=== PATIENT | female | born 1935 | race Caucasian/White ===

== ENCOUNTER 2022-02-26 23:38 | Inpatient (IN) | payer MEDICARE, OTHER ==
--- NOTE | 2022-02-27 00:03 | ED ---
Recheck HPI - General Chief Complaint: Extremity Injury, Lower Stated Complaint: Right hip injury Time Seen by Provider: 02/26/22 23:55 Source: EMS, RN notes reviewed, old records reviewed Mode of arrival: EMS Limitations: no limitations - History of Present Illness Initial Comments: This is an 86-year-old female to the emergency department for evaluation patient presents today for evaluation in transfer patient accepted in transfer for fall fall with right hip fracture. -: hour(s) Returns Today for: persistent/worsening pain related to initial visit Symptoms Since Prior Visit: worsening pain Treatments Prior to Arrival: Given Pain Meds on - Related Data Home Medications Medication Instructions Recorded Confirmed Cholecalciferol [Vitamin D3 (25 50 mcg PO DAILY 01/22/14 02/27/22 Mcg = 1000 Iu)] Potassium Chloride [Klor-Con 20] 20 meq PO BID 01/22/14 02/27/22 Brimonidine Tartrate [Alphagan P 1 drop LEFT EYE BID 02/27/22 02/27/22 0.2% Ophth Soln] Diclofenac Sodium Gel [Voltaren 2 - 4 gm TOPICAL TID PRN 02/27/22 02/27/22 Gel] Ferrous Sulfate [Iron (65 MG 325 mg PO Q48H 02/27/22 02/27/22 Elemental)] Furosemide [Lasix] 20 mg PO DAILY PRN 02/27/22 02/27/22 Isosorbide Mononitrate ER [Imdur] 60 mg PO BID 02/27/22 02/27/22 Latanoprost [Latanoprost 0.005%] 1 drop BOTH EYES HS 02/27/22 02/27/22 Levothyroxine Sodium 100 mcg PO DAILY 02/27/22 02/27/22 Omeprazole 40 mg PO DAILY 02/27/22 02/27/22 Timolol 0.5% Ophth Soln [Timoptic 1 drop LEFT EYE BID 02/27/22 02/27/22 0.5% Ophth Soln] hydrALAZINE HCL [Apresoline] 100 mg PO TID 02/27/22 02/27/22 Previous Rx's Medication Instructions Recorded Acetaminophen Tab [Tylenol] 650 mg PO Q4HR PRN tab 03/01/22 Aspirin 81 mg PO BID tab 03/01/22 Docusate [Colace] 100 mg PO BID #60 capsule 03/01/22 Fluticasone Nasal [place] [Flonase 2 spray EA NOSTRIL DAILY PRN ml 03/01/22 Nasal [place]] Gabapentin [Neurontin] 300 mg PO BID #6 cap 03/01/22 Magnesium Hydroxide [Milk of 2,400 mg PO DAILY PRN ml 03/01/22 Magnesia Concentrate] Multivitamins, Thera [Multivitamin 1 each PO DAILY@1200 tab 03/01/22 (formulary)] Na Phos,M-B/Na Phos,Di-Ba [Fleet 133 ml RECTAL DAILY PRN each 03/01/22 Adult] Sennosides-Docusate Sodium 2 each PO HS tab 03/01/22 [Senokot-S] traMADol HCl [Ultram] 50 mg PO Q6HR PRN #4 tab 03/01/22 HYDROcodone/APAP 5-325MG [[place] 5] 1 each PO Q4HR PRN #30 tab 03/02/22 Allergies Allergy/AdvReac Type Severity Reaction Status Date / Time No Known Allergies Allergy Verified 02/27/22 07:27 Review of Systems ROS Statement: Those systems with pertinent positive or pertinent negative responses have been documented in the HPI. ROS Other: All systems not noted in ROS Statement are negative. 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 GI BLEED RELATED TO PLAVIX FROM STENT IN 2012, 2 UNITS PRBC RECEIVED Last Myocardial Infarction Date:: 01-22-2014 History of Any Multi-Drug Resistant Organisms: None Reported Past Surgical History: Heart Catheterization With Stent, Orthopedic Surgery Additional Past Surgical History / Comment(s): HEART CATH IN 2012 AND 2013 WITH STENT TO RCA Past Anesthesia/Blood Transfusion Reactions: No Reported Reaction Date of Last Stent Placement:: 01-22-2014 Past Psychological History: No Psychological Hx Reported Past Alcohol Use History: None Reported Past Drug Use History: None Reported - Past Family History Mother Family Medical History: No Reported History Father Family Medical History: Liver Disease, Renal Disease General Exam Limitations: no limitations General appearance: alert, in no apparent distress, anxious Head exam: Present: atraumatic, normocephalic, normal inspection Eye exam: Present: normal appearance, PERRL, EOMI. Absent: scleral icterus, conjunctival injection, periorbital swelling ENT exam: Present: normal exam, mucous membranes moist Neck exam: Present: normal inspection. Absent: tenderness, meningismus, lymphadenopathy Respiratory exam: Present: normal lung sounds bilaterally. Absent: respiratory distress, wheezes, rales, rhonchi, stridor Cardiovascular Exam: Present: regular rate, normal rhythm, normal heart sounds. Absent: systolic murmur, diastolic murmur, rubs, gallop, clicks GI/Abdominal exam: Present: soft, normal bowel sounds. Absent: distended, tenderness, guarding, rebound, rigid Extremities exam: Present: tenderness (Right hip pain), normal capillary refill. Absent: full ROM, pedal edema, joint swelling, calf tenderness Back exam: Present: normal inspection Neurological exam: Present: alert, oriented X3, CN II-XII intact Psychiatric exam: Present: normal affect, normal mood Skin exam: Present: warm, dry, intact, normal color. Absent: rash Course Vital Signs 02/26/22 02/27/22 02/27/22 23:44 01:46 03:21 Temperature 98.3 F Pulse Rate 100 94 92 Respiratory 18 18 18 Rate Blood Pressure 176/94 154/114 157/92 O2 Sat by Pulse 96 94 L 95 Oximetry 02/27/22 02/27/22 02/27/22 05:11 08:40 14:00 Temperature Pulse Rate 82 78 70 Respiratory 18 16 18 Rate Blood Pressure 163/77 174/78 148/80 O2 Sat by Pulse 99 99 98 Oximetry - Reevaluation(s) Reevaluation #1: 02/27/22 Medical record is reviewed Patient informed results and questions answered Patient symptoms are improved here in the ER - Consultations Consultation #1: Spoke with orthopedics will admit the patient for surgery Medical Decision Making - Medical Decision Making 86 male presents today for evaluation. She presents for evaluation of fall, fol low with right hip pain. Positive right hip fracture. We will admit for surgical treatment - Lab Data Result diagrams: 03/02/22 06:18 02/28/22 06:28 Disposition Clinical Impression: Fall, Closed right hip fracture Disposition: ADMITTED IP TO THIS HOSP Condition: Stable Is patient prescribed a controlled substance at d/c from ED?: No Time of Disposition: 00:10
[2022-02-27] MEDS ORDERED: ONDANSETRON 4 MG/2 ML VIAL IVP PRN (00:04)
[2022-02-27] MEDS ORDERED: NALOXONE 0.4 MG/ML 1 ML VIAL IV PRN (00:04)
[2022-02-27] MEDS: SODIUM CHLORIDE 0.9% 1,000 ML IV SCH ×2 (00:23→13:49)
[2022-02-27] MEDS: MORPHINE SULFATE 4 MG/ML SYRINGE IV PRN ×4 (01:40→14:54)
[2022-02-27] MEDS ORDERED: traMADol 50 MG TAB PO PRN ×2 (09:58→15:08)
[2022-02-27] MEDS ORDERED: ACETAMINOPHEN TAB 325 MG TAB PO PRN (09:58)
[2022-02-27] MEDS ORDERED: MAGNESIUM HYDROXIDE 2,400 MG/10 ML CUP PO PRN (09:58)
[2022-02-27] MEDS ORDERED: HYDROmorphone 0.5 MG/0.5 ML SYRINGE IVP PRN ×3 (09:58)
[2022-02-27] MEDS ORDERED: NA PHOS,M-B/NA PHOS,DI-BA 133 ML ENEMA RECTAL PRN (09:58)
[2022-02-27] MEDS ORDERED: bisacodyL 10 MG SUPP RECTAL PRN (09:58)
[2022-02-27] MEDS ORDERED: HYDROcodone/APAP 5-325MG 1 EACH TAB PO PRN ×2 (10:04)
--- NOTE | 2022-02-27 10:31 | XR ---
EXAMINATION TYPE: XR chest 1V DATE OF EXAM: 02/27/2022 10:25 AM COMPARISON: none TECHNIQUE: XR chest 1V Frontal view of the chest. CLINICAL INDICATION:Female, 86 years old with history of Trauma; FINDINGS: Lungs/Pleura: There is no evidence of pleural effusion, focal consolidation, or pneumothorax. Pulmonary vascularity: Unremarkable. Heart/mediastinum: Cardiomediastinal silhouette is unremarkable. Musculoskeletal: Degenerative changes of the shoulder joints. Scoliosis changes to the spine. IMPRESSION: No acute cardiopulmonary disease/process.
--- NOTE | 2022-02-27 10:33 | XR ---
EXAMINATION TYPE: XR Hip RT and AP Pelvis DATE OF EXAM: 02/27/2022 10:24 AM INDICATION: Patient age:Female; 86 years old; Reason for study: reported right hip fracture; COMPARISON: None. TECHNIQUE: The right hip was examined in the frontal and lateral projections and a AP pelvis. FINDINGS: There is a fracture through the right basicervical femoral neck/intertrochanteric region wi th lucency extending to the metaphysis region. No additional fractures. Multilevel degeneration vidales es of the spine. Calcification projecting over the pelvis could represent degenerating calcified fibr oid. IMPRESSION: Varus angulated right femoral neck/intertrochanteric fracture.
[2022-02-27 11:25] LABS: Basophils # (A) 0.02 X 10*3/uL (0.00-0.10); Basophils % (A) 0.3 %; Eosinophils # (A) 0.02 X 10*3/uL (0.04-0.35); Eosinophils % (A) 0.3 %; HCT 30.3 % (37.2-46.3); HGB 9.8 g/dL (12.0-15.0); Immature Grans, Automated 0.3 %; Lymphocytes # (A) 1.01 X 10*3/uL (0.90-5.00); Lymphocytes % (A) 15.6 %; MCH 29.1 pg (27.0-32.0); MCHC 32.3 g/dL (32.0-37.0); MCV 89.9 fL (80.0-97.0); Mean Platelet Volume 9.7 fL (9.5-12.2); Monocytes # (A) 0.58 X 10*3/uL (0.20-1.00); Monocytes % (A) 8.9 %; NRBC Per 100 WBC 0 /100 WBCS (0.0-0.0); Neutrophils # (A) 4.84 X 10*3/uL (1.80-7.70); Neutrophils % (A) 74.6 %; Platelet Count 204 X 10*3/uL (140-440); RBC 3.37 X 10*6/uL (4.10-5.20); RDW 13.9 % (11.5-14.5); WBC 6.49 X 10*3/uL (4.50-10.00)
[2022-02-27 11:40] LABS: African American GFR (CKD) 53.5 (60.0-200.0); Albumin 3.5 g/dL (3.8-4.9); Albumin/Globulin Ratio 0.72 (1.60-3.17); Anion Gap 8.7 mmol/L (10.00-18.00); BUN/Creat Ratio 10.65 Ratio (12.00-20.00); Blood Urea Nitrogen 11.5 mg/dL (9.0-27.0); Calcium 8.6 mg/dL (8.7-10.3); Carbon Dioxide 26.3 mmol/L (20.0-27.5); Globulin 4.8 g/dL (1.6-3.3); Non-African American GFR(CKD) 46.1 (60.0-200.0); Potassium 3.3 mmol/L (3.5-5.5); Total Bilirubin 0.5 mg/dL (0.30-1.20); Total Protein 8.3 g/dL (6.2-8.2)
[2022-02-27] MEDS ORDERED: POTASSIUM CHLORIDE ER 20 MEQ TAB.ER PO STA (15:08)
--- NOTE | 2022-02-27 15:14 | P.CONS ---
History of Present Illness - Reason for Consult Preoperative clearance - History of Present Illness Patient is a present at 86 yo female admitted to the hospital after mechanical fall and fracture of the right hip, intertrochanteric fracture. Wheezing was consulted for preoperative clearance patient does have history of coronary artery disease EKG is not available at this time will be ordered patient doesn't have any symptoms of chest pain patient had stents placed many years ago more than 10 years ago and patient is presently on aspirin after a few months of Plavix which led to GI bleed. After GI bleed Plavix was discontinued and patient continued to be only on aspirin. Patient denied any fever chills. Patient is bit dehydrated with the low sodium of 133 and patient is receiving IV fluids patient denied any diarrhea nausea vomiting. REVIEW OF SYSTEMS: CONSTITUTIONAL: No fever, no malaise, no fatigue. HEENT: No recent visual problems or hearing problems. Denied any sore throat. CARDIOVASCULAR: No chest pain, orthopnea, PND, no palpitations, no syncope. PULMONARY: No shortness of breath, no cough, no hemoptysis. GASTROINTESTINAL: No diarrhea, no nausea, no vomiting, no abdominal pain. NEUROLOGICAL: No headaches, no weakness, no numbness. HEMATOLOGICAL: Denies any bleeding or petechiae. GENITOURINARY: Denies any burning micturition, frequency, or urgency. MUSCULOSKELETAL/RHEUMATOLOGICAL: As mentioned in the interval history pain in the right hip ENDOCRINE: Denies any polyuria or polydipsia. The rest of the 14-point review of systems is negative. PHYSICAL EXAMINATION: GENERAL: The patient is alert and oriented x3, not in any acute distress. Well developed, well nourished. HEENT: Pupils are round and equally reacting to light. EOMI. No scleral icterus. No conjunctival pallor. Normocephalic, atraumatic. No pharyngeal erythema. No thyromegaly. CARDIOVASCULAR: S1 and S2 present. No murmurs, rubs, or gallops. PULMONARY: Chest is clear to auscultation, no wheezing or crackles. ABDOMEN: Soft, nontender, nondistended, normoactive bowel sounds. No palpable organomegaly. MUSCULOSKELETAL: Deferred to orthopedic surgery EXTREMITIES: No cyanosis, clubbing, or pedal edema. NEUROLOGICAL: Gross neurological examination did not reveal any focal deficits. SKIN: No rashes. Assessment and plan -Right hip intertrochanteric fracture, preoperative clearance patient is low operative risk for hip surgery. We will obtain an EKG to make sure there are no acute ST-T wave changes patient doesn't have any symptoms of chest pain at this time. Patient is fairly functional. Pain management: Avoid opiates, benzodiazepines barbiturates and anticholinergic medications patient will be started on tramadol and Tylenol for pain if that doesn't help may be a lower dose norco is okay, Dilaudid will be discontinued. Next line-coronary artery disease patient will be resumed on aspirin whenever it's appropriate continue with statin. -Type 2 diabetes mellitus patient was started on sliding scale insulin hold off oral medications -Hypertension -hyperlipidemia DVT prophylaxis: As per primary service Past Medical History Past Medical History: Coronary Artery Disease (CAD), Chest Pain / Angina, Heart Failure, CVA/TIA, Diabetes Mellitus, GI Bleed, Hyperlipidemia, Hypertension, Myocardial Infarction ([place]), Osteoarthritis (OA), Renal Disease Additional Past Medical History / Comment(s): 2012 CVA post stent placement/had L sided weakness but improved with therapy, 2012 upper GI bleed r/t plavix, iron anemia, NIDDM pt states no longer on any diabetic medications, neuropathy bilateral feet, chronic back pain, CKD, hypothyroid, L eye glaucoma/R eye macular degeneration/vision is very poor/unable to read and write. Last Myocardial Infarction Date:: 01-22-2014 History of Any Multi-Drug Resistant Organisms: None Reported Past Surgical History: Appendectomy, Heart Catheterization, Heart Catheterization With Stent, Orthopedic Surgery Additional Past Surgical History / Comment(s): EGD, colonoscopy, bilateral cataract removals. Past Anesthesia/Blood Transfusion Reactions: No Reported Reaction Date of Last Stent Placement:: 2016 Past Psychological History: No Psychological Hx Reported Additional Psychological History / Comment(s): Pt resides in her own home. There are 3 steps to get into the home and she stays on the first level of her home. She has very poor vision, she cannot see well enough to read or write. Her lisa-in-law manages her medications and will bring meals over. Pt also cooks some. Pt states she is independent with washing up and dressing. Family takes her to appts. Smoking Status: Never smoker Past Alcohol Use History: None Reported Past Drug Use History: None Reported - Past Family History Mother Family Medical History: No Reported History Additional Family Medical History / Comment(s): Mother was healthy and worked up until the age of 77yrs. Father Family Medical History: Liver Disease, Renal Disease Medications and Allergies Home Medications Medication Instructions Recorded Confirmed Type Aspirin 81 mg PO DAILY 01/22/14 02/27/22 History Cholecalciferol [Vitamin D3 (25 50 mcg PO DAILY 01/22/14 02/27/22 History Mcg = 1000 Iu)] Gabapentin [Neurontin] 300 mg PO BID 01/22/14 02/27/22 History Potassium Chloride [Klor-Con 20] 20 meq PO BID 01/22/14 02/27/22 History Brimonidine Tartrate [Alphagan P 1 drop LEFT EYE BID 02/27/22 02/27/22 History 0.2% Ophth Soln] Diclofenac Sodium Gel [Voltaren 2 - 4 gm TOPICAL TID PRN 02/27/22 02/27/22 History Gel] Ferrous Sulfate [Feosol] 325 mg PO Q48H 02/27/22 02/27/22 History Furosemide [Lasix] 20 mg PO DAILY PRN 02/27/22 02/27/22 History HYDROcodone/APAP 7.5-325MG [[place] 1 tab PO Q12H 02/27/22 02/27/22 History 7.5-325] Isosorbide Mononitrate ER [Imdur] 60 mg PO BID 02/27/22 02/27/22 History Latanoprost [Latanoprost 0.005%] 1 drop BOTH EYES HS 02/27/22 02/27/22 History Levothyroxine Sodium 100 mcg PO DAILY 02/27/22 02/27/22 History Losartan Potassium 100 mg PO DAILY 02/27/22 02/27/22 History Omeprazole 40 mg PO DAILY 02/27/22 02/27/22 History Timolol 0.5% Ophth Soln [Timoptic 1 drop LEFT EYE BID 02/27/22 02/27/22 History 0.5% Ophth Soln] hydrALAZINE HCL [Apresoline] 100 mg PO TID 02/27/22 02/27/22 History Allergies Allergy/AdvReac Type Severity Reaction Status Date / Time No Known Allergies Allergy Verified 02/27/22 07:27 Physical Exam Vitals: Vital Signs Temp Pulse Pulse Resp BP BP Pulse Ox 02/27/22 14:49 98.1 F 72 19 192/76 97 02/27/22 14:00 70 18 148/80 98 02/27/22 08:40 78 16 174/78 99 02/27/22 05:11 82 18 163/77 99 02/27/22 03:21 92 18 157/92 95 02/27/22 01:46 94 18 154/114 94 L 02/26/22 23:44 98.3 F 100 18 176/94 96 Intake and Output 02/27/22 02/27/22 02/27/22 06:59 14:59 22:59 Output Total 900 Balance -900 Output: Urine 900 Other: Weight 62.596 kg 62.596 kg Results CBC & Chem 7: 02/27/22 05:22 02/27/22 05:22 Labs: Abnormal Lab Results - Last 24 Hours (Table) 02/27/22 02/27/22 Range/Units 05:22 05:22 RBC 3.37 L (4.10-5.20) X 10*6/uL Hgb 9.8 L (12.0-15.0) g/dL Hct 30.3 L (37.2-46.3) % Eosinophils # 0.02 L (0.04-0.35) X 10*3/uL Sodium 133 L (135-145) mmol/L Potassium 3.3 L (3.5-5.5) mmol/L Anion Gap 8.70 L (10.00-18.00) mmol/L Est GFR (CKD-EPI)AfAm 53.5 L (60.0-200.0) Est GFR (CKD-EPI)NonAf 46.1 L (60.0-200.0) BUN/Creatinine Ratio 10.65 L (12.00-20.00) Ratio Calcium 8.6 L (8.7-10.3) mg/dL Total Protein 8.3 H (6.2-8.2) g/dL Albumin 3.5 L (3.8-4.9) g/dL Globulin 4.8 H (1.6-3.3) g/dL Albumin/Globulin Ratio 0.72 L (1.60-3.17) g/dL
--- NOTE | 2022-02-27 17:08 | P.HPOR ---
History of Present Illness H&P Date: 02/27/22 Chief Complaint: Right hip fracture Patient is a pleasant 86 yo female seen at bedside this am. She was admitted through the ED last evening after suffering from a fall at home in [place] resulting in a fracture of the right hip. She was transferred to [facility] for further intervention. She has hip pain as expected. She denies numbness, calf pain, fever, chills, chest pain or SOB. She has no other complaints currently. Review of Systems All systems: negative Constitutional: Denies chills, Denies fever Eyes: denies blurred vision, denies pain Ears, nose, mouth and throat: Denies headache, Denies sore throat Cardiovascular: Denies chest pain, Denies shortness of breath Respiratory: Denies cough Gastrointestinal: Denies abdominal pain, Denies diarrhea, Denies nausea, Denies vomiting Genitourinary: Denies dysuria, Denies hematuria Musculoskeletal: Denies myalgias Integumentary: Denies pruritus, Denies rash Neurological: Denies numbness, Denies weakness Psychiatric: Denies anxiety, Denies depression Endocrine: Denies fatigue, Denies weight change Past Medical History Past Medical History: Coronary Artery Disease (CAD), Chest Pain / Angina, Heart Failure, CVA/TIA, Diabetes Mellitus, GI Bleed, Hyperlipidemia, Hypertension, Myocardial Infarction ([place]), Osteoarthritis (OA), Renal Disease Additional Past Medical History / Comment(s): 2012 CVA post stent placement/had L sided weakness but improved with therapy, 2012 upper GI bleed r/t plavix, iron anemia, NIDDM pt states no longer on any diabetic medications, neuropathy bilateral feet, chronic back pain, CKD, hypothyroid, L eye glaucoma/R eye macular degeneration/vision is very poor/unable to read and write. Last Myocardial Infarction Date:: 01-22-2014 History of Any Multi-Drug Resistant Organisms: None Reported Past Surgical History: Appendectomy, Heart Catheterization, Heart Catheterization With Stent, Orthopedic Surgery Additional Past Surgical History / Comment(s): EGD, colonoscopy, bilateral cataract removals. Past Anesthesia/Blood Transfusion Reactions: No Reported Reaction Date of Last Stent Placement:: 2016 Past Psychological History: No Psychological Hx Reported Additional Psychological History / Comment(s): Pt resides in her own home. There are 3 steps to get into the home and she stays on the first level of her home. She has very poor vision, she cannot see well enough to read or write. Her lisa-in-law manages her medications and will bring meals over. Pt also cooks some. Pt states she is independent with washing up and dressing. Family takes her to appts. Smoking Status: Never smoker Past Alcohol Use History: None Reported Past Drug Use History: None Reported - Past Family History Mother Family Medical History: No Reported History Additional Family Medical History / Comment(s): Mother was healthy and worked up until the age of 77yrs. Father Family Medical History: Liver Disease, Renal Disease Medications and Allergies Home Medications Medication Instructions Recorded Confirmed Type Aspirin 81 mg PO DAILY 01/22/14 02/27/22 History Cholecalciferol [Vitamin D3 (25 50 mcg PO DAILY 01/22/14 02/27/22 History Mcg = 1000 Iu)] Gabapentin [Neurontin] 300 mg PO BID 01/22/14 02/27/22 History Potassium Chloride [Klor-Con 20] 20 meq PO BID 01/22/14 02/27/22 History Brimonidine Tartrate [Alphagan P 1 drop LEFT EYE BID 02/27/22 02/27/22 History 0.2% Ophth Soln] Diclofenac Sodium Gel [Voltaren 2 - 4 gm TOPICAL TID PRN 02/27/22 02/27/22 History Gel] Ferrous Sulfate [Feosol] 325 mg PO Q48H 02/27/22 02/27/22 History Furosemide [Lasix] 20 mg PO DAILY PRN 02/27/22 02/27/22 History HYDROcodone/APAP 7.5-325MG [[place] 1 tab PO Q12H 02/27/22 02/27/22 History 7.5-325] Isosorbide Mononitrate ER [Imdur] 60 mg PO BID 02/27/22 02/27/22 History Latanoprost [Latanoprost 0.005%] 1 drop BOTH EYES HS 02/27/22 02/27/22 History Levothyroxine Sodium 100 mcg PO DAILY 02/27/22 02/27/22 History Losartan Potassium 100 mg PO DAILY 02/27/22 02/27/22 History Omeprazole 40 mg PO DAILY 02/27/22 02/27/22 History Timolol 0.5% Ophth Soln [Timoptic 1 drop LEFT EYE BID 02/27/22 02/27/22 History 0.5% Ophth Soln] hydrALAZINE HCL [Apresoline] 100 mg PO TID 02/27/22 02/27/22 History Allergies Allergy/AdvReac Type Severity Reaction Status Date / Time No Known Allergies Allergy Verified 02/27/22 07:27 Physical Examination Inspection of the lower extremities shows a shortened externally rotated right lower extremity. There are no wounds, erythema or ecchymoses. The knee is nontender without effusion. She has painless range of motion of the knee, ankle foot and toes. Range of motion of the right hip is not tested due to fracture. Neurovascular status is intact throughout the lower extremity with motor and sensation fully intact. Calf is soft and nontender. 2+ dorsalis pedis pulse and less than 2 second cap refill is present. Results - Labs Labs: Abnormal Lab Results - Last 24 Hours (Table) 02/27/22 02/27/22 Range/Units 05:22 05:22 RBC 3.37 L (4.10-5.20) X 10*6/uL Hgb 9.8 L (12.0-15.0) g/dL Hct 30.3 L (37.2-46.3) % Eosinophils # 0.02 L (0.04-0.35) X 10*3/uL Sodium 133 L (135-145) mmol/L Potassium 3.3 L (3.5-5.5) mmol/L Anion Gap 8.70 L (10.00-18.00) mmol/L Est GFR (CKD-EPI)AfAm 53.5 L (60.0-200.0) Est GFR (CKD-EPI)NonAf 46.1 L (60.0-200.0) BUN/Creatinine Ratio 10.65 L (12.00-20.00) Ratio Calcium 8.6 L (8.7-10.3) mg/dL Total Protein 8.3 H (6.2-8.2) g/dL Albumin 3.5 L (3.8-4.9) g/dL Globulin 4.8 H (1.6-3.3) g/dL Albumin/Globulin Ratio 0.72 L (1.60-3.17) g/dL H & H 02/27/22 Range/Units 05:22 Hgb 9.8 L (12.0-15.0) g/dL Hct 30.3 L (37.2-46.3) % Result Diagrams: 02/27/22 05:22 02/27/22 05:22 - Diagnostic results Hip x-ray: report reviewed, image reviewed (displaced right IT fracture) Assessment and Plan (1) Closed right hip fracture Narrative/Plan: Patient has been reviewed with Dr. Hancock. Plan is to proceed with surgical intervention tomorrow, 02/28/22, including gamma nail insertion/fixation for her right IT hip fracture. The procedure, risks, benefits have been reviewed with the patient. She desires to proceed. She will be NPO after midnight. Medical clearance and management has been requested. Procedure and consent ordered. She will likely need assistance with placement post operatively. Current Visit: Yes Status: Acute Code(s): S72.001A - FRACTURE OF UNSP PART OF NECK OF RIGHT FEMUR, INIT SNOMED Code(s): 106179086 Time with Patient: Less than 30
[2022-02-27] MEDS ORDERED: HYDROcodone/APAP 7.5-325MG 1 EACH TAB PO PRN (17:59)
[2022-02-27] MEDS ORDERED: HYDROcodone/APAP 7.5-325MG 1 EACH TAB PO SCH (18:30)
[2022-02-27] MEDS: CHOLECALCIFEROL 25 MCG (1000 IU) TABLET PO SCH (18:52)
[2022-02-27] MEDS: FLUTICASONE 50MCG/SPRAY NASAL 16GM EA NOSTRIL PRN (20:44)
[2022-02-27] MEDS: BRIMONIDINE TARTRATE 0.2% DROPS 5 ML BTL LEFT EYE SCH (20:44)
[2022-02-27] MEDS: GABAPENTIN 300 MG CAP PO SCH (20:44)
[2022-02-27] MEDS: ISOSORBIDE MONONITRATE ER 60 MG TAB.ER.24H PO SCH (20:44)
[2022-02-27] MEDS: SENNOSIDES-DOCUSATE SODIUM 1 EACH TAB PO SCH (20:44)
[2022-02-27] MEDS ORDERED: LATANOPROST 0.005% OPHTH DROPS 2.5 ML BTL BOTH EYES SCH (21:00)
[2022-02-27] MEDS ORDERED: TIMOLOL 0.5% OPHTH DROPS 5 ML BTL LEFT EYE SCH (21:00)
[2022-02-27] MEDS: hydrALAZINE HCL 50 MG TAB PO SCH (21:02)
[2022-02-27 21:51] LABS: Glucose,Whole Blood 118 mg/dL (70-110)
[2022-02-28] MEDS: MORPHINE SULFATE 2 MG/ML SYRINGE IVP PRN ×3 (00:47→12:12)
[2022-02-28] MEDS: SODIUM CHLORIDE 0.9% 1,000 ML IV SCH ×2 (03:28→18:16)
[2022-02-28 06:00] LABS: Glucose,Whole Blood 101 mg/dL (70-110)
[2022-02-28] MEDS: LEVOTHYROXINE 100 MCG TAB PO SCH (06:35)
[2022-02-28 09:32] LABS: Basophils # (A) 0.02 X 10*3/uL (0.00-0.10); Basophils % (A) 0.3 %; Eosinophils # (A) 0.12 X 10*3/uL (0.04-0.35); Eosinophils % (A) 1.8 %; HCT 26.6 % (37.2-46.3); HGB 8.5 g/dL (12.0-15.0); Immature Grans, Automated 0.4 %; Lymphocytes # (A) 0.73 X 10*3/uL (0.90-5.00); Lymphocytes % (A) 10.9 %; MCH 28.7 pg (27.0-32.0); MCV 89.9 fL (80.0-97.0); Mean Platelet Volume 10.2 fL (9.5-12.2); Monocytes # (A) 0.71 X 10*3/uL (0.20-1.00); Monocytes % (A) 10.6 %; NRBC Per 100 WBC 0 /100 WBCS (0.0-0.0); Neutrophils # (A) 5.09 X 10*3/uL (1.80-7.70); Platelet Count 169 X 10*3/uL (140-440); RBC 2.96 X 10*6/uL (4.10-5.20); RDW 13.9 % (11.5-14.5)
[2022-02-28 09:47] LABS: African American GFR (CKD) 52.3 (60.0-200.0); Anion Gap 5.4 mmol/L (10.00-18.00); Blood Urea Nitrogen 12.1 mg/dL (9.0-27.0); Calcium 8.6 mg/dL (8.7-10.3); Carbon Dioxide 24.6 mmol/L (20.0-27.5); Non-African American GFR(CKD) 45.1 (60.0-200.0); Potassium 3.8 mmol/L (3.5-5.5)
[2022-02-28 10:23] LABS: Prothrombin Time 11.3 sec (9.9-11.9)
[2022-02-28] MEDS: hydrALAZINE HCL 50 MG TAB PO SCH ×3 (10:34→20:32)
[2022-02-28] MEDS: ISOSORBIDE MONONITRATE ER 60 MG TAB.ER.24H PO SCH ×2 (10:34→20:33)
[2022-02-28] MEDS: FERROUS SULFATE 325 MG TAB PO SCH ×2 (10:35→10:39)
[2022-02-28] MEDS: BRIMONIDINE TARTRATE 0.2% DROPS 5 ML BTL LEFT EYE SCH ×2 (10:35→20:33)
[2022-02-28] MEDS: TIMOLOL 0.5% OPHTH DROPS 5 ML BTL LEFT EYE SCH ×2 (10:38→13:32)
[2022-02-28] MEDS: GABAPENTIN 300 MG CAP PO SCH ×2 (10:38→20:33)
[2022-02-28] MEDS: CHOLECALCIFEROL 25 MCG (1000 IU) TABLET PO SCH (10:47)
[2022-02-28] MEDS: FLUTICASONE 50MCG/SPRAY NASAL 16GM EA NOSTRIL PRN (10:47)
[2022-02-28 11:35] LABS: Glucose,Whole Blood 104 mg/dL (70-110)
[2022-02-28] MEDS: MULTIVITAMINS, THERA 1 EACH TAB PO SCH (12:08)
[2022-02-28] MEDS ORDERED: LACTATED RINGERS 1,000 ML IV ONE ×2 (13:31)
[2022-02-28] MEDS: LATANOPROST 0.005% OPHTH DROPS 2.5 ML BTL BOTH EYES SCH (13:32)
[2022-02-28] MEDS ORDERED: ONDANSETRON 4 MG/2 ML VIAL IVP ONE (13:45)
[2022-02-28] MEDS ORDERED: NALOXONE 0.4 MG/ML 1 ML VIAL IV PRN (14:03)
[2022-02-28] MEDS ORDERED: HYDROmorphone 0.5 MG/0.5 ML SYRINGE IVP PRN ×2 (14:03)
[2022-02-28] MEDS ORDERED: MIDAZOLAM 2 MG/2 ML VIAL ONE (14:33)
[2022-02-28] MEDS ORDERED: PROPOFOL 10 MG/ML 20 ML VIAL IV ONE (14:33)
[2022-02-28] MEDS ORDERED: fentaNYL (PF) 50 MCG/ML 2 ML AMP ONE (14:33)
[2022-02-28] MEDS ORDERED: KETAMINE 10 MG/ML 20 ML VIAL ONE (14:33)
[2022-02-28] MEDS ORDERED: PHENYLEPHRINE-0.9% NACL SYG 1,000 MCG/10 ML SYRINGE ONE (14:33)
--- NOTE | 2022-02-28 15:29 | P.PN ---
Subjective Progress Note Date: 02/28/22 - Reason for Consult Preoperative clearance - History of Present Illness Patient is a present at 86 yo female admitted to the hospital after mechanical f all and fracture of the right hip, intertrochanteric fracture. Wheezing was consulted for preoperative clearance patient does have history of coronary artery disease EKG is not available at this time will be ordered patient doesn't have any symptoms of chest pain patient had stents placed many years ago more than 10 years ago and patient is presently on aspirin after a few months of Plavix which led to GI bleed. After GI bleed Plavix was discontinued and patient continued to be only on aspirin. Patient denied any fever chills. Patient is bit dehydrated with the low sodium of 133 and patient is receiving IV fluids patient denied any diarrhea nausea vomiting. 02/28/2022 Patient is seen in follow-up this morning currently sitting up in the bed reporting right hip pain and is scheduled to undergo surgical intervention with orthopedics today and currently nothing by mouth. Patient is slightly anxious due to her pain and waiting for surgery asking when it will be. Patient denies chest pain, shortness of breath, or palpitations. Patient is afebrile and again is currently nothing by mouth at this time. Home medications have been resumed and patient to continue with pain management per orthopedics. Patient is continued on gentle IV hydration and will continue for now with follow-up labs recommended. Sodium remains 133 and potassium is improved at 3.8 today. Patient does have a past medical history of diabetes and recommend Accu-Cheks before meals and at bedtime and will use sliding scale as needed. Patient reports she does not take any medications for the diabetes. Review of systems: Constitutional: No reports of fatigue, fever, or chills Cardiovascular: No reports of chest pain or palpitations Respiratory: No reports of shortness of breath or cough GI: No reports of nausea, vomiting, or diarrhea : No reports of dysuria or retention Neurovascular: reports of generalized weakness and right hip pain All medications have been reviewed PHYSICAL EXAMINATION: GENERAL: The patient is alert and oriented x3, not in any acute distress. Slightly anxious. Well developed, well nourished. HEENT: Pupils are round and equally reacting to light. EOMI. No scleral icterus. No conjunctival pallor. Normocephalic, atraumatic. No pharyngeal erythema. No thyromegaly. CARDIOVASCULAR: S1 and S2 present. No murmurs, rubs, or gallops. PULMONARY: Chest is clear to auscultation, no wheezing or crackles. ABDOMEN: Soft, nontender, nondistended, normoactive bowel sounds. No palpable organomegaly. MUSCULOSKELETAL: Right lower extremity is externally rotated and shortened on exam. EXTREMITIES: No cyanosis, clubbing, or pedal edema. NEUROLOGICAL: Gross neurological examination did not reveal any focal deficits. Diffusely weak SKIN: No rashes. Assessment: -Right hip intertrochanteric fracture, status post mechanical fall. preoperative clearance patient is low operative risk for hip surgery. -coronary artery disease -Type 2 diabetes mellitus patient was started on sliding scale insulin hold off oral medications -Hypertension -hyperlipidemia -GI prophylaxis -DVT prophylaxis: As per primary service -Full code Plan: Recommend continue with nothing by mouth status and monitoring Accu-Cheks before meals and at bedtime as patient does have history of diabetes. Patient scheduled tentatively to undergo right hip repair status post mechanical fall with orthopedics today Resume home medications post surgery Recommend continue gentle IV hydration and will follow-up with repeat labs in the a.m. Patient's risk versus benefits were discussed and patient although given her age is considered low risk and willing to proceed with the surgery. Patient currently has an indwelling Hernandez catheter and will continue until postoperatively Recommend PT/OT therapy evaluation Will await surgical report The impression and plan of care has been dictated by Breana Lin, Nurse Practitioner as directed. Dr. David MD I have performed a history and examination and MDM of this patient, discussed the same with the dictator, and agree with the dictator's assessment and plan as written ,documented as a scribe. Based on total visit time, I have performed more than 50% of the visit. Objective - Vital Signs Vital signs: Vital Signs Temp 99.1 F 02/28/22 13:35 Pulse 82 02/28/22 13:35 Resp 16 02/28/22 13:35 BP 202/90 02/28/22 13:35 Pulse Ox 98 02/28/22 13:35 FiO2 Intake & Output 02/27/22 02/28/22 02/28/22 18:59 06:59 18:59 Intake Total 100 250 Output Total 1200 Balance 100 -1200 250 Weight 62.596 kg Intake: IV 250 Oral 100 Output: Urine 1200 Other: Voiding Method Indwelling Catheter Indwelling Catheter - Labs CBC & Chem 7: 02/28/22 06:28 02/28/22 06:28 Labs: Abnormal Lab Results - Last 24 Hours (Table) 02/27/22 02/28/22 02/28/22 Range/Units 21:50 06:28 06:28 RBC 2.96 L (4.10-5.20) X 10*6/uL Hgb 8.5 L (12.0-15.0) g/dL Hct 26.6 L (37.2-46.3) % Lymphocytes # 0.73 L (0.90-5.00) X 10*3/uL Sodium 133 L (135-145) mmol/L Anion Gap 5.40 L (10.00-18.00) mmol/L Est GFR (CKD-EPI)AfAm 52.3 L (60.0-200.0) Est GFR (CKD-EPI)NonAf 45.1 L (60.0-200.0) BUN/Creatinine Ratio 11.00 L (12.00-20.00) Ratio POC Glucose (mg/dL) 118 H (70-110) mg/dL Calcium 8.6 L (8.7-10.3) mg/dL
--- NOTE | 2022-02-28 16:20 | FL ---
EXAMINATION TYPE: FL guidance operating room, XR Hip Limited RT DATE OF EXAM: 02/28/2022 COMPARISON: NONE HISTORY: 86 year-old female right hip ORIF FINDINGS: Intraoperative fluoroscopy during placement of antegrade intramedullary nail and hip screw across the patient's right IT fracture. Alignment grossly anatomic. FLUOROSCOPY Fluoroscopy time of 49 seconds was used during proximal right femur fixation. 2 image/s document/s t he procedure. IMPRESSION: Intraoperative fluoroscopy as above.
[2022-02-28] MEDS ORDERED: HYDROmorphone 0.5 MG/0.5 ML SYRINGE IVP ONE (16:21)
[2022-02-28 16:23] LABS: Glucose,Whole Blood 92 mg/dL (70-110)
--- NOTE | 2022-02-28 16:43 | XR ---
EXAMINATION TYPE: XR Hip Limited RT DATE OF EXAM: 02/28/2022 4:30 PM INDICATION: Patient age:Female; 86 years old; Reason for study: post op; PH[facility]. COMPARISON: Right hip radiograph 02/27/2022, fluoroscopic images of the right hip 02/28/2022. TECHNIQUE: The right hip was examined in frontal projection. FINDINGS: Postsurgical changes of the right hip with intramedullary shanelle and transverse fixation screw involving the proximal femur. Appropriate alignment of the hardware. No dislocation. Improved alignm ent of the known basicervical femoral neck/intertrochanteric fracture. There is associated soft tissu e edema and gas with skin inga. IMPRESSION: Postsurgical fixation changes of the right hip with improved alignment of known basicervical femoral neck/intertrochanteric fracture. Appropriate alignment of the hardware.
[2022-02-28] MEDS: HYDROmorphone 0.5 MG/0.5 ML SYRINGE IVP PRN (18:34)
--- NOTE | 2022-02-28 19:31 | OP ---
OPERATIVE REPORT PREOPERATIVE DIAGNOSIS: Right closed intertrochanteric hip fracture. POSTOPERATIVE DIAGNOSIS: Right closed intertrochanteric hip fracture. PROCEDURE PERFORMED: Right intramedullary hip screw fixation for right intertrochanteric hip fracture. ANESTHESIA: Spinal with sedation. ESTIMATED BLOOD LOSS: 50 mL. TOURNIQUET: None. DRAINS: None. COMPLICATIONS: None apparent. DISPOSITION: Postanesthesia care unit. INDICATIONS: Irma is a very pleasant 86-year-old female, who lives independently at home. She has slipped and fell onto her right hip. She initially presented to [facility]. She was then found to have a right intertrochanteric hip fracture. She was then transferred to [facility]. She was admitted to my service. Preoperative clearance was done by the medical service. Recommendation is for intramedullary hip screw fixation for her right intertrochanteric hip fracture. The risks of procedure were discussed with her and her family in detail. These risks include, but are not limited to risk of infection, nerve damage, bleeding, pain, and a small risk of deep vein thrombosis, which could lead to fatal pulmonary embolism. Further risks include failure of the fracture to heal, failure of the hardware and deep infection which could necessitate further surgical procedure. All of her questions with regard to the procedure were answered to her satisfaction. Appropriate informed consent was obtained. DESCRIPTION OF THE PROCEDURE: The patient was identified in the preoperative holding area. Surgical site was marked by both the patient and myself. She was given 2 g of Ancef IV for prophylactic purposes. She was then transported to the operative suite. She was placed supine on the operating room table. Spinal anesthetic was then administered and dosed per the Anesthesia without apparent complication. She was then transferred to the fracture table. She was placed well-padded onto the fracture table. The fluoroscopy was brought in. The fracture was then reduced utilizing traction and rotation. When the reduction was near anatomic, we proceeded. The patient's right lower extremity was then prepped and draped in usual sterile fashion. A standard surgical pause was undertaken to ensure that we were operating the correct site and that appropriate preoperative antibiotics were given. All staff in room were in agreement and we proceeded. The tip of the greater trochanter was then localized. An approximate 3 cm incisions starting at the tip of the greater trochanter, extending proximally in line with the shaft of the femur was then made with a 10 blade scalpel. Dissection was carried down sharply to the tensor fascia. The tensor fascia was then incised in line with the incision. This gave me good access to the tip of the greater trochanter. The curved awl was then placed on the medial aspect of the tip of the greater trochanter. The threaded guide pin was then advanced down to the center of the femoral shaft. Again, this was performed with and confirmed by fluoroscopic imaging. The proximal femur was then over-reamed with the starting drill. The threaded guide pin was removed and a ball-tipped guidewire was then placed down the shaft of the femur. Again, this placement was confirmed with fluoroscopic imaging. I then proceeded to ream the femoral shaft. I started with a 9 mm reamer and incrementally increased up to a 12-1/2 mm reamer. I then had the product representative open a [employer] Gamma nail. It was a 125 degree by 11 mm x 180 mm nail. This was assembled on the back table by the surgical services coordinator. The gamma nail was then inserted over the ball-tipped guidewire. The ball-tipped guidewire was then removed. I then proceeded with placement of the hip screw. A second small stab incision was made on the lateral thigh. The threaded guide pin was then advanced into the center of the femoral head on both AP and lateral views. The tip-apex distance was appropriate. This was confirmed with fluoroscopic imaging. I then over-reamed the threaded guide pin to 100 mm. I then had the product representative open a 100 mm partially-threaded cannulated hip screw. The hip screw was then advanced over the threaded guide pin. It was advanced deep into the center of the femoral head. Her bone quality was excellent. The hip screw had an excellent purchase in bone. The tip-apex distance was appropriate. I then tightened down the set screw and backed it off 1/4 turn to allow for compression at the fracture site. I then proceeded to place the distal locking screw. Again, a third small incision was made on the lateral thigh. A 32.5 mm x 5 mm distal locking screw was then placed through the nail using standard technique. Again, fluoroscopic imaging was used to confirm its placement through the gamma nail and that this length was appropriate as well. At this point, no further work was deemed necessary. Final fluoroscopic images were taken. The gamma nail was within the center of the canal of the proximal femur. The hip screw was placed deep into the center of the femoral head on both AP and lateral views. The tip-apex distance was appropriate. The distal locking screw was through the nail and was of appropriate length. At this point in time, no further work was deemed necessary. The jig was removed. The wounds were then thoroughly irrigated with sterile saline solution with antibiotic added. The tensor fascia was then closed with 0 Vicryl interrupted suture. Subcutaneous tissue was closed with 2-0 Vicryl interrupted suture, and the skin was closed with stainless steel inga. All sponge and needle counts were deemed correct prior to closure. The patient tolerated the procedure without apparent complication. She was transferred to recovery room in stable condition. MMIMANIL / FLORESN: [id number] /
[2022-02-28] MEDS: HYDROcodone/APAP 10-325MG 1 EACH TAB PO PRN (20:32)
[2022-02-28] MEDS: SENNOSIDES-DOCUSATE SODIUM 1 EACH TAB PO SCH (20:32)
[2022-02-28] MEDS: ASPIRIN 81 MG PO SCH (20:33)
[2022-02-28 20:45] LABS: Glucose,Whole Blood 174 mg/dL (70-110)
[2022-03-01] MEDS: HYDROmorphone 0.5 MG/0.5 ML SYRINGE IVP PRN (00:12)
[2022-03-01] MEDS: LEVOTHYROXINE 100 MCG TAB PO SCH (06:10)
[2022-03-01] MEDS: HYDROcodone/APAP 10-325MG 1 EACH TAB PO PRN ×3 (06:10→21:14)
[2022-03-01 06:28] LABS: Glucose,Whole Blood 123 mg/dL (70-110)
[2022-03-01] MEDS: SODIUM CHLORIDE 0.9% 1,000 ML IV SCH ×2 (06:58→21:06)
[2022-03-01] MEDS: hydrALAZINE HCL 50 MG TAB PO SCH ×3 (08:13→21:07)
[2022-03-01] MEDS: ASPIRIN 81 MG PO SCH ×2 (08:13→21:06)
[2022-03-01] MEDS: CHOLECALCIFEROL 25 MCG (1000 IU) TABLET PO SCH (08:13)
[2022-03-01] MEDS: ISOSORBIDE MONONITRATE ER 60 MG TAB.ER.24H PO SCH ×2 (08:14→21:06)
[2022-03-01] MEDS: GABAPENTIN 300 MG CAP PO SCH ×2 (10:31→21:07)
[2022-03-01] MEDS: BRIMONIDINE TARTRATE 0.2% DROPS 5 ML BTL LEFT EYE SCH ×2 (10:45→21:13)
[2022-03-01] MEDS: TIMOLOL 0.5% OPHTH DROPS 5 ML BTL LEFT EYE SCH ×2 (10:46→12:41)
[2022-03-01 11:11] LABS: Basophils # (A) 0.02 X 10*3/uL (0.00-0.10); Basophils % (A) 0.3 %; Eosinophils # (A) 0.03 X 10*3/uL (0.04-0.35); Eosinophils % (A) 0.5 %; HCT 23.5 % (37.2-46.3); HGB 7.6 g/dL (12.0-15.0); Immature Grans, Automated 0.8 %; Lymphocytes # (A) 0.54 X 10*3/uL (0.90-5.00); Lymphocytes % (A) 8.8 %; MCH 29.2 pg (27.0-32.0); MCHC 32.3 g/dL (32.0-37.0); MCV 90.4 fL (80.0-97.0); Monocytes # (A) 0.67 X 10*3/uL (0.20-1.00); Monocytes % (A) 10.9 %; NRBC Per 100 WBC 0 /100 WBCS (0.0-0.0); Neutrophils # (A) 4.85 X 10*3/uL (1.80-7.70); Neutrophils % (A) 78.7 %; Platelet Count 156 X 10*3/uL (140-440); RDW 13.7 % (11.5-14.5); WBC 6.16 X 10*3/uL (4.50-10.00)
[2022-03-01 11:29] LABS: Glucose,Whole Blood 128 mg/dL (70-110)
[2022-03-01] MEDS: MULTIVITAMINS, THERA 1 EACH TAB PO SCH (12:40)
[2022-03-01] MEDS: LATANOPROST 0.005% OPHTH DROPS 2.5 ML BTL BOTH EYES SCH (12:41)
--- NOTE | 2022-03-01 13:54 | P.PN ---
Subjective Progress Note Date: 03/01/22 Principal diagnosis: Right hip fracture Patient is seen at bedside this morning. She is postop day #1 from IT nail for right hip fravture. She has pain at the surgical site as expected but denies any new complaints. She denies numbness, tingling or calf pain. Review of systems is negative for fever, chills, chest pain, shortness of breath or other Objective - Vital Signs Vital signs: Vital Signs Temp 98.6 F 03/01/22 08:00 Pulse 87 03/01/22 08:00 Resp 16 03/01/22 08:00 BP 133/67 03/01/22 08:00 Pulse Ox 98 03/01/22 08:43 FiO2 21 03/01/22 08:43 Intake & Output 02/28/22 03/01/22 03/01/22 18:59 06:59 18:59 Intake Total 750 Output Total 150 350 Balance 600 -350 Intake: IV 750 Output: Urine 100 350 Estimated Blood Loss 50 Other: Voiding Method Indwelling Catheter Indwelling Catheter - Exam Inspection reveals a benign surgical wound. There is no active bleeding or drainage. Neurovascular status is intact throughout the lower extremity with motor and sensation fully intact. Calf is soft and nontender. 2+ dorsalis pedis pulse and less than 2 second cap refill is present. - Constitutional General appearance: Present: no acute distress - Labs CBC & Chem 7: 03/01/22 07:10 02/28/22 06:28 Labs: Abnormal Lab Results - Last 24 Hours (Table) 02/28/22 03/01/22 03/01/22 Range/Units 20:44 06:27 07:10 RBC 2.60 L (4.10-5.20) X 10*6/uL Hgb 7.6 L (12.0-15.0) g/dL Hct 23.5 L (37.2-46.3) % Immature Gran # 0.05 H (0.00-0.04) X 10*3/uL Lymphocytes # 0.54 L (0.90-5.00) X 10*3/uL Eosinophils # 0.03 L (0.04-0.35) X 10*3/uL POC Glucose (mg/dL) 174 H 123 H (70-110) mg/dL 03/01/22 Range/Units 11:28 RBC (4.10-5.20) X 10*6/uL Hgb (12.0-15.0) g/dL Hct (37.2-46.3) % Immature Gran # (0.00-0.04) X 10*3/uL Lymphocytes # (0.90-5.00) X 10*3/uL Eosinophils # (0.04-0.35) X 10*3/uL POC Glucose (mg/dL) 128 H (70-110) mg/dL Assessment and Plan (1) Closed right hip fracture Narrative/Plan: She will continue with routine postop orthopedic protocol including pain management, wound care, PT, DVT prophylaxis and medical management. She can transfer to ECF when approved and okay with IM. Current Visit: Yes Status: Acute Priority: Medium Code(s): S72.001A - FRACTURE OF UNSP PART OF NECK OF RIGHT FEMUR, INIT SNOMED Code(s): 362430864 Time with Patient: Less than 30
[2022-03-01 17:14] LABS: Glucose,Whole Blood 117 mg/dL (70-110)
--- NOTE | 2022-03-01 19:43 | P.PN ---
Subjective Progress Note Date: 03/01/22 - Reason for Consult Preoperative clearance - History of Present Illness Patient is a present at 86 yo female admitted to the hospital after mechanical f all and fracture of the right hip, intertrochanteric fracture. Wheezing was consulted for preoperative clearance patient does have history of coronary artery disease EKG is not available at this time will be ordered patient doesn't have any symptoms of chest pain patient had stents placed many years ago more than 10 years ago and patient is presently on aspirin after a few months of Plavix which led to GI bleed. After GI bleed Plavix was discontinued and patient continued to be only on aspirin. Patient denied any fever chills. Patient is bit dehydrated with the low sodium of 133 and patient is receiving IV fluids patient denied any diarrhea nausea vomiting. 02/28/2022 Patient is seen in follow-up this morning currently sitting up in the bed reporting right hip pain and is scheduled to undergo surgical intervention with orthopedics today and currently nothing by mouth. Patient is slightly anxious due to her pain and waiting for surgery asking when it will be. Patient denies chest pain, shortness of breath, or palpitations. Patient is afebrile and again is currently nothing by mouth at this time. Home medications have been resumed and patient to continue with pain management per orthopedics. Patient is continued on gentle IV hydration and will continue for now with follow-up labs recommended. Sodium remains 133 and potassium is improved at 3.8 today. Patient does have a past medical history of diabetes and recommend Accu-Cheks before meals and at bedtime and will use sliding scale as needed. Patient reports she does not take any medications for the diabetes. 03/01/2022 Patient is seen in follow-up today post IT nailing to the right femur. Patient continues with pain and is working with physical therapy although is somewhat resistant as she is having increased pain. Encouraged increased activity as tolerated. Encouraged oral intake. Recommend incentive spirometer and using at least 10 times per hour. Patient vitals are stable and is afebrile. Denies chest pain or shortness of breath. Case management following and planning for ecf in [place] in 24 hours. Review of systems: Constitutional: No reports of fatigue, fever, or chills Cardiovascular: No reports of chest pain or palpitations Respiratory: No reports of shortness of breath or cough GI: No reports of nausea, vomiting, or diarrhea : No reports of dysuria or retention Neurovascular: reports of generalized weakness and right hip pain All medications have been reviewed PHYSICAL EXAMINATION: GENERAL: The patient is alert and oriented x3, not in any acute distress. Slightly anxious. Well developed, well nourished. HEENT: Pupils are round and equally reacting to light. EOMI. No scleral icterus. No conjunctival pallor. Normocephalic, atraumatic. No pharyngeal erythema. No thyromegaly. CARDIOVASCULAR: S1 and S2 present. No murmurs, rubs, or gallops. PULMONARY: Chest is clear to auscultation, no wheezing or crackles. ABDOMEN: Soft, nontender, nondistended, normoactive bowel sounds. No palpable organomegaly. MUSCULOSKELETAL: Right lower extremity is aligned with surgical dressing dry and intact. Some swelling and tenderness noted to the right hip EXTREMITIES: No cyanosis, clubbing, or pedal edema. NEUROLOGICAL: Gross neurological examination did not reveal any focal deficits. Diffusely weak SKIN: No rashes. Assessment: -Right hip intertrochanteric fracture, status post mechanical fall. -post op IT nailing to the right femur fracture -coronary artery disease -Type 2 diabetes mellitus patient was started on sliding scale insulin hold off oral medications -Hypertension -hyperlipidemia -GI prophylaxis -DVT prophylaxis: As per primary service -Full code Plan: Recommend to continue with monitoring Accu-Cheks before meals and at bedtime as patient does have history of diabetes. Patient is post op IT nailing to the right femur post op day 1, continue with pain management per ortho. PT/OT to evaluate Resume home medications Recommend and encouraged oral intake Recommend PT/OT therapy evaluation and rehab on discharge Case management following and planning on rehab in [place]. Discharge planning for 24 hours. Patient is medically stable and will discharge in am The impression and plan of care has been dictated by Breana Lin Nurse Practitioner as directed. Dr. David MD I have performed a history and examination and MDM of this patient, discussed the same with the dictator, and agree with the dictator's assessment and plan as written ,documented as a scribe. Based on total visit time, I have performed more than 50% of the visit. Objective - Vital Signs Vital signs: Vital Signs Temp 98.6 F 03/01/22 08:00 Pulse 87 03/01/22 08:00 Resp 16 03/01/22 08:00 BP 133/67 03/01/22 08:00 Pulse Ox 98 03/01/22 08:43 FiO2 21 03/01/22 08:43 Intake & Output 02/28/22 03/01/22 03/01/22 18:59 06:59 18:59 Intake Total 750 Output Total 150 350 Balance 600 -350 Intake: IV 750 Output: Urine 100 350 Estimated Blood Loss 50 Other: Voiding Method Indwelling Catheter Indwelling Catheter - Labs CBC & Chem 7: 03/01/22 07:10 02/28/22 06:28 Labs: Abnormal Lab Results - Last 24 Hours (Table) 02/28/22 03/01/22 Range/Units 20:44 06:27 POC Glucose (mg/dL) 174 H 123 H (70-110) mg/dL
[2022-03-01 20:43] LABS: Glucose,Whole Blood 143 mg/dL (70-110)
[2022-03-01] MEDS: FLUTICASONE 50MCG/SPRAY NASAL 16GM EA NOSTRIL PRN (21:14)
[2022-03-01] MEDS: SENNOSIDES-DOCUSATE SODIUM 1 EACH TAB PO SCH (21:18)
[2022-03-02 06:21] LABS: Glucose,Whole Blood 108 mg/dL (70-110)
[2022-03-02] MEDS: LEVOTHYROXINE 100 MCG TAB PO SCH (06:57)
[2022-03-02] MEDS: ISOSORBIDE MONONITRATE ER 60 MG TAB.ER.24H PO SCH (08:51)
[2022-03-02] MEDS: ASPIRIN 81 MG PO SCH (08:51)
[2022-03-02] MEDS: GABAPENTIN 300 MG CAP PO SCH (08:51)
[2022-03-02] MEDS: hydrALAZINE HCL 50 MG TAB PO SCH ×2 (08:51→15:09)
[2022-03-02] MEDS: CHOLECALCIFEROL 25 MCG (1000 IU) TABLET PO SCH (08:51)
[2022-03-02] MEDS: FERROUS SULFATE 325 MG TAB PO SCH (08:56)
[2022-03-02] MEDS: HYDROcodone/APAP 10-325MG 1 EACH TAB PO PRN ×2 (09:01→16:41)
[2022-03-02] MEDS: TIMOLOL 0.5% OPHTH DROPS 5 ML BTL LEFT EYE SCH ×2 (09:03→15:19)
[2022-03-02] MEDS: BRIMONIDINE TARTRATE 0.2% DROPS 5 ML BTL LEFT EYE SCH (09:03)
[2022-03-02] MEDS: SODIUM CHLORIDE 0.9% 1,000 ML IV SCH (09:25)
--- NOTE | 2022-03-02 09:28 | P.DS ---
Providers Date of admission: 02/27/22 00:06 Expected date of discharge: 03/02/22 Attending physician: Juni Hancock Consults: 02/27/22 00:04 Consult Physician Routine Consulting Provider: Trinity Pena Consult Reason/Comments: [employer] Do you want consulting provider notified?: Yes Primary care physician: Ravin Durham MD - Discharge Diagnosis(es) (1) Closed right hip fracture Current Visit: Yes Status: Acute Priority: Medium (2) Fall Current Visit: Yes Status: Acute (3) CAD (coronary artery disease) Current Visit: No Status: Acute (4) Diabetes Current Visit: No Status: Acute (5) HTN (hypertension) Current Visit: No Status: Acute (6) Hyperlipemia Current Visit: No Status: Acute Hospital Course: This is a 86 year old female who presented to the hospital post fall at home and sustained a right hip fracture. The patient was cleared by medicine for surgery. The patient underwent a right hip IT screw on 02/28/[address] Hancock. The procedure was performed without complication or sequelae. The patient is doing well postoperatively. Labs and vital signs are stable on the day of discharge. On the day of discharge the patient's hip incision is healing well. There is minimal erythema. There is no drainage noted at this time. There is minimal soft tissue swelling to the hip and thigh. The patient has full foot and ankle motion without difficulty or pain. Neurovascular status to the right lower extremity is intact. The patient is discharged to skilled rehab in stable condition. See medication reconciliation for accurate list of discharge medications. Pertinent Studies: Laboratory Tests 03/01/22 07:10 WBC 6.16 RBC 2.60 L Hgb 7.6 L Hct 23.5 L Patient Condition at Discharge: Stable Plan - Discharge Summary Discharge Rx Participant: No New Discharge Prescriptions: New Docusate [Colace] 100 mg PO BID #60 capsule Aspirin 81 mg PO BID tab Na Phos,M-B/Na Phos,Di-Ba [Fleet Adult] 133 ml RECTAL DAILY PRN each PRN Reason: Constipation Fluticasone Nasal [place] [Flonase Nasal [place]] 2 spray EA NOSTRIL DAILY PRN ml PRN Reason: Allergy Symptoms Multivitamins, Thera [Multivitamin (formulary)] 1 each PO DAILY@1200 tab Acetaminophen Tab [Tylenol] 650 mg PO Q4HR PRN tab PRN Reason: Pain Scale 1 to 5 HYDROcodone/APAP 5-325MG [[place] 5] 1 each PO Q4HR PRN #30 tab PRN Reason: Pain Magnesium Hydroxide [Milk of Magnesia Concentrate] 2,400 mg PO DAILY PRN ml PRN Reason: Constipation Sennosides-Docusate Sodium [Senokot-S] 2 each PO HS tab traMADol HCl [Ultram] 50 mg PO Q6HR PRN #4 tab PRN Reason: Pain Scale 1 To 5 Continue Potassium Chloride [Klor-Con 20] 20 meq PO BID Cholecalciferol [Vitamin D3 (25 Mcg = 1000 Iu)] 50 mcg PO DAILY hydrALAZINE HCL [Apresoline] 100 mg PO TID Timolol 0.5% Ophth Soln [Timoptic 0.5% Ophth Soln] 1 drop LEFT EYE BID Diclofenac Sodium Gel [Voltaren Gel] 2 - 4 gm TOPICAL TID PRN PRN Reason: Pain Omeprazole 40 mg PO DAILY Isosorbide Mononitrate ER [Imdur] 60 mg PO BID Levothyroxine Sodium 100 mcg PO DAILY Latanoprost [Latanoprost 0.005%] 1 drop BOTH EYES HS Furosemide [Lasix] 20 mg PO DAILY PRN PRN Reason: Edema Ferrous Sulfate [Iron (65 MG Elemental)] 325 mg PO Q48H Brimonidine Tartrate [Alphagan P 0.2% Ophth Soln] 1 drop LEFT EYE BID Gabapentin [Neurontin] 300 mg PO BID #6 cap Discontinued Aspirin 81 mg PO DAILY Losartan Potassium 100 mg PO DAILY HYDROcodone/APAP 7.5-325MG [[place] 7.5-325] 1 tab PO Q12H Discharge Medication List Cholecalciferol [Vitamin D3 (25 Mcg = 1000 Iu)] 50 mcg PO DAILY 01/22/14 [History] Potassium Chloride [Klor-Con 20] 20 meq PO BID 01/22/14 [History] Brimonidine Tartrate [Alphagan P 0.2% Ophth Soln] 1 drop LEFT EYE BID 02/27/22 [History] Diclofenac Sodium Gel [Voltaren Gel] 2 - 4 gm TOPICAL TID PRN 02/27/22 [History] Ferrous Sulfate [Iron (65 MG Elemental)] 325 mg PO Q48H 02/27/22 [History] Furosemide [Lasix] 20 mg PO DAILY PRN 02/27/22 [History] Isosorbide Mononitrate ER [Imdur] 60 mg PO BID 02/27/22 [History] Latanoprost [Latanoprost 0.005%] 1 drop BOTH EYES HS 02/27/22 [History] Levothyroxine Sodium 100 mcg PO DAILY 02/27/22 [History] Omeprazole 40 mg PO DAILY 02/27/22 [History] Timolol 0.5% Ophth Soln [Timoptic 0.5% Ophth Soln] 1 drop LEFT EYE BID 02/27/22 [History] hydrALAZINE HCL [Apresoline] 100 mg PO TID 02/27/22 [History] Acetaminophen Tab [Tylenol] 650 mg PO Q4HR PRN tab 03/01/22 [Rx] Aspirin 81 mg PO BID tab 03/01/22 [Rx] Docusate [Colace] 100 mg PO BID #60 capsule 03/01/22 [Rx] Fluticasone Nasal [place] [Flonase Nasal [place]] 2 spray EA NOSTRIL DAILY PRN ml 03/01/22 [Rx] Gabapentin [Neurontin] 300 mg PO BID #6 cap 03/01/22 [Rx] Magnesium Hydroxide [Milk of Magnesia Concentrate] 2,400 mg PO DAILY PRN ml 03/01/22 [Rx] Multivitamins, Thera [Multivitamin (formulary)] 1 each PO DAILY@1200 tab 03/01/22 [Rx] Na Phos,M-B/Na Phos,Di-Ba [Fleet Adult] 133 ml RECTAL DAILY PRN each 03/01/22 [Rx] Sennosides-Docusate Sodium [Senokot-S] 2 each PO HS tab 03/01/22 [Rx] traMADol HCl [Ultram] 50 mg PO Q6HR PRN #4 tab 03/01/22 [Rx] HYDROcodone/APAP 5-325MG [[place] 5] 1 each PO Q4HR PRN #30 tab 03/02/22 [Rx] Follow up Appointment(s)/Referral(s): Ravin Durham MD [Primary Care Provider] - 1 Week Juni Hancock MD [STAFF PHYSICIAN] - 10 Days Activity/Diet/Wound Care/Special Instructions: [facility] [place] Touchdown weightbearing with walker at all times inga out at 10 days post op keep wound clean and dry may shower after 3 days if no active bleeding or drainage take meds as directed F/U in office Discharge Disposition: TRANSFER TO SNF/ECF
[2022-03-02] MEDS: MULTIVITAMINS, THERA 1 EACH TAB PO SCH (11:16)
[2022-03-02 11:21] LABS: Glucose,Whole Blood 154 mg/dL (70-110)
[2022-03-02 12:23] LABS: Basophils # (A) 0.01 X 10*3/uL (0.00-0.10); Basophils % (A) 0.2 %; Eosinophils # (A) 0.13 X 10*3/uL (0.04-0.35); Eosinophils % (A) 2.6 %; Immature Grans, Automated 0.6 %; Lymphocytes # (A) 0.73 X 10*3/uL (0.90-5.00); Lymphocytes % (A) 14.6 %; Monocytes # (A) 0.55 X 10*3/uL (0.20-1.00); NRBC Per 100 WBC 0 /100 WBCS (0.0-0.0); Neutrophils # (A) 3.56 X 10*3/uL (1.80-7.70)
[2022-03-02 12:24] LABS: HCT 21.3 % (37.2-46.3); HGB 6.9 g/dL (12.0-15.0); MCH 29.1 pg (27.0-32.0); MCHC 32.4 g/dL (32.0-37.0); MCV 89.9 fL (80.0-97.0); Mean Platelet Volume 10.2 fL (9.5-12.2); Platelet Count 158 X 10*3/uL (140-440); RBC 2.37 X 10*6/uL (4.10-5.20); RDW 13.8 % (11.5-14.5); WBC 5.01 X 10*3/uL (4.50-10.00)
[2022-03-02 12:25] LABS: RBC Morphology NORMAL
[2022-03-02] MEDS: LATANOPROST 0.005% OPHTH DROPS 2.5 ML BTL BOTH EYES SCH (15:19)
--- NOTE | 2022-03-02 16:09 | P.PN ---
Subjective Progress Note Date: 03/02/22 - Reason for Consult Preoperative clearance - History of Present Illness Patient is a present at 86 yo female admitted to the hospital after mechanical f all and fracture of the right hip, intertrochanteric fracture. Wheezing was consulted for preoperative clearance patient does have history of coronary artery disease EKG is not available at this time will be ordered patient doesn't have any symptoms of chest pain patient had stents placed many years ago more than 10 years ago and patient is presently on aspirin after a few months of Plavix which led to GI bleed. After GI bleed Plavix was discontinued and patient continued to be only on aspirin. Patient denied any fever chills. Patient is bit dehydrated with the low sodium of 133 and patient is receiving IV fluids patient denied any diarrhea nausea vomiting. 02/28/2022 Patient is seen in follow-up this morning currently sitting up in the bed reporting right hip pain and is scheduled to undergo surgical intervention with orthopedics today and currently nothing by mouth. Patient is slightly anxious due to her pain and waiting for surgery asking when it will be. Patient denies chest pain, shortness of breath, or palpitations. Patient is afebrile and again is currently nothing by mouth at this time. Home medications have been resumed and patient to continue with pain management per orthopedics. Patient is continued on gentle IV hydration and will continue for now with follow-up labs recommended. Sodium remains 133 and potassium is improved at 3.8 today. Patient does have a past medical history of diabetes and recommend Accu-Cheks before meals and at bedtime and will use sliding scale as needed. Patient reports she does not take any medications for the diabetes. 03/01/2022 Patient is seen in follow-up today post IT nailing to the right femur. Patient continues with pain and is working with physical therapy although is somewhat resistant as she is having increased pain. Encouraged increased activity as tolerated. Encouraged oral intake. Recommend incentive spirometer and using at least 10 times per hour. Patient vitals are stable and is afebrile. Denies chest pain or shortness of breath. Case management following and planning for ecf in [place] in 24 hours. 03/02/2022 Patient is here for fall with right femur fracture and is post IT nailing and orthopedics arranging for ECF in [place]. Patient has been up and working with physical therapy. HOme medications resumed. Hemoglobin found to be 6.9 today and will give one unit of PRBC. Recommend outpatient labs in 2-3 days to monitor cbc closely. No active bleeding noted. Patent is afebrile and denies chest pain or shortness of breath. No reports of nausea or vomiting and tolerating diet. Review of systems: Constitutional: No reports of fatigue, fever, or chills Cardiovascular: No reports of chest pain or palpitations Respiratory: No reports of shortness of breath or cough GI: No reports of nausea, vomiting, or diarrhea : No reports of dysuria or retention Neurovascular: reports of generalized weakness and right hip pain All medications have been reviewed PHYSICAL EXAMINATION: GENERAL: The patient is alert and oriented x3, not in any acute distress. Well developed, well nourished. HEENT: Pupils are round and equally reacting to light. EOMI. No scleral icterus. No conjunctival pallor. Normocephalic, atraumatic. No pharyngeal erythema. No thyromegaly. CARDIOVASCULAR: S1 and S2 present. No murmurs, rubs, or gallops. PULMONARY: Chest is clear to auscultation, no wheezing or crackles. ABDOMEN: Soft, nontender, nondistended, normoactive bowel sounds. No palpable organomegaly. MUSCULOSKELETAL: Right lower extremity is aligned with surgical dressing dry and intact. Some swelling and tenderness noted to the right hip EXTREMITIES: No cyanosis, clubbing, or pedal edema. NEUROLOGICAL: Gross neurological examination did not reveal any focal deficits. Diffusely weak SKIN: No rashes. Assessment: -Right hip intertrochanteric fracture, status post mechanical fall. -post op IT nailing to the right femur fracture -acute blood loss anemia an expected outcome of surgery -coronary artery disease -Type 2 diabetes mellitus patient was started on sliding scale insulin hold off oral medications -Hypertension -hyperlipidemia -GI prophylaxis -DVT prophylaxis: As per primary service -Full code Plan: Recommend to continue with monitoring Accu-Cheks before meals and at bedtime as patient does have history of diabetes. Patient is post op IT nailing to the right femur post op day 2, continue with pain management per ortho. PT/OT following and will be going to [facility] for PT therapy Hemoglobin is 6.9 today and will give one unit of prbc and discharge after. Recommend repeat labs of cbc in 2-3 days. Resume home medications Recommend and encouraged oral intake Case management following and planning on rehab in [place] today Patient is medically stable and will discharge today post transfusion The impression and plan of care has been dictated by Breana Lin, Nurse Practitioner as directed. Dr. David MD I have performed a history and examination and MDM of this patient, discussed the same with the dictator, and agree with the dictator's assessment and plan as written ,documented as a scribe. Based on total visit time, I have performed more than 50% of the visit. Objective - Vital Signs Vital signs: Vital Signs Temp 98.0 F 03/02/22 07:27 Pulse 96 03/02/22 07:27 Resp 17 03/02/22 07:27 BP 170/73 03/02/22 07:27 Pulse Ox 96 03/02/22 08:18 FiO2 21 03/01/22 08:43 Intake & Output 03/01/22 03/02/22 03/02/22 18:59 06:59 18:59 Output Total 350 1100 Balance -350 -1100 Output: Urine 350 1100 Other: Voiding Method Indwelling Catheter Indwelling Catheter Indwelling Catheter - Labs CBC & Chem 7: 03/02/22 06:18 02/28/22 06:28 Labs: Abnormal Lab Results - Last 24 Hours (Table) 03/01/22 03/01/22 03/01/22 Range/Units 07:10 11:28 17:13 RBC 2.60 L (4.10-5.20) X 10*6/uL Hgb 7.6 L (12.0-15.0) g/dL Hct 23.5 L (37.2-46.3) % Immature Gran # 0.05 H (0.00-0.04) X 10*3/uL Lymphocytes # 0.54 L (0.90-5.00) X 10*3/uL Eosinophils # 0.03 L (0.04-0.35) X 10*3/uL POC Glucose (mg/dL) 128 H 117 H (70-110) mg/dL 03/01/22 Range/Units 20:42 RBC (4.10-5.20) X 10*6/uL Hgb (12.0-15.0) g/dL Hct (37.2-46.3) % Immature Gran # (0.00-0.04) X 10*3/uL Lymphocytes # (0.90-5.00) X 10*3/uL Eosinophils # (0.04-0.35) X 10*3/uL POC Glucose (mg/dL) 143 H (70-110) mg/dL
[2022-03-02 16:36] LABS: Glucose,Whole Blood 119 mg/dL (70-110)
[2022-03-02 16:43] VITALS: RESP 16
[2022-03-02 18:11] VITALS: BP 132/69; PULSE 97; TEMP 98
== END 2022-03-02 18:51 | DRG 481 ==
LOC: EC 23:38 → 4SSUR 02-27 00:06
PROVIDERS: ADMIT Orthopaedic Surgery Sports Medicine; ATTEND Orthopaedic Surgery Sports Medicine
PROC: 0QS606Z Reposition Right Upper Femur with Intramedullary Internal Fixation Device, Open Approach (ICD-10-PCS; principal; 2022-02-28 13:00)
PROC: 30233N1 Transfusion of Nonautologous Red Blood Cells into Peripheral Vein, Percutaneous Approach (ICD-10-PCS; 2022-03-02)
DX: S72.141A Displaced intertrochanteric fracture of right femur, initial encounter for closed fracture (principal); D62 Acute posthemorrhagic anemia; W01.0XXA Fall on same level from slipping, tripping and stumbling without subsequent striking against object, initial encounter; Y92.009 Unspecified place in unspecified non-institutional (private) residence as the place of occurrence of the external cause; E78.5 Hyperlipidemia, unspecified; E86.0 Dehydration; I25.10 Atherosclerotic heart disease of native coronary artery without angina pectoris; I50.9 Heart failure, unspecified; I11.0 Hypertensive heart disease with heart failure; M19.90 Unspecified osteoarthritis, unspecified site; E11.41 Type 2 diabetes mellitus with diabetic mononeuropathy; G57.93 Unspecified mononeuropathy of bilateral lower limbs; G89.29 Other chronic pain; M54.9 Dorsalgia, unspecified; E03.9 Hypothyroidism, unspecified; H40.9 Unspecified glaucoma; D50.9 Iron deficiency anemia, unspecified; H35.30 Unspecified macular degeneration; H54.7 Unspecified visual loss; Z20.822 Contact with and (suspected) exposure to COVID-19; I25.2 Old myocardial infarction; Z95.5 Presence of coronary angioplasty implant and graft; Z87.19 Personal history of other diseases of the digestive system; Z79.82 Long term (current) use of aspirin; Z79.890 Hormone replacement therapy; Z79.899 Other long term (current) drug therapy; Z86.73 Personal history of transient ischemic attack (TIA), and cerebral infarction without residual deficits
CPT/HCPCS: 71045; 73501; 73502; 80048; 80053; 85025; 85610; 86850; 86900; 86901; 86920; 87635; 94760; 96361; 96374; 96376; 99285

== ENCOUNTER 2022-07-15 18:19 | Inpatient (IN) | payer MEDICARE, OTHER ==
--- NOTE | 2022-07-15 19:00 | ED ---
General Adult HPI - General Chief complaint: Shortness of Breath Stated complaint: sob Time Seen by Provider: 07/15/22 18:45 Source: patient, RN notes reviewed, old records reviewed Mode of arrival: EMS Limitations: no limitations - History of Present Illness Initial comments: This is an 87-year-old female who was transferred to us from [facility]. Patient states she went there because last night she started becoming short of breath when she noticed or shortness of breath was worse with exertion. Patient denies any chest pain. Patient denies any fever chills or cough. Patient denies any abdominal pain patient denies nausea vomiting diarrhea. Patient denies any diaphoretic episodes. Patient denies any swelling to the legs or calf tenderness. I spoke with [facility] and the physician there told me that the original troponin that was done and it was normal EKG showed a left bundle branch block and that the patient had a CAT scan that showed no evidence of a PE. Patient never had any chest pain while she was at [facility] and they transferred him here to see our gin clerk. Patient has an extensive history of cardiac disease and according to the patient she's had 5 stents - Related Data Home Medications Medication Instructions Recorded Confirmed Cholecalciferol [Vitamin D3 (25 50 mcg PO DAILY 01/22/14 02/27/22 Mcg = 1000 Iu)] Potassium Chloride [Klor-Con 20] 20 meq PO BID 01/22/14 02/27/22 Brimonidine Tartrate [Alphagan P 1 drop LEFT EYE BID 02/27/22 02/27/22 0.2% Ophth Soln] Diclofenac Sodium Gel [Voltaren 2 - 4 gm TOPICAL TID PRN 02/27/22 02/27/22 Gel] Ferrous Sulfate [Iron (65 MG 325 mg PO Q48H 02/27/22 02/27/22 Elemental)] Furosemide [Lasix] 20 mg PO DAILY PRN 02/27/22 02/27/22 Isosorbide Mononitrate ER [Imdur] 60 mg PO BID 02/27/22 02/27/22 Latanoprost [Latanoprost 0.005%] 1 drop BOTH EYES HS 02/27/22 02/27/22 Levothyroxine Sodium 100 mcg PO DAILY 02/27/22 02/27/22 Omeprazole 40 mg PO DAILY 02/27/22 02/27/22 Timolol 0.5% Ophth Soln [Timoptic 1 drop LEFT EYE BID 02/27/22 02/27/22 0.5% Ophth Soln] hydrALAZINE HCL [Apresoline] 100 mg PO TID 02/27/22 02/27/22 Previous Rx's Medication Instructions Recorded Acetaminophen Tab [Tylenol] 650 mg PO Q4HR PRN tab 03/01/22 Aspirin 81 mg PO BID tab 03/01/22 Docusate [Colace] 100 mg PO BID #60 capsule 03/01/22 Fluticasone Nasal [place] [Flonase 2 spray EA NOSTRIL DAILY PRN ml 03/01/22 Nasal [place]] Gabapentin [Neurontin] 300 mg PO BID #6 cap 03/01/22 Magnesium Hydroxide [Milk of 2,400 mg PO DAILY PRN ml 03/01/22 Magnesia Concentrate] Multivitamins, Thera [Multivitamin 1 each PO DAILY@1200 tab 03/01/22 (formulary)] Na Phos,M-B/Na Phos,Di-Ba [Fleet 133 ml RECTAL DAILY PRN each 03/01/22 Adult] Sennosides-Docusate Sodium 2 each PO HS tab 03/01/22 [Senokot-S] traMADol HCl [Ultram] 50 mg PO Q6HR PRN #4 tab 03/01/22 HYDROcodone/APAP 5-325MG [[place] 5] 1 each PO Q4HR PRN #30 tab 03/02/22 Allergies Allergy/AdvReac Type Severity Reaction Status Date / Time No Known Allergies Allergy Verified 07/15/22 18:51 Review of Systems ROS Statement: Those systems with pertinent positive or pertinent negative responses have been documented in the HPI. ROS Other: All systems not noted in ROS Statement are negative. 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 GI BLEED RELATED TO PLAVIX FROM STENT IN 2012, 2 UNITS PRBC RECEIVED Last Myocardial Infarction Date:: 01-22-2014 History of Any Multi-Drug Resistant Organisms: None Reported Past Surgical History: Heart Catheterization With Stent, Orthopedic Surgery Additional Past Surgical History / Comment(s): HEART CATH IN 2012 AND 2013 WITH STENT TO RCA Past Anesthesia/Blood Transfusion Reactions: No Reported Reaction Date of Last Stent Placement:: 01-22-2014 Past Psychological History: No Psychological Hx Reported Smoking Status: Never smoker Past Alcohol Use History: None Reported Past Drug Use History: None Reported - Past Family History Mother Family Medical History: No Reported History Additional Family Medical History / Comment(s): Mother was healthy and worked up until the age of 77yrs. Father Family Medical History: Liver Disease, Renal Disease General Exam - General Exam Comments Initial Comments: GENERAL: Patient is well-developed and well-nourished. Patient is nontoxic and well- hydrated and is in no acute distress. ENT: Neck is soft and supple. No significant lymphadenopathy is noted. Oropharynx is clear. Moist mucous membranes. Neck has full range of motion without eliciting any pain. EYES: The sclera were anicteric and conjunctiva were pink and moist. Extraocular movements were intact and pupils were equal round and reactive to light. Eyelids were unremarkable. PULMONARY: Unlabored respirations. Good breath sounds bilaterally. No audible rales rhonchi or wheezing was noted. CARDIOVASCULAR: There is a regular rate and rhythm without any murmurs gallops or rubs. ABDOMEN: Soft and nontender with normal bowel sounds. SKIN: Skin is clear with no lesions or rashes and otherwise unremarkable. NEUROLOGIC: Patient is alert and oriented x3. Cranial nerves II through XII are grossly intact. Motor and sensory are also intact. Normal speech, volume and content. Symmetrical smile. MUSCULOSKELETAL: Normal extremities with adequate strength and full range of motion. No lower extremity swelling or edema. No calf tenderness. LYMPHATICS: No significant lymphadenopathy is noted PSYCHIATRIC: Normal psychiatric evaluation. Limitations: no limitations Course Vital Signs 07/15/22 18:45 Temperature 98.9 F Pulse Rate 104 H Respiratory 18 Rate Blood Pressure 196/97 O2 Sat by Pulse 100 Oximetry Medical Decision Making - Medical Decision Making EKG was interpreted by myself shows a sinus rhythm at 96 bpm NC interval 195 155 Q-T Intervals 408 QTC Is 462. Patient Has Left Bundle Branch Block Was pt. sent in by a medical professional or institution (, PA, MOLDING MACHINE OPERATOR HELPER, urgent care, hospital, or fpc...) When possible be specific [facility] in the ER physician there sent the patient to us Did you speak to anyone other than the patient for history (EMS, parent, family, police, friend...)? What history was obtained from this source @ -I spoke with the ER physician at [facility] prior to transfer Did you review nursing and triage notes (agree or disagree)? Why? @ -I reviewed and agree with nursing and triage notes Were old charts reviewed (outside hosp., previous admission, EMS record, old EKG, old radiological studies, urgent care reports/EKG's, fpc records)? Report findings @ -I reviewed agents prior charts of prior lab work I also reviewed all the paperwork CAT scans lab work from [facility] Differential Diagnosis (chest pain, altered mental status, abdominal pain women, abdominal pain men, vaginal bleeding, weakness, fever, dyspnea, syncope, headache, dizziness, GI bleed, back pain, seizure, CVA, palpatations, mental health, musculoskeletal)? @ -Differential Dyspnea: Coronary syndrome, arrhythmia, tamponade, asthma, COPD, pulmonary embolism, pneumonia, pneumothorax, pulmonary effusion, anaphylaxis, diabetic ketoacidosis, flailed chest, pulmonary contusion, diaphragmatic rupture, anemia, neuromuscular, this is not meant to be an all-inclusive list. EKG interpreted by me (3pts min.). @ -As above X-rays interpreted by me (1pt min.). @ -None done CT interpreted by me (1pt min.). @ -None done U/S interpreted by me (1pt. min.). @ -None done What testing was considered but not performed or refused? (CT, X-rays, U/S, labs)? Why? @ -None What meds were considered but not given or refused? Why? @ -None Did you discuss the management of the patient with other professionals (professionals i.e. Dr., PA, MOLDING MACHINE OPERATOR HELPER, lab, RT, psych nurse, social media community manager, compensation programs manager, teacher, consumer loan officer, case specialist)? Give summary @ -No Was smoking cessation discussed for >3mins.? @ -No Was critical care preformed (if so, how long)? @ -No Were there social determinants of health that impacted care today? How? (Homelessness, low income, unemployed, alcoholism, drug addiction, transpor tation, low edu. Level, literacy, decrease access to med. care, long-term, rehab)? @ -No Was there de-escalation of care discussed even if they declined (Discuss DNR or withdrawal of care, Hospice)? DNR status @ -No What co-morbidities impacted this encounter? (DM, HTN, Smoking, COPD, CAD, Cancer, CVA, ARF, Chemo, Hep., AIDS, mental health diagnosis, sleep apnea, morbid obesity)? @ -None Was patient admitted / discharged? Hospital course, mention meds given and route, prescriptions, significant lab abnormalities, going to OR and other pertinent info. @ -Patient came in she was lying in bed she stated she didn't feel too short of breath while lying in bed. EKG was done on the patient. I reviewed reviewed all the patient's lab work as well as CT results I spoke with some physician they agreed to admit the patient admitted the patient wrote admitting orders Undiagnosed new problem with uncertain prognosis? @ -No Drug Therapy requiring intensive monitoring for toxicity (Heparin, Nitro, Insulin, Cardizem)? @ -No Were any procedures done? @ -No Diagnosis/symptom? @ -Dyspnea Acute, or Chronic, or Acute on Chronic? @ -Acute Uncomplicated (without systemic symptoms) or Complicated (systemic symptoms)? @ -Complicated Side effects of treatment? @ -No Exacerbation, Progression, or Severe Exacerbation? @ -No Poses a threat to life or bodily function? How? (Chest pain, [place], MA, pneumonia, PE, COPD, DKA, ARF, appy, cholecystitis, CVA, Diverticulitis, Homicidal, Suicidal, threat to staff... and all critical care pts) @ -No Disposition Clinical Impression: Exertional dyspnea Disposition: ADMITTED IP TO THIS [facility] Time of Disposition: 19:00
[2022-07-15] MEDS ORDERED: NITROGLYCERIN SL TABS 0.4 MG TAB SUBLINGUAL PRN (19:01)
[2022-07-15] MEDS ORDERED: HEPARIN SODIUM 1,000 UN/ML (10ML VL) IV PRN (21:56)
[2022-07-15] MEDS ORDERED: HEPARIN SODIUM 1,000 UN/ML (10ML VL) IV ONE (21:56)
[2022-07-15 22:24] LABS: Basophils % (A) 0 %; Eosinophils # (A) 0.1 k/uL (0-0.7); Eosinophils % (A) 2 %; HCT 28.1 % (34.0-46.0); HGB 9.7 gm/dL (11.4-16.0); Lymphocytes # (A) 1.3 k/uL (1.0-4.8); Lymphocytes % (A) 32 %; MCH 30.1 pg (25.0-35.0); MCHC 34.5 g/dL (31.0-37.0); MCV 87.3 fL (80.0-100.0); Mean Platelet Volume 8.2; Monocytes # (A) 0.3 k/uL (0-1.0); Monocytes % (A) 8 %; Neutrophils # (A) 2.1 k/uL (1.3-7.7); Neutrophils % (A) 53 %; Platelet Count 175 k/uL (150-450); RBC 3.22 m/uL (3.80-5.40); RDW 14.9 % (11.5-15.5)
[2022-07-15 22:32] LABS: INR 1.1 (<1.2); Partial Thromboplastin Time 26.1 sec (22.0-30.0); Prothrombin Time 11.9 sec (9.0-12.0)
[2022-07-15] MEDS: HEPARIN SOD,PORK IN 0.45% NACL 25,000 UNIT in 0.45% NACL 1 250ML.BAG IV SCH (22:44)
[2022-07-16] MEDS: NITROGLYCERIN OINT 1 INCH/GM PACKET TOPICAL SCH ×4 (00:07→17:39)
--- NOTE | 2022-07-16 01:53 | P.HPIM ---
History of Present Illness H&P Date: 07/15/22 Chief Complaint: exertional dyspnea 87 year old female with hypertension , CAD s/p stents , DM she is a transfer from [facility] for cardiology evaluation. she went there for evaluation of exertional dyspnea that has progressively getting worse. she reports mild chest discomfort with these episodes , but it was mainly the shortness of breath that was bothering her and prompted the evaluation , denies any fever, chills, cough, nausea or vomiting, denies any profuse sweating palpitations or dizziness with the episodes of shortness of breath at [facility] d dimer was elevated , CTA of the chest done showed no acute PE , but also showed 3mm right upper lung nodule , however, she denies any smoking . blood work showed Hgb of 9.7 she denies any bleeding WBC 3.7 platelets 161 both unremarkable she is currently chest pain free, denies tobacco smoking, illicit drugs or alcohol she also reports some swelling and discomfort over her left knee. with increasing pain during weight bearing . denies any injuries patient is hard of hearing , and with macular degeneration Review of Systems Pertinent positives as noted in HPI. 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 GI BLEED RELATED TO PLAVIX FROM STENT IN 2012, 2 UNITS PRBC RECEIVED Last Myocardial Infarction Date:: 01-22-2014 History of Any Multi-Drug Resistant Organisms: None Reported Past Surgical History: Heart Catheterization With Stent, Orthopedic Surgery Additional Past Surgical History / Comment(s): HEART CATH IN 2012 AND 2013 WITH STENT TO RCA Past Anesthesia/Blood Transfusion Reactions: No Reported Reaction Date of Last Stent Placement:: 01-22-2014 Past Psychological History: No Psychological Hx Reported Smoking Status: Never smoker Past Alcohol Use History: None Reported Past Drug Use History: None Reported - Past Family History Mother Family Medical History: No Reported History Additional Family Medical History / Comment(s): Mother was healthy and worked up until the age of 77yrs. Father Family Medical History: Liver Disease, Renal Disease Medications and Allergies Home Medications Medication Instructions Recorded Confirmed Type Potassium Chloride [Klor-Con 20] 40 meq PO Q48H 01/22/14 07/15/22 History Brimonidine Tartrate [Alphagan P 1 drop LEFT EYE BID 02/27/22 07/15/22 History 0.2% Ophth Soln] Diclofenac Sodium Gel [Voltaren 2 - 4 gm TOPICAL QID PRN 02/27/22 07/15/22 History Gel] Furosemide [Lasix] 20 mg PO Q48H 02/27/22 07/15/22 History Isosorbide Mononitrate ER [Imdur] 60 mg PO BID 02/27/22 07/15/22 History Latanoprost [Latanoprost 0.005%] 1 drop BOTH EYES HS 02/27/22 07/15/22 History Levothyroxine Sodium 100 mcg PO DAILY 02/27/22 07/15/22 History Omeprazole 40 mg PO DAILY 02/27/22 07/15/22 History Timolol 0.5% Ophth Soln [Timoptic 1 drop LEFT EYE BID 02/27/22 07/15/22 History 0.5% Ophth Soln] hydrALAZINE HCL [Apresoline] 100 mg PO TID 02/27/22 07/15/22 History Gabapentin [Neurontin] 300 mg PO BID #6 cap 03/01/22 07/15/22 Rx Aspirin 81 mg PO DAILY 07/15/22 07/15/22 History HYDROcodone/APAP 7.5-325MG [[place] 1 tab PO BID PRN 07/15/22 07/15/22 History 7.5-325] Losartan Potassium 100 mg PO DIRECTED 07/15/22 07/15/22 History Multivitamins, Thera [Multivitamin 1 tab PO DAILY 07/15/22 07/15/22 History (formulary)] Potassium Chloride [Klor-Con M20] 60 meq PO Q48H 07/15/22 07/15/22 History Sennosides-Docusate Sodium 2 tab PO DAILY 07/15/22 07/15/22 History [Senokot-S] Allergies Allergy/AdvReac Type Severity Reaction Status Date / Time No Known Allergies Allergy Verified 07/15/22 19:44 Physical Exam Vitals: Vital Signs Temp Pulse Resp BP Pulse Ox 07/15/22 21:00 82 11 L 171/93 99 07/15/22 20:00 105 H 18 183/92 98 07/15/22 19:30 98 12 190/94 97 07/15/22 19:15 18 07/15/22 19:05 105 H 16 98 07/15/22 18:45 98.9 F 104 H 18 196/97 100 Intake and Output 07/15/22 07/15/22 07/15/22 06:59 14:59 22:59 Other: Weight 68.039 kg Constitutional: No acute distress, conversant, pleasant Eyes: Anicteric sclerae, moist conjunctiva, Pupils equal round reactive to light ENMT: NC/AT Oropharynx clear, no erythema, or exudates Neck: Supple, no masses, or JVD No carotid bruits No thyromegaly Lungs: Clear to auscultation Clear to percussion Normal respiratory effort, no accessory muscle use Cardiovascular: Heart regular in rate and rhythm, No murmurs, gallops, or rubs No peripheral edema Abdominal: Soft Nontender, no guarding, rebound or rigidity Abdomen moving with respiration Normoactive bowel sounds No hepatomegaly, No splenomegaly No palpable mass No abdominal wall hernia noted Skin: Normal temperature, tone, texture, turgor No induration No subcutaneous nodules No rash, lesions No ulcers Extremities: No digital cyanosis left knee swelling and warmth , no erythema , no tenderness to the touch . left knee slight swelling and warmth compared to the right one Pedal pulses intact and symmetrical Radial pulses intact and symmetrical No calf tenderness Psychiatric: Alert and oriented to person, place Neuro Muscles Strength 4/5 in all 4 extremities Sensation to light touch grossly present throughout Cranial nerves II-XII grossly intact Lymphatics: no palpable cervical or supraclavicular lymph nodes Results CBC & Chem 7: 07/15/22 22:00 Labs: Abnormal Lab Results - Last 24 Hours (Table) 07/15/22 Range/Units 20:36 Troponin I 0.048 H* (0.000-0.034) ng/mL Assessment and Plan Assessment: 87 year old female transferred to our facility from [facility] for cardiology evaluation due to progressive SOB. 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
[2022-07-16 05:30] LABS: INR 1.2 (<1.2); Partial Thromboplastin Time 36.5 sec (22.0-30.0); Prothrombin Time 12.1 sec (9.0-12.0)
[2022-07-16] MEDS: LEVOTHYROXINE 100 MCG TAB PO SCH (06:01)
[2022-07-16 06:40] LABS: HCT 28.8 % (34.0-46.0); HGB 9.7 gm/dL (11.4-16.0); MCH 29.8 pg (25.0-35.0); MCHC 33.7 g/dL (31.0-37.0); MCV 88.4 fL (80.0-100.0); Mean Platelet Volume 8.1; Platelet Count 168 k/uL (150-450); RBC 3.26 m/uL (3.80-5.40); WBC 3.3 k/uL (3.8-10.6)
[2022-07-16] MEDS ORDERED: HEPARIN SODIUM,PORCINE 2,500 UNIT in SODIUM CHLORIDE 0.9% 250 ML IRRIGATION PRN (07:00)
[2022-07-16] MEDS ORDERED: HEPARIN SODIUM,PORCINE 10,000 UNIT in SODIUM CHLORIDE 0.9% 1,000 ML IRRIGATION PRN (07:00)
--- NOTE | 2022-07-16 08:10 | XR ---
EXAMINATION TYPE: XR knee limited LT DATE OF EXAM: 07/16/2022 CLINICAL HISTORY: pain TECHNIQUE: 2 views of the left knee are obtained. COMPARISON: None. FINDINGS: There is no acute fracture/dislocation. Marked degenerative narrowing involving all compar tments of the left knee with associated subchondral sclerosis and spur formation. The overlying soft tissue appears unremarkable. IMPRESSION: There is no acute fracture or dislocation ICD 10 NO FRACTURE, INITIAL EVALUATION
[2022-07-16] MEDS ORDERED: ALPRAZolam 0.25 MG TAB PO PRN (08:15)
[2022-07-16] MEDS ORDERED: ALPRAZolam 0.5 MG TAB PO PRN (08:15)
[2022-07-16] MEDS ORDERED: NITROGLYCERIN SL TABS 0.4 MG TAB SUBLINGUAL PRN (08:15)
[2022-07-16] MEDS ORDERED: ATORVASTATIN 80 MG TAB PO STA (08:15)
[2022-07-16] MEDS ORDERED: ASPIRIN 325 MG TAB PO STA (08:15)
--- NOTE | 2022-07-16 08:29 | CONS ---
CONSULTATION CHIEF COMPLAINT: Shortness of breath. HISTORY OF PRESENT ILLNESS: Irma is an 87-year-old lady with history of coronary artery disease, status post prior stenting of the right coronary artery, known chronic total occlusion of the LAD, hypertension and dyslipidemia who presented to the hospital complaining of shortness of breath. She woke up yesterday with difficulty in breathing and had some vague chest tightness. Her troponins have come back elevated at 0.04 and 0.05. Baseline EKG shows that she has a left bundle branch block. The patient has a history of anemia and the last hemoglobin from February was about 9.8. At the time of my evaluation this morning, she is chest pain free, hemodynamically stable with blood pressures poorly controlled. She recently tripped and has a swelling of the left knee. Last cardiac catheterization was in 2016 at which time she had stent of the mid RCA. She also had intervention on multiple prior occasions. Most recent hospitalization was in February when she presented with hip fracture. The patient initially presented to [facility] and subsequently had been transferred over to [facility]. The patient had a CT scan of the chest at the other end that was negative for pulmonary embolism. Her creatinine is 1.3. PAST MEDICAL HISTORY: Significant for coronary artery disease, status post prior angioplasty of the right coronary artery, hypothyroidism, hypertension, dyslipidemia. CURRENT MEDICATIONS: Include, 1. Apresoline 100 t.i.d. 2. Neurontin. 3. Imdur 60 b.i.d. 4. Aspirin. 5. Losartan 100 mg daily. 6. K-Dur. ALLERGIES: No known drug allergies. FAMILY HISTORY: Negative for premature coronary artery disease. SOCIAL HISTORY: Negative for current smoking, EtOH abuse or drug abuse. REVIEW OF SYSTEMS: 14 out of 14 review of systems has been performed. Pertinents include shortness of breath and left knee pain and fatigue and tiredness. PHYSICAL EXAMINATION: GENERAL: Comfortable at rest. VITAL SIGNS: Heart rate is 74 beats per minute. Blood pressure is 160/90, respiratory rate is 18, O2 saturation is 96%. NECK: There is no jugular venous distention. Carotid upstroke is normal. There is no bruit. CHEST: Reveals good air entry bilaterally. HEART: Reveals first and second heart sounds. An ejection systolic murmur in the aortic area. ABDOMEN: Soft. EXTREMITIES: Exam of extremities did not reveal any edema. Peripheral pulses are felt. The patient had a recent episode of 24 hour Holter that revealed sinus rhythm. ASSESSMENT: 1. Acute [id number] elevation myocardial infarction in the patient with known coronary artery disease, status post multiple prior angioplasties. 2. Hypertension. 3. Diabetes. 4. Dyslipidemia. PLAN: I am going to ask Dr. Franklin to perform a cardiac catheterization on her. We will obtain her electrolytes this morning. MMODL / IJN: [id number] /
[2022-07-16 10:01] LABS: Chol/HDL Ratio 3.91 Ratio; LDL Cholesterol,Calculated 98.4 mg/dL (0.0-131.0); VLDL Calculation 15.48 mg/dL (5.00-40.00)
[2022-07-16] MEDS: INSULIN ASPART (NovoLOG) 100 UNIT/ML VIAL SQ SCH ×4 (10:31→20:44)
[2022-07-16 11:31] LABS: Glucose,Whole Blood 117 mg/dL (70-110)
--- NOTE | 2022-07-16 11:35 | P.CNOR ---
History of Present Illness - HPI Consult date: 07/16/22 History of present illness: This patient is an 87-year-old female with a past medical history of coronary artery disease, hypertension, hyperlipidemia, diabetes that presented to [facility] emergency department as a transfer from [place] yesterday due to shortness of breath. Patient was transferred to our facility for cardiology work-up. Orthopedic surgery is consulted for evaluation of left knee pain. Patient is examined bedside this morning. She states she has been experiencing increased left knee pain since Friday. She states there were no falls or injuries. She has experienced left knee pain in the past, and he has received cortisone and viscosupplementation injections for this in [place] in the past. Patient states her pain has not increased since being in the hospital. She states she does experience mild increased pain with ambulation, although she is able to ambulate with a walker without issue. Patient notes she had a right hip fracture fixed by Dr. Hancock last February. She is having no issues in regards to her right hip. She has no additional complaints at this time. Past Medical History Past Medical History: Coronary Artery Disease (CAD), Chest Pain / Angina, Heart Failure, CVA/TIA, Diabetes Mellitus, GI Bleed, Hyperlipidemia, Hypertension, Myocardial Infarction (DE), Osteoarthritis (OA) Additional Past Medical History / Comment(s): CVA POST STENT TO RCA IN 2012. GI BLEED RELATED TO PLAVIX FROM STENT IN 2012, 2 UNITS PRBC RECEIVED Last Myocardial Infarction Date:: 01-22-2014 History of Any Multi-Drug Resistant Organisms: None Reported Past Surgical History: Heart Catheterization With Stent, Orthopedic Surgery Additional Past Surgical History / Comment(s): HEART CATH IN 2012 AND 2013 WITH STENT TO RCA Past Anesthesia/Blood Transfusion Reactions: No Reported Reaction Date of Last Stent Placement:: 01-22-2014 Past Psychological History: No Psychological Hx Reported Smoking Status: Never smoker Past Alcohol Use History: None Reported Past Drug Use History: None Reported - Past Family History Mother Family Medical History: No Reported History Additional Family Medical History / Comment(s): Mother was healthy and worked up until the age of 77yrs. Father Family Medical History: Liver Disease, Renal Disease Medications and Allergies Home Medications Medication Instructions Recorded Confirmed Type Potassium Chloride [Klor-Con 20] 40 meq PO Q48H 01/22/14 07/15/22 History Brimonidine Tartrate [Alphagan P 1 drop LEFT EYE BID 02/27/22 07/15/22 History 0.2% Ophth Soln] Diclofenac Sodium Gel [Voltaren 2 - 4 gm TOPICAL QID PRN 02/27/22 07/15/22 History Gel] Furosemide [Lasix] 20 mg PO Q48H 02/27/22 07/15/22 History Isosorbide Mononitrate ER [Imdur] 60 mg PO BID 02/27/22 07/15/22 History Latanoprost [Latanoprost 0.005%] 1 drop BOTH EYES HS 02/27/22 07/15/22 History Levothyroxine Sodium 100 mcg PO DAILY 02/27/22 07/15/22 History Omeprazole 40 mg PO DAILY 02/27/22 07/15/22 History Timolol 0.5% Ophth Soln [Timoptic 1 drop LEFT EYE BID 02/27/22 07/15/22 History 0.5% Ophth Soln] hydrALAZINE HCL [Apresoline] 100 mg PO TID 02/27/22 07/15/22 History Gabapentin [Neurontin] 300 mg PO BID #6 cap 03/01/22 07/15/22 Rx Aspirin 81 mg PO DAILY 07/15/22 07/15/22 History HYDROcodone/APAP 7.5-325MG [[place] 1 tab PO BID PRN 07/15/22 07/15/22 History 7.5-325] Losartan Potassium 100 mg PO DAILY 07/15/22 07/16/22 History Multivitamins, Thera [Multivitamin 1 tab PO DAILY 07/15/22 07/15/22 History (formulary)] Potassium Chloride [Klor-Con M20] 60 meq PO Q48H 07/15/22 07/15/22 History Sennosides-Docusate Sodium 2 tab PO DAILY 07/15/22 07/15/22 History [Senokot-S] Allergies Allergy/AdvReac Type Severity Reaction Status Date / Time No Known Allergies Allergy Verified 07/15/22 19:44 Physical Examination On examination, patient is sitting up in bed in no apparent distress. She is alert and oriented, she answers questions appropriately. Nasal cannula in place. Her head appears normocephalic and atraumatic. Her breathing appears nonlabored. Focused examination of the left knee is conducted. On inspection of the left knee, there are no open wounds, lacerations, no erythema, ecchymosis, skin discoloration. No signs of trauma. There is a small knee effusion. There is mild pain on palpation of the medial joint line. There is no pain with passive range of motion of the left knee or left hip. Motor and sensory function is intact of the left lower extremity. Left lower extremity warm and well perfused. On inspection of the right hip, there are 3 healed incisions at the lateral hip consistent with prior IM hip screw. No pain with PROM of the right hip. Results Left knee x-ray 07/15/22: Severe arthritic changes of all compartments of the knee with spurring. No acute fractures. - Labs Labs: Abnormal Lab Results - Last 24 Hours (Table) 07/15/22 07/15/22 07/15/22 Range/Units 20:36 22:00 22:00 WBC (3.8-10.6) k/uL RBC 3.22 L (3.80-5.40) m/uL Hgb 9.7 L (11.4-16.0) gm/dL Hct 28.1 L (34.0-46.0) % PT (9.0-12.0) sec INR (<1.2) APTT (22.0-30.0) sec Troponin I 0.048 H* 0.053 H* (0.000-0.034) ng/mL HDL Cholesterol (40.00-60.00) mg/dL 07/16/22 07/16/22 07/16/22 Range/Units 04:50 04:50 04:50 WBC 3.3 L (3.8-10.6) k/uL RBC 3.26 L (3.80-5.40) m/uL Hgb 9.7 L (11.4-16.0) gm/dL Hct 28.8 L (34.0-46.0) % PT 12.1 H (9.0-12.0) sec INR 1.2 H (<1.2) APTT 36.5 H (22.0-30.0) sec Troponin I (0.000-0.034) ng/mL HDL Cholesterol 39.10 L (40.00-60.00) mg/dL H & H 07/15/22 07/16/22 Range/Units 22:00 04:50 Hgb 9.7 L 9.7 L (11.4-16.0) gm/dL Hct 28.1 L 28.8 L (34.0-46.0) % Coagulation 07/15/22 07/16/22 Range/Units 22:00 04:50 INR 1.1 1.2 H (<1.2) Result Diagrams: 07/16/22 04:50 Assessment and Plan Assessment: Severe left knee arthritis Plan: - Clinical and imaging findings were discussed with the patient. The patient was discussed with Dr. Hill. No surgical intervention planned at this time. Patient's left knee pain is likely related to her severe arthritis. We discussed treatment options, including oral/topical NSAIDs, bracing, activity modification, periodic injections. I offered the patient an attempt at aspiration and cortisone injection while inpatient, although the patient declines. She states she would rather follow-up as an outpatient for further treatment of her knee. She states it is not too painful at this time and she can ambulate with a walker without issue. - Patient may ambulate with a walker as tolerated when medically cleared. - Patient may follow-up in the office as an outpatient. We will sign off at this time.
--- NOTE | 2022-07-16 11:36 | P.PN ---
Subjective Progress Note Date: 07/16/22 Patient seen and examined at bedside. Patient currently denies chest pain or shortness of breath. No Changes overnight. Troponin levels were elevated. Cardiology was consulted. Last cardiac cath was two years ago Objective - Vital Signs Vital signs: Vital Signs Temp 98.9 F 07/15/22 18:45 Pulse 84 07/16/22 09:10 Resp 18 07/16/22 09:10 BP 172/111 07/16/22 09:10 Pulse Ox 96 07/16/22 09:10 FiO2 Intake & Output 07/15/22 07/16/22 07/16/22 18:59 06:59 18:59 Intake Total 61.238 Balance 61.238 Weight 68.039 kg Intake: Intake, IV Titration 61.238 Amount Heparin Sod,Pork in 0.45% 61.238 NaCl 25,000 unit In 0.45 % NaCl 1 250ml.bag @ 12 UNITS/KG/HR 8.165 mls/hr IV .Q24H [facility] Rx#: [id number] - Exam General: [non toxic], [no distress], [appears at stated age] Derm: [warm], [dry] Head: [atraumatic], [normocephalic], [symmetric] Eyes: [EOMI], [no lid lag], [anicteric sclera] Mouth: [no lip lesion], [mucus membranes moist] Cardiovascular: [S1S2 reg], [no murmur], [positive posterior tibial pulse bilateral], Lungs: [CTA bilateral], [no rhonchi, no rales] , [no accessory muscle use] Abdominal: [soft], [ nontender to palpation], [no guarding], [no appreciable organomegaly] Ext: [no gross muscle atrophy], [no edema], [no contractures] Neuro: [ CN II-XI grossly intact], [no focal neuro deficits] Psych: [Alert], [oriented], [appropriate affect] - Labs CBC & Chem 7: 07/16/22 04:50 Labs: Abnormal Lab Results - Last 24 Hours (Table) 07/15/22 07/15/22 07/15/22 Range/Units 20:36 22:00 22:00 WBC (3.8-10.6) k/uL RBC 3.22 L (3.80-5.40) m/uL Hgb 9.7 L (11.4-16.0) gm/dL Hct 28.1 L (34.0-46.0) % PT (9.0-12.0) sec INR (<1.2) APTT (22.0-30.0) sec Troponin I 0.048 H* 0.053 H* (0.000-0.034) ng/mL HDL Cholesterol (40.00-60.00) mg/dL 07/16/22 07/16/22 07/16/22 Range/Units 04:50 04:50 04:50 WBC 3.3 L (3.8-10.6) k/uL RBC 3.26 L (3.80-5.40) m/uL Hgb 9.7 L (11.4-16.0) gm/dL Hct 28.8 L (34.0-46.0) % PT 12.1 H (9.0-12.0) sec INR 1.2 H (<1.2) APTT 36.5 H (22.0-30.0) sec Troponin I (0.000-0.034) ng/mL HDL Cholesterol 39.10 L (40.00-60.00) mg/dL Assessment and Plan Assessment: 87 year old female [facility] facility [facility] due to progressive SOB. 1. Exertional dyspnea with atypical chest pain likely due to NSTEMI elevated trops noted trops 0.02 -- > 0.048 --> 0.053 Continue heparin drip atorvastatin 40 mg daily nitro paste patch PRN Vital signs every 4 hours Telemetry lipid panel reviewed cardiology consulted recommendations appreciated elevated d dimer, CTA chest negative for acute PE heparin drip, monitored by pharmacy 2. Normocytic anemia likely chronic rule out iron deficiency denies GI bleeding Hgb stable at 9.7 Check iron studies Monitor CBC 3. hypertension , uncontrolled resume hydralazine restart home medication losartan 100mg daily restart lasix 20mg po q48h 4. hypothyroid resume levothyroxine 100 mcg daily po 5. incidental finding of 3 mm pulmonary nodule right upper lung in non smoker patient out patient follow-up 6. DVT PPX on heparin gtt for ACS Disposition greater than 2 midnight stay with return to [facility] upon DC
[2022-07-16] MEDS ORDERED: POTASSIUM CHLORIDE ER 20 MEQ TAB.ER PO SCH (12:00)
[2022-07-16] MEDS ORDERED: FUROSEMIDE 20 MG TAB PO SCH (12:00)
[2022-07-16 12:07] LABS: Basophils # (M) 0.03 k/uL (0-0.2); Lymphocytes # (M) 0.63 k/uL (1.0-4.8); Monocytes # (M) 0.36 k/uL (0-1.0); Neutrophils # (M) 2.18 k/uL (1.3-7.7); Neutrophils % (M) 66 %; Nucleated Red Blood Cells 0 /100 WBC (0-0); Total Cells Counted 100
[2022-07-16 12:09] LABS: Rouleaux Present
[2022-07-16] MEDS: PANTOPRAZOLE 40 MG TABLET PO SCH (12:22)
[2022-07-16] MEDS: GABAPENTIN 300 MG CAP PO SCH ×2 (12:23→20:48)
[2022-07-16] MEDS: SENNOSIDES-DOCUSATE SODIUM 1 EACH TAB PO SCH (12:23)
[2022-07-16] MEDS: hydrALAZINE HCL 50 MG TAB PO SCH ×3 (12:23→20:48)
[2022-07-16] MEDS: MULTIVITAMINS, THERA 1 EACH TAB PO SCH (12:28)
[2022-07-16] MEDS: SODIUM CHLORIDE 0.9% 1,000 ML in EMPTY BAG 1 BAG IV SCH (12:29)
[2022-07-16] MEDS: LOSARTAN 50 MG TAB PO SCH (12:30)
[2022-07-16 13:04] LABS: Calcium 9.2 mg/dL (8.4-10.2); Magnesium 1.6 mg/dL (1.6-2.3); Potassium 3.6 mmol/L (3.5-5.1)
[2022-07-16] MEDS ORDERED: HEPARIN SODIUM 1,000 UN/ML (10ML VL) IVP ONE (13:40)
[2022-07-16] MEDS: MORPHINE SULFATE 2 MG/ML SYRINGE IVP PRN ×2 (14:08→20:49)
[2022-07-16] MEDS: BRIMONIDINE TARTRATE 0.2% DROPS 5 ML BTL LEFT EYE SCH (15:54)
[2022-07-16 16:22] LABS: Glucose,Whole Blood 114 mg/dL (70-110)
[2022-07-16 20:15] LABS: % Iron Saturation 28.74 (12.00-45.00)
[2022-07-16 20:45] LABS: Glucose,Whole Blood 109 mg/dL (70-110)
[2022-07-17] MEDS: TIMOLOL 0.5% OPHTH DROPS 5 ML BTL LEFT EYE SCH ×3 (01:17→20:40)
[2022-07-17] MEDS: BRIMONIDINE TARTRATE 0.2% DROPS 5 ML BTL LEFT EYE SCH ×3 (01:17→20:39)
[2022-07-17] MEDS: LATANOPROST 0.005% OPHTH DROPS 2.5 ML BTL BOTH EYES SCH ×2 (01:17→21:10)
[2022-07-17] MEDS: NITROGLYCERIN OINT 1 INCH/GM PACKET TOPICAL SCH ×5 (01:23→23:52)
[2022-07-17] MEDS: SODIUM CHLORIDE 0.9% 1,000 ML in EMPTY BAG 1 BAG IV SCH ×3 (01:23→20:20)
[2022-07-17] MEDS: HEPARIN SOD,PORK IN 0.45% NACL 25,000 UNIT in 0.45% NACL 1 250ML.BAG IV SCH (01:23)
[2022-07-17] MEDS: PANTOPRAZOLE 40 MG TABLET PO SCH (05:29)
[2022-07-17] MEDS: GABAPENTIN 300 MG CAP PO SCH ×2 (05:29→20:39)
[2022-07-17] MEDS: hydrALAZINE HCL 50 MG TAB PO SCH ×3 (05:29→20:39)
[2022-07-17] MEDS: ATORVASTATIN 40 MG TAB PO SCH (05:29)
[2022-07-17] MEDS: LEVOTHYROXINE 100 MCG TAB PO SCH (05:29)
[2022-07-17] MEDS: LOSARTAN 50 MG TAB PO SCH (05:30)
[2022-07-17] MEDS ORDERED: IV FLUID CONTINUATION 1,000 ML IV ONE (06:11)
[2022-07-17] MEDS ORDERED: MIDAZOLAM 2 MG/2 ML VIAL IVP ONE (06:52)
[2022-07-17] MEDS ORDERED: LIDOCAINE 1% INJ 10MG/ML (20 ML MDV) SQ ONE (06:53)
[2022-07-17] MEDS ORDERED: RX INFO: IV CONTRAST WAS GIVEN 1 EACH MISC MISCELLANE PRN (07:18)
[2022-07-17] MEDS ORDERED: IOPAMIDOL-370 125ML BTL INJ ONE (07:19)
--- NOTE | 2022-07-17 07:25 | P.PCN ---
Date of Procedure: 07/17/22 Operative Findings: CARDIAC CATHETERIZATION PERFORMING PHYSICIAN: Kvng Franklin MD, RPVI PROCEDURE PERFORMED: 1. Selective right and left coronary angiogram 2. Left heart catheterization 3. Ultrasound-guided access of the right common femoral artery and right common femoral artery angiogram INDICATION: Acute non-ST elevation myocardial infarction COMPLICATION: None APPROACH: Right common femoral artery LEVEL OF SEDATION: Moderate with sedation in length of 25 minutes PROCEDURE DESCRIPTION: After obtaining an informed consent, the patient was brought to cardiac solder making laborer. Local anesthesia was performed using lidocaine subcutaneously. The right common femoral artery was cannulated using Seldinger technique, the guidewire passed easily, following that we advanced a 6 Liberian sheath dilator assembly, the wire and dilator were removed and sheath was flushed. Selective right and left coronary angiogram using a 6-Liberian JR4 and JL catheters. Following that we did left heart catheterization using 6-Liberian pigtail catheter. The procedure was completed there was no complication. SELECTIVE CORONARY ANGIOGRAM: The right coronary artery: Large caliber vessel and a dominant vessel. The RCA is extremely calcified. The ostial RCA has a lesion appeared to be in the range of 60%. There was some dampening in the pressure waveform upon engaging the RCA using a JR4 catheter. The RCA in the proximal and mid and distal portion appears to have mild to moderate diffuse disease. Left main: Calcified was mild disease only. The left circumflex: Was not well opacified. The left anterior descending artery: The proximal LAD appeared to have mild disease only. The mid LAD is subtotally occluded after the bifurcation of a large septal legal receptionist branch. Gives rises into a large diagonal branch which bifurcates into 2 subbranches. The upper subbranch has also intermediate lesion appears to be in the range of 60%. HEMODYNAMICS: The LVEDP was 10 mmHg was no significant gradient across aortic valve CONCLUSION: 1. Intermediate to severe lesion involving the ostial RCA 2. Occluded LAD in the midportion. This is a known finding from before. Intermediate to severe disease involving the large diagonal branch. 3. Normal left-sided filling pressure POSTPROCEDURE MANAGEMENT: FFR of both the RCA and diagonal to be done in the next 24 hours.
[2022-07-17 08:34] LABS: Glucose,Whole Blood 116 mg/dL (70-110)
[2022-07-17] MEDS: INSULIN ASPART (NovoLOG) 100 UNIT/ML VIAL SQ SCH ×4 (08:36→20:20)
[2022-07-17] MEDS ORDERED: ASPIRIN 325 MG TAB PO SCH (09:00)
[2022-07-17] MEDS: SENNOSIDES-DOCUSATE SODIUM 1 EACH TAB PO SCH (10:16)
[2022-07-17] MEDS: MULTIVITAMINS, THERA 1 EACH TAB PO SCH (10:16)
[2022-07-17] MEDS: CLOPIDOGREL 75 MG TAB PO SCH (10:16)
[2022-07-17 10:30] LABS: Basophils % (A) 0 %; Eosinophils # (A) 0.1 k/uL (0-0.7); Eosinophils % (A) 2 %; HCT 30.1 % (34.0-46.0); HGB 10.3 gm/dL (11.4-16.0); Lymphocytes # (A) 0.7 k/uL (1.0-4.8); Lymphocytes % (A) 24 %; MCH 30.9 pg (25.0-35.0); MCHC 34.4 g/dL (31.0-37.0); MCV 89.9 fL (80.0-100.0); Mean Platelet Volume 7.4; Monocytes # (A) 0.2 k/uL (0-1.0); Monocytes % (A) 8 %; Neutrophils # (A) 1.8 k/uL (1.3-7.7); Neutrophils % (A) 62 %; Platelet Count 184 k/uL (150-450); RBC 3.34 m/uL (3.80-5.40); RDW 14.8 % (11.5-15.5); WBC 2.8 k/uL (3.8-10.6)
[2022-07-17 10:57] LABS: Albumin 3.6 g/dL (3.5-5.0); Calcium 8.8 mg/dL (8.4-10.2); Potassium 3.4 mmol/L (3.5-5.1); Total Bilirubin 0.5 mg/dL (0.2-1.3); Total Protein 10.5 g/dL (6.3-8.2)
[2022-07-17] MEDS: MORPHINE SULFATE 2 MG/ML SYRINGE IVP PRN ×2 (11:05→21:10)
[2022-07-17] MEDS ORDERED: POTASSIUM CHLORIDE ER 20 MEQ TAB.ER PO STA (11:22)
[2022-07-17 11:32] LABS: Glucose,Whole Blood 110 mg/dL (70-110)
--- NOTE | 2022-07-17 11:39 | P.PN ---
Subjective Progress Note Date: 07/17/22 Hospital course: Patient is a very pleasant 87-year-old female with a past medical history of CAD with stents, hypertension, CHF, hypothyroidism, chronic kidney disease stage II, and GERD. She presented to the emergency department on 07/15/22 with a chief complaint of exertional dyspnea and mild chest discomfort. She was transferred from [facility] where she initially presented after 3 episodes of chest discomfort accompanied by this exertional dyspnea. At [facility] patient had a CT of the chest done secondary to elevated d-dimer and reports of palpitations and this was negative for pulmonary emboli but reportedly revealed a 3 mm right upper lung nodule on arrival to our facility patient underwent full evaluation. Labs completed and reviewed. CBC revealing normocytic anemia with hemoglobin of 9.7. Troponin was elevated at 0.048 and 0.053. ProBNP 3680. Iron 300 iron saturation 28.74, and transferrin of 214. BMP revealing hyperchloremia with chloride of 108, hypocarbia with carbon dioxide of 20 and slightly elevated creatinine of 1.16. EKG was completed showing sinus mechanism at 96 bpm with a left bundle branch block X-ray left knee was negative for acute fracture or dislocation inconsistent for her arthritis with marked degeneration and narrowing involving all compartments of the left knee accompanied by associated subchondral sclerosis and spur formation. Patient was started on heparin infusion and admitted under our services with consultation to cardiology for NSTEMI and orthopedic surgery secondary to left knee pain. Physical exam: Vital signs reviewed and stable. General: Nontoxic, no distress and appears stated age. Derm: Skin warm and dry, normal coloration for ethnicity. Head: Atraumatic, normocephalic and symmetric. Eyes: EOMs intact, no lid lag, and anicteric sclera Mouth: no lip lesions, mucus membranes moist Cardiovascular: regular rate and rhythm with normal S1S2, systolic murmur, positive posterior tibial pulses bilaterally, and cap refill < 2 seconds. Lungs: Respirations even, regular, and unlabored on room air. Lungs CTA bilat erally, no rhonchi, no rales, no wheezing, and no accessory muscle usage. Abdominal: soft, nontender to palpation, no guarding, no appreciable organomegaly Ext: ROM intact. No gross muscle atrophy, no edema, no contractures Neuro: Speech clear, face symmetrical and CN II-XII grossly intact with no noted focal neuro deficits Psych: Alert and oriented to person, place, time, and situation. Appropriate and pleasant affect. Assessment and Plan of Care: NSTEMI Exertional dyspnea, likely secondary to above Chest pain Left bundle-branch block Hypertension -Patient underwent cardiac cath this morning. Reviewed documentation, Dr. Franklin recommending patient to undergo FFR of both the RCA and diagonal to be done within the next 24 hours -Patient to continue cardiac medication regimen consisting of aspirin, Plavix, atorvastatin, hydralazine, losartan, and isosorbide mononitrate. Hypokalemia -K Dur 40 mEq 1 dose ordered for potassium of 3.4 and we will reevaluate BMP with a.m. labs in place additional orders for correction of abnormal electrolyte values as needed. Stage II chronic kidney disease Normocytic anemia, likely secondary to chronic disease -Iron profile completed and reviewed. Iron 300 iron saturation 28.74, and transferrin of 214. -Hemoglobin stable at 10.3, no need for transfusion or any other interventions at this time. -Renal function stable with BUN 17, creatinine 1.25, and GFR of 39. -Secondary to dye received during cardiac cath and plans for patient to undergo FFR, we will hold Lasix and continue patient on 0.9% normal saline at 100 mL's per hour. -Monitor renal function closely with repeat morning BMP. Severe tricompartmental arthritis of left knee Left knee pain, secondary to above - X-ray left knee was negative for acute fracture or dislocation inconsistent for her arthritis with marked degeneration and narrowing involving all compartments of the left knee accompanied by associated subchondral sclerosis and spur formation. -Orthopedic surgery evaluated and reviewed their documentation on chart. Orthopedic surgery recommending patient ambulate with walker and follow-up outpatient in office with no surgical interventions planned at this time. -Symptomatic care with Tylenol as needed for pain/discomfort and again follow up outpatient for periodic injections as discussed with patient by orthopedic surgery PA. CODE STATUS: Full code DVT prophylaxis: Heparin Discussed with: Patient and RN Anticipated discharge date: Clinical course to determine Anticipated discharge place: Home Patient was seen independently by Nurse Pracitioner. This document was prepared using [employer] dictation software. Please allow for errors in cloud developer, while rare they do occur. I reviewed the documentation as provided by the MEGA above, who is the original author of this note. I agree with the documented assessment and plan, with the following changes: none Objective - Vital Signs Vital signs: Vital Signs Temp 97.6 F 07/17/22 07:33 Pulse 82 07/17/22 08:33 Resp 17 07/17/22 08:33 BP 182/82 07/17/22 08:33 Pulse Ox 97 07/17/22 09:57 FiO2 Intake & Output 07/16/22 07/17/22 07/17/22 18:59 06:59 18:59 Intake Total 67.786 430.976 Balance 67.786 430.976 Weight 68.039 kg Intake: IV 50 Intake, IV Titration 67.786 260.976 Amount Heparin Sod,Pork in 0.45% 67.786 120.976 NaCl 25,000 unit In 0.45 % NaCl 1 250ml.bag @ 12 UNITS/KG/HR 8.165 mls/hr IV .Q24H SUNNY Rx#: [id number] Sodium Chloride 0.9% 1, 140 000 ml In Empty Bag 1 bag @ 1 ML/KG/HR 68.039 mls/ hr IV .[id number] SUNNY Rx#: [id number] Oral 120 Other: Voiding Method Bedside Commode Bedside Commode External Catheter # Voids 1 1 - Labs CBC & Chem 7: 07/17/22 09:55 07/18/22 06:43 Labs: Abnormal Lab Results - Last 24 Hours (Table) 07/16/22 07/16/22 07/16/22 Range/Units 04:50 11:29 11:52 WBC (3.8-10.6) k/uL RBC (3.80-5.40) m/uL Hgb (11.4-16.0) gm/dL Hct (34.0-46.0) % Lymphocytes # (1.0-4.8) k/uL Lymphocytes # (Manual) 0.63 L (1.0-4.8) k/uL APTT 33.8 H (22.0-30.0) sec Sodium (137-145) mmol/L Potassium (3.5-5.1) mmol/L Chloride (98-107) mmol/L Carbon Dioxide (22-30) mmol/L Creatinine (0.52-1.04) mg/dL Glucose (74-99) mg/dL POC Glucose (mg/dL) 117 H (70-110) mg/dL Total Protein (6.3-8.2) g/dL 07/16/22 07/16/22 07/16/22 Range/Units 11:52 16:20 19:44 WBC (3.8-10.6) k/uL RBC (3.80-5.40) m/uL Hgb (11.4-16.0) gm/dL Hct (34.0-46.0) % Lymphocytes # (1.0-4.8) k/uL Lymphocytes # (Manual) (1.0-4.8) k/uL APTT 36.7 H (22.0-30.0) sec Sodium (137-145) mmol/L Potassium (3.5-5.1) mmol/L Chloride 108 H (98-107) mmol/L Carbon Dioxide 20 L (22-30) mmol/L Creatinine 1.16 H (0.52-1.04) mg/dL Glucose 106 H (74-99) mg/dL POC Glucose (mg/dL) 114 H (70-110) mg/dL Total Protein (6.3-8.2) g/dL 07/17/22 07/17/22 07/17/22 Range/Units 01:05 08:33 09:55 WBC 2.8 L (3.8-10.6) k/uL RBC 3.34 L (3.80-5.40) m/uL Hgb 10.3 L (11.4-16.0) gm/dL Hct 30.1 L (34.0-46.0) % Lymphocytes # 0.7 L (1.0-4.8) k/uL Lymphocytes # (Manual) (1.0-4.8) k/uL APTT 80.3 H (22.0-30.0) sec Sodium (137-145) mmol/L Potassium (3.5-5.1) mmol/L Chloride (98-107) mmol/L Carbon Dioxide (22-30) mmol/L Creatinine (0.52-1.04) mg/dL Glucose (74-99) mg/dL POC Glucose (mg/dL) 116 H (70-110) mg/dL Total Protein (6.3-8.2) g/dL 07/17/22 Range/Units 09:55 WBC (3.8-10.6) k/uL RBC (3.80-5.40) m/uL Hgb (11.4-16.0) gm/dL Hct (34.0-46.0) % Lymphocytes # (1.0-4.8) k/uL Lymphocytes # (Manual) (1.0-4.8) k/uL APTT (22.0-30.0) sec Sodium 136 L (137-145) mmol/L Potassium 3.4 L (3.5-5.1) mmol/L Chloride 108 H (98-107) mmol/L Carbon Dioxide 20 L (22-30) mmol/L Creatinine 1.25 H (0.52-1.04) mg/dL Glucose (74-99) mg/dL POC Glucose (mg/dL) (70-110) mg/dL Total Protein 10.5 H (6.3-8.2) g/dL
--- NOTE | 2022-07-17 12:40 | P.PN ---
Subjective Progress Note Date: 07/17/22 HISTORY OF PRESENT ILLNESS: This is an 87-year-old female who follows in the office with Dr. Franklin. Patient is admitted to the hospital secondary to non-STEMI. Patient underwent cardiac catheterization this morning revealing intermediate to severe lesion involving ostial RCA. Occluded LAD in the midportion which is a known finding from before. Intermediate to severe disease involving the large diagonal branch. Normal left-sided filling pressures. Patient will be scheduled for FFR of both RCA and Diagonal tomorrow. PHYSICAL EXAM: VITAL SIGNS: Reviewed. GENERAL: Well-developed in no acute distress. NECK: Supple. No JVD or thyromegaly LUNGS: Respirations even and unlabored. Lungs essentially clear to auscultation bilaterally. HEART: Regular rate and rhythm. S1 and S2 heard. EXTREMITIES: Normal range of motion. No clubbing or cyanosis. Peripheral pulses intact. No lower extremity edema ASSESSMENT: Non-STEMI Coronary artery disease with previous intervention, most recent in 2017 with stenting to the mid RCA Hypertension Hyperlipidemia Diabetes PLAN: Continue current cardiac medications Patient to undergo repeat cath tomorrow with FFR of RCA and diagonal NPO at midnight Further recommendations pending patient course Nurse practitioner note has been reviewed by physician. Signing provider agrees with the documented findings, assessment, and plan of care. Objective - Vital Signs Vital signs: Vital Signs Temp 96.4 F L 07/17/22 11:46 Pulse 77 07/17/22 11:46 Resp 14 07/17/22 11:46 BP 170/81 07/17/22 11:46 Pulse Ox 97 07/17/22 09:57 FiO2 Intake & Output 07/16/22 07/17/22 07/17/22 18:59 06:59 18:59 Intake Total 67.786 430.976 Balance 67.786 430.976 Weight 68.039 kg Intake: IV 50 Intake, IV Titration 67.786 260.976 Amount Heparin Sod,Pork in 0.45% 67.786 120.976 NaCl 25,000 unit In 0.45 % NaCl 1 250ml.bag @ 12 UNITS/KG/HR 8.165 mls/hr IV .Q24H SUNNY Rx#: [id number] Sodium Chloride 0.9% 1, 140 000 ml In Empty Bag 1 bag @ 1 ML/KG/HR 68.039 mls/ hr IV .[id number] SUNNY Rx#: [id number] Oral 120 Other: Voiding Method Bedside Commode Bedside Commode Toilet # Voids 1 1 - Labs CBC & Chem 7: 07/17/22 09:55 07/17/22 09:55 Labs: Abnormal Lab Results - Last 24 Hours (Table) 07/16/22 07/16/22 07/16/22 Range/Units 11:52 11:52 16:20 WBC (3.8-10.6) k/uL RBC (3.80-5.40) m/uL Hgb (11.4-16.0) gm/dL Hct (34.0-46.0) % Lymphocytes # (1.0-4.8) k/uL APTT 33.8 H (22.0-30.0) sec Sodium (137-145) mmol/L Potassium (3.5-5.1) mmol/L Chloride 108 H (98-107) mmol/L Carbon Dioxide 20 L (22-30) mmol/L Creatinine 1.16 H (0.52-1.04) mg/dL Glucose 106 H (74-99) mg/dL POC Glucose (mg/dL) 114 H (70-110) mg/dL Total Protein (6.3-8.2) g/dL 07/16/22 07/17/22 07/17/22 Range/Units 19:44 01:05 08:33 WBC (3.8-10.6) k/uL RBC (3.80-5.40) m/uL Hgb (11.4-16.0) gm/dL Hct (34.0-46.0) % Lymphocytes # (1.0-4.8) k/uL APTT 36.7 H 80.3 H (22.0-30.0) sec Sodium (137-145) mmol/L Potassium (3.5-5.1) mmol/L Chloride (98-107) mmol/L Carbon Dioxide (22-30) mmol/L Creatinine (0.52-1.04) mg/dL Glucose (74-99) mg/dL POC Glucose (mg/dL) 116 H (70-110) mg/dL Total Protein (6.3-8.2) g/dL 07/17/22 07/17/22 Range/Units 09:55 09:55 WBC 2.8 L (3.8-10.6) k/uL RBC 3.34 L (3.80-5.40) m/uL Hgb 10.3 L (11.4-16.0) gm/dL Hct 30.1 L (34.0-46.0) % Lymphocytes # 0.7 L (1.0-4.8) k/uL APTT (22.0-30.0) sec Sodium 136 L (137-145) mmol/L Potassium 3.4 L (3.5-5.1) mmol/L Chloride 108 H (98-107) mmol/L Carbon Dioxide 20 L (22-30) mmol/L Creatinine 1.25 H (0.52-1.04) mg/dL Glucose (74-99) mg/dL POC Glucose (mg/dL) (70-110) mg/dL Total Protein 10.5 H (6.3-8.2) g/dL
[2022-07-17 16:33] LABS: Glucose,Whole Blood 120 mg/dL (70-110)
[2022-07-17 20:00] LABS: Glucose,Whole Blood 110 mg/dL (70-110)
[2022-07-17] MEDS: ISOSORBIDE MONONITRATE ER 60 MG TAB.ER.24H PO SCH (20:39)
[2022-07-18] MEDS: PANTOPRAZOLE 40 MG TABLET PO SCH (05:57)
[2022-07-18] MEDS: NITROGLYCERIN OINT 1 INCH/GM PACKET TOPICAL SCH ×4 (05:57→23:19)
[2022-07-18] MEDS: LEVOTHYROXINE 100 MCG TAB PO SCH (05:57)
[2022-07-18 06:02] LABS: Glucose,Whole Blood 100 mg/dL (70-110)
[2022-07-18] MEDS: INSULIN ASPART (NovoLOG) 100 UNIT/ML VIAL SQ SCH ×4 (06:04→20:40)
[2022-07-18] MEDS ORDERED: HEPARIN SODIUM,PORCINE 10,000 UNIT in SODIUM CHLORIDE 0.9% 1,000 ML IRRIGATION PRN (07:00)
[2022-07-18] MEDS ORDERED: HEPARIN SODIUM,PORCINE 2,500 UNIT in SODIUM CHLORIDE 0.9% 250 ML IRRIGATION PRN (07:00)
[2022-07-18] MEDS: GABAPENTIN 300 MG CAP PO SCH ×2 (07:19→21:46)
[2022-07-18] MEDS ORDERED: VERAPAMIL 2.5 MG/ML 2 ML AMP ONE (07:19)
[2022-07-18] MEDS: SENNOSIDES-DOCUSATE SODIUM 1 EACH TAB PO SCH (07:19)
[2022-07-18] MEDS: ATORVASTATIN 40 MG TAB PO SCH (07:19)
[2022-07-18] MEDS: MULTIVITAMINS, THERA 1 EACH TAB PO SCH (07:19)
[2022-07-18] MEDS: LOSARTAN 50 MG TAB PO SCH (07:19)
[2022-07-18] MEDS: hydrALAZINE HCL 50 MG TAB PO SCH ×3 (07:19→21:45)
[2022-07-18] MEDS ORDERED: HEPARIN SODIUM 1,000 UN/ML (10ML VL) ONE (07:19)
[2022-07-18] MEDS: ASPIRIN 81 MG PO SCH (07:19)
[2022-07-18] MEDS ORDERED: LIDOCAINE 1% INJ 10MG/ML (20 ML MDV) ONE (07:19)
[2022-07-18] MEDS: ISOSORBIDE MONONITRATE ER 60 MG TAB.ER.24H PO SCH ×2 (07:20→21:45)
[2022-07-18] MEDS: CLOPIDOGREL 75 MG TAB PO SCH (07:20)
[2022-07-18] MEDS: TIMOLOL 0.5% OPHTH DROPS 5 ML BTL LEFT EYE SCH ×2 (07:21→21:44)
[2022-07-18] MEDS: BRIMONIDINE TARTRATE 0.2% DROPS 5 ML BTL LEFT EYE SCH ×2 (07:21→21:45)
[2022-07-18] MEDS: SODIUM CHLORIDE 0.9% 1,000 ML in EMPTY BAG 1 BAG IV SCH (07:48)
[2022-07-18] MEDS ORDERED: LIDOCAINE 1% INJ 10MG/ML (30 ML VIAL-PF) SQ ONE ×2 (07:58)
[2022-07-18] MEDS ORDERED: VERAPAMIL SYRINGE (5 MG/10 ML) IVP ONE (07:59)
[2022-07-18] MEDS ORDERED: MIDAZOLAM 2 MG/2 ML VIAL IVP ONE (07:59)
[2022-07-18] MEDS ORDERED: SODIUM CHLORIDE 0.9% 1,000 ML IV ONE (08:00)
[2022-07-18] MEDS ORDERED: HEPARIN SODIUM 1,000 UN/ML (10ML VL) IVP ONE (08:06)
[2022-07-18] MEDS ORDERED: CLOPIDOGREL 75 MG TAB ONE (08:21)
[2022-07-18] MEDS ORDERED: IOPAMIDOL-370 125ML BTL INJ ONE (08:24)
[2022-07-18] MEDS ORDERED: CLOPIDOGREL 75 MG TAB PO ONE (08:24)
[2022-07-18 08:54] LABS: Calcium 8.6 mg/dL (8.4-10.2); Magnesium 1.6 mg/dL (1.6-2.3)
[2022-07-18] MEDS ORDERED: ATROPINE SULFATE 0.1 MG/ML 10ML SYRINGE IV PRN (09:05)
[2022-07-18] MEDS ORDERED: ZOLPIDEM 5 MG TAB PO PRN (09:05)
[2022-07-18] MEDS ORDERED: MAG HYDROX/AL HYDROX/SIMETH 30 ML CUP PO PRN (09:05)
[2022-07-18 09:31] LABS: HCT 27.5 % (34.0-46.0); HGB 8.9 gm/dL (11.4-16.0); MCH 29.9 pg (25.0-35.0); MCHC 32.3 g/dL (31.0-37.0); MCV 92.5 fL (80.0-100.0); Mean Platelet Volume 7.9; Platelet Count 177 k/uL (150-450); RBC 2.97 m/uL (3.80-5.40); RDW 14.8 % (11.5-15.5); WBC 3.9 k/uL (3.8-10.6)
[2022-07-18 11:29] LABS: Glucose,Whole Blood 125 mg/dL (70-110)
[2022-07-18 12:23] VITALS: BMI 28.3
--- NOTE | 2022-07-18 15:12 | P.PN ---
Subjective Progress Note Date: 07/18/22 Hospital course: Patient is a very pleasant 87-year-old female with a past medical history of CAD with stents, hypertension, CHF, hypothyroidism, chronic kidney disease stage II, and GERD. She presented to the emergency department on 07/15/22 with a chief complaint of exertional dyspnea and mild chest discomfort. She was transferred from [facility] where she initially presented after 3 episodes of chest discomfort accompanied by this exertional dyspnea. At [facility] patient had a CT of the chest done secondary to elevated d-dimer and reports of palpitations and this was negative for pulmonary emboli but reportedly revealed a 3 mm right upper lung nodule on arrival to our facility patient underwent full evaluation. Labs completed and reviewed. CBC revealing normocytic anemia with hemoglobin of 9.7. Troponin was elevated at 0.048 and 0.053. ProBNP 3680. Iron 300 iron saturation 28.74, and transferrin of 214. BMP revealing hyperchloremia with chloride of 108, hypocarbia with carbon dioxide of 20 and slightly elevated creatinine of 1.16. EKG was completed showing sinus mechanism at 96 bpm with a left bundle branch block X-ray left knee was negative for acute fracture or dislocation inconsistent for her arthritis with marked degeneration and narrowing involving all compartments of the left knee accompanied by associated subchondral sclerosis and spur formation. Patient was started on heparin infusion and admitted under our services with consultation to cardiology for NSTEMI and orthopedic surgery secondary to left knee pain. Physical exam: Patient was seen and fully evaluated upon return from cardiac labview programmer this morning where she underwent FFR of the RCA and diagonal. TR band in place to right wrist. Patient visiting with family at bedside and currently denies having any complaints at this time. Vital signs reviewed and stable. General: Nontoxic, no distress and appears stated age. Derm: Skin warm and dry, normal coloration for ethnicity. Head: Atraumatic, normocephalic and symmetric. Eyes: EOMs intact, no lid lag, and anicteric sclera Mouth: no lip lesions, mucus membranes moist Cardiovascular: regular rate and rhythm with normal S1S2, systolic murmur, positive posterior tibial pulses bilaterally, and cap refill < 2 seconds. Lungs: Respirations even, regular, and unlabored on room air. Lungs CTA bilaterally, no rhonchi, no rales, no wheezing, and no accessory muscle usage. Abdominal: soft, nontender to palpation, no guarding, no appreciable organomegaly Ext: ROM intact. No gross muscle atrophy, no edema, no contractures Neuro: Speech clear, face symmetrical and CN II-XII grossly intact with no noted focal neuro deficits Psych: Alert and oriented to person, place, time, and situation. Appropriate and pleasant affect. Assessment and Plan of Care: NSTEMI Exertional dyspnea, likely secondary to above Chest pain Left bundle-branch block Hypertension -Patient underwent cardiac cath this morning to undergo FFR of both the RCA and diagonal. Awaiting cardiology procedure report and further recommendations. -Patient to continue cardiac medication regimen consisting of aspirin, Plavix, atorvastatin, hydralazine, losartan, and isosorbide mononitrate. Hypokalemia, replaced and resolved Hypomagnesemia -Magnesium sulfate 2 g IVPB to be given for magnesium level of 1.6 and we will reevaluate BMP and magnesium levels with a.m. labs in place additional orders for correction of abnormal electrolyte values as needed. Stage II chronic kidney disease Normocytic anemia, likely secondary to chronic disease -Iron profile completed and reviewed. Iron 300 iron saturation 28.74, and t ransferrin of 214. -Hemoglobin stable at 8.9, no need for transfusion or any other interventions at this time. -Renal function slightly elevating with BUN of 26, creatinine 1.39, and GFR 34. -Secondary to dye received during cardiac cath on 07/17/22 and return to [facility] on 07/18/22, pt to continue patient on 0.9% normal saline at 100 mL's per hour. -Monitor renal function closely with repeat morning BMP. Severe tricompartmental arthritis of left knee Left knee pain, secondary to above - X-ray left knee was negative for acute fracture or dislocation inconsistent for her arthritis with marked degeneration and narrowing involving all compartments of the left knee accompanied by associated subchondral sclerosis and spur formation. -Orthopedic surgery evaluated and reviewed their documentation on chart. Orthopedic surgery recommending patient ambulate with walker and follow-up outpatient in office with no surgical interventions planned at this time. -Symptomatic care with Tylenol as needed for pain/discomfort and again follow up outpatient for periodic injections as discussed with patient by orthopedic surgery PA. -Consult placed to physical therapy. CODE STATUS: Full code DVT prophylaxis: Heparin Discussed with: Patient and RN Anticipated discharge date: Clinical course to determine Anticipated discharge place: Home Patient was seen independently by Nurse Pracitioner. This document was prepared using [email or web address] dictation software. Please allow for errors in philosophy faculty, while rare they do occur. I reviewed the documentation as provided by the MEGA above, who is the original author of this note. I agree with the documented assessment and plan, with the following changes: none Objective - Vital Signs Vital signs: Vital Signs Temp 96.2 F L 07/18/22 07:10 Pulse 82 07/18/22 07:10 Resp 16 07/18/22 07:10 BP 137/73 07/18/22 07:10 Pulse Ox 96 07/18/22 07:10 FiO2 Intake & Output 07/17/22 07/18/22 07/18/22 18:59 06:59 18:59 Intake Total 10 50 Output Total 500 400 Balance -490 -400 50 Intake: IV 50 Oral 10 Output: Urine 500 400 Other: Voiding Method External Catheter External Catheter # Voids 1 - Labs CBC & Chem 7: 07/19/22 06:06 07/19/22 06:06 Labs: Abnormal Lab Results - Last 24 Hours (Table) 07/17/22 07/17/22 07/17/22 Range/Units 09:55 09:55 16:31 WBC 2.8 L (3.8-10.6) k/uL RBC 3.34 L (3.80-5.40) m/uL Hgb 10.3 L (11.4-16.0) gm/dL Hct 30.1 L (34.0-46.0) % Lymphocytes # 0.7 L (1.0-4.8) k/uL Sodium 136 L (137-145) mmol/L Potassium 3.4 L (3.5-5.1) mmol/L Chloride 108 H (98-107) mmol/L Carbon Dioxide 20 L (22-30) mmol/L Creatinine 1.25 H (0.52-1.04) mg/dL POC Glucose (mg/dL) 120 H (70-110) mg/dL Total Protein 10.5 H (6.3-8.2) g/dL
[2022-07-18 16:20] LABS: Glucose,Whole Blood 86 mg/dL (70-110)
[2022-07-18] MEDS: MAGNESIUM SULFATE-D5W PMX 1 GM in DEXTROSE/WATER 1 100ML.BAG IVPB SCH ×2 (16:45→18:14)
--- NOTE | 2022-07-18 20:13 | P.PCN ---
Date of Procedure: 07/18/22 Operative Findings: PERCUTANEOUS CORONARY INTERVENTION Performing physician Kvng Franklin M.D. Procedure Performed: 1. Successful stenting of the ostial RCA using 3.5 x 15 mm Xience drug-eluting stent with an excellent angiographic results 2. Adjunctive use of Doppler wire and intravascular ultrasound 3. Right coronary artery angiogram Indication: This is a pleasant 87-year-old female patient with known coronary artery disease and prior stenting of the right coronary artery and known chronic total occlusion of the LAD O presented to the hospital with a chest discomfort. She was ruled in for acute coronary event. She underwent heart catheterization yesterday and that revealed intermediate lesion involving the ostial right coronary artery appears somewhat slightly progressed compared to before and also intermediate lesion involving a large diagonal branch as well appears to be the same as before. The LAD was totally occluded and known from before. She was brought today to undergo an FFR of the right coronary artery Approach: Right radial artery Complications: None Level of Sedation: Moderate with a sedation length of 23 minutes Procedure Discussion: After obtaining an informed consent the patient was brought to the cardiac tutorial laboratory supervisor. The right radial artery was cannulated using micropuncture technique, the micropuncture wire passed easily then I placed a 6-Vincentian sheath. At that point anticoagulation was initiated using heparin with continuous ACT monitoring. Subsequently and after zeroing Doppler wire and equalizing in the Doppler wire and guiding catheter which was JR4 guiding catheter we did iFR and that came in to be ischemic. That was performed after the RCA was engaged and wire. Subsequently I disengaged the RCA before we started measuring. The iFR= 0.82. At that point I decided to balloon angioplasty and subsequently stenting but before that I did intravascular ultrasound which showed a diameter of the RCA about 3.5-4 mm. I predilated using 3 mm balloon before I deployed 3.5 x 15 mm stent where the stent was positioned under fluoroscopy guidance and deployed under 16 linda. Final angiogram was performed and showed excellent angiographic results and the procedure was completed was no complication. Please note that I was able to engage the RCA in and the pressure waveform are not damped anymore. Postprocedure Management: 1. Dual antiplatelet therapy using aspirin and Plavix for at least 6 month 2. Aggressive cholesterol control 3. Risk factors modification
[2022-07-18 20:29] LABS: Glucose,Whole Blood 145 mg/dL (70-110)
[2022-07-18] MEDS: LATANOPROST 0.005% OPHTH DROPS 2.5 ML BTL BOTH EYES SCH (21:44)
[2022-07-18] MEDS: MORPHINE SULFATE 2 MG/ML SYRINGE IVP PRN (22:04)
[2022-07-19] MEDS: NITROGLYCERIN OINT 1 INCH/GM PACKET TOPICAL SCH (03:54)
[2022-07-19] MEDS: LEVOTHYROXINE 100 MCG TAB PO SCH (06:08)
[2022-07-19 06:28] LABS: Glucose,Whole Blood 111 mg/dL (70-110)
[2022-07-19] MEDS: INSULIN ASPART (NovoLOG) 100 UNIT/ML VIAL SQ SCH ×4 (06:29→20:38)
[2022-07-19] MEDS: PANTOPRAZOLE 40 MG TABLET PO SCH (06:33)
[2022-07-19 07:27] LABS: Basophils % (A) 1 %; Eosinophils # (A) 0.3 k/uL (0-0.7); Eosinophils % (A) 8 %; HCT 24.9 % (34.0-46.0); HGB 8.2 gm/dL (11.4-16.0); Lymphocytes # (A) 0.9 k/uL (1.0-4.8); Lymphocytes % (A) 27 %; MCH 30.2 pg (25.0-35.0); MCV 91.7 fL (80.0-100.0); Mean Platelet Volume 7.9; Monocytes # (A) 0.3 k/uL (0-1.0); Monocytes % (A) 8 %; Neutrophils # (A) 1.8 k/uL (1.3-7.7); Neutrophils % (A) 53 %; Platelet Count 158 k/uL (150-450); RBC 2.72 m/uL (3.80-5.40); RDW 14.9 % (11.5-15.5); WBC 3.4 k/uL (3.8-10.6)
[2022-07-19 08:02] LABS: Calcium 8.2 mg/dL (8.4-10.2); Potassium 3.9 mmol/L (3.5-5.1)
[2022-07-19] MEDS: SENNOSIDES-DOCUSATE SODIUM 1 EACH TAB PO SCH (09:16)
[2022-07-19] MEDS: ASPIRIN 81 MG PO SCH (09:24)
[2022-07-19] MEDS: ATORVASTATIN 40 MG TAB PO SCH (09:24)
[2022-07-19] MEDS: BRIMONIDINE TARTRATE 0.2% DROPS 5 ML BTL LEFT EYE SCH ×2 (09:25→20:43)
[2022-07-19] MEDS: hydrALAZINE HCL 50 MG TAB PO SCH ×3 (09:25→20:42)
[2022-07-19] MEDS: GABAPENTIN 300 MG CAP PO SCH ×2 (09:25→20:42)
[2022-07-19] MEDS: CLOPIDOGREL 75 MG TAB PO SCH (09:25)
[2022-07-19] MEDS: MULTIVITAMINS, THERA 1 EACH TAB PO SCH (09:26)
[2022-07-19] MEDS: TIMOLOL 0.5% OPHTH DROPS 5 ML BTL LEFT EYE SCH ×2 (09:26→20:42)
[2022-07-19] MEDS: ISOSORBIDE MONONITRATE ER 60 MG TAB.ER.24H PO SCH ×2 (09:26→20:42)
[2022-07-19] MEDS: LOSARTAN 50 MG TAB PO SCH (09:26)
[2022-07-19] MEDS: METOPROLOL TARTRATE 50 MG TAB PO SCH (11:46)
[2022-07-19 11:59] LABS: Glucose,Whole Blood 107 mg/dL (70-110)
--- NOTE | 2022-07-19 12:17 | P.PN ---
Subjective HISTORY OF PRESENT ILLNESS: This is an 87-year-old female who follows in the office with Dr. Franklin. Patient is admitted to the hospital secondary to non-STEMI. Patient underwent cardiac catheterization this morning revealing intermediate to severe lesion involving ostial RCA. Occluded LAD in the midportion which is a known finding from before. Intermediate to severe disease involving the large diagonal branch. Normal left-sided filling pressures. Patient will be scheduled for FFR of both RCA and Diagonal tomorrow. 07/19/2022 Patient is status post cardiac catheterization with PCI to the RCA. Patient examined this morning at the bedside. Patient denies chest pain or pressure. She denies shortness of breath. Blood pressure this morning is slightly elevated. PHYSICAL EXAM: VITAL SIGNS: Reviewed. GENERAL: Well-developed in no acute distress. NECK: Supple. No JVD or thyromegaly LUNGS: Respirations even and unlabored. Lungs essentially clear to auscultation bilaterally. HEART: Regular rate and rhythm. S1 and S2 heard. EXTREMITIES: Normal range of motion. No clubbing or cyanosis. Peripheral pulses intact. No lower extremity edema ASSESSMENT: Non-STEMI, status post stenting to RCA Coronary artery disease with previous intervention, most recent in 2016 with stenting to the mid RCA Hypertension Hyperlipidemia Diabetes PLAN: Continue current cardiac medications Continue dual antiplatelet therapy Continue atorvastatin 40 mg daily Add metoprolol 50 mg daily Further recommendations pending patient course Nurse practitioner note has been reviewed by physician. Signing provider agrees with the documented findings, assessment, and plan of care. Objective - Vital Signs Vital signs: Vital Signs Temp 98.3 F 07/19/22 11:34 Pulse 80 07/19/22 11:34 Resp 16 07/19/22 11:34 BP 172/78 07/19/22 11:34 Pulse Ox 96 07/19/22 11:34 FiO2 Intake & Output 07/18/22 07/19/22 07/19/22 18:59 06:59 18:59 Intake Total 526 238 Balance 526 238 Weight 68.039 kg Intake: IV 50 Oral 476 238 Other: Voiding Method External Catheter Bedside Commode Toilet # Voids 1 1 - Labs CBC & Chem 7: 07/19/22 06:06 07/19/22 06:06 Labs: Abnormal Lab Results - Last 24 Hours (Table) 04/06/23 04/07/23 04/07/23 Range/Units 20:28 06:06 06:06 WBC 3.4 L (3.8-10.6) k/uL RBC 2.72 L (3.80-5.40) m/uL Hgb 8.2 L (11.4-16.0) gm/dL Hct 24.9 L (34.0-46.0) % Lymphocytes # 0.9 L (1.0-4.8) k/uL Sodium 136 L (137-145) mmol/L Chloride 112 H (98-107) mmol/L Carbon Dioxide 19 L (22-30) mmol/L BUN 26 H (7-17) mg/dL Creatinine 1.25 H (0.52-1.04) mg/dL POC Glucose (mg/dL) 145 H (70-110) mg/dL Calcium 8.2 L (8.4-10.2) mg/dL 07/19/22 Range/Units 06:27 WBC (3.8-10.6) k/uL RBC (3.80-5.40) m/uL Hgb (11.4-16.0) gm/dL Hct (34.0-46.0) % Lymphocytes # (1.0-4.8) k/uL Sodium (137-145) mmol/L Chloride (98-107) mmol/L Carbon Dioxide (22-30) mmol/L BUN (7-17) mg/dL Creatinine (0.52-1.04) mg/dL POC Glucose (mg/dL) 111 H (70-110) mg/dL Calcium (8.4-10.2) mg/dL
[2022-07-19] MEDS ORDERED: HYDROcodone/APAP 7.5-325MG 1 EACH TAB PO PRN (12:42)
--- NOTE | 2022-07-19 14:03 | P.PN ---
Subjective Progress Note Date: 07/19/22 Hospital course: Patient is a very pleasant 87-year-old female with a past medical history of CAD with stents, hypertension, CHF, hypothyroidism, chronic kidney disease stage II, and GERD. She presented to the emergency department on 07/15/22 with a chief complaint of exertional dyspnea and mild chest discomfort. She was transferred from [facility] where she initially presented after 3 episodes of chest discomfort accompanied by this exertional dyspnea. At [facility] patient had a CT of the chest done secondary to elevated d-dimer and reports of palpitations and this was negative for pulmonary emboli but reportedly revealed a 3 mm right upper lung nodule on arrival to our facility patient underwent full evaluation. Labs completed and reviewed. CBC revealing normocytic anemia with hemoglobin of 9.7. Troponin was elevated at 0.048 and 0.053. ProBNP 3680. Iron 300 iron saturation 28.74, and transferrin of 214. BMP revealing hyperchloremia with chloride of 108, hypocarbia with carbon dioxide of 20 and slightly elevated creatinine of 1.16. EKG was completed showing sinus mechanism at 96 bpm with a left bundle branch block X-ray left knee was negative for acute fracture or dislocation inconsistent for her arthritis with marked degeneration and narrowing involving all compartments of the left knee accompanied by associated subchondral sclerosis and spur formation. Patient was started on heparin infusion and admitted under our services with consultation to cardiology for NSTEMI and orthopedic surgery secondary to left knee pain. She underwent a cardiac cath on 07/17/22 and found to have intermediate to severe lesion involving the ostial RCA, and intermediate to severe disease involving the large diagonal branch, and a previously known occluded LAD in the midportion. Cardiology recommending FFR. Patient again taken to Noc Analyst on 07/18/22 and underwent FFR of both the RCA and diagonal. This resulted in successful stenting of the ostial RCA. Physical exam:. Patient seen and fully evaluated at bedside this morning. She was sitting up in the chair. Patient appears to be doing well this morning. Patient reports mild pain discomfort in her lower back and legs from lying in bed but otherwise denies having any complaints or concerns at this time. Vital signs reviewed and stable. General: Nontoxic, no distress and appears stated age. Derm: Skin warm and dry, normal coloration for ethnicity. Head: Atraumatic, normocephalic and symmetric. Eyes: EOMs intact, no lid lag, and anicteric sclera Mouth: no lip lesions, mucus membranes moist Cardiovascular: regular rate and rhythm with normal S1S2, systolic murmur, positive posterior tibial pulses bilaterally, and cap refill < 2 seconds. Lungs: Respirations even, regular, and unlabored on room air. Lungs CTA bilaterally, no rhonchi, no rales, no wheezing, and no accessory muscle usage. Abdominal: soft, nontender to palpation, no guarding, no appreciable organomegaly Ext: ROM intact. No gross muscle atrophy, no edema, no contractures Neuro: Speech clear, face symmetrical and CN II-XII grossly intact with no noted focal neuro deficits Psych: Alert and oriented to person, place, time, and situation. Appropriate and pleasant affect. Assessment and Plan of Care: NSTEMI Exertional dyspnea, likely secondary to above Chest pain Left bundle-branch block Hypertension -Patient underwent cardiac cath on 07/17/22 and found to have intermediate to severe lesion involving the ostial RCA, and intermediate to severe disease involving the large diagonal branch, and a previously known occluded LAD in the midportion. Cardiology recommending FFR. -Patient again taken to Noc Analyst on 07/18/22 and underwent FFR of both the RCA and diagonal. This resulted in successful stenting of the ostial RCA. -Cardiology following, Discussed plan of care with cardiology FORM SETTER HELPER and patient being started on metoprolol 50 mg daily with likely plans for discharge tomorrow morning. -Patient to continue cardiac medication regimen consisting of aspirin, Plavix, atorvastatin, hydralazine, losartan, and isosorbide mononitrate. Hypokalemia, replaced Hypomagnesemia, replaced Stage II chronic kidney disease Normocytic anemia, likely secondary to chronic disease resulting from above -Iron profile completed and reviewed. Iron 300 iron saturation 28.74, and transferrin of 214. -Hemoglobin stable at 8.2, no need for transfusion or any other interventions at this time. -Renal function stable with BUN of 26, creatinine 1.25, and GFR 39. Severe tricompartmental arthritis of left knee Left knee pain, secondary to above - X-ray left knee was negative for acute fracture or dislocation inconsistent for her arthritis with marked degeneration and narrowing involving all compartments of the left knee accompanied by associated subchondral sclerosis and spur formation. -Orthopedic surgery evaluated and reviewed their documentation on chart. Orthopedic surgery recommending patient ambulate with walker and follow-up outpatient in office with no surgical interventions planned at this time. -Symptomatic care with Tylenol as needed for pain/discomfort and again follow up outpatient for periodic injections as discussed with patient by orthopedic surgery PA. -Consult placed to physical therapy. Morning labs reviewed and stable. CBC revealing mild leukopenia with WBC count of 3.4 and normocytic anemia with hemoglobin of 8.2. BMP consistent and showing stable renal function with BUN 26, creatinine 1.25, and GFR of 39. Hypokalemia resolved with potassium of 3.9. CODE STATUS: Full code DVT prophylaxis: Heparin Discussed with: Patient, cardiology FORM SETTER HELPER and RN Anticipated discharge date: Likely discharge tomorrow morning Anticipated discharge place: Home Patient was seen independently by Nurse Pracitioner. This document was prepared using [employer] dictation software. Please allow for errors in supervisor cured meats, while rare they do occur. I reviewed the documentation as provided by the MEGA above, who is the original author of this note. I agree with the documented assessment and plan, with the following changes: none Objective - Vital Signs Vital signs: Vital Signs Temp 98.1 F 07/19/22 06:55 Pulse 70 07/19/22 06:55 Resp 17 07/19/22 06:55 BP 144/71 07/19/22 06:55 Pulse Ox 96 07/19/22 06:55 FiO2 Intake & Output 07/18/22 07/19/22 07/19/22 18:59 06:59 18:59 Intake Total 526 Balance 526 Weight 68.039 kg Intake: IV 50 Oral 476 Other: Voiding Method External Catheter Bedside Commode # Voids 1 1 - Labs CBC & Chem 7: 07/19/22 06:06 07/19/22 06:06 Labs: Abnormal Lab Results - Last 24 Hours (Table) 07/18/22 07/18/22 07/18/22 Range/Units 06:43 06:43 11:26 WBC (3.8-10.6) k/uL RBC 2.97 L (3.80-5.40) m/uL Hgb 8.9 L (11.4-16.0) gm/dL Hct 27.5 L (34.0-46.0) % Lymphocytes # (1.0-4.8) k/uL Sodium (137-145) mmol/L Chloride 111 H (98-107) mmol/L Carbon Dioxide 20 L (22-30) mmol/L BUN 26 H (7-17) mg/dL Creatinine 1.39 H (0.52-1.04) mg/dL POC Glucose (mg/dL) 125 H (70-110) mg/dL Calcium (8.4-10.2) mg/dL 07/18/22 07/19/22 07/19/22 Range/Units 20:28 06:06 06:06 WBC 3.4 L (3.8-10.6) k/uL RBC 2.72 L (3.80-5.40) m/uL Hgb 8.2 L (11.4-16.0) gm/dL Hct 24.9 L (34.0-46.0) % Lymphocytes # 0.9 L (1.0-4.8) k/uL Sodium 136 L (137-145) mmol/L Chloride 112 H (98-107) mmol/L Carbon Dioxide 19 L (22-30) mmol/L BUN 26 H (7-17) mg/dL Creatinine 1.25 H (0.52-1.04) mg/dL POC Glucose (mg/dL) 145 H (70-110) mg/dL Calcium 8.2 L (8.4-10.2) mg/dL 07/19/22 Range/Units 06:27 WBC (3.8-10.6) k/uL RBC (3.80-5.40) m/uL Hgb (11.4-16.0) gm/dL Hct (34.0-46.0) % Lymphocytes # (1.0-4.8) k/uL Sodium (137-145) mmol/L Chloride (98-107) mmol/L Carbon Dioxide (22-30) mmol/L BUN (7-17) mg/dL Creatinine (0.52-1.04) mg/dL POC Glucose (mg/dL) 111 H (70-110) mg/dL Calcium (8.4-10.2) mg/dL
[2022-07-19 16:52] LABS: Glucose,Whole Blood 105 mg/dL (70-110)
[2022-07-19] MEDS ORDERED: Potassium Replacement Protocol 1 EACH MISC MISCELLANE PRN (18:04)
[2022-07-19] MEDS ORDERED: POTASSIUM CHLORIDE ER 20 MEQ TAB.ER PO SCH (19:00)
[2022-07-19 19:49] LABS: Glucose,Whole Blood 129 mg/dL (70-110)
[2022-07-19] MEDS: LATANOPROST 0.005% OPHTH DROPS 2.5 ML BTL BOTH EYES SCH (20:43)
[2022-07-20 04:48] VITALS: RESP 16
[2022-07-20 05:53] LABS: Glucose,Whole Blood 102 mg/dL (70-110)
[2022-07-20] MEDS: INSULIN ASPART (NovoLOG) 100 UNIT/ML VIAL SQ SCH ×2 (05:59→11:39)
[2022-07-20] MEDS: LEVOTHYROXINE 100 MCG TAB PO SCH (06:13)
[2022-07-20] MEDS: PANTOPRAZOLE 40 MG TABLET PO SCH (06:43)
[2022-07-20] MEDS: ISOSORBIDE MONONITRATE ER 60 MG TAB.ER.24H PO SCH (09:22)
[2022-07-20] MEDS: ASPIRIN 81 MG PO SCH (09:22)
[2022-07-20] MEDS: GABAPENTIN 300 MG CAP PO SCH (09:22)
[2022-07-20] MEDS: ATORVASTATIN 40 MG TAB PO SCH (09:22)
[2022-07-20] MEDS: CLOPIDOGREL 75 MG TAB PO SCH (09:22)
[2022-07-20] MEDS: METOPROLOL TARTRATE 50 MG TAB PO SCH (09:22)
[2022-07-20] MEDS: BRIMONIDINE TARTRATE 0.2% DROPS 5 ML BTL LEFT EYE SCH (09:22)
[2022-07-20] MEDS: hydrALAZINE HCL 50 MG TAB PO SCH (09:22)
[2022-07-20] MEDS: SENNOSIDES-DOCUSATE SODIUM 1 EACH TAB PO SCH (09:22)
[2022-07-20] MEDS: MULTIVITAMINS, THERA 1 EACH TAB PO SCH (09:22)
[2022-07-20] MEDS: LOSARTAN 50 MG TAB PO SCH (09:22)
[2022-07-20] MEDS: TIMOLOL 0.5% OPHTH DROPS 5 ML BTL LEFT EYE SCH (09:23)
--- NOTE | 2022-07-20 09:28 | P.DS ---
Providers Date of admission: 07/15/22 19:21 Expected date of discharge: 07/20/22 Attending physician: Simón Nava MD Consults: 07/15/22 19:01 Consult Physician Urgent Consulting Provider: Scottie Davis Consult Reason/Comments: Exertional dyspnea Do you want consulting provider notified?: Yes 07/18/22 09:05 Consult Physician Routine Consulting Provider: Cardiology Susan Consult Reason/Comments: Post Interventional Patient Do you want consulting provider notified?: Already Contacted Primary care physician: Ravin Durham MD Hospital Course: Discharge Diagnosis: Acute NSTEMI. Patient underwent cardiac cath on 07/17/22 and found to have intermediate to severe lesion involving the ostial RCA, and intermediate to severe disease involving the large diagonal branch, and a previously known occluded LAD in the midportion. Cardiology recommending FFR. Patient again taken to Voucher Examiner on 07/18/22 and underwent FFR of both the RCA and diagonal. This resulted in successful stenting of the ostial RCA. Patient to continue cardiac medication regimen consisting of aspirin, metoprolol, Plavix, atorvastatin, hydralazine, losartan, and isosorbide mononitrate. Exertional dyspnea, likely secondary to above. Chest pain Left bundle-branch block Hypertension Hypokalemia, replaced Hypomagnesemia, replaced Stage II chronic kidney disease. Renal function stable with BUN of 26, creatinine 1.25, and GFR 39. Normocytic anemia, likely secondary to chronic disease resulting from above. Iron profile completed and reviewed. Iron 300 iron saturation 28.74, and transferrin of 214. Hemoglobin stable at 8.2. Severe tricompartmental arthritis of left knee. X-ray left knee was negative for acute fracture or dislocation inconsistent for her arthritis with marked degeneration and narrowing involving all compartments of the left knee accompanied by associated subchondral sclerosis and spur formation. Orthopedic surgery evaluated and reviewed their documentation on chart. Orthopedic surgery recommending patient ambulate with walker and follow-up outpatient in office with no surgical interventions planned at this time. Left knee pain, secondary to above. Hospital Course: Patient is a very pleasant 87-year-old female with a past medical history of CAD with stents, hypertension, CHF, hypothyroidism, chronic kidney disease stage II, and GERD. She presented to the emergency department on 07/15/22 with a chief complaint of exertional dyspnea and mild chest discomfort. She was transferred from [facility] where she initially presented after 3 episodes of chest discomfort accompanied by this exertional dyspnea. At [facility] patient had a CT of the chest done secondary to elevated d-dimer and reports of palpitations and this was negative for pulmonary emboli but reportedly revealed a 3 mm right upper lung nodule on arrival to our facility patient underwent full evaluation. Labs completed and reviewed. CBC revealing normocytic anemia with hemoglobin of 9.7. Troponin was elevated at 0.048 and 0.053. ProBNP 3680. Iron 300 iron saturation 28.74, and transferrin of 214. BMP revealing hyperchloremia with chloride of 108, hypocarbia with carbon dioxide of 20 and slightly elevated creatinine of 1.16. EKG was completed reji wing sinus mechanism at 96 bpm with a left bundle branch block X-ray left knee was negative for acute fracture or dislocation inconsistent for her arthritis with marked degeneration and narrowing involving all compartments of the left knee accompanied by associated subchondral sclerosis and spur formation. Patient was started on heparin infusion and admitted under our services with consultation to cardiology for NSTEMI and orthopedic surgery secondary to left knee pain. She underwent a cardiac cath on 07/17/22 and found to have intermediate to severe lesion involving the ostial RCA, and intermediate to severe disease involving the large diagonal branch, and a previously known occluded LAD in the midportion. Cardiology recommending FFR. Patient again taken to Voucher Examiner on 07/18/22 and underwent FFR of both the RCA and diagonal. This resulted in successful stenting of the ostial RCA. Cardiology recommending outpatient follow-up in their office in one week. Medically, patient is stable for discharge at this time. It is recommended patient walk with walker at all times, patient states she has walker at home that she uses for ambulation. Patient being discharged home with home health with PT/OT. Patient to continue cardiac medication regimen consisting of aspirin, metoprolol, Plavix, atorvastatin, hydralazine, losartan, and isosorbide mononitrate. Patient medically stable for discharge and to follow up outpatient with PCP, cardiology, and orthopedic surgery. Physical exam:. Vital signs reviewed and stable. General: Nontoxic, no distress and appears stated age. Derm: Skin warm and dry, normal coloration for ethnicity. Head: Atraumatic, normocephalic and symmetric. Eyes: EOMs intact, no lid lag, and anicteric sclera Mouth: no lip lesions, mucus membranes moist Cardiovascular: regular rate and rhythm with normal S1S2, systolic murmur, positive posterior tibial pulses bilaterally, and cap refill < 2 seconds. Lungs: Respirations even, regular, and unlabored on room air. Lungs CTA bilaterally, no rhonchi, no rales, no wheezing, and no accessory muscle usage. Abdominal: soft, nontender to palpation, no guarding, no appreciable organomegaly Ext: ROM intact. No gross muscle atrophy, no edema, no contractures Neuro: Speech clear, face symmetrical and CN II-XII grossly intact with no noted focal neuro deficits Psych: Alert and oriented to person, place, time, and situation. Appropriate and pleasant affect. A total of 34 minutes of time were spent preparing this complex discharge summary. Pt was discharged on 07/20/22 at 9:26 AM. Patient was seen independently by Nurse Practitioner. This document was prepared using [employer] dictation software. Please allow for errors in grain oilseed or pasture farm manager while rare they do occur. Raheem Wilcox NP rendered care for this patient independently, reviewed the findings and plan as documented in the note above. I did not physically speak with or examine the patient on this date. Patient Condition at Discharge: Stable Plan - Discharge Summary Discharge Rx Participant: No New Discharge Prescriptions: New Metoprolol Tartrate [Lopressor] 50 mg PO DAILY 30 Days #30 tab Atorvastatin [Lipitor] 40 mg PO DAILY 30 Days #30 tab Clopidogrel [Plavix] 75 mg PO DAILY 30 Days #30 tab Continue hydrALAZINE HCL [Apresoline] 100 mg PO TID Timolol 0.5% Ophth Soln [Timoptic 0.5% Ophth Soln] 1 drop LEFT EYE BID Omeprazole 40 mg PO DAILY Isosorbide Mononitrate ER [Imdur] 60 mg PO BID HYDROcodone/APAP 7.5-325MG [[place]hope 7.5-325] 1 tab PO BID PRN PRN Reason: Pain Sennosides-Docusate Sodium [Senokot-S] 2 tab PO DAILY Levothyroxine Sodium 100 mcg PO DAILY Latanoprost [Latanoprost 0.005%] 1 drop BOTH EYES HS Brimonidine Tartrate [Alphagan P 0.2% Ophth Soln] 1 drop LEFT EYE BID Gabapentin [Neurontin] 300 mg PO BID #6 cap Aspirin 81 mg PO DAILY Multivitamins, Thera [Multivitamin (formulary)] 1 tab PO DAILY Losartan Potassium 100 mg PO DAILY Discontinued Potassium Chloride [Klor-Con 20] 40 meq PO Q48H Diclofenac Sodium Gel [Voltaren Gel] 2 - 4 gm TOPICAL QID PRN PRN Reason: Pain Potassium Chloride [Klor-Con M20] 60 meq PO Q48H Furosemide [Lasix] 20 mg PO Q48H Discharge Medication List Brimonidine Tartrate [Alphagan P 0.2% Ophth Soln] 1 drop LEFT EYE BID 02/27/22 [History] Isosorbide Mononitrate ER [Imdur] 60 mg PO BID 02/27/22 [History] Latanoprost [Latanoprost 0.005%] 1 drop BOTH EYES HS 02/27/22 [History] Levothyroxine Sodium 100 mcg PO DAILY 02/27/22 [History] Omeprazole 40 mg PO DAILY 02/27/22 [History] Timolol 0.5% Ophth Soln [Timoptic 0.5% Ophth Soln] 1 drop LEFT EYE BID 02/27/22 [History] hydrALAZINE HCL [Apresoline] 100 mg PO TID 02/27/22 [History] Gabapentin [Neurontin] 300 mg PO BID #6 cap 03/01/22 [Rx] Aspirin 81 mg PO DAILY 07/15/22 [History] HYDROcodone/APAP 7.5-325MG [[place] 7.5-325] 1 tab PO BID PRN 07/15/22 [History] Losartan Potassium 100 mg PO DAILY 07/15/22 [History] Multivitamins, Thera [Multivitamin (formulary)] 1 tab PO DAILY 07/15/22 [History] Sennosides-Docusate Sodium [Senokot-S] 2 tab PO DAILY 07/15/22 [History] Atorvastatin [Lipitor] 40 mg PO DAILY 30 Days #30 tab 07/20/22 [Rx] Clopidogrel [Plavix] 75 mg PO DAILY 30 Days #30 tab 07/20/22 [Rx] Metoprolol Tartrate [Lopressor] 50 mg PO DAILY 30 Days #30 tab 07/20/22 [Rx] Follow up Appointment(s)/Referral(s): Kvng Franklin MD [STAFF PHYSICIAN] - 1 Week Ravin Durham MD [Primary Care Provider] - 1-2 days [facility] [REFERRING] - Walter Hill MD [Medical Doctor] - As Needed Patient Instructions/Handouts: *Surgery [facility] - After Heart Catheterization - Assurance Manager Insurance Instructions Activity/Diet/Wound Care/Special Instructions: Discharge Instructions After Cardiac Catheterization with Stent Placement: Aspirin as anti-platelet therapy - Aspirin lessens the chance of heart attack and stroke. It helps prevent blood clots from forming, allowing the blood to flow more easily. Each day, you will take one 81 mg (non-enteric coated) tablet daily. You will be taking aspirin as a lifelong medication. Do not stop unless instructed by your doctor. Anti-platelet Therapy. -In addition to aspirin, you will take one additional anti-platelet medication daily. This will help prevent a clot from forming in your stent: Plavix (clopidogrel) -You will need to take your anti-platelet medicine every day for 12 months -Please consult your heart doctor before you stop this medicine. -They may want you to continue for a longer period of time. Statins -A statin medication lowers cholesterol levels in the blood. This helps slow the progression of heart disease. - Please take your statin medication as prescribed by your doctor. -You may be taking one of the following statins: Atorvastatin Beta blockers Your Medication: Metoprolol Is a medication that protects your heart from stress and can prevent future heart attacks. It can slow your heart rate. It can take weeks for your body to get used to a beta tariq. The dose may need to be changed a few times as your body adjusts Angiotensin receptor tariq (ARB) Your medication: Losartan is an angiotensin receptor tariq in the ER used to reduce cardiovascular events and decrease the risk of developing diabetes, these medications are also known to prevent left ventricular remodeling after you have suffered a myocardial infarction. Do not stop taking these medicines without talking to your doctor. -Take all other medicines as directed by your doctor. Do not take any extra aspirin or ibuprofen. They can increase your risk of bleeding. Many apae-lry-elkmprs drugs contain aspirin. If you are unsure about what the drug contains, check with your pharmacist before taking it. -For mild discomfort, you may take plain Tylenol (acetaminophen). Follow dose directions, but do not take more than 4,000 mg of acetaminophen in 24 hours. Contact your doctor right away or go to the nearest hospital Emergency Room if you have: -Severe angina or chest pain. (This may be a sign of a problem with your stent.) -Excessive bruising, blood in urine/stool or black tarry stools. Healthy LifeStyle It is important to keep a heart healthy lifestyle. This can improve your long- term health and decrease your risk for heart attacks. -Managing your blood cholesterol, blood pressure, weight, and stress. -The importance of regular exercise. -Heart Healthy Diet: Include more plants in your diet. Eat lots of fresh vegetables and fresh fruits. Eat good fats: plant based oils, avocado, nuts, beans, legumes. Eat more seafood. Limit Meat. Switch to whole grains. -Avoid fried foods and animal fats and processed meats Follow up with Dr. Franklin at [facility] [place] [phone] Thank you for allowing us to participate in your care, it was truly a pleasure having in for patient!!!!! Discharge Disposition: HOME WITH HOME HEALTH SERVICES
--- NOTE | 2022-07-20 09:40 | P.PN ---
Subjective Progress Note Date: 07/20/22 HISTORY OF PRESENT ILLNESS: This is an 87-year-old female who follows in the office with Dr. Franklin. Patient is admitted to the hospital secondary to non-STEMI. Patient underwent cardiac catheterization this morning revealing intermediate to severe lesion involving ostial RCA. Occluded LAD in the midportion which is a known finding from before. Intermediate to severe disease involving the large diagonal branch. Normal left-sided filling pressures. Patient will be scheduled for FFR of both RCA and Diagonal tomorrow. 07/19/2022 Patient is status post cardiac catheterization with PCI to the RCA. Patient examined this morning at the bedside. Patient denies chest pain or pressure. She denies shortness of breath. Blood pressure this morning is slightly elevated. 07/20/2022 Patient examined this morning at the bedside. Patient denies chest pain or pressure. She denies shortness of breath. Patient's blood pressure is improved this morning. She is hoping to be discharged home today. PHYSICAL EXAM: VITAL SIGNS: Reviewed. GENERAL: Well-developed in no acute distress. NECK: Supple. No JVD or thyromegaly LUNGS: Respirations even and unlabored. Lungs essentially clear to auscultation bilaterally. HEART: Regular rate and rhythm. S1 and S2 heard. EXTREMITIES: Normal range of motion. No clubbing or cyanosis. Peripheral pulses intact. No lower extremity edema ASSESSMENT: Non-STEMI, status post stenting to RCA Coronary artery disease with previous intervention, most recent in 2016 with stenting to the mid RCA Hypertension Hyperlipidemia Diabetes PLAN: Continue current cardiac medications Continue dual antiplatelet therapy Patient is stable for discharge home today from a cardiac standpoint She is to follow up on an outpatient basis with Dr. Franklin Nurse practitioner note has been reviewed by physician. Signing provider agrees with the documented findings, assessment, and plan of care. Objective - Vital Signs Vital signs: Vital Signs Temp 97.3 F L 07/20/22 04:45 Pulse 64 07/20/22 04:45 Resp 16 07/20/22 04:45 BP 132/72 07/20/22 04:45 Pulse Ox 95 07/20/22 08:37 FiO2 Intake & Output 07/19/22 07/20/22 07/20/22 18:59 06:59 18:59 Intake Total 1328 20 240 Balance 1328 20 240 Intake: IV 610 20 .975 600 Invasive Line 3 10 20 Oral 718 240 Other: Voiding Method Toilet Toilet # Voids 3 1 - Labs CBC & Chem 7: 07/19/22 06:06 07/19/22 06:06 Labs: Abnormal Lab Results - Last 24 Hours (Table) 07/19/22 Range/Units 19:47 POC Glucose (mg/dL) 129 H (70-110) mg/dL
[2022-07-20 11:31] LABS: Glucose,Whole Blood 118 mg/dL (70-110)
[2022-07-20 12:10] VITALS: BP 113/55; PULSE 52; TEMP 98
== END 2022-07-20 13:08 | disposition home health service (06) | DRG 247 ==
LOC: EC 18:19 → 3SCARD 19:21
PROVIDERS: ADMIT Student in an Organized Health Care Education/Training Program; ATTEND Student in an Organized Health Care Education/Training Program
PROC: 4A023N7 Measurement of Cardiac Sampling and Pressure, Left Heart, Percutaneous Approach (ICD-10-PCS; 2022-07-17 06:45)
PROC: B2111ZZ Fluoroscopy of Multiple Coronary Arteries using Low Osmolar Contrast (ICD-10-PCS; 2022-07-17 06:45)
PROC: 027034Z Dilation of Coronary Artery, One Artery with Drug-eluting Intraluminal Device, Percutaneous Approach (ICD-10-PCS; principal; 2022-07-18 07:30)
PROC: B240ZZ3 Ultrasonography of Single Coronary Artery, Intravascular (ICD-10-PCS; principal; 2022-07-18 07:30)
PROC: 4A033BC Measurement of Arterial Pressure, Coronary, Percutaneous Approach (ICD-10-PCS; principal; 2022-07-18 07:30)
PROC: B41F1ZZ Fluoroscopy of Right Lower Extremity Arteries using Low Osmolar Contrast (ICD-10-PCS; principal; 2022-07-18 07:30)
DX: I21.4 Non-ST elevation (NSTEMI) myocardial infarction (principal); R79.1 Abnormal coagulation profile; Z71.3 Dietary counseling and surveillance; I44.7 Left bundle-branch block, unspecified; I25.10 Atherosclerotic heart disease of native coronary artery without angina pectoris; I12.9 Hypertensive chronic kidney disease with stage 1 through stage 4 chronic kidney disease, or unspecified chronic kidney disease; N18.2 Chronic kidney disease, stage 2 (mild); D63.1 Anemia in chronic kidney disease; E83.42 Hypomagnesemia; K21.9 Gastro-esophageal reflux disease without esophagitis; E11.22 Type 2 diabetes mellitus with diabetic chronic kidney disease; M17.12 Unilateral primary osteoarthritis, left knee; I50.9 Heart failure, unspecified; E87.8 Other disorders of electrolyte and fluid balance, not elsewhere classified; E03.9 Hypothyroidism, unspecified; E78.5 Hyperlipidemia, unspecified; E87.6 Hypokalemia; H35.30 Unspecified macular degeneration; H91.90 Unspecified hearing loss, unspecified ear; I25.2 Old myocardial infarction; Z87.81 Personal history of (healed) traumatic fracture; Z79.82 Long term (current) use of aspirin; Z79.890 Hormone replacement therapy; Z79.899 Other long term (current) drug therapy; Z86.73 Personal history of transient ischemic attack (TIA), and cerebral infarction without residual deficits
CPT/HCPCS: 76937; 80048; 80053; 80061; 82607; 82746; 83540; 83550; 83735; 83880; 84484; 85025; 85027; 85610; 85730; 93005; 93458; 93799; 94760; 96365; 96366; 99285

== ENCOUNTER 2023-01-25 19:54 | Inpatient (IN) | payer MEDICARE, OTHER ==
--- NOTE | 2023-01-25 20:22 | ED ---
General Adult HPI - General Chief complaint: Neuro Symptoms/Deficit Stated complaint: Altered Mental Time Seen by Provider: 01/25/23 20:21 Source: patient, RN/MD, EMS, old records reviewed Mode of arrival: EMS Limitations: altered mental status - History of Present Illness Initial comments: Patient was transferred to our ED by ambulance from the [facility] ED for hospital admission and neurology/oncology consultations. Per medical records sent with the patient, the patient presented to the [facility] ED for evaluation of generalized weakness and confusion. Patient had several labs and imaging studies performed there, which were all sent with the patient to our ED and reviewed myself. Patient's UA results are negative for findings suggestive of UTI. Patient's CBC is remarkable for a hemoglobin of 10.3. Patient's WBC count is within normal limits at 9.8. Patient's lactic acid level is normal at 2.2. Patient's CMP is remarkable for a BUN of 31 and a creatinine of 1.6. Patient's CPK level is within normal limits. Patient's RSV, Covid and influenza tests are all negative. Patient's troponin HS was mildly elevated at 21.7. Patient's head CT report was reviewed myself, and is negative for any acute abnormality. Patient's noncontrast CT chest/abdomen/pelvis report was reviewed myself as well. It is remarkable for uncomplicated moderate cholelithiasis, compression hip pain on the right, and subtle ground glass changes left upper lobe and very minimal right lower lobe. EKG was reviewed myself and is only remarkable for sinus bradycardia. Patient is able to tell me her name at this time, but she is otherwise disoriented. History from the patient is very limited due to her confusion/altered mental status. Patient reportedly has a history of multiple myeloma on chemotherapy treatment. - Related Data Home Medications Medication Instructions Recorded Confirmed Brimonidine Tartrate [Alphagan P 1 drop LEFT EYE BID 02/27/22 07/15/22 0.2% Ophth Soln] Isosorbide Mononitrate ER [Imdur] 60 mg PO BID 02/27/22 07/15/22 Latanoprost [Latanoprost 0.005%] 1 drop BOTH EYES HS 02/27/22 07/15/22 Levothyroxine Sodium 100 mcg PO DAILY 02/27/22 07/15/22 Omeprazole 40 mg PO DAILY 02/27/22 07/15/22 Timolol 0.5% Ophth Soln [Timoptic 1 drop LEFT EYE BID 02/27/22 07/15/22 0.5% Ophth Soln] HYDROcodone/APAP 7.5-325MG [[place] 1 tab PO BID PRN 07/15/22 07/15/22 7.5-325] Losartan Potassium 100 mg PO DAILY 07/15/22 07/16/22 Multivitamins, Thera [Multivitamin 1 tab PO DAILY 07/15/22 07/15/22 (formulary)] Acyclovir 200 mg PO BID 01/25/23 01/25/23 Apixaban [Eliquis] 2.5 mg PO BID 01/25/23 01/25/23 Atorvastatin [Lipitor] 40 mg PO HS 01/25/23 01/25/23 Furosemide [Lasix] 40 mg PO DAILY 01/25/23 01/25/23 Lenalidomide [Revlimid] 5 mg PO DIRECTED 01/25/23 01/25/23 Metoprolol Succinate [Toprol XL] 50 mg PO DAILY 01/25/23 01/25/23 Nitroglycerin Sl Tabs [Nitrostat] 0.4 mg SUBLINGUAL Q5M PRN 01/25/23 01/25/23 Potassium Chloride ER [K-Dur 20] 20 meq PO TID 01/25/23 01/25/23 Sennosides [Senokot] 8.6 mg PO DAILY 01/25/23 01/25/23 amLODIPine [Norvasc] 5 mg PO BID 01/25/23 01/25/23 Previous Rx's Medication Instructions Recorded Gabapentin [Neurontin] 300 mg PO BID #6 cap 03/01/22 Clopidogrel [Plavix] 75 mg PO DAILY 30 Days #30 tab 07/20/22 Allergies Allergy/AdvReac Type Severity Reaction Status Date / Time No Known Allergies Allergy Verified 07/15/22 19:44 Review of Systems ROS Statement: Those systems with pertinent positive or pertinent negative responses have been documented in the HPI. ROS Other: All systems not noted in ROS Statement are negative. 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 GI BLEED RELATED TO PLAVIX FROM STENT IN 2012, 2 UNITS PRBC RECEIVED Last Myocardial Infarction Date:: 01-22-2014 History of Any Multi-Drug Resistant Organisms: None Reported Past Surgical History: Heart Catheterization With Stent, Orthopedic Surgery Additional Past Surgical History / Comment(s): HEART CATH IN 2012 AND 2013 WITH STENT TO RCA Past Anesthesia/Blood Transfusion Reactions: No Reported Reaction Date of Last Stent Placement:: 01-22-2014 Past Psychological History: No Psychological Hx Reported Smoking Status: Never smoker Past Alcohol Use History: None Reported Past Drug Use History: None Reported - Past Family History Mother Family Medical History: No Reported History Additional Family Medical History / Comment(s): Mother was healthy and worked up until the age of 77yrs. Father Family Medical History: Liver Disease, Renal Disease General Exam Limitations: altered mental status General appearance: alert Head exam: Present: atraumatic, normocephalic Eye exam: Present: normal appearance, PERRL, EOMI ENT exam: Present: mucous membranes moist Neck exam: Present: other (Trachea is in midline; no nuchal rigidity or meningeal signs are present on exam). Absent: tenderness, meningismus Respiratory exam: Present: normal lung sounds bilaterally. Absent: respiratory distress, wheezes, rales, rhonchi, stridor Cardiovascular Exam: Present: regular rate, normal rhythm, normal heart sounds, other (Normal radial pulses bilaterally) GI/Abdominal exam: Present: soft. Absent: distended, tenderness, guarding Extremities exam: Absent: pedal edema Neurological exam: Present: alert, CN II-XII intact, other (Patient is only oriented to herself at this time). Absent: motor sensory deficit Psychiatric exam: Present: other (Patient is somewhat agitated) Skin exam: Present: warm, dry, intact, normal color Course Vital Signs 01/25/23 20:05 Temperature 98.2 F Pulse Rate 77 Respiratory 20 Rate Blood Pressure 126/61 O2 Sat by Pulse 96 Oximetry - Reevaluation(s) Reevaluation #1: 01/25/23 21:45 Case, H&P and test results thus far (including outside hospital test results) were discussed with AMIRA Ernandez. He accepts hospital admission. He agrees with oncology and neurology consultations. He has no further recommendations at this time. EKG Findings - EKG Comments: EKG Findings:: ED physician interpretation (interpreted by me): Normal sinus rhythm, no ectopy, incomplete right bundle branch block, ventricular rate of 73 bpm, normal WA and QRS intervals, normal QT interval, normal axis, no ST or T- wave abnormality Medical Decision Making - Medical Decision Making Was pt. sent in by a medical professional or institution (, AMIRA, RETAIL ACCOUNT MANAGER, urgent care, hospital, or residential...) When possible be specific @ -No Did you speak to anyone other than the patient for history (EMS, parent, family, police, friend...)? What history was obtained from this source @ -History was obtained from outside hospital transferring ED physician via phone call. Did you review nursing and triage notes (agree or disagree)? Why? @ -I reviewed and agree with nursing and triage notes Were old charts reviewed (outside hosp., previous admission, EMS record, old EKG, old radiological studies, urgent care reports/EKG's, residential records)? Report findings @ -Outside hospital medical records and labs results/imaging reports were all reviewed myself. Differential Diagnosis (chest pain, altered mental status, abdominal pain women, abdominal pain men, vaginal bleeding, weakness, fever, dyspnea, syncope, headache, dizziness, GI bleed, back pain, seizure, CVA, palpatations, mental health, musculoskeletal)? @ -Differential Altered Mental Status: Hypoglycemia, hyperglycemia, DKA, hypercapnia, ETOH, overdose, drug abuse, medication reaction, trauma, myxedema coma, encephalopathy, infection, encephalitis, psychosis, intracranial hemorrhage, hepatic encephalopathy, CVA, renal disease, this is not meant to be an all-inclusive list EKG interpreted by me (3pts min.). @ -As above X-rays interpreted by me (1pt min.). @ -Chest x-ray was reviewed myself and shows no acute abnormality. I agree with the radiologist's interpretation as above. CT interpreted by me (1pt min.). @ -None done U/S interpreted by me (1pt. min.). @ -None done What testing was considered but not performed or refused? (CT, X-rays, U/S, labs)? Why? @ -None What meds were considered but not given or refused? Why? @ -None Did you discuss the management of the patient with other professionals (professionals i.e. , PA, RETAIL ACCOUNT MANAGER, lab, RT, psych nurse, social media project manager, printer small print shop, teacher, weapons officer naval activity, manager case)? Give summary @ -As above. Was smoking cessation discussed for >3mins.? @ -No Was critical care preformed (if so, how long)? @ -No Were there social determinants of health that impacted care today? How? (Homelessness, low income, unemployed, alcoholism, drug addiction, transportation, low edu. Level, literacy, decrease access to med. care, fdc, rehab)? @ -No Was there de-escalation of care discussed even if they declined (Discuss DNR or withdrawal of care, Hospice)? DNR status @ -No What co-morbidities impacted this encounter? (DM, HTN, Smoking, COPD, CAD, Cancer, CVA, ARF, Chemo, Hep., AIDS, mental health diagnosis, sleep apnea, morbid obesity)? @ -None Was patient admitted / discharged? Hospital course, mention meds given and route, prescriptions, significant lab abnormalities, going to OR and other pertinent info. @ -Patient was transferred to our ED from the [facility] ED for hospital admission and neurology/oncology consultations. Labs and imaging studies were obtained at the [facility] ED (please refer to my HPI for pertinent findings). Certain labs were repeated in the ED here as well. Patient's repeat troponin obtained in our ED is negative. Patient's labs are otherwise only pertinent for mild renal insufficiency and chronic anemia. Will admit the patient to the hospital for further evaluation and management. Neurology and oncology consultation orders were placed. AMIRA Lee has accepted hospital admission. Undiagnosed new problem with uncertain prognosis? @ -No Drug Therapy requiring intensive monitoring for toxicity (Heparin, Nitro, Insulin, Cardizem)? @ -No Were any procedures done? @ -No Diagnosis/symptom? @ -Altered mental status Acute, or Chronic, or Acute on Chronic? @ -default Uncomplicated (without systemic symptoms) or Complicated (systemic symptoms)? @ -default Side effects of treatment? @ -No Exacerbation, Progression, or Severe Exacerbation? @ -No Poses a threat to life or bodily function? How? (Chest pain, USA, PR, pneumonia, PE, COPD, DKA, ARF, appy, cholecystitis, CVA, Diverticulitis, Homicidal, Suicidal, threat to staff... and all critical care pts) @ -No Diagnosis/symptom? @ -Chronic anemia Acute, or Chronic, or Acute on Chronic? @ -Chronic Uncomplicated (without systemic symptoms) or Complicated (systemic symptoms)? @ -default Side effects of treatment? @ -none Exacerbation, Progression, or Severe Exacerbation] @ -no Poses a threat to life or bodily function? @ -no Diagnosis/symptom? @ -Renal insufficiency Acute, or Chronic, or Acute on Chronic? @ -default Uncomplicated (without systemic symptoms) or Complicated (systemic symptoms)? @ -default Side effects of treatment? @ -none Exacerbation, Progression, or Severe Exacerbation] @ -no Poses a threat to life or bodily function? @ -no - Lab Data Result diagrams: 01/25/23 20:49 01/25/23 20:49 Lab Results 01/25/23 01/25/23 01/25/23 Range/Units 20:49 20:49 20:49 WBC 8.5 (3.8-10.6) k/uL RBC 3.73 L (3.80-5.40) m/uL Hgb 10.5 L (11.4-16.0) gm/dL Hct 32.0 L (34.0-46.0) % MCV 85.6 (80.0-100.0) fL MCH 28.2 (25.0-35.0) pg MCHC 32.9 (31.0-37.0) g/dL RDW 15.9 H (11.5-15.5) % Plt Count 269 (150-450) k/uL MPV 8.9 Neutrophils % 63 % Lymphocytes % 6 % Monocytes % 10 % Eosinophils % 20 % Basophils % 0 % Neutrophils # 5.4 (1.3-7.7) k/uL Lymphocytes # 0.5 L (1.0-4.8) k/uL Monocytes # 0.8 (0-1.0) k/uL Eosinophils # 1.7 H (0-0.7) k/uL Basophils # 0.0 (0-0.2) k/uL Hypochromasia Slight Poikilocytosis Slight PT 11.2 (10.0-12.5) sec INR 1.0 (<1.2) APTT 24.3 (22.0-30.0) sec Sodium 136 L (137-145) mmol/L Potassium 3.4 L (3.5-5.1) mmol/L Chloride 102 (98-107) mmol/L Carbon Dioxide 27 (22-30) mmol/L Anion Gap 7 mmol/L BUN 31 H (7-17) mg/dL Creatinine 1.30 H (0.52-1.04) mg/dL Est GFR (CKD-EPI)AfAm 43 (>60 ml/min/1.73 sqM) Est GFR (CKD-EPI)NonAf 37 (>60 ml/min/1.73 sqM) Glucose 100 H (74-99) mg/dL Calcium 8.3 L (8.4-10.2) mg/dL Magnesium 1.4 L (1.6-2.3) mg/dL Total Bilirubin 0.7 (0.2-1.3) mg/dL AST 16 (14-36) U/L ALT 33 (4-34) U/L Alkaline Phosphatase 85 (38-126) U/L Ammonia (<30) umol/L Troponin I (0.000-0.034) ng/mL NT-Pro-B Natriuret Pep 3110 pg/mL Total Protein 5.7 L (6.3-8.2) g/dL Albumin 2.9 L (3.5-5.0) g/dL TSH 1.180 (0.465-4.680) mIU/L Free T4 1.08 (0.78-2.19) ng/dL Serum Alcohol <10 mg/dL 01/25/23 01/25/23 Range/Units 20:49 20:49 WBC (3.8-10.6) k/uL RBC (3.80-5.40) m/uL Hgb (11.4-16.0) gm/dL Hct (34.0-46.0) % MCV (80.0-100.0) fL MCH (25.0-35.0) pg MCHC (31.0-37.0) g/dL RDW (11.5-15.5) % Plt Count (150-450) k/uL MPV Neutrophils % % Lymphocytes % % Monocytes % % Eosinophils % % Basophils % % Neutrophils # (1.3-7.7) k/uL Lymphocytes # (1.0-4.8) k/uL Monocytes # (0-1.0) k/uL Eosinophils # (0-0.7) k/uL Basophils # (0-0.2) k/uL Hypochromasia Poikilocytosis PT (10.0-12.5) sec INR (<1.2) APTT (22.0-30.0) sec Sodium (137-145) mmol/L Potassium (3.5-5.1) mmol/L Chloride (98-107) mmol/L Carbon Dioxide (22-30) mmol/L Anion Gap mmol/L BUN (7-17) mg/dL Creatinine (0.52-1.04) mg/dL Est GFR (CKD-EPI)AfAm (>60 ml/min/1.73 sqM) Est GFR (CKD-EPI)NonAf (>60 ml/min/1.73 sqM) Glucose (74-99) mg/dL Calcium (8.4-10.2) mg/dL Magnesium (1.6-2.3) mg/dL Total Bilirubin (0.2-1.3) mg/dL AST (14-36) U/L ALT (4-34) U/L Alkaline Phosphatase (38-126) U/L Ammonia <9 (<30) umol/L Troponin I 0.033 (0.000-0.034) ng/mL NT-Pro-B Natriuret Pep pg/mL Total Protein (6.3-8.2) g/dL Albumin (3.5-5.0) g/dL TSH (0.465-4.680) mIU/L Free T4 (0.78-2.19) ng/dL Serum Alcohol mg/dL - Radiology Data Chest x-ray: No acute cardiopulmonary disease/process. Disposition Clinical Impression: Altered mental status, Chronic anemia, Renal insufficiency Disposition: ADMITTED IP TO THIS HOSP Condition: Stable Is patient prescribed a controlled substance at d/c from ED?: No [facility] - 1-2 days Time of Disposition: 22:10
--- NOTE | 2023-01-25 21:00 | XR ---
EXAMINATION TYPE: XR chest 1V portable DATE OF EXAM: 01/25/2023 8:54 PM CLINICAL INDICATION:Female, 87 years old with history of altered mental status; [facility] COMPARISON: None. TECHNIQUE: XR chest 1V portable Frontal view of the chest. FINDINGS: Lungs/Pleura: There is no evidence of pleural effusion, focal consolidation, or pneumothorax. Pulmonary vascularity: Unremarkable. Heart/mediastinum: Cardiomediastinal silhouette is unremarkable. Musculoskeletal: No acute osseous pathology. Osteoarthritic changes of the bilateral glenohumeral eduarda nts. IMPRESSION: No acute cardiopulmonary disease/process.
[2023-01-25 21:10] LABS: Basophils % (A) 0 %; Eosinophils # (A) 1.7 k/uL (0-0.7); Eosinophils % (A) 20 %; HGB 10.5 gm/dL (11.4-16.0); Hypochromasia Slight; Lymphocytes # (A) 0.5 k/uL (1.0-4.8); Lymphocytes % (A) 6 %; MCH 28.2 pg (25.0-35.0); MCHC 32.9 g/dL (31.0-37.0); MCV 85.6 fL (80.0-100.0); Mean Platelet Volume 8.9; Monocytes # (A) 0.8 k/uL (0-1.0); Monocytes % (A) 10 %; Neutrophils # (A) 5.4 k/uL (1.3-7.7); Neutrophils % (A) 63 %; Platelet Count 269 k/uL (150-450); Poikilocytosis Slight; RBC 3.73 m/uL (3.80-5.40); RDW 15.9 % (11.5-15.5); WBC 8.5 k/uL (3.8-10.6)
[2023-01-25 21:21] LABS: ALT 33 U/L (4-34); AST 16 U/L (14-36); African American GFR (CKD) 43 (>60 ml/min/1.73 sqM); Albumin 2.9 g/dL (3.5-5.0); Alcohol <10 mg/dL; Alkaline Phosphatase 85 U/L (38-126); Anion Gap 7 mmol/L; Blood Urea Nitrogen 31 mg/dL (7-17); Calcium 8.3 mg/dL (8.4-10.2); Carbon Dioxide 27 mmol/L (22-30); Chloride 102 mmol/L (98-107); Glucose 100 mg/dL (74-99); Magnesium 1.4 mg/dL (1.6-2.3); Non-African American GFR(CKD) 37 (>60 ml/min/1.73 sqM); Potassium 3.4 mmol/L (3.5-5.1); Sodium 136 mmol/L (137-145); Total Bilirubin 0.7 mg/dL (0.2-1.3); Total Protein 5.7 g/dL (6.3-8.2)
[2023-01-25 21:29] LABS: NT-Pro-B-Type Natriuretic Pept 3110 pg/mL
[2023-01-25 21:37] LABS: T4, Free (Free Thyroxine) 1.08 ng/dL (0.78-2.19)
[2023-01-25 21:44] LABS: Partial Thromboplastin Time 24.3 sec (22.0-30.0); Prothrombin Time 11.2 sec (10.0-12.5)
[2023-01-25] MEDS ORDERED: NALOXONE 0.4 MG/ML 1 ML VIAL IV PRN (22:10)
[2023-01-25 22:30] LABS: Appearance,Urine Cloudy (Clear); Bacteria,Urine Occasional /hpf; Bilirubin,Urine Negative (Negative); Blood,Urine Moderate (Negative); Color,Urine Colorless; Glucose,Urine (UA) Negative (Negative); Ketones,Urine Negative (Negative); Leukocyte Esterase,Urine Large (Negative); Mucus,Urine Rare /hpf; Nitrite,Urine Negative (Negative); PH, Urine 7.5 (5.0-8.0); Protein,Urine Trace (Negative); RBC,Urine 7 /hpf (0-5); Specific Gravity,Urine 1.009 (1.001-1.035); Squamous Epithelial Cell,Urine 4 /hpf (0-4); Urobilinogen,Urine <2.0 mg/dL (<2.0); WBC,Urine 10 /hpf (0-5)
[2023-01-25 22:39] LABS: Amphetamine Screen,Urine Not Detected (NotDetected); Barbiturate Screen,Urine Not Detected (NotDetected); Benzodiazepines Screen,Urine Not Detected (NotDetected); Cocaine Screen,Urine Not Detected (NotDetected); Methadone Screen, Urine Not Detected (NotDetected); Opiate Screen,Urine Detected (NotDetected); Oxycodone Screen, Urine Not Detected (NotDetected); Phencyclidine Screen,Urine Not Detected (NotDetected); Tricyclic Antidepressant,Urine Not Detected (NotDetected); Urn Cannabinoid Scrn Not Detected (NotDetected)
[2023-01-26] MEDS: SODIUM CHLORIDE 0.9% 1,000 ML IV SCH ×2 (00:54→16:57)
[2023-01-26 08:48] LABS: Anisocytosis Slight; Basophils % (A) 0 %; Eosinophils % (A) 14 %; HCT 32.2 % (34.0-46.0); HGB 10.6 gm/dL (11.4-16.0); Hypochromasia Moderate; Lymphocytes # (A) 0.7 k/uL (1.0-4.8); Lymphocytes % (A) 9 %; MCH 28.2 pg (25.0-35.0); MCV 85.5 fL (80.0-100.0); Mean Platelet Volume 9.6; Monocytes # (A) 0.9 k/uL (0-1.0); Monocytes % (A) 12 %; Neutrophils # (A) 4.9 k/uL (1.3-7.7); Neutrophils % (A) 64 %; Platelet Count 249 k/uL (150-450); Poikilocytosis Slight; RBC 3.77 m/uL (3.80-5.40); RDW 16.1 % (11.5-15.5); WBC 7.6 k/uL (3.8-10.6)
[2023-01-26 09:03] LABS: ALT 32 U/L (4-34); AST 16 U/L (14-36); African American GFR (CKD) 47 (>60 ml/min/1.73 sqM); Alkaline Phosphatase 89 U/L (38-126); Anion Gap 8 mmol/L; Blood Urea Nitrogen 26 mg/dL (7-17); Calcium 8.8 mg/dL (8.4-10.2); Carbon Dioxide 27 mmol/L (22-30); Chloride 105 mmol/L (98-107); Glucose 108 mg/dL (74-99); Non-African American GFR(CKD) 41 (>60 ml/min/1.73 sqM); Potassium 3.8 mmol/L (3.5-5.1); Sodium 140 mmol/L (137-145); Total Bilirubin 1.2 mg/dL (0.2-1.3)
[2023-01-26] MEDS ORDERED: NITROGLYCERIN SL TABS 0.4 MG TAB SUBLINGUAL PRN (12:13)
[2023-01-26] MEDS ORDERED: HALOPERIDOL LACTATE 5 MG/ML 1 ML VIAL IM STA ×2 (13:50→14:56)
[2023-01-26] MEDS ORDERED: HALOPERIDOL LACTATE 5 MG/ML 1 ML VIAL IM PRN (14:55)
[2023-01-26] MEDS: LORazepam 2 MG/ML INJ IM PRN ×2 (15:13→22:46)
--- NOTE | 2023-01-26 16:19 | P.CNNES ---
History of Present Illness Consult date: 01/26/23 Reason for Consult: altered mental status History of Present Illness: The pt is an 87y/o female who is seen in neurologic consultation on 2022, in collaboration with Brandy Canela, via teleneurology. History is obtained from the chart and the family at the bedside and via phone. The pt is unable to provide any history. The pt apparently lives alone and was found on Friday, by family, confused. She had reportedly fallen. She was taken into the ER at [facility]. She was worked up and no etiology for confusion was determined. The pt was subsequently transferred to [facility]. Urinalysis is positive for infection. The family states that the pt has no signs of dementia, yet there is someone who comes to her home daily, sets up her medications and there are apparently ? nurses also. Review of Systems ROS unobtainable: due to mental status (The pt is very confused and is uncooperative with exam and questioning) Past Medical History Past Medical History: Coronary Artery Disease (CAD), Cancer, Chest Pain / Angina, Heart Failure, CVA/TIA, Diabetes Mellitus, GI Bleed, Hyperlipidemia, Hypertension, Myocardial Infarction (PR), Osteoarthritis (OA) Additional Past Medical History / Comment(s): CVA POST STENT TO RCA IN 2012. GI BLEED RELATED TO PLAVIX FROM STENT IN 2012, 2 UNITS PRBC RECEIVED Last Myocardial Infarction Date:: 01-22-2014 History of Any Multi-Drug Resistant Organisms: None Reported Past Surgical History: Heart Catheterization With Stent, Orthopedic Surgery Additional Past Surgical History / Comment(s): HEART CATH IN 2012 AND 2013 WITH STENT TO RCA Past Anesthesia/Blood Transfusion Reactions: No Reported Reaction Date of Last Stent Placement:: 01-22-2014 Past Psychological History: No Psychological Hx Reported Smoking Status: Never smoker Past Alcohol Use History: None Reported Past Drug Use History: None Reported - Past Family History Mother Family Medical History: No Reported History Additional Family Medical History / Comment(s): Mother was healthy and worked up until the age of 77yrs. Father Family Medical History: Liver Disease, Renal Disease Medications and Allergies Home Medications Medication Instructions Recorded Confirmed Type Brimonidine Tartrate [Alphagan P 1 drop LEFT EYE BID 02/27/22 01/25/23 History 0.2% Ophth Soln] Isosorbide Mononitrate ER [Imdur] 60 mg PO BID 02/27/22 01/25/23 History Latanoprost [Latanoprost 0.005%] 1 drop BOTH EYES HS 02/27/22 01/25/23 History Levothyroxine Sodium 100 mcg PO DAILY 02/27/22 01/25/23 History Omeprazole 40 mg PO DAILY 02/27/22 01/25/23 History Timolol 0.5% Ophth Soln [Timoptic 1 drop LEFT EYE BID 02/27/22 01/25/23 History 0.5% Ophth Soln] Gabapentin [Neurontin] 300 mg PO BID #6 cap 03/01/22 01/25/23 Rx HYDROcodone/APAP 7.5-325MG [[place] 1 tab PO BID PRN 07/15/22 01/25/23 History 7.5-325] Losartan Potassium 100 mg PO DAILY 07/15/22 01/25/23 History Multivitamins, Thera [Multivitamin 1 tab PO DAILY 07/15/22 01/25/23 History (formulary)] Clopidogrel [Plavix] 75 mg PO DAILY 30 Days #30 tab 07/20/22 01/25/23 Rx Acyclovir 200 mg PO BID 01/25/23 01/25/23 History Apixaban [Eliquis] 2.5 mg PO BID 01/25/23 01/25/23 History Atorvastatin [Lipitor] 40 mg PO HS 01/25/23 01/25/23 History Furosemide [Lasix] 40 mg PO DAILY 01/25/23 01/25/23 History Lenalidomide [Revlimid] 5 mg PO DIRECTED 01/25/23 01/25/23 History Metoprolol Succinate [Toprol XL] 50 mg PO DAILY 01/25/23 01/25/23 History Nitroglycerin Sl Tabs [Nitrostat] 0.4 mg SUBLINGUAL Q5M PRN 01/25/23 01/25/23 History Potassium Chloride ER [K-Dur 20] 20 meq PO TID 01/25/23 01/25/23 History Sennosides [Senokot] 8.6 mg PO DAILY 01/25/23 01/25/23 History amLODIPine [Norvasc] 5 mg PO BID 01/25/23 01/25/23 History Allergies Allergy/AdvReac Type Severity Reaction Status Date / Time No Known Allergies Allergy Verified 07/15/22 19:44 Physical Examination - Vital Signs Vital Signs: Vital Signs Temp Pulse Resp BP Pulse Ox 01/26/23 08:32 98 F 99 18 164/83 95 01/26/23 06:26 89 18 141/69 97 01/25/23 20:05 98.2 F 77 20 126/61 96 Intake and Output 01/25/23 01/26/23 01/26/23 22:59 06:59 14:59 Other: Weight 65.771 kg General: The pt is very agitated. She complains of being cold. She is uncooperative with the examination HEENT: Head is atraumatic, normocephalic. There is no scleral icterus. Neck: unable to be assessed Heart: Unable to be assessed Lungs: Unable to be assessed Neurologic examination Mental status: The pt is agitated, confused. Speech is clear. She is oriented to her name, . Cranial nerves: Unable to be assessed Motor: Unable to formally test strength. Pt is moving all 4 extremities. Sensation, coordination and deep tendon reflexes cannot be assessed Results - Laboratory Findings CBC and BMP: 01/26/23 08:36 01/26/23 08:36 Abnormal Lab Findings: Abnormal Labs 01/25/23 01/25/23 01/25/23 20:49 20:49 20:49 RBC 3.73 L Hgb 10.5 L Hct 32.0 L RDW 15.9 H Lymphocytes # 0.5 L Eosinophils # 1.7 H Sodium 136 L Potassium 3.4 L BUN 31 H Creatinine 1.30 H Glucose 100 H Calcium 8.3 L Magnesium 1.4 L Total Protein 5.7 L Albumin 2.9 L Urine Appearance Urine Protein Urine Blood Ur Leukocyte Esterase Urine RBC Urine WBC Urine Bacteria Urine Mucus Urine Opiates Screen Detected H 01/25/23 01/26/23 01/26/23 20:49 08:36 08:36 RBC 3.77 L Hgb 10.6 L Hct 32.2 L RDW 16.1 H Lymphocytes # 0.7 L Eosinophils # 1.0 H Sodium Potassium BUN 26 H Creatinine 1.19 H Glucose 108 H Calcium Magnesium Total Protein 6.0 L Albumin 3.0 L Urine Appearance Cloudy H Urine Protein Trace H Urine Blood Moderate H Ur Leukocyte Esterase Large H Urine RBC 7 H Urine WBC 10 H Urine Bacteria Occasional H Urine Mucus Rare H Urine Opiates Screen Assessment and Plan Assessment: 1. Marked delirium and agitation secondary to urinary tract infection. Neurologic examination could not be carried out as the pt would not cooperate 2. History of multiple myeloma, currently receiving chemotherapy 3. Hx of CVA without residual deficit Plan: 1. Treatment of UTI Thank you for allowing us to participate in the care of this pt. Dr. Garcia will assume neurologic coverage of this pt as of 01/27/2023 Time with Patient: Greater than 30
[2023-01-26] MEDS: APIXABAN 2.5 MG TABLET PO SCH ×2 (17:01→23:01)
[2023-01-26] MEDS: amLODIPine 5 MG TAB PO SCH ×2 (17:03→23:11)
[2023-01-26] MEDS: POTASSIUM CHLORIDE ER 20 MEQ TAB.ER PO SCH ×2 (17:05→23:11)
--- NOTE | 2023-01-26 17:14 | P.HPIM ---
History of Present Illness H&P Date: 01/26/23 Chief Complaint: Altered mental status Patient was transferred to our ED by ambulance from the [facility] ED for hospital admission and neurology/oncology consultations. Per medical records sent with the patient, the patient presented to the [facility] ED for evaluation of generalized weakness and confusion. Patient had several labs and imaging studies performed there, which were all sent with the patient to our ED and reviewed myself. Patient's UA results are negative for findings suggestive of UTI. Patient's CBC is remarkable for a hemoglobin of 10.3. Patient's WBC count is within normal limits at 9.8. Patient's lactic acid level is normal at 2.2. Patient's CMP is remarkable for a BUN of 31 and a creatinine of 1.6. Patient's CPK level is within normal limits. Patient's RSV, Covid and influenza tests are all negative. Patient's troponin HS was mildly elevated at 21.7. Patient's head CT report was reviewed myself, and is negative for any acute abnormality. Patient's noncontrast CT chest/abdomen/pelvis report was reviewed myself as well. It is remarkable for uncomplicated moderate cholelithiasis, compression hip pain on the right, and subtle ground glass changes left upper lobe and very minimal right lower lobe. EKG was reviewed myself and is only remarkable for sinus bradycardia. Patient is able to tell me her name at this time, but she is otherwise disoriented. History from the patient is very limited due to her confusion/altered mental status. Patient reportedly has a history of multiple myeloma on chemotherapy treatment. 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 GI BLEED RELATED TO PLAVIX FROM STENT IN 2012, 2 UNITS PRBC RECEIVED Last Myocardial Infarction Date:: 01-22-2014 History of Any Multi-Drug Resistant Organisms: None Reported Past Surgical History: Heart Catheterization With Stent, Orthopedic Surgery Additional Past Surgical History / Comment(s): HEART CATH IN 2012 AND 2013 WITH STENT TO RCA Past Anesthesia/Blood Transfusion Reactions: No Reported Reaction Date of Last Stent Placement:: 01-22-2014 Past Psychological History: No Psychological Hx Reported Smoking Status: Never smoker Past Alcohol Use History: None Reported Past Drug Use History: None Reported - Past Family History Mother Family Medical History: No Reported History Additional Family Medical History / Comment(s): Mother was healthy and worked up until the age of 77yrs. Father Family Medical History: Liver Disease, Renal Disease Medications and Allergies Home Medications Medication Instructions Recorded Confirmed Type Brimonidine Tartrate [Alphagan P 1 drop LEFT EYE BID 02/27/22 01/25/23 History 0.2% Ophth Soln] Isosorbide Mononitrate ER [Imdur] 60 mg PO BID 02/27/22 01/25/23 History Latanoprost [Latanoprost 0.005%] 1 drop BOTH EYES HS 02/27/22 01/25/23 History Levothyroxine Sodium 100 mcg PO DAILY 02/27/22 01/25/23 History Omeprazole 40 mg PO DAILY 02/27/22 01/25/23 History Timolol 0.5% Ophth Soln [Timoptic 1 drop LEFT EYE BID 02/27/22 01/25/23 History 0.5% Ophth Soln] Gabapentin [Neurontin] 300 mg PO BID #6 cap 03/01/22 01/25/23 Rx HYDROcodone/APAP 7.5-325MG [[place] 1 tab PO BID PRN 07/15/22 01/25/23 History 7.5-325] Losartan Potassium 100 mg PO DAILY 07/15/22 01/25/23 History Multivitamins, Thera [Multivitamin 1 tab PO DAILY 07/15/22 01/25/23 History (formulary)] Clopidogrel [Plavix] 75 mg PO DAILY 30 Days #30 tab 07/20/22 01/25/23 Rx Acyclovir 200 mg PO BID 01/25/23 01/25/23 History Apixaban [Eliquis] 2.5 mg PO BID 01/25/23 01/25/23 History Atorvastatin [Lipitor] 40 mg PO HS 01/25/23 01/25/23 History Furosemide [Lasix] 40 mg PO DAILY 01/25/23 01/25/23 History Lenalidomide [Revlimid] 5 mg PO DIRECTED 01/25/23 01/25/23 History Metoprolol Succinate [Toprol XL] 50 mg PO DAILY 01/25/23 01/25/23 History Nitroglycerin Sl Tabs [Nitrostat] 0.4 mg SUBLINGUAL Q5M PRN 01/25/23 01/25/23 History Potassium Chloride ER [K-Dur 20] 20 meq PO TID 01/25/23 01/25/23 History Sennosides [Senokot] 8.6 mg PO DAILY 01/25/23 01/25/23 History amLODIPine [Norvasc] 5 mg PO BID 01/25/23 01/25/23 History Allergies Allergy/AdvReac Type Severity Reaction Status Date / Time No Known Allergies Allergy Verified 07/15/22 19:44 Physical Exam Vitals: Vital Signs Temp Pulse Resp BP Pulse Ox 01/26/23 08:32 98 F 99 18 164/83 95 01/26/23 06:26 89 18 141/69 97 01/25/23 20:05 98.2 F 77 20 126/61 96 Intake and Output 01/25/23 01/26/23 01/26/23 22:59 06:59 14:59 Other: Weight 65.771 kg General appearance: alert Head exam: Present: atraumatic, normocephalic Eye exam: Present: normal appearance, PERRL, EOMI ENT exam: Present: mucous membranes moist Neck exam: Present: other (Trachea is in midline; no nuchal rigidity or meningeal signs are present on exam). Absent: tenderness, meningismus Respiratory exam: Present: normal lung sounds bilaterally. Absent: respiratory distress, wheezes, rales, rhonchi, stridor Cardiovascular Exam: Present: regular rate, normal rhythm, normal heart sounds, other (Normal radial pulses bilaterally) GI/Abdominal exam: Present: soft. Absent: distended, tenderness, guarding Extremities exam: Absent: pedal edema Neurological exam: Present: alert, CN II-XII intact, other (Patient is only oriented to herself at this time). Absent: motor sensory deficit Psychiatric exam: Present: other (Patient is somewhat agitated) Skin exam: Present: warm, dry, intact, normal color Results CBC & Chem 7: 01/26/23 08:36 01/26/23 08:36 Labs: Abnormal Lab Results - Last 24 Hours (Table) 01/25/23 01/25/23 01/25/23 Range/Units 20:49 20:49 20:49 RBC 3.73 L (3.80-5.40) m/uL Hgb 10.5 L (11.4-16.0) gm/dL Hct 32.0 L (34.0-46.0) % RDW 15.9 H (11.5-15.5) % Lymphocytes # 0.5 L (1.0-4.8) k/uL Eosinophils # 1.7 H (0-0.7) k/uL Sodium 136 L (137-145) mmol/L Potassium 3.4 L (3.5-5.1) mmol/L BUN 31 H (7-17) mg/dL Creatinine 1.30 H (0.52-1.04) mg/dL Glucose 100 H (74-99) mg/dL Calcium 8.3 L (8.4-10.2) mg/dL Magnesium 1.4 L (1.6-2.3) mg/dL Total Protein 5.7 L (6.3-8.2) g/dL Albumin 2.9 L (3.5-5.0) g/dL Urine Appearance (Clear) Urine Protein (Negative) Urine Blood (Negative) Ur Leukocyte Esterase (Negative) Urine RBC (0-5) /hpf Urine WBC (0-5) /hpf Urine Bacteria (None) /hpf Urine Mucus (None) /hpf Urine Opiates Screen Detected H (NotDetected) 01/25/23 01/26/23 01/26/23 Range/Units 20:49 08:36 08:36 RBC 3.77 L (3.80-5.40) m/uL Hgb 10.6 L (11.4-16.0) gm/dL Hct 32.2 L (34.0-46.0) % RDW 16.1 H (11.5-15.5) % Lymphocytes # 0.7 L (1.0-4.8) k/uL Eosinophils # 1.0 H (0-0.7) k/uL Sodium (137-145) mmol/L Potassium (3.5-5.1) mmol/L BUN 26 H (7-17) mg/dL Creatinine 1.19 H (0.52-1.04) mg/dL Glucose 108 H (74-99) mg/dL Calcium (8.4-10.2) mg/dL Magnesium (1.6-2.3) mg/dL Total Protein 6.0 L (6.3-8.2) g/dL Albumin 3.0 L (3.5-5.0) g/dL Urine Appearance Cloudy H (Clear) Urine Protein Trace H (Negative) Urine Blood Moderate H (Negative) Ur Leukocyte Esterase Large H (Negative) Urine RBC 7 H (0-5) /hpf Urine WBC 10 H (0-5) /hpf Urine Bacteria Occasional H (None) /hpf Urine Mucus Rare H (None) /hpf Urine Opiates Screen (NotDetected) Assessment and Plan Assessment: 1. Altered mental status; likely toxic metabolic encephalopathy related to UTI/AK I - Workup completed in ED including CT of the head has been unremarkable - Patient will be placed on telemetry with neuro checks - Await neurology evaluation 2. Mild renal injury; IV fluid hydration with normal saline at a rate of 75 mL an hour; monitor strict GERMAIN's, daily weights, renal function and lites; avoid nephrotoxins and hypotension 3. UTI; patient has been placed on IV Rocephin 1 g every 24 hours; blood cultures and urine cultures obtained; further recommendations pending clinical course 4. History of multiple myeloma; patient is currently on chemotherapy treatment; oncology consult is placed and recommendations are pending 5. Hypertension; amlodipine 5 mg daily; losartan 100 mg daily, metoprolol 50 mg daily 6. Hyperlipidemia; Lipitor 40 mg by mouth daily at bedtime 7. Hypothyroidism; continue home dose of levothyroxine 100 MCG daily 8. Coronary artery disease; patient remains on atorvastatin, losartan, meto prolol and Plavix 9. History of CVA/TIA; currently on statins and anticoagulation-- not clear at this point I patient is taking anticoagulation therapy DVT prophylaxis; SCDs/systemic anticoagulation CODE STATUS; full code
[2023-01-26] MEDS: METOPROLOL SUCCINATE (ER) 50 MG TAB.ER.24H PO SCH (18:55)
[2023-01-26] MEDS: LOSARTAN 50 MG TAB PO SCH (18:55)
[2023-01-26] MEDS: CLOPIDOGREL 75 MG TAB PO SCH (18:55)
[2023-01-26] MEDS: LEVOTHYROXINE 100 MCG TAB PO SCH (18:55)
--- NOTE | 2023-01-26 19:04 | P.CONS ---
History of Present Illness - Reason for Consult Consult date: 01/26/23 hx MM Requesting physician: Aris Hanks - Chief Complaint confusion, weakness - History of Present Illness Patient is an 87-year-old female with a significant health history of anemia, PE, CAD, STEMI with stent placement anticoagulated with Plavix and Eliquis, hypertension, hyperlipidemia, diabetes, and multiple myeloma. Patient was seen in consult in July 2022 at [facility] for iron deficiency anemia treated and required blood and iron transfusions. She was also found to have a small pulmonary embolus at that time and was started on Eliquis. It was noted at that time previous lab work-up from 2020 revealed elevated light chains and a paraproteinemia. Labs were repeated and immunofixation revealed biclonal IgG protein with lambda specificity and presence of monoclonal free lambda light chain. Serum IgG was 5931. Serum protein electrophoresis revealed M spike of 0.1 and 3.7. Lambda LC 9842, Breaks LC 13.1, ratio 0.001. Labs were resulted after discharge and patient was recommended to follow-up in clinic but stated that [place] hospital and wanted to follow-up closer to home and would follow-up with her PCP for further recommendations. Per family patient then underwent a bone marrow biopsy which confirmed multiple myeloma. PET/CT was obtained on 11/01/2022 which revealed no suspicious radiotracer activity. Patient follows with Dr. Cancino at [facility]. Family states patient was started on treatment with revlimid and other unknown medication "thats a weekly injection starting with a D", this is likely daratumumab. Daughter reports she received her fifth injection 4 days ago, and last took Revlimid 2 days ago. Patient was transferred to [facility] from [facility] for further e valuation and management. Patient presented to the emergency room after a mechanical fall at home. Daughter states when she came to check on her mother patient was sitting on the floor. Daughter states at that time patient reports she tripped over furniture but denied head injury and LOC. Patient was subsequently taken to the emergency room at [place]. Per review of ER note CT head was obtained which was negative for acute processes. CT chest abdomen pelvis was remarkable for uncomplicated moderate cholelithiasis and subtle groundglass changes in the left upper lobe and minimally in the right lower lobe. Daughter states while at the emergency room at [place] and since transfer patient has become more confused and agitated. Upon transfer chest x- ray revealed no acute cardiopulmonary processes. Repeat UA is suspicious for UTI. Patient has been started on Rocephin. Urine culture pending. Neurology has been consulted. Blood counts stable, WBC 7.6, hemoglobin 10.6, platelets 249,000. Patient afebrile. Review of Systems 10 point ROS is negative except as stated in the HPI Past Medical History Past Medical History: Coronary Artery Disease (CAD), Cancer, Chest Pain / Angina, Heart Failure, CVA/TIA, Diabetes Mellitus, GI Bleed, Hyperlipidemia, Hypertension, Myocardial Infarction (ID), Osteoarthritis (OA) Additional Past Medical History / Comment(s): CVA POST STENT TO RCA IN 2012. GI BLEED RELATED TO PLAVIX FROM STENT IN 2012, 2 UNITS PRBC RECEIVED Last Myocardial Infarction Date:: 01-22-2014 History of Any Multi-Drug Resistant Organisms: None Reported Past Surgical History: Heart Catheterization With Stent, Orthopedic Surgery Additional Past Surgical History / Comment(s): HEART CATH IN 2012 AND 2013 WITH STENT TO RCA Past Anesthesia/Blood Transfusion Reactions: No Reported Reaction Date of Last Stent Placement:: 01-22-2014 Past Psychological History: No Psychological Hx Reported Smoking Status: Never smoker Past Alcohol Use History: None Reported Past Drug Use History: None Reported - Past Family History Mother Family Medical History: No Reported History Additional Family Medical History / Comment(s): Mother was healthy and worked up until the age of 77yrs. Father Family Medical History: Liver Disease, Renal Disease Medications and Allergies Home Medications Medication Instructions Recorded Confirmed Type Brimonidine Tartrate [Alphagan P 1 drop LEFT EYE BID 02/27/22 01/25/23 History 0.2% Ophth Soln] Isosorbide Mononitrate ER [Imdur] 60 mg PO BID 02/27/22 01/25/23 History Latanoprost [Latanoprost 0.005%] 1 drop BOTH EYES HS 02/27/22 01/25/23 History Levothyroxine Sodium 100 mcg PO DAILY 02/27/22 01/25/23 History Omeprazole 40 mg PO DAILY 02/27/22 01/25/23 History Timolol 0.5% Ophth Soln [Timoptic 1 drop LEFT EYE BID 02/27/22 01/25/23 History 0.5% Ophth Soln] Gabapentin [Neurontin] 300 mg PO BID #6 cap 03/01/22 01/25/23 Rx HYDROcodone/APAP 7.5-325MG [[place] 1 tab PO BID PRN 07/15/22 01/25/23 History 7.5-325] Losartan Potassium 100 mg PO DAILY 07/15/22 01/25/23 History Multivitamins, Thera [Multivitamin 1 tab PO DAILY 07/15/22 01/25/23 History (formulary)] Clopidogrel [Plavix] 75 mg PO DAILY 30 Days #30 tab 07/20/22 01/25/23 Rx Acyclovir 200 mg PO BID 01/25/23 01/25/23 History Apixaban [Eliquis] 2.5 mg PO BID 01/25/23 01/25/23 History Atorvastatin [Lipitor] 40 mg PO HS 01/25/23 01/25/23 History Furosemide [Lasix] 40 mg PO DAILY 01/25/23 01/25/23 History Lenalidomide [Revlimid] 5 mg PO DIRECTED 01/25/23 01/25/23 History Metoprolol Succinate [Toprol XL] 50 mg PO DAILY 01/25/23 01/25/23 History Nitroglycerin Sl Tabs [Nitrostat] 0.4 mg SUBLINGUAL Q5M PRN 01/25/23 01/25/23 History Potassium Chloride ER [K-Dur 20] 20 meq PO TID 01/25/23 01/25/23 History Sennosides [Senokot] 8.6 mg PO DAILY 01/25/23 01/25/23 History amLODIPine [Norvasc] 5 mg PO BID 01/25/23 01/25/23 History Allergies Allergy/AdvReac Type Severity Reaction Status Date / Time No Known Allergies Allergy Verified 07/15/22 19:44 Physical Exam Vitals: Vital Signs Temp Pulse Resp BP Pulse Ox 01/26/23 08:32 98 F 99 18 164/83 95 01/26/23 06:26 89 18 141/69 97 01/25/23 20:05 98.2 F 77 20 126/61 96 Intake and Output 01/25/23 01/26/23 01/26/23 22:59 06:59 14:59 Other: Weight 65.771 kg - Constitutional agitated General appearance: average body habitus - EENT head atraumatic - Respiratory breathing even and unlabored - Cardiovascular skin warm and dry - Gastrointestinal General gastrointestinal: no distended, soft - Integumentary Integumentary: no cyanotic, no jaundiced, rash - Neurologic confused, agitated Results CBC & Chem 7: 01/26/23 08:36 01/26/23 08:36 Labs: Abnormal Lab Results - Last 24 Hours (Table) 01/25/23 01/25/23 01/25/23 Range/Units 20:49 20:49 20:49 RBC 3.73 L (3.80-5.40) m/uL Hgb 10.5 L (11.4-16.0) gm/dL Hct 32.0 L (34.0-46.0) % RDW 15.9 H (11.5-15.5) % Lymphocytes # 0.5 L (1.0-4.8) k/uL Eosinophils # 1.7 H (0-0.7) k/uL Sodium 136 L (137-145) mmol/L Potassium 3.4 L (3.5-5.1) mmol/L BUN 31 H (7-17) mg/dL Creatinine 1.30 H (0.52-1.04) mg/dL Glucose 100 H (74-99) mg/dL Calcium 8.3 L (8.4-10.2) mg/dL Magnesium 1.4 L (1.6-2.3) mg/dL Total Protein 5.7 L (6.3-8.2) g/dL Albumin 2.9 L (3.5-5.0) g/dL Urine Appearance (Clear) Urine Protein (Negative) Urine Blood (Negative) Ur Leukocyte Esterase (Negative) Urine RBC (0-5) /hpf Urine WBC (0-5) /hpf Urine Bacteria (None) /hpf Urine Mucus (None) /hpf Urine Opiates Screen Detected H (NotDetected) 01/25/23 01/26/23 01/26/23 Range/Units 20:49 08:36 08:36 RBC 3.77 L (3.80-5.40) m/uL Hgb 10.6 L (11.4-16.0) gm/dL Hct 32.2 L (34.0-46.0) % RDW 16.1 H (11.5-15.5) % Lymphocytes # 0.7 L (1.0-4.8) k/uL Eosinophils # 1.0 H (0-0.7) k/uL Sodium (137-145) mmol/L Potassium (3.5-5.1) mmol/L BUN 26 H (7-17) mg/dL Creatinine 1.19 H (0.52-1.04) mg/dL Glucose 108 H (74-99) mg/dL Calcium (8.4-10.2) mg/dL Magnesium (1.6-2.3) mg/dL Total Protein 6.0 L (6.3-8.2) g/dL Albumin 3.0 L (3.5-5.0) g/dL Urine Appearance Cloudy H (Clear) Urine Protein Trace H (Negative) Urine Blood Moderate H (Negative) Ur Leukocyte Esterase Large H (Negative) Urine RBC 7 H (0-5) /hpf Urine WBC 10 H (0-5) /hpf Urine Bacteria Occasional H (None) /hpf Urine Mucus Rare H (None) /hpf Urine Opiates Screen (NotDetected) Chest x-ray: report reviewed Assessment and Plan (1) Multiple myeloma Current Visit: Yes Status: Acute Priority: High Code(s): C90.00 - MULTIPLE MYELOMA NOT HAVING ACHIEVED REMISSION SNOMED Code(s): 936629233 (2) Altered mental status Current Visit: Yes Status: Acute Priority: High Code(s): R41.82 - ALTERED MENTAL STATUS, UNSPECIFIED SNOMED Code(s): 035781684 Plan: Altered mental status: -Mechanical fall, no known head injury or LOC. On eliquis ad plavix -Initially evaluated at [facility]. Head CT obtained there per note did not reveal any acute processes attributing to patients symptoms -Neurology consulted -UA is suspicious for UTI. Patient has been started on Rocephin. Urine culture pending Multiple myeloma: -Full history in [facility] -Follows with Dr. Cancino at [facility]. Family states patient was started on treatment with revlimid and other unknown medication, "that's a weekly injection starting with a D", this is likely daratumumab. -Daughter reports she received her fifth injection 4 days ago, and last took Revlimid 2 days ago -Revlimid will be held until patient acutely recovers -Patient will f/u with primary oncologist, Dr. Cancino upon discharge and they were instructed to hold treatment until otherwise directed by her oncologist. Family verbalized understanding and were agreeable with POC
[2023-01-26] MEDS: TRIAMCINOLONE 0.1% CREAM 80 GM TUBE TOPICAL SCH (20:50)
[2023-01-26] MEDS ORDERED: LORazepam 2 MG/ML INJ IM STA (23:05)
[2023-01-26] MEDS: TIMOLOL 0.5% OPHTH DROPS 5 ML BTL LEFT EYE SCH (23:12)
[2023-01-26] MEDS: ATORVASTATIN 40 MG TAB PO SCH (23:12)
[2023-01-26] MEDS: BRIMONIDINE TARTRATE 0.2% DROPS 5 ML BTL LEFT EYE SCH (23:12)
[2023-01-26] MEDS: ISOSORBIDE MONONITRATE ER 60 MG TAB.ER.24H PO SCH (23:12)
[2023-01-26] MEDS: LATANOPROST 0.005% OPHTH DROPS 2.5 ML BTL BOTH EYES SCH (23:12)
[2023-01-27] MEDS: LORazepam 2 MG/ML INJ IM PRN (05:09)
[2023-01-27] MEDS: PANTOPRAZOLE 40 MG TABLET PO SCH (06:34)
[2023-01-27] MEDS: LEVOTHYROXINE 100 MCG TAB PO SCH (06:34)
[2023-01-27] MEDS: SODIUM CHLORIDE 0.9% 1,000 ML IV SCH (06:40)
[2023-01-27] MEDS: ISOSORBIDE MONONITRATE ER 60 MG TAB.ER.24H PO SCH ×2 (09:17→21:18)
[2023-01-27] MEDS: POTASSIUM CHLORIDE ER 20 MEQ TAB.ER PO SCH (09:17)
[2023-01-27] MEDS: LOSARTAN 50 MG TAB PO SCH (09:18)
[2023-01-27] MEDS: METOPROLOL SUCCINATE (ER) 50 MG TAB.ER.24H PO SCH (09:18)
[2023-01-27] MEDS: amLODIPine 5 MG TAB PO SCH ×2 (09:18→21:18)
[2023-01-27] MEDS: SENNOSIDES 8.6 MG TAB PO SCH (09:18)
[2023-01-27] MEDS: CLOPIDOGREL 75 MG TAB PO SCH (09:18)
[2023-01-27] MEDS: BRIMONIDINE TARTRATE 0.2% DROPS 5 ML BTL LEFT EYE SCH ×2 (09:18→21:30)
[2023-01-27] MEDS: APIXABAN 2.5 MG TABLET PO SCH ×2 (09:18→21:18)
[2023-01-27] MEDS: MULTIVITAMINS, THERA 1 EACH TAB PO SCH (09:18)
[2023-01-27] MEDS: TRIAMCINOLONE 0.1% CREAM 80 GM TUBE TOPICAL SCH ×2 (09:19→21:32)
[2023-01-27] MEDS: TIMOLOL 0.5% OPHTH DROPS 5 ML BTL LEFT EYE SCH ×2 (09:26→21:29)
[2023-01-27 10:30] LABS: Anisocytosis Slight; Basophils % (A) 0 %; Eosinophils # (A) 0.9 k/uL (0-0.7); Eosinophils % (A) 13 %; HCT 27.4 % (34.0-46.0); HGB 9.2 gm/dL (11.4-16.0); Hypochromasia Moderate; Lymphocytes # (A) 0.6 k/uL (1.0-4.8); Lymphocytes % (A) 8 %; MCH 29.1 pg (25.0-35.0); MCHC 33.5 g/dL (31.0-37.0); MCV 86.6 fL (80.0-100.0); Monocytes # (A) 0.8 k/uL (0-1.0); Monocytes % (A) 12 %; Neutrophils # (A) 4.5 k/uL (1.3-7.7); Neutrophils % (A) 65 %; Platelet Count 218 k/uL (150-450); Poikilocytosis Slight; RBC 3.16 m/uL (3.80-5.40); RDW 16.5 % (11.5-15.5); WBC 6.9 k/uL (3.8-10.6)
[2023-01-27 11:35] LABS: African American GFR (CKD) 55 (>60 ml/min/1.73 sqM); Anion Gap 8 mmol/L; Blood Urea Nitrogen 18 mg/dL (7-17); Calcium 7.9 mg/dL (8.4-10.2); Carbon Dioxide 21 mmol/L (22-30); Chloride 115 mmol/L (98-107); Glucose 121 mg/dL (74-99); Non-African American GFR(CKD) 48 (>60 ml/min/1.73 sqM); Potassium 3.1 mmol/L (3.5-5.1); Sodium 144 mmol/L (137-145)
[2023-01-27] MEDS ORDERED: QUEtiapine 25 MG TAB PO PRN ×2 (12:19→14:07)
[2023-01-27] MEDS ORDERED: DEXTROSE 50% SYRINGE 50 ML IVP PRN ×2 (12:30)
--- NOTE | 2023-01-27 13:36 | P.PN ---
Subjective Progress Note Date: 01/27/23 Patient was initially seen by Dr. Jessica Landon. Please refer to her note for details. Patient came with altered mental status. Patient has abnormal UA. Chest x-ray showed no acute process. EKG shows sinus rhythm. Blood test shows hemoglobin 9.2, normal sodium, potassium 3.1, renal functions are mildly decreased with BUN 18 creatinine 1.05. Hepatic panel, ammonia is normal. Thyroid functions are normal. UA shows large amount of leukocyte Estrace, 10 WBC bacteria. urine drug screen positive for opiates. patient is currently on ceftriaxone 1 g every 24 hours. Patient's home medications include levothyroxine, gabapentin 300 mg twice a day, [employer] 7.5 mg twice a day when necessary, losartan, Plavix 75 mg, amlodipine, metoprolol, potassium, Eliquis 2.5 mg twice a day, Lasix, acyclovir, Lipitor. I spoke to patient's daughter and son who were present in the room. They mentioned that patient is mentally very clear, no history of dementia. She has been using a walker since she suffered from a broken hip in February 2022. Patient has been diagnosed with multiple myeloma about 3-4 months ago. She has been getting chemotherapy, received it for 3 weeks, then off for a week and the second session of 3 weeks started last 01/22/2023. Patient did develop a rash from the chemotherapy. Patient's family mentions that last week she was slightly confused, but got acutely worse on Friday 2 days after starting chemotherapy. The next day on Friday, she was found on the floor. She was very confused, weak. No history of tobacco or alcohol use. Patient is currently on Eliquis for her history of PE in July 2022. She does have hearing decrease, and vision loss from her history of macular degeneration. Patient at present denies any headache, no abdominal pain, no low back pain, no leg pain. Patient's blood tests performed at outside facility revealed normal UA. Lactate 2.2 which is borderline. WBC 9.8, hemoglobin 10.3, platelets 306. BUN 31, creatinine 1.6, mildly elevated. GFR 30. Calcium 8.6. Sodium potassium are normal. AST normal, ALT 34. CK 26, coronavirus PCR, influenza and RSV negative . Objective - Vital Signs Vital signs: Vital Signs Temp 99.0 F 01/27/23 06:28 Pulse 101 H 01/27/23 06:28 Resp 18 01/27/23 09:26 BP 155/85 01/27/23 09:26 Pulse Ox 100 01/27/23 09:26 FiO2 Intake & Output 01/26/23 01/27/23 01/27/23 18:59 06:59 18:59 Other: # Voids 1 - Exam Patient appears obviously delirious, restless, sometimes mumbles, keeps her eyes closed. Family have noticed that she started to pick things up from air. Patient's daughter has mentioned that sometimes she speaks full sentences without any problem. Other times she just mumbles. Her pupils are equal, round and reacting. Visual jeffrey could not be tested. Sometimes the nasal go to the right. Her face is symmetric. Her tongue protrudes to the midline. Rest of the cranial nerves cannot be tested. On muscle strength testing, patient did not cooperate with examination. Her consulting practice manager was equal. On checking for pronator drift, patient fairly quickly brings her both arms down equally, but does not drop it and there is no flaccidity or any focality. She moves her legs equally. Plantars are possibly upgoing. Tone and bulk of muscles normal. She is tremulous, appears delirious, particularly in the right. She does have macular rash particularly in the forearms/elbow region. Her lips are dry. - Labs CBC & Chem 7: 01/27/23 08:44 01/27/23 10:45 Labs: Abnormal Lab Results - Last 24 Hours (Table) 01/27/23 01/27/23 Range/Units 08:44 10:45 RBC 3.16 L (3.80-5.40) m/uL Hgb 9.2 L (11.4-16.0) gm/dL Hct 27.4 L (34.0-46.0) % RDW 16.5 H (11.5-15.5) % Lymphocytes # 0.6 L (1.0-4.8) k/uL Eosinophils # 0.9 H (0-0.7) k/uL Potassium 3.1 L (3.5-5.1) mmol/L Chloride 115 H (98-107) mmol/L Carbon Dioxide 21 L (22-30) mmol/L BUN 18 H (7-17) mg/dL Creatinine 1.05 H (0.52-1.04) mg/dL Glucose 121 H (74-99) mg/dL Calcium 7.9 L (8.4-10.2) mg/dL Assessment and Plan Assessment: 1. Marked delirium and agitation secondary to possible acute infection. Her examination is essentially nonfocal. 2. History of multiple myeloma, currently receiving chemotherapy 3. 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 CT head showed old-appearing lacunar infarcts in the basal ganglia. 4. Abnormal CT chest, rule out pneumonia. 5. Mild renal insufficiency 6. Plan: * Check EEG to evaluate for encephalopathy, rule out any epileptiform activity. * CT head 01/25/2023 revealed mild to moderate white matter hypodensity, likely chronic in age indeterminate small vessel ischemic change. Nonacute basal ganglia lacunar infarcts, right greater than left. * CT abdomen and pelvis 01/25/2023 performed at outside facility revealed no acute process of the abdomen. 8 cm complex cyst of the left pelvis, probably adnexal. Uncomplicated diverticulosis. Uncomplicated moderate cholelithiasis. Severe scoliosis. Compression hip pin on the right. Subtle groundglass changes left upper lobe and very minimal right lower lobe. This is a change since 12/22/2022. Consider acute infiltrate, possible Covid. * Patient had a negative coronavirus PCR performed at outside facility. * Treatment of UTI versus pneumonia as per IM. * Ammonia is normal. * Hematology oncology on board to evaluate for possible side effect of chemotherapy producing acute delirium. * Neurology will follow. Discussed with family members in detail.
[2023-01-27] MEDS: LACTATED RINGERS 1,000 ML IV SCH (13:55)
[2023-01-27] MEDS ORDERED: POTASSIUM CHLORIDE ER 20 MEQ TAB.ER PO STA (14:25)
[2023-01-27] MEDS: QUEtiapine 25 MG TAB PO PRN (14:31)
[2023-01-27] MEDS ORDERED: CALCIUM CARBONATE 500 MG CHEWABLE PO PRN (14:32)
--- NOTE | 2023-01-27 14:35 | P.PN ---
Subjective Progress Note Date: 01/27/23 This is an 87-year-old female who comes to [facility] from [facility] with concern for confusion and altered mental status per the family appears that started about Friday patient was forgetful and became increasingly confused. Patient is currently alert x 0 today and poor historian not answering direct questions and difficult to gather a history. Psychiatry had started IM haldol although would recommend to trial seroquel for this patient for the agitation. Patient is being hydrated creatinine has improved down to 1.05 today. Review of Systems Constitutional: Denied any fatigue denied any fever. Cardio vascular: denied any chest pain, palpitations Gastrointestinal: denied any nausea, vomiting, diarrhea Pulmonary: Denied any shortness of breath cough Neurologic denied any new focal deficits All inpatient medications were reviewed and appropriate changes in these medications as dictated in the interval history and assessment and plan. PHYSICAL EXAMINATION: GENERAL: The patient is alert and oriented x0, not in any acute distress. Well developed, well nourished. HEENT: Pupils are round and equally reacting to light. EOMI. No scleral icterus. No conjunctival pallor. Normocephalic, atraumatic. No pharyngeal erythema. No thyromegaly. CARDIOVASCULAR: S1 and S2 present. No murmurs, rubs, or gallops. PULMONARY: Chest is clear to auscultation, no wheezing or crackles. ABDOMEN: Soft, nontender, nondistended, normoactive bowel sounds. No palpable organomegaly. MUSCULOSKELETAL: No joint swelling or deformity. EXTREMITIES: No cyanosis, clubbing, or pedal edema. NEUROLOGICAL: Gross neurological examination did not reveal any focal deficits. Diffuse weakness. SKIN: No rashes. Assessment Altered mental status; possibly acute toxic encephalopathy possible UTI although urine is not significantly abnormal. AMS more likely due to dehydration/CLARI and medication affect. Need to rule out stroke/seizure. Mild renal injury prerenal due to poor oral intake Abnormal urinalysis less likely acute UTI patient is asymptomatic no leukocytosis History of multiple myeloma; patient is currently on chemotherapy treatment Hypertension Hyperlipidemia Hypothyroidism Coronary artery disease History of CVA/TIA; currently on statins and anticoagulation eliquis 2.5 BID/Plavix 75 mg daily. DVT prophylaxis; SCDs/systemic anticoagulation CODE STATUS; DO NOT RESUSCITATE/DO NOT INTUBATE Plan Stop ceftriaxone and pending urine culture Neurology following patient to undergo EEG today Due to the hyperchloremia fluids have been changed to LR at 75 Repeat labs in AM PT/OT consultation The impression and plan of care has been dictated by Debra Madison, Nurse Practitioner as directed. Dr. David MD I have performed a history and physical examination and medical decision making of this patient, discussed the same with the dictator, and agree with the dictators assessment and plan as written, documented as a scribe. Based on total visit time, I have performed more than 50% of this visit. Objective - Vital Signs Vital signs: Vital Signs Temp 99.4 F 01/27/23 11:29 Pulse 79 01/27/23 11:29 Resp 20 01/27/23 11:29 BP 143/71 01/27/23 11:29 Pulse Ox 97 01/27/23 11:29 FiO2 Intake & Output 01/26/23 01/27/23 01/27/23 18:59 06:59 18:59 Other: # Voids 1 - Labs CBC & Chem 7: 01/27/23 08:44 01/27/23 10:45 Labs: Abnormal Lab Results - Last 24 Hours (Table) 01/27/23 01/27/23 Range/Units 08:44 10:45 RBC 3.16 L (3.80-5.40) m/uL Hgb 9.2 L (11.4-16.0) gm/dL Hct 27.4 L (34.0-46.0) % RDW 16.5 H (11.5-15.5) % Lymphocytes # 0.6 L (1.0-4.8) k/uL Eosinophils # 0.9 H (0-0.7) k/uL Potassium 3.1 L (3.5-5.1) mmol/L Chloride 115 H (98-107) mmol/L Carbon Dioxide 21 L (22-30) mmol/L BUN 18 H (7-17) mg/dL Creatinine 1.05 H (0.52-1.04) mg/dL Glucose 121 H (74-99) mg/dL Calcium 7.9 L (8.4-10.2) mg/dL Assessment and Plan Time with Patient: Less than 30
[2023-01-27] MEDS ORDERED: POTASSIUM CHLORIDE 20 MEQ in WATER FOR INJECTION 1 100ML.BAG IVPB STA (15:09)
[2023-01-27] MEDS ORDERED: HALOPERIDOL LACTATE 5 MG/ML 1 ML VIAL IM STA (15:21)
[2023-01-27 16:43] LABS: Glucose,Whole Blood 114 mg/dL (70-110)
[2023-01-27] MEDS ORDERED: ACETAMINOPHEN TAB 325 MG TAB PO PRN (17:21)
[2023-01-27] MEDS ORDERED: ACETAMINOPHEN TAB 325 MG TAB PO STA (17:21)
[2023-01-27] MEDS: INSULIN ASPART (NovoLOG) 100 UNIT/ML VIAL SQ SCH ×2 (18:05→21:14)
[2023-01-27 20:18] LABS: Glucose,Whole Blood 127 mg/dL (70-110)
[2023-01-27] MEDS: ATORVASTATIN 40 MG TAB PO SCH (21:18)
[2023-01-27] MEDS: MAGNESIUM OXIDE 400 MG TAB PO SCH (21:18)
[2023-01-27] MEDS: LATANOPROST 0.005% OPHTH DROPS 2.5 ML BTL BOTH EYES SCH (21:30)
--- NOTE | 2023-01-28 00:28 | EEG ---
ELECTROENCEPHALOGRAM REPORT PREAMBLE: This is an 87-year-old female with altered mental status. The patient is currently on Norvasc, Eliquis, Plavix, Imdur, NovoLog, Seroquel. EEG FINDINGS: This is a 21-channel digital EEG recorded with video component, utilizing 10/20 international system with referential and bipolar montages. Background predominantly consists of moderate amplitude, diffuse 6 hertz theta activity seen in bihemispheric region. Some superimposed fast frequency beta activity was also seen. A lot of myogenic activity was seen throughout the study, particularly in the temporal region from patient chewing, mouth movements. In the last 5 minutes of the study, the patient apparently became more agitated, and the significant myogenic activity was seen at the end of the study. Photic stimulation was not performed. Hyperventilation not done. Different stages of sleep were not seen. IMPRESSION: This is an abnormal EEG due to background slowing of moderate degree. This is suggestive of generalized cerebral dysfunction as can be seen with toxic metabolic encephalopathy, or related to diffuse structural brain abnormality. Clinical correlation is recommended. No epileptiform activity was seen. MMODL / IJN: [id number] /
[2023-01-28] MEDS: LACTATED RINGERS 1,000 ML IV SCH ×2 (02:54→16:53)
[2023-01-28 07:04] LABS: Glucose,Whole Blood 103 mg/dL (70-110)
[2023-01-28] MEDS: INSULIN ASPART (NovoLOG) 100 UNIT/ML VIAL SQ SCH ×4 (07:14→21:12)
[2023-01-28] MEDS: LEVOTHYROXINE 100 MCG TAB PO SCH (07:14)
[2023-01-28] MEDS: amLODIPine 5 MG TAB PO SCH ×2 (09:01→21:51)
[2023-01-28] MEDS: SENNOSIDES 8.6 MG TAB PO SCH (09:01)
[2023-01-28] MEDS: MAGNESIUM OXIDE 400 MG TAB PO SCH ×2 (09:01→21:51)
[2023-01-28] MEDS: QUEtiapine 25 MG TAB PO PRN (09:01)
[2023-01-28] MEDS: LOSARTAN 50 MG TAB PO SCH (09:01)
[2023-01-28] MEDS: MULTIVITAMINS, THERA 1 EACH TAB PO SCH (09:01)
[2023-01-28] MEDS: PANTOPRAZOLE 40 MG TABLET PO SCH (09:01)
[2023-01-28] MEDS: ISOSORBIDE MONONITRATE ER 60 MG TAB.ER.24H PO SCH ×2 (09:01→21:51)
[2023-01-28] MEDS: CLOPIDOGREL 75 MG TAB PO SCH (09:01)
[2023-01-28] MEDS: APIXABAN 2.5 MG TABLET PO SCH ×2 (09:01→21:51)
[2023-01-28] MEDS: TIMOLOL 0.5% OPHTH DROPS 5 ML BTL LEFT EYE SCH ×2 (09:02→21:51)
[2023-01-28] MEDS: METOPROLOL SUCCINATE (ER) 50 MG TAB.ER.24H PO SCH (09:02)
[2023-01-28] MEDS: TRIAMCINOLONE 0.1% CREAM 80 GM TUBE TOPICAL SCH ×2 (09:02→21:52)
[2023-01-28] MEDS: BRIMONIDINE TARTRATE 0.2% DROPS 5 ML BTL LEFT EYE SCH ×2 (09:02→21:51)
[2023-01-28 11:02] LABS: Calcium 8.6 mg/dL (8.7-10.3); Carbon Dioxide 23.4 mmol/L (21.6-31.8); Chloride 112 mmol/L (96-109); Glucose 107 mg/dL (70-110); Magnesium 1.8 mg/dL (1.5-2.4); Potassium 3.9 mmol/L (3.5-5.5); Sodium 145 mmol/L (135-145)
[2023-01-28 11:48] LABS: Glucose,Whole Blood 105 mg/dL (70-110)
--- NOTE | 2023-01-28 15:06 | P.PN ---
Subjective Progress Note Date: 01/28/23 01/28/2023: Patient was seen for a follow-up. Patient's son and [id number] were present today. Patient was very restless for which she has received Haldol and Ativan. Now somnolent. 01/27/2023: Patient was initially seen by Dr. Jessica Landon. Please refer to her note for details. Patient came with altered mental status. Patient has abnormal UA. Chest x-ray showed no acute process. EKG shows sinus rhythm. Blood test shows hemoglobin 9.2, normal sodium, potassium 3.1, renal functions are mildly decreased with BUN 18 creatinine 1.05. Hepatic panel, ammonia is normal. Thyroid functions are normal. UA shows large amount of leukocyte Estrace, 10 WBC bacteria. urine drug screen positive for opiates. patient is currently on ceftriaxone 1 g every 24 hours. Patient's home medications include levothyroxine, gabapentin 300 mg twice a day, [place] 7.5 mg twice a day when necessary, losartan, Plavix 75 mg, amlodipine, metoprolol, potassium, Eliquis 2.5 mg twice a day, Lasix, acyclovir, Lipitor. I spoke to patient's daughter and son who were present in the room. They mentioned that patient is mentally very clear, no history of dementia. She has been using a walker since she suffered from a broken hip in February 2022. Patient has been diagnosed with multiple myeloma about 3-4 months ago. She has been getting chemotherapy, received it for 3 weeks, then off for a week and the second session of 3 weeks started last 01/22/2023. Patient did develop a rash from the chemotherapy. Patient's family mentions that last week she was slightly confused, but got acutely worse on Friday 2 days after starting chemotherapy. The next day on Friday, she was found on the floor. She was very confused, weak. No history of tobacco or alcohol use. Patient is currently on Eliquis for her history of PE in July 2022. She does have hearing decrease, and vision loss from her history of macular degeneration. Patient at present denies any headache, no abdominal pain, no low back pain, no leg pain. Patient's blood tests performed at outside facility revealed normal UA. Lactate 2.2 which is borderline. WBC 9.8, hemoglobin 10.3, platelets 306. BUN 31, creatinine 1.6, mildly elevated. GFR 30. Calcium 8.6. Sodium potassium are normal. AST normal, ALT 34. CK 26, coronavirus PCR, influenza and RSV negative. Objective - Vital Signs Vital signs: Vital Signs Temp 98.1 F 01/28/23 12:29 Pulse 66 01/28/23 12:29 Resp 16 01/28/23 12:29 BP 172/75 01/28/23 12:29 Pulse Ox 100 01/28/23 12:29 FiO2 Intake & Output 01/27/23 01/28/23 01/28/23 18:59 06:59 18:59 Output Total 200 Balance -200 Weight 65.771 kg Output: Urine 200 Other: Voiding Method Diaper Diaper Incontinent Incontinent External Catheter External Catheter # Voids 1 1 - Exam Patient appears obviously delirious, restless, sometimes mumbles, keeps her eyes closed. She appears to have been some chills, shaky. Patient denied headache, but then later said "little bit, not much". Her pupils are equal, round and reacting. Visual jeffrey could not be tested. Her face is symmetric. On muscle strength testing, patient did not cooperate with examination. Her lighting technician was equal. On checking for pronator drift, patient does not bring arms up all the way, but partly and she kept it there without dropping. She moves her legs equally. Plantars are possibly upgoing. Tone and bulk of muscles normal. She is tremulous, appears delirious. She does have macular rash particularly in the forearms/elbow region. Her lips are dry. - Labs CBC & Chem 7: 01/27/23 08:44 01/28/23 05:58 Labs: Abnormal Lab Results - Last 24 Hours (Table) 01/27/23 01/27/23 01/28/23 Range/Units 16:42 20:15 05:58 Chloride 112 H (96-109) mmol/L Est GFR (CKD-EPI) 54 L (>=60) POC Glucose (mg/dL) 114 H 127 H (70-110) mg/dL Calcium 8.6 L (8.7-10.3) mg/dL Microbiology - Last 24 Hours (Table) 01/25/23 21:30 Urine Culture - Preliminary Urine,Voided Gram Neg Bacilli Assessment and Plan Assessment: 1. Marked delirium and agitation secondary to acute UTI. Urine has grown > 100,000 gram-negative bacilli (Klebsiella pneumoniae). Her very limited examination is essentially nonfocal. 2. History of multiple myeloma, currently receiving chemotherapy 3. 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 CT head showed old-appearing lacunar infarcts in the basal ganglia. 4. Abnormal CT chest, rule out pneumonia. 5. Mild renal insufficiency 6. Abnormal UA, with evidence of Klebsiella pneumoniae UTI. Patient's temperature is normal, white cells are normal, but because of receiving chemotherapy, she is at risk for infection without showing paraclinical evidence of infection. Plan: * EEG was performed, which revealed background slowing of moderate degree, suggestive of encephalopathy. 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 * CT head 01/25/2023 revealed mild to moderate white matter hypodensity, likely chronic in age indeterminate small vessel ischemic change. Nonacute basal ganglia lacunar infarcts, right greater than left. * CT abdomen and pelvis 01/25/2023 performed at outside facility revealed no acute process of the abdomen. 8 cm complex cyst of the left pelvis, probably adnexal. Uncomplicated diverticulosis. Uncomplicated moderate cholelithiasis. Severe scoliosis. Compression hip pin on the right. Subtle groundglass changes left upper lobe and very minimal right lower lobe. This is a change since 12/22/2022. Consider acute infiltrate, possible Covid. * Patient had a negative coronavirus PCR performed at outside facility. * Urine has grown > 100,000 gram-negative bacilli, suggestive of probable UTI. Patient has received 2 doses of ceftriaxone 1 g on 01/26/2023 and 01/27/2023. Discussed with primary physician. * Ammonia is normal. * Delirium likely due to either UTI and/or pneumonia. * Check MRI of the brain with and without contrast rule out CVA, although unlike ly, as patient is already on anticoagulation and antiplatelet medication. Rule out PRES or other structural abnormalities. Addendum: MRI of the brain was performed today, which did not reveal any evidence of acute stroke or mass. Some small vessel disease. Official radiology report pending. I spoke to patient's daughter Brenda, updated about her condition, above test results. Patient has been resumed on ceftriaxone. Consider ID consultation. Discussed with primary physician.
[2023-01-28 17:07] LABS: Glucose,Whole Blood 100 mg/dL (70-110)
[2023-01-28 20:12] LABS: Glucose,Whole Blood 89 mg/dL (70-110)
[2023-01-28] MEDS: ATORVASTATIN 40 MG TAB PO SCH (21:51)
[2023-01-28] MEDS: LATANOPROST 0.005% OPHTH DROPS 2.5 ML BTL BOTH EYES SCH (21:52)
--- NOTE | 2023-01-28 23:32 | P.PN ---
Subjective Progress Note Date: 01/28/23 This is an 87-year-old female who comes to [facility] from [facility] with concern for confusion and altered mental status per the family appears that started about Friday patient was forgetful and became increasingly confused. Patient is currently alert x 0 today and poor historian not answering direct questions and difficult to gather a history. Psychiatry had started IM haldol although would recommend to trial seroquel for this patient for the agitation. Patient is being hydrated creatinine has improved down to 1.05 today. 01/28/2023 Patient is evaluated today resting in bed. Less agitated and mentation has also improved further. Urine culture is showing gram negative bacilli greater than 100 CFU for this reason IV ceftriaxone has been resumed for one more dose to complete course of antibiotics. Patient denies any symptoms. Patient had EEG done which shows toxic and metabolic encephalopathy. Neurology recommending MRI. Renal function has now normalized and potassium today up to 3.9. Review of Systems Constitutional: Denied any fatigue denied any fever. Cardio vascular: denied any chest pain, palpitations Gastrointestinal: denied any nausea, vomiting, diarrhea Pulmonary: Denied any shortness of breath cough Neurologic denied any new focal deficits All inpatient medications were reviewed and appropriate changes in these medications as dictated in the interval history and assessment and plan. PHYSICAL EXAMINATION: GENERAL: The patient is alert and oriented x1-2, not in any acute distress. Well developed, well nourished. HEENT: Pupils are round and equally reacting to light. EOMI. No scleral icterus. No conjunctival pallor. Normocephalic, atraumatic. No pharyngeal erythema. No thyromegaly. CARDIOVASCULAR: S1 and S2 present. No murmurs, rubs, or gallops. PULMONARY: Chest is clear to auscultation, no wheezing or crackles. ABDOMEN: Soft, nontender, nondistended, normoactive bowel sounds. No palpable organomegaly. MUSCULOSKELETAL: No joint swelling or deformity. EXTREMITIES: No cyanosis, clubbing, or pedal edema. NEUROLOGICAL: Gross neurological examination did not reveal any focal deficits. Diffuse weakness. SKIN: No rashes. Assessment Altered mental status; due to acute toxic and metabolic encephalopathy combination of acute urinary tract infection and sepsis patient had positive urine culture; patient also had renal insufficiency. Need to rule out stroke/seizure. Mild renal injury prerenal due to poor oral intake improved with hydration. Abnormal urinalysis due to UTI and sepsis POA, treated with IV ceftriaxone. History of multiple myeloma; patient is currently on chemotherapy treatment Hypokalemia supplemented. Hypertension Hyperlipidemia Hypothyroidism Coronary artery disease History of CVA/TIA; currently on statins and anticoagulation eliquis 2.5 BID/Plavix 75 mg daily. DVT prophylaxis; SCDs/systemic anticoagulation CODE STATUS; DO NOT RESUSCITATE/DO NOT INTUBATE Plan Ceftriaxone resumed pending final urine cultures. Patient had EEG and currently pending MRI Mentation improving stop the am prn seroquel. Due to the hyperchloremia fluids have been changed to LR at 75 Repeat labs in AM PT/OT consultation The impression and plan of care has been dictated by Debra Madison, Nurse Practitioner as directed. Dr. David MD I have performed a history and physical examination and medical decision making of this patient, discussed the same with the dictator, and agree with the d ictators assessment and plan as written, documented as a scribe. Based on total visit time, I have performed more than 50% of this visit. Objective - Vital Signs Vital signs: Vital Signs Temp 98.0 F 01/28/23 19:36 Pulse 76 01/28/23 19:36 Resp 16 01/28/23 19:55 BP 165/93 01/28/23 19:36 Pulse Ox 98 01/28/23 19:36 FiO2 Intake & Output 01/28/23 01/28/23 01/29/23 06:59 18:59 06:59 Intake Total 120 Output Total 200 350 Balance -200 -350 120 Intake: Oral 120 Output: Urine 200 350 Other: Voiding Method Diaper Diaper Diaper Incontinent Incontinent Incontinent External Catheter External Catheter External Catheter # Voids 1 - Labs CBC & Chem 7: 01/27/23 08:44 01/28/23 05:58 Labs: Abnormal Lab Results - Last 24 Hours (Table) 01/28/23 Range/Units 05:58 Chloride 112 H (96-109) mmol/L Est GFR (CKD-EPI) 54 L (>=60) Calcium 8.6 L (8.7-10.3) mg/dL Microbiology - Last 24 Hours (Table) 01/25/23 21:30 Urine Culture - Final Urine,Voided Klebsiella pneumoniae Assessment and Plan Time with Patient: Less than 30
[2023-01-29] MEDS: LEVOTHYROXINE 100 MCG TAB PO SCH (05:30)
[2023-01-29] MEDS: LACTATED RINGERS 1,000 ML IV SCH ×2 (05:31→20:38)
[2023-01-29 07:25] LABS: Glucose,Whole Blood 85 mg/dL (70-110)
[2023-01-29 07:32] LABS: African American GFR (CKD) 71 (>60 ml/min/1.73 sqM); Anion Gap 9 mmol/L; Blood Urea Nitrogen 13 mg/dL (7-17); Calcium 8.2 mg/dL (8.4-10.2); Carbon Dioxide 19 mmol/L (22-30); Chloride 112 mmol/L (98-107); Glucose 79 mg/dL (74-99); Non-African American GFR(CKD) 62 (>60 ml/min/1.73 sqM); Potassium 3.4 mmol/L (3.5-5.1); Sodium 140 mmol/L (137-145)
[2023-01-29] MEDS: INSULIN ASPART (NovoLOG) 100 UNIT/ML VIAL SQ SCH ×4 (07:34→20:50)
[2023-01-29] MEDS: PANTOPRAZOLE 40 MG TABLET PO SCH (09:25)
[2023-01-29] MEDS: ISOSORBIDE MONONITRATE ER 60 MG TAB.ER.24H PO SCH ×2 (09:25→20:38)
[2023-01-29] MEDS: CLOPIDOGREL 75 MG TAB PO SCH (09:25)
[2023-01-29] MEDS: APIXABAN 2.5 MG TABLET PO SCH ×2 (09:25→20:38)
[2023-01-29] MEDS: LOSARTAN 50 MG TAB PO SCH (09:25)
[2023-01-29] MEDS: MULTIVITAMINS, THERA 1 EACH TAB PO SCH (09:25)
[2023-01-29] MEDS: METOPROLOL SUCCINATE (ER) 50 MG TAB.ER.24H PO SCH (09:25)
[2023-01-29] MEDS: amLODIPine 5 MG TAB PO SCH ×2 (09:25→20:38)
[2023-01-29] MEDS: SENNOSIDES 8.6 MG TAB PO SCH (09:25)
[2023-01-29] MEDS: MAGNESIUM OXIDE 400 MG TAB PO SCH ×2 (09:25→20:38)
[2023-01-29] MEDS: TRIAMCINOLONE 0.1% CREAM 80 GM TUBE TOPICAL SCH ×2 (09:26→20:39)
[2023-01-29] MEDS: BRIMONIDINE TARTRATE 0.2% DROPS 5 ML BTL LEFT EYE SCH ×2 (09:26→20:39)
[2023-01-29] MEDS: TIMOLOL 0.5% OPHTH DROPS 5 ML BTL LEFT EYE SCH ×2 (09:26→20:39)
[2023-01-29] MEDS: POTASSIUM CHLORIDE ER 10 MEQ TAB.ER.PRT PO SCH ×2 (11:33→13:10)
[2023-01-29 12:14] LABS: Glucose,Whole Blood 125 mg/dL (70-110)
--- NOTE | 2023-01-29 16:29 | P.PN ---
Subjective Progress Note Date: 01/29/23 This is an 87-year-old female who comes to [facility] from [facility] with concern for confusion and altered mental status per the family appears that started about Friday patient was forgetful and became increasingly confused. Patient is currently alert x 0 today and poor historian not answering direct questions and difficult to gather a history. Psychiatry had started IM haldol although would recommend to trial seroquel for this patient for the agitation. Patient is being hydrated creatinine has improved down to 1.05 today. 01/28/2023 Patient is evaluated today resting in bed. Less agitated and mentation has also improved further. Urine culture is showing gram negative bacilli greater than 100 CFU for this reason IV ceftriaxone has been resumed for one more dose to complete course of antibiotics. Patient denies any symptoms. Patient had EEG done which shows toxic and metabolic encephalopathy. Neurology recommending MRI. Renal function has now normalized and potassium today up to 3.9. 01/29/2023 Patient is evaluated today sitting up in the chair. Recommendations for KATLIN on discharge by physical therapy. Urine culture was positive for klebsiella ceftriaxone was resumed and will continue until discharge with short course of oral ceftin. Patients mentation has improved today she is alert x 2 and more awake. Continues on lactated ringers at 75 mls/hr. Potassium 3.4 today. Brain MRI report is still pending from radiology. Review of Systems Constitutional: Denied any fatigue denied any fever. Cardio vascular: denied any chest pain, palpitations Gastrointestinal: denied any nausea, vomiting, diarrhea Pulmonary: Denied any shortness of breath cough Neurologic denied any new focal deficits All inpatient medications were reviewed and appropriate changes in these me dications as dictated in the interval history and assessment and plan. PHYSICAL EXAMINATION: GENERAL: The patient is alert and oriented x2, not in any acute distress. Well developed, well nourished. HEENT: Pupils are round and equally reacting to light. EOMI. No scleral icterus. No conjunctival pallor. Normocephalic, atraumatic. No pharyngeal erythema. No thyromegaly. CARDIOVASCULAR: S1 and S2 present. No murmurs, rubs, or gallops. PULMONARY: Chest is clear to auscultation, no wheezing or crackles. ABDOMEN: Soft, nontender, nondistended, normoactive bowel sounds. No palpable organomegaly. MUSCULOSKELETAL: No joint swelling or deformity. EXTREMITIES: No cyanosis, clubbing, or pedal edema. NEUROLOGICAL: Gross neurological examination did not reveal any focal deficits. Diffuse weakness. SKIN: No rashes. Assessment Altered mental status; due to acute toxic and metabolic encephalopathy combination of acute urinary tract infection and sepsis patient had positive urine culture; patient also had renal insufficiency. Need to rule out stroke/seizure. Mild renal injury prerenal due to poor oral intake improved with hydration. Abnormal urinalysis due to UTI and sepsis POA, treated with IV ceftriaxone. History of multiple myeloma; patient is currently on chemotherapy treatment Hypokalemia supplemented. Hypertension Hyperlipidemia Hypothyroidism Coronary artery disease History of CVA/TIA; currently on statins and anticoagulation eliquis 2.5 BID/Plavix 75 mg daily. DVT prophylaxis; SCDs/systemic anticoagulation CODE STATUS; DO NOT RESUSCITATE/DO NOT INTUBATE Plan Continue IV ceftriaxone. Patient had EEG and currently pending MRI reports. Mentation improving stop the am prn seroquel. Due to the hyperchloremia fluids have been changed to LR at 75 which will continue Replace potassium. Repeat labs in AM PT/OT consultation The impression and plan of care has been dictated by Debra Madison Nurse Practitioner as directed. Dr. David MD I have performed a history and physical examination and medical decision making of this patient, discussed the same with the dictator, and agree with the dictators assessment and plan as written, documented as a scribe. Based on total visit time, I have performed more than 50% of this visit. Objective - Vital Signs Vital signs: Vital Signs Temp 97.9 F 01/29/23 12:06 Pulse 51 L 01/29/23 12:06 Resp 19 01/29/23 12:06 BP 136/69 01/29/23 12:06 Pulse Ox 98 01/29/23 12:06 FiO2 Intake & Output 01/28/23 01/29/23 01/29/23 18:59 06:59 18:59 Intake Total 120 Output Total 350 400 Balance -350 -280 Intake: Oral 120 Output: Urine 350 400 Other: Voiding Method Diaper Diaper Bedside Commode Incontinent Incontinent External Catheter External Catheter # Voids 1 - Labs CBC & Chem 7: 01/27/23 08:44 01/29/23 05:44 Labs: Abnormal Lab Results - Last 24 Hours (Table) 01/29/23 01/29/23 Range/Units 05:44 12:13 Potassium 3.4 L (3.5-5.1) mmol/L Chloride 112 H (98-107) mmol/L Carbon Dioxide 19 L (22-30) mmol/L POC Glucose (mg/dL) 125 H (70-110) mg/dL Calcium 8.2 L (8.4-10.2) mg/dL Microbiology - Last 24 Hours (Table) 01/25/23 21:30 Urine Culture - Final Urine,Voided Klebsiella pneumoniae Assessment and Plan Time with Patient: Less than 30
--- NOTE | 2023-01-29 16:48 | MR ---
EXAMINATION TYPE: MR brain wo/w con DATE OF EXAM: 01/28/2023 COMPARISON: None HISTORY: Altered mental status, CVA CONTRAST: Performed utilizing 6.5 mL intravenous Gadavist gadolinium contrast. TECHNIQUE: Multiplanar, multiecho imaging on a 3.0 Naye magnet is performed through the brain. Stud y is performed within 24 hours of arrival to the hospital. The craniovertebral junction is normal. The pituitary is normal. Diffusion-weighted imaging is performed. No abnormal hyperintensity is present to suggest an acute i ntracranial infarct or acute ischemic change. Periventricular white matter hyperintensities are present on T2 and inversion recovery weighted seque nces. Findings are nonspecific but can be related to chronic appearing microvascular ischemic change. Ventricles and sulci are prominent for the patient age. No suspicious enhancement is evident. No enhancing lesions are identified. IMPRESSION: 1. Atrophy with chronic appearing periventricular white matter ischemic changes. 2. No acute ischemic changes evident. 3. No suspicious changes for enhancing lesions or metastasis.
[2023-01-29 17:09] LABS: Glucose,Whole Blood 110 mg/dL (70-110)
--- NOTE | 2023-01-29 17:57 | P.PN ---
Subjective Progress Note Date: 01/29/23 01/29/2023: Patient was seen for a follow-up. Patient is laying comfortably in the bed. Patient appears very well rested. She is not anymore delirious. 01/28/2023: Patient was seen for a follow-up. Patient's son and [id number] were present today. Patient was very restless for which she has received Haldol and Ativan. Now somnolent. 01/27/2023: Patient was initially seen by Dr. Jessica Landon. Please refer to her note for details. Patient came with altered mental status. Patient has abnormal UA. Chest x-ray showed no acute process. EKG shows sinus rhythm. Blood test shows hemoglobin 9.2, normal sodium, potassium 3.1, renal functions are mildly decreased with BUN 18 creatinine 1.05. Hepatic panel, ammonia is normal. Thyroid functions are normal. UA shows large amount of leukocyte Estrace, 10 WBC bacteria. urine drug screen positive for opiates. patient is currently on ceftriaxone 1 g every 24 hours. Patient's home medications include levothyroxine, gabapentin 300 mg twice a day, [place] 7.5 mg twice a day when necessary, losartan, Plavix 75 mg, amlodipine, metoprolol, potassium, Eliquis 2.5 mg twice a day, Lasix, acyclovir, Lipitor. I spoke to patient's daughter and son who were present in the room. They mentioned that patient is mentally very clear, no history of dementia. She has been using a walker since she suffered from a broken hip in February 2022. Patient has been diagnosed with multiple myeloma about 3-4 months ago. She has been getting chemotherapy, received it for 3 weeks, then off for a week and the second session of 3 weeks started last 01/22/2023. Patient did develop a rash from the chemotherapy. Patient's family mentions that last week she was slightly confused, but got acutely worse on Friday 2 days after starting chemotherapy. The next day on Friday, she was found on the floor. She was very confused, weak. No history of tobacco or alcohol use. Patient is currently on Eliquis for her history of PE in July 2022. She does have hearing decrease, and vision loss from her history of macular degeneration. Patient at present denies any headache, no abdominal pain, no low back pain, no leg pain. Patient's blood tests performed at outside facility revealed normal UA. Lactate 2.2 which is borderline. WBC 9.8, hemoglobin 10.3, platelets 306. BUN 31, creatinine 1.6, mildly elevated. GFR 30. Calcium 8.6. Sodium potassium are normal. AST normal, ALT 34. CK 26, coronavirus PCR, influenza and RSV negative. Objective - Vital Signs Vital signs: Vital Signs Temp 97.9 F 01/29/23 12:06 Pulse 51 L 01/29/23 12:06 Resp 19 01/29/23 12:06 BP 136/69 01/29/23 12:06 Pulse Ox 98 01/29/23 12:06 FiO2 Intake & Output 01/28/23 01/29/23 01/29/23 18:59 06:59 18:59 Intake Total 120 Output Total 350 400 Balance -350 -280 Intake: Oral 120 Output: Urine 350 400 Other: Voiding Method Diaper Diaper Bedside Commode Incontinent Incontinent External Catheter External Catheter # Voids 1 - Exam Patient is resting comfortably in the bed. Does not appear delirious anymore. Patient denies headache. Patient knows it is [facility] and that it is January and the year is and name of the current president Mr. Danielson. Speech and language functions are normal. Patient can name and repeat very well. Her pupils are equal, round and reacting. Visual jeffrey are full on confrontation with no neglect. Her face is symmetric. Tongue protrudes the midline. On muscle strength testing, patient has normal strength in the upper limbs at the biceps, triceps, delivery aide in the deltoids. Ankle dorsiflexion patient has some give way weakness. However she did give good resistance. Hip flexion is about 4+ bilaterally. Plantars are possibly upgoing. Tone and bulk of muscles normal. She is tremulous but much better than yesterday. She does have macular rash particularly in the forearms/elbow region. - Labs CBC & Chem 7: 01/27/23 08:44 01/29/23 05:44 Labs: Abnormal Lab Results - Last 24 Hours (Table) 01/29/23 01/29/23 Range/Units 05:44 12:13 Potassium 3.4 L (3.5-5.1) mmol/L Chloride 112 H (98-107) mmol/L Carbon Dioxide 19 L (22-30) mmol/L POC Glucose (mg/dL) 125 H (70-110) mg/dL Calcium 8.2 L (8.4-10.2) mg/dL Microbiology - Last 24 Hours (Table) 01/25/23 21:30 Urine Culture - Final Urine,Voided Klebsiella pneumoniae Assessment and Plan Assessment: 1. Marked delirium and agitation secondary to acute UTI. Urine has grown > 100,000 gram-negative bacilli (Klebsiella pneumoniae). Her very limited e xamination is essentially nonfocal. Delirium now has remarkably improved. 2. History of multiple myeloma, currently receiving chemotherapy 3. 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 CT head showed old-appearing lacunar infarcts in the basal ganglia. 4. Abnormal CT chest, rule out pneumonia. 5. Mild renal insufficiency 6. Abnormal UA, with evidence of Klebsiella pneumoniae UTI. Patient's temperature is normal, white cells are normal, but because of receiving chemotherapy, she is at risk for infection without showing paraclinical evidence of infection. Plan: * Patient's mentation has remarkably improved. She is fully oriented. Delirium seems to have almost resolved. * MRI of the brain 01/28/2023 reported atrophy with chronic appearing periventricular white matter ischemic changes. No acute ischemic changes evident. No suspicious changes for enhancing lesion or metastasis. I personally reviewed MRI, agree with the findings. * EEG revealed background slowing of moderate degree, suggestive of encephalopathy. 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 * CT abdomen and pelvis 01/25/2023 performed at outside facility revealed no acute process of the abdomen. 8 cm complex cyst of the left pelvis, probably adnexal. Uncomplicated diverticulosis. Uncomplicated moderate cholelithiasis. Severe scoliosis. Compression hip pin on the right. Subtle groundglass changes left upper lobe and very minimal right lower lobe. This is a change since 12/22/2022. Consider acute infiltrate, possible Covid. * Patient had a negative coronavirus PCR performed at outside facility. * Urine has grown > 100,000 gram-negative bacilli, suggestive of probable UTI. Patient on ceftriaxone. IM following. * Ammonia is normal. * Delirium likely due to either UTI and/or pneumonia, or related to her chemotherapy, much improved now. * Neurologically, no other workup indicated.
[2023-01-29 20:28] LABS: Glucose,Whole Blood 143 mg/dL (70-110)
[2023-01-29] MEDS: ATORVASTATIN 40 MG TAB PO SCH (20:38)
[2023-01-29] MEDS: LATANOPROST 0.005% OPHTH DROPS 2.5 ML BTL BOTH EYES SCH (20:40)
[2023-01-30 07:14] LABS: Glucose,Whole Blood 116 mg/dL (70-110)
[2023-01-30] MEDS: INSULIN ASPART (NovoLOG) 100 UNIT/ML VIAL SQ SCH ×4 (07:24→20:43)
[2023-01-30] MEDS: METOPROLOL SUCCINATE (ER) 50 MG TAB.ER.24H PO SCH (09:50)
[2023-01-30] MEDS: PANTOPRAZOLE 40 MG TABLET PO SCH (09:50)
[2023-01-30] MEDS: BRIMONIDINE TARTRATE 0.2% DROPS 5 ML BTL LEFT EYE SCH ×2 (09:51→20:23)
[2023-01-30] MEDS: SENNOSIDES 8.6 MG TAB PO SCH (09:51)
[2023-01-30] MEDS: MAGNESIUM OXIDE 400 MG TAB PO SCH ×2 (09:51→20:22)
[2023-01-30] MEDS: MULTIVITAMINS, THERA 1 EACH TAB PO SCH (09:51)
[2023-01-30] MEDS: amLODIPine 5 MG TAB PO SCH ×2 (09:51→20:22)
[2023-01-30] MEDS: ISOSORBIDE MONONITRATE ER 60 MG TAB.ER.24H PO SCH ×2 (09:51→20:21)
[2023-01-30] MEDS: APIXABAN 2.5 MG TABLET PO SCH ×2 (09:51→20:22)
[2023-01-30] MEDS: LOSARTAN 50 MG TAB PO SCH (09:51)
[2023-01-30] MEDS: CLOPIDOGREL 75 MG TAB PO SCH (09:51)
[2023-01-30] MEDS: TIMOLOL 0.5% OPHTH DROPS 5 ML BTL LEFT EYE SCH ×2 (09:52→20:23)
[2023-01-30] MEDS: TRIAMCINOLONE 0.1% CREAM 80 GM TUBE TOPICAL SCH (09:53)
[2023-01-30] MEDS: LEVOTHYROXINE 100 MCG TAB PO SCH (10:19)
[2023-01-30] MEDS: LACTATED RINGERS 1,000 ML IV SCH (10:19)
[2023-01-30 11:49] LABS: Glucose,Whole Blood 109 mg/dL (70-110)
[2023-01-30 12:00] VITALS: BMI 28.3
--- NOTE | 2023-01-30 14:16 | P.PN ---
Subjective Progress Note Date: 01/30/23 01/30/2023: Patient was seen for a follow-up. Patient's son and [id number] were present. They believe patient is back to baseline. Patient offers no complaints. 01/29/2023: Patient was seen for a follow-up. Patient is laying comfortably in the bed. Patient appears very well rested. She is not anymore delirious. 01/28/2023: Patient was seen for a follow-up. Patient's son and [id number] were present today. Patient was very restless for which she has received Haldol and Ativan. Now somnolent. 01/27/2023: Patient was initially seen by Dr. Jessica Landon. Please refer to her note for details. Patient came with altered mental status. Patient has abnormal UA. Chest x-ray showed no acute process. EKG shows sinus rhythm. Blood test shows hemoglobin 9.2, normal sodium, potassium 3.1, renal functions are mildly decreased with BUN 18 creatinine 1.05. Hepatic panel, ammonia is normal. Thyroid functions are normal. UA shows large amount of leukocyte Estrace, 10 WBC bacteria. urine drug screen positive for opiates. patient is currently on ceftriaxone 1 g every 24 hours. Patient's home medications include levothyroxine, gabapentin 300 mg twice a day, [place] 7.5 mg twice a day when necessary, losartan, Plavix 75 mg, amlodipine, metoprolol, potassium, Eliquis 2.5 mg twice a day, Lasix, acyclovir, Lipitor. I spoke to patient's daughter and son who were present in the room. They mentioned that patient is mentally very clear, no history of dementia. She has been using a walker since she suffered from a broken hip in February 2022. Patient has been diagnosed with multiple myeloma about 3-4 months ago. She has been getting chemotherapy, received it for 3 weeks, then off for a week and the second session of 3 weeks started last 01/22/2023. Patient did develop a rash from the chemotherapy. Patient's family mentions that last week she was slightly confused, but got acutely worse on Friday 2 days after starting chemotherapy. The next day on Friday, she was found on the floor. She was very confused, weak. No history of tobacco or alcohol use. Patient is currently on Eliquis for her history of PE in July 2022. She does have hearing decrease, and vision loss from her history of macular degeneration. Patient at present denies any headache, no abdominal pain, no low back pain, no leg pain. Patient's blood tests performed at outside facility revealed normal UA. Lactate 2.2 which is borderline. WBC 9.8, hemoglobin 10.3, platelets 306. BUN 31, creatinine 1.6, mildly elevated. GFR 30. Calcium 8.6. Sodium potassium are normal. AST normal, ALT 34. CK 26, coronavirus PCR, influenza and RSV nega tive. Objective - Vital Signs Vital signs: Vital Signs Temp 97.1 F L 01/30/23 12:59 Pulse 57 L 01/30/23 12:59 Resp 12 01/30/23 12:59 BP 156/69 01/30/23 12:59 Pulse Ox 98 01/30/23 12:59 FiO2 Intake & Output 01/29/23 01/30/23 01/30/23 18:59 06:59 18:59 Intake Total 100 Balance 100 Weight 65.771 kg Intake: Intake, IV Titration 100 Amount cefTRIAXone 1 gm In 100 Sodium Chloride 0.9% 50 ml @ 100 mls/hr IVPB Q24HR [facility] Rx#:[id number] Other: Voiding Method Bedside Commode Bedside Commode Diaper External Catheter # Voids 1 3 # Bowel Movements 1 - Exam Patient is resting comfortably in the bed. Does not appear delirious anymore. Patient denies headache. Patient knows it is [facility] and that it is January and the year is and name of the current president Mr. Danielson. Speech and language functions are normal. Patient can name and repeat very well. Her pupils are equal, round and reacting. Visual jeffrey are full on confrontation with no neglect. Her face is symmetric. Tongue protrudes the midline. On muscle strength testing, patient has normal strength in the upper limbs at the biceps, triceps, cutter grinder in the deltoids. Ankle dorsiflexion patient has some give way weakness. However she did give good resistance. Hip flexion is about 4+ bilaterally. Plantars are possibly upgoing. Tone and bulk of muscles normal. She is tremulous but much better than yesterday. She does have macular rash particularly in the forearms/elbow region. - Labs CBC & Chem 7: 01/27/23 08:44 01/29/23 05:44 Labs: Abnormal Lab Results - Last 24 Hours (Table) 01/29/23 01/30/23 Range/Units 20:26 07:12 POC Glucose (mg/dL) 143 H 116 H (70-110) mg/dL Assessment and Plan Assessment: 1. Marked delirium and agitation secondary to acute UTI. Urine has grown > 100,000 gram-negative bacilli (Klebsiella pneumoniae). Delirium now has resolved. 2. History of multiple myeloma, currently receiving chemotherapy 3. 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 4. Abnormal CT chest, rule out pneumonia. 5. Mild renal insufficiency 6. Abnormal UA, with evidence of Klebsiella pneumoniae UTI. Patient's t emperature is normal, white cells are normal, but because of receiving chemotherapy, she is at risk for infection without showing paraclinical evidence of infection. Plan: * Patient's mentation is normal to baseline. Patient's family believe she is back to baseline. She is fully oriented. Delirium seems to have resolved. * MRI of the brain 01/28/2023 reported atrophy with chronic appearing periventricular white matter ischemic changes. No acute ischemic changes evident. No suspicious changes for enhancing lesion or metastasis. I personally reviewed MRI, agree with the findings. * EEG revealed background slowing of moderate degree, suggestive of encephalopathy. Bulk Cooler Installer epileptiform activity was seen. * CT abdomen and pelvis 01/25/2023 performed at outside facility revealed no acute process of the abdomen. 8 cm complex cyst of the left pelvis, probably adnexal. Uncomplicated diverticulosis. Uncomplicated moderate cholelithiasis. Severe scoliosis. Compression hip pin on the right. Subtle groundglass changes left upper lobe and very minimal right lower lobe. This is a change since 12/22/2022. Consider acute infiltrate, possible Covid. * Patient had a negative coronavirus PCR performed at outside facility. * Urine has grown > 100,000 gram-negative bacilli, suggestive of probable UTI. Patient on ceftriaxone. IM following. * Ammonia is normal. * Delirium likely due to either UTI and/or pneumonia, or related to her chemotherapy, much improved now. Oncology to decide about resuming chemotherapy. * Neurologically, no other workup indicated. Neurologically clear for discharg e.
[2023-01-30 17:11] LABS: Glucose,Whole Blood 131 mg/dL (70-110)
[2023-01-30] MEDS: ATORVASTATIN 40 MG TAB PO SCH (20:22)
[2023-01-30] MEDS: LATANOPROST 0.005% OPHTH DROPS 2.5 ML BTL BOTH EYES SCH (20:23)
[2023-01-30 20:38] LABS: Glucose,Whole Blood 127 mg/dL (70-110)
--- NOTE | 2023-01-30 22:02 | P.PN ---
Subjective Progress Note Date: 01/30/23 This is an 87-year-old female who comes to [facility] from [facility] with concern for confusion and altered mental status per the family appears that started about Friday patient was forgetful and became increasingly confused. Patient is currently alert x 0 today and poor historian not answering direct questions and difficult to gather a history. Psychiatry had started IM haldol although would recommend to trial seroquel for this patient for the agitation. Patient is being hydrated creatinine has improved down to 1.05 today. 01/28/2023 Patient is evaluated today resting in bed. Less agitated and mentation has also improved further. Urine culture is showing gram negative bacilli greater than 100 CFU for this reason IV ceftriaxone has been resumed for one more dose to complete course of antibiotics. Patient denies any symptoms. Patient had EEG done which shows toxic and metabolic encephalopathy. Neurology recommending MRI. Renal function has now normalized and potassium today up to 3.9. 01/29/2023 Patient is evaluated today sitting up in the chair. Recommendations for [facility] on discharge by physical therapy. Urine culture was positive for klebsiella ceftriaxone was resumed and will continue until discharge with short course of oral ceftin. Patients mentation has improved today she is alert x 2 and more awake. Continues on lactated ringers at 75 mls/hr. Potassium 3.4 today. Brain MRI report is still pending from radiology. 01/30/2023 Patient is evaluated today sitting up in the chair currently alert and oriented x 3. Competed course of IV ceftriaxone. Pending authorization for rehab. Review of Systems Constitutional: Denied any fatigue denied any fever. Cardio vascular: denied any chest pain, palpitations Gastrointestinal: denied any nausea, vomiting, diarrhea Pulmonary: Denied any shortness of breath cough Neurologic denied any new focal deficits All inpatient medications were reviewed and appropriate changes in these medications as dictated in the interval history and assessment and plan. PHYSICAL EXAMINATION: GENERAL: The patient is alert and oriented x3, not in any acute distress. Well developed, well nourished. HEENT: Pupils are round and equally reacting to light. EOMI. No scleral icterus. No conjunctival pallor. Normocephalic, atraumatic. No pharyngeal erythema. No thyromegaly. CARDIOVASCULAR: S1 and S2 present. No murmurs, rubs, or gallops. PULMONARY: Chest is clear to auscultation, no wheezing or crackles. ABDOMEN: Soft, nontender, nondistended, normoactive bowel sounds. No palpable organomegaly. MUSCULOSKELETAL: No joint swelling or deformity. EXTREMITIES: No cyanosis, clubbing, or pedal edema. NEUROLOGICAL: Gross neurological examination did not reveal any focal deficits. Diffuse weakness. SKIN: No rashes. Assessment Altered mental status; due to acute toxic and metabolic encephalopathy combination of acute urinary tract infection and sepsis patient had positive urine culture; patient also had renal insufficiency. Stroke/Seizure have been ruled out. Mild renal injury prerenal due to poor oral intake improved with hydration. Abnormal urinalysis due to UTI and sepsis POA, treated with IV ceftriaxone. History of multiple myeloma; patient is currently on chemotherapy treatment Hypokalemia supplemented. Hypertension Hyperlipidemia Hypothyroidism Coronary artery disease History of CVA/TIA; currently on statins and anticoagulation eliquis 2.5 BID/Plavix 75 mg daily. DVT prophylaxis; SCDs/systemic anticoagulation CODE STATUS; DO NOT RESUSCITATE/DO NOT INTUBATE Plan Completed course of antibiotics Stroke work up completed and negative. Patient is neurologically clr for discharge. Patient is back to baseline. Repeat labs in AM PT/OT consultation patient recommended for discharge to [facility] and patient is pendi ng authorization. Chemo will need to be held while patient is at rehab. Patient to follow up with her oncologist on discharge. The impression and plan of care has been dictated by Debra Madison, Nurse Practitioner as directed. Dr. David MD I have performed a history and physical examination and medical decision making of this patient, discussed the same with the dictator, and agree with the dictators assessment and plan as written, documented as a scribe. Based on total visit time, I have performed more than 50% of this visit. Objective - Vital Signs Vital signs: Vital Signs Temp 98.3 F 01/30/23 19:25 Pulse 57 L 01/30/23 19:25 Resp 18 01/30/23 19:25 BP 156/70 01/30/23 19:25 Pulse Ox 98 01/30/23 19:25 FiO2 Intake & Output 01/30/23 01/30/23 01/31/23 06:59 18:59 06:59 Weight 65.771 kg Other: Voiding Method Bedside Commode Diaper External Catheter # Voids 3 1 # Bowel Movements 1 - Labs CBC & Chem 7: 01/27/23 08:44 01/29/23 05:44 Labs: Abnormal Lab Results - Last 24 Hours (Table) 01/30/23 01/30/23 01/30/23 Range/Units 07:12 17:10 20:36 POC Glucose (mg/dL) 116 H 131 H 127 H (70-110) mg/dL Assessment and Plan Time with Patient: Less than 30
[2023-01-31] MEDS: LACTATED RINGERS 1,000 ML IV SCH ×2 (00:53→08:22)
[2023-01-31] MEDS: TRIAMCINOLONE 0.1% CREAM 80 GM TUBE TOPICAL SCH ×2 (00:54→08:22)
[2023-01-31 02:10] VITALS: RESP 16
[2023-01-31] MEDS: LEVOTHYROXINE 100 MCG TAB PO SCH (06:13)
[2023-01-31 07:07] LABS: Glucose,Whole Blood 106 mg/dL (70-110)
[2023-01-31] MEDS: INSULIN ASPART (NovoLOG) 100 UNIT/ML VIAL SQ SCH ×2 (07:40→12:32)
[2023-01-31 08:04] VITALS: BP 150/71; PULSE 56; TEMP 98.5
[2023-01-31] MEDS: LOSARTAN 50 MG TAB PO SCH (08:21)
[2023-01-31] MEDS: APIXABAN 2.5 MG TABLET PO SCH (08:21)
[2023-01-31] MEDS: MULTIVITAMINS, THERA 1 EACH TAB PO SCH (08:21)
[2023-01-31] MEDS: MAGNESIUM OXIDE 400 MG TAB PO SCH (08:21)
[2023-01-31] MEDS: CLOPIDOGREL 75 MG TAB PO SCH (08:21)
[2023-01-31] MEDS: amLODIPine 5 MG TAB PO SCH (08:21)
[2023-01-31] MEDS: PANTOPRAZOLE 40 MG TABLET PO SCH (08:21)
[2023-01-31] MEDS: SENNOSIDES 8.6 MG TAB PO SCH ×2 (08:21→08:30)
[2023-01-31] MEDS: ISOSORBIDE MONONITRATE ER 60 MG TAB.ER.24H PO SCH (08:21)
[2023-01-31] MEDS: BRIMONIDINE TARTRATE 0.2% DROPS 5 ML BTL LEFT EYE SCH (08:21)
[2023-01-31] MEDS: METOPROLOL SUCCINATE (ER) 50 MG TAB.ER.24H PO SCH ×2 (08:21→08:30)
[2023-01-31] MEDS: TIMOLOL 0.5% OPHTH DROPS 5 ML BTL LEFT EYE SCH (08:22)
--- NOTE | 2023-01-31 09:43 | P.DS ---
Providers Date of admission: 01/25/23 22:11 Attending physician: Ministerio Evans Consults: 01/25/23 21:56 Consult Physician Urgent Consulting Provider: Shima Landon Consult Reason/Comments: Altered mental status Do you want consulting provider notified?: Yes 01/25/23 21:57 Consult Physician Urgent Consulting Provider: Garfield Main Consult Reason/Comments: Altered mental status with history of multiple myeloma Do you want consulting provider notified?: Yes Primary care physician: Ravin Durham MD Hospital Course: Final Diagnosis Altered mental status; due to acute toxic and metabolic encephalopathy combination of acute urinary tract infection and sepsis patient had positive urine culture; patient also had renal insufficiency. Stroke/Seizure have been ruled out. Mild renal injury prerenal due to poor oral intake improved with hydration. Abnormal urinalysis due to UTI and sepsis POA, treated with IV ceftriaxone. History of multiple myeloma; patient is currently on chemotherapy treatment Hypokalemia supplemented. Hypertension Hyperlipidemia Hypothyroidism Coronary artery disease History of pulmonary embolism History of CVA/TIA; currently on statins and anticoagulation eliquis 2.5 BID /Plavix 75 mg daily. DVT prophylaxis; SCDs/systemic anticoagulation CODE STATUS; DO NOT RESUSCITATE/DO NOT INTUBATE Discharge Disposition Patient is stable for discharge to subacute rehab. Mentation has approved patient is currently alert x 3. Patient completed course of IV antibiotics for the UTI no further antibiotics needed on discharge. Patient to follow up with her oncologist on discharge regarding resuming chemotherapy. This will need to be held off while at rehab. Hospital Course This is an 87-year-old female who comes to [facility] from [facility] with concern for confusion and altered mental status per the family appears that started about Friday patient was forgetful and became increasingly confused. Has a past medical history of anemia, PE, CAD, STEMI with stent placement anticoagulated with Plavix and Eliquis, hypertension, hyperlipidemia, diabetes, and multiple myeloma. Patient also his history of PE. Initial work up shows negative chest xray. Patient was admitted to the hospital with consult placed to oncology as patient is currently on chemotherapy for the multiple myeloma. Patient also had a neurology consultation for the AMS rule out stroke and seizure. Patient was alert x 0 on admission which is not her baseline usually she lives alone and does most of her own ADL's her family does help her with her medication. Psychiatry was also consulted as patient was agitated on admission. Patients white count has been normal, anemic and stable hemoglobin 10.5; had renal injury with BUN 31 and creatinine 1.30, magnesium 1.4, and potassium 3.4. Patient was found to have abnormal urinalysis and culture was finalized showing klebsiella. Patient was given IV ceftriaxone. Patient was also hydrated. Patient had EEG and brain MRI which were negative. Neurology has ruled out stroke and seizure. Patients mentation did improve and is now alert x 3. The AMS is attributed to the acute uti. Patient does state her urine at night was strong with foul odor prior to coming to the hospital. She has no chest pain, no shortness of breath, no nausea vomiting or diarrhea. She has generalized weakness was evaluated by physical therapy with the recommendation of subacute rehab and patient will be discharged today. Renal function has normalized BUN now 13 creatinine 0.85. Hemodynamically she is stable. Please see medication reconciliation for a list of current medication. Thank you for allowing us to participate in the care of this patient. The impression and plan of care has been dictated by Debra Madison, Nurse Practitioner as directed. Dr. David MD I have performed a history and physical examination and medical decision making of this patient, discussed the same with the dictator, and agree with the dic tators assessment and plan as written, documented as a scribe. Based on total visit time, I have performed more than 50% of this visit. Patient Condition at Discharge: Stable Plan - Discharge Summary Discharge Rx Participant: No New Discharge Prescriptions: New Triamcinolone 0.1% Cream [Kenalog 0.1% Cream] 1 applic TOPICAL BID each QUEtiapine [SEROquel] 12.5 mg PO HS PRN #0 tab PRN Reason: Agitation Acetaminophen Tab [Tylenol] 325 mg PO Q6HR PRN tab PRN Reason: Fever And/ Or Pain Continue Timolol 0.5% Ophth Soln [Timoptic 0.5% Ophth Soln] 1 drop LEFT EYE BID Omeprazole 40 mg PO DAILY Isosorbide Mononitrate ER [Imdur] 60 mg PO BID Nitroglycerin Sl Tabs [Nitrostat] 0.4 mg SUBLINGUAL Q5M PRN PRN Reason: Chest Pain amLODIPine [Norvasc] 5 mg PO BID Metoprolol Succinate [Toprol XL] 50 mg PO DAILY Atorvastatin [Lipitor] 40 mg PO HS Potassium Chloride ER [K-Dur 20] 20 meq PO TID Apixaban [Eliquis] 2.5 mg PO BID HYDROcodone/APAP 7.5-325MG [Barnum 7.5-325] 1 tab PO BID PRN #2 tab PRN Reason: Pain Levothyroxine Sodium 100 mcg PO DAILY Latanoprost [Latanoprost 0.005%] 1 drop BOTH EYES HS Brimonidine Tartrate [Alphagan P 0.2% Ophth Soln] 1 drop LEFT EYE BID Multivitamins, Thera [Multivitamin (formulary)] 1 tab PO DAILY Losartan Potassium 100 mg PO DAILY Clopidogrel [Plavix] 75 mg PO DAILY 30 Days #30 tab Sennosides [Senokot] 8.6 mg PO DAILY Furosemide [Lasix] 40 mg PO DAILY Acyclovir 200 mg PO BID Discontinued Gabapentin [Neurontin] 300 mg PO BID #6 cap No Action Lenalidomide [Revlimid] 5 mg PO DIRECTED Discharge Medication List Brimonidine Tartrate [Alphagan P 0.2% Ophth Soln] 1 drop LEFT EYE BID 02/27/22 [History] Isosorbide Mononitrate ER [Imdur] 60 mg PO BID 02/27/22 [History] Latanoprost [Latanoprost 0.005%] 1 drop BOTH EYES HS 02/27/22 [History] Levothyroxine Sodium 100 mcg PO DAILY 02/27/22 [History] Omeprazole 40 mg PO DAILY 02/27/22 [History] Timolol 0.5% Ophth Soln [Timoptic 0.5% Ophth Soln] 1 drop LEFT EYE BID 02/27/22 [History] Losartan Potassium 100 mg PO DAILY 07/15/22 [History] Multivitamins, Thera [Multivitamin (formulary)] 1 tab PO DAILY 07/15/22 [Histor y] Clopidogrel [Plavix] 75 mg PO DAILY 30 Days #30 tab 07/20/22 [Rx] Acyclovir 200 mg PO BID 01/25/23 [History] Apixaban [Eliquis] 2.5 mg PO BID 01/25/23 [History] Atorvastatin [Lipitor] 40 mg PO HS 01/25/23 [History] Furosemide [Lasix] 40 mg PO DAILY 01/25/23 [History] Lenalidomide [Revlimid] 5 mg PO DIRECTED 01/25/23 [History] Metoprolol Succinate [Toprol XL] 50 mg PO DAILY 01/25/23 [History] Nitroglycerin Sl Tabs [Nitrostat] 0.4 mg SUBLINGUAL Q5M PRN 01/25/23 [History] Potassium Chloride ER [K-Dur 20] 20 meq PO TID 01/25/23 [History] Sennosides [Senokot] 8.6 mg PO DAILY 01/25/23 [History] amLODIPine [Norvasc] 5 mg PO BID 01/25/23 [History] Acetaminophen Tab [Tylenol] 325 mg PO Q6HR PRN tab 01/31/23 [Rx] HYDROcodone/APAP 7.5-325MG [Barnum 7.5-325] 1 tab PO BID PRN #2 tab 01/31/23 [Rx] QUEtiapine [SEROquel] 12.5 mg PO HS PRN #0 tab 01/31/23 [Rx] Triamcinolone 0.1% Cream [Kenalog 0.1% Cream] 1 applic TOPICAL BID each 01/31/23 [Rx] Follow up Appointment(s)/Referral(s): Jody Laguna FNPBC [REFERRING] - 1-2 days Jc Cancino MD [REFERRING] - 1 Week Ambulatory/Diagnostic Orders: Basic Metabolic Panel [LAB.AMB] Time Frame: 3 Days, Location: None Selected Complete Blood Count w/diff [LAB.AMB] Time Frame: 3 Days, Location: None Selected Magnesium [LAB.AMB] Time Frame: 3 Days, Location: None Selected Activity/Diet/Wound Care/Special Instructions: Recommend to follow up with your oncologist prior to resuming chemotherapy. Completed course of antibiotics for the UTI, no further needed on discharge. Recommend to repeat labs in 2 to 3 days. Discharge Disposition: TRANSFER TO SNF/ECF
[2023-01-31 11:21] LABS: Calcium 8.1 mg/dL (8.7-10.3); Carbon Dioxide 21.2 mmol/L (21.6-31.8); Chloride 111 mmol/L (96-109); Glucose 110 mg/dL (70-110); Potassium 3.3 mmol/L (3.5-5.5); Sodium 141 mmol/L (135-145)
[2023-01-31 12:04] LABS: Glucose,Whole Blood 120 mg/dL (70-110)
--- NOTE | 2023-01-31 17:09 | P.PN ---
Subjective Progress Note Date: 01/31/23 01/31/2023: Patient was seen for a follow-up. Patient is sitting comfortably in the recliner. Patient states that she is feeling cold. Offers no complaints. Denies headache. 01/30/2023: Patient was seen for a follow-up. Patient's son and [id number] were present. They believe patient is back to baseline. Patient offers no complaints. 01/29/2023: Patient was seen for a follow-up. Patient is laying comfortably in the bed. Patient appears very well rested. She is not anymore delirious. 01/28/2023: Patient was seen for a follow-up. Patient's son and [id number] were present today. Patient was very restless for which she has received Haldol and Ativan. Now somnolent. 01/27/2023: Patient was initially seen by Dr. Jessica Landon. Please refer to her note for details. Patient came with altered mental status. Patient has abnormal UA. Chest x-ray showed no acute process. EKG shows sinus rhythm. Blood test shows hemoglobin 9.2, normal sodium, potassium 3.1, renal functions are mildly decreased with BUN 18 creatinine 1.05. Hepatic panel, ammonia is normal. Thyroid functions are normal. UA shows large amount of leukocyte Estrace, 10 WBC bacteria. urine drug screen positive for opiates. patient is currently on ceftriaxone 1 g every 24 hours. Patient's home medications include levothyroxine, gabapentin 300 mg twice a day, [place] 7.5 mg twice a day when necessary, losartan, Plavix 75 mg, amlodipine, metoprolol, potassium, Eliquis 2.5 mg twice a day, Lasix, acyclovir, Lipitor. I spoke to patient's daughter and son who were present in the room. They mentioned that patient is mentally very clear, no history of dementia. She has been using a walker since she suffered from a broken hip in February 2022. Patient has been diagnosed with multiple myeloma about 3-4 months ago. She has been getting chemotherapy, received it for 3 weeks, then off for a week and the second session of 3 weeks started last 01/22/2023. Patient did develop a rash from the chemotherapy. Patient's family mentions that last week she was slightly confused, but got acutely worse on Friday 2 days after starting chemotherapy. The next day on Friday, she was found on the floor. She was very confused, weak. No history of tobacco or alcohol use. Patient is currently on Eliquis for her history of PE in July 2022. She does have hearing decrease, and vision loss from her history of macular degeneration. Patient at present denies any headache, no abdominal pain, no low back pain, no leg pain. Patient's blood tests performed at outside facility revealed normal UA. Lactate 2.2 which is borderline. WBC 9.8, hemoglobin 10.3, platelets 306. BUN 31, creatinine 1.6, mildly elevated. GFR 30. Calcium 8.6. Sodium potassium are normal. AST normal, ALT 34. CK 26, coronavirus PCR, influenza and RSV negative. Objective - Vital Signs Vital signs: Vital Signs Temp 98.5 F 01/31/23 07:05 Pulse 56 L 01/31/23 07:05 Resp 16 01/31/23 07:05 BP 150/71 01/31/23 07:05 Pulse Ox 97 01/31/23 11:08 FiO2 Intake & Output 01/30/23 01/31/23 01/31/23 18:59 06:59 18:59 Weight 65.771 kg Other: Voiding Method Bedside Commode Bedside Commode Diaper Diaper External Catheter # Voids 1 2 2 # Bowel Movements 1 - Exam Patient is sitting comfortably in the recliner, she is covered with blankets. Does not appear delirious anymore. Patient denies headache. Patient knows it is [facility] and that it is January and the year patient states is "3". She knows name of the current president Mr. Danielson. Speech and language functions are normal. Patient can name and repeat very well. Her pupils are equal, round and reacting. Visual jeffrey are full on confrontation with no neglect. Her face is symmetric. Tongue protrudes the midline. Patient has some lip tremors. On muscle strength testing, patient has normal strength in the upper limbs at the biceps, triceps, box chipper in the deltoids. Ankle dorsiflexion patient has some give way weakness. However she did give good resistance. Hip flexion is about 4+ bilaterally. Plantars are possibly upgoing. Tone and bulk of muscles normal. She is tremulous but much better than yesterday. She does have macular rash particularly in the forearms/elbow region. - Labs CBC & Chem 7: 01/27/23 08:44 01/31/23 06:28 Labs: Abnormal Lab Results - Last 24 Hours (Table) 01/30/23 01/30/23 01/31/23 Range/Units 17:10 20:36 06:28 Potassium 3.3 L (3.5-5.5) mmol/L Chloride 111 H (96-109) mmol/L Carbon Dioxide 21.2 L (21.6-31.8) mmol/L POC Glucose (mg/dL) 131 H 127 H (70-110) mg/dL Calcium 8.1 L (8.7-10.3) mg/dL Assessment and Plan Assessment: 1. Marked delirium and agitation secondary to acute UTI. Urine has grown > 10 0,000 gram-negative bacilli (Klebsiella pneumoniae). Delirium now has resolved. 2. History of multiple myeloma, currently receiving chemotherapy 3. 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 4. Abnormal CT chest, rule out pneumonia. 5. Mild renal insufficiency 6. Abnormal UA, with evidence of Klebsiella pneumoniae UTI. Patient's temperature is normal, white cells are normal, but because of receiving chemotherapy, she is at risk for infection without showing paraclinical evidence of infection. Plan: * Patient's mentation is normal to baseline. Patient's family believe she is back to baseline. She is fully oriented. Delirium seems to have resolved. * MRI of the brain 01/28/2023 reported atrophy with chronic appearing catailna ventricular white matter ischemic changes. No acute ischemic changes evident. No suspicious changes for enhancing lesion or metastasis. I personally reviewed MRI, agree with the findings. * EEG revealed background slowing of moderate degree, suggestive of encephalopathy. 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 * CT abdomen and pelvis 01/25/2023 performed at outside facility revealed no a cute process of the abdomen. 8 cm complex cyst of the left pelvis, probably adnexal. Uncomplicated diverticulosis. Uncomplicated moderate cholelithiasis. Severe scoliosis. Compression hip pin on the right. Subtle groundglass changes left upper lobe and very minimal right lower lobe. This is a change since 12/22/2022. Consider acute infiltrate, possible Covid. * Patient had a negative coronavirus PCR performed at outside facility. * Urine has grown > 100,000 gram-negative bacilli, suggestive of probable UTI. Patient treated with ceftriaxone. IM following. * Ammonia is normal. * Delirium likely due to either UTI and/or pneumonia, or related to her chemotherapy, much improved now. Oncology to decide about resuming chemotherapy. * Neurologically, no other workup indicated. Neurologically clear for discharge.
== END 2023-01-31 13:01 | DRG 871 ==
LOC: EC 19:54 → OBSVTOIN 22:11 → 5NMEDONC 22:11
PROVIDERS: ADMIT Internal Medicine; ATTEND Internal Medicine
DX: A41.59 Other Gram-negative sepsis (principal); G92.8 Other toxic encephalopathy; N39.0 Urinary tract infection, site not specified; C90.00 Multiple myeloma not having achieved remission; R65.20 Severe sepsis without septic shock; B96.1 Klebsiella pneumoniae [K. pneumoniae] as the cause of diseases classified elsewhere; D50.9 Iron deficiency anemia, unspecified; E78.5 Hyperlipidemia, unspecified; E86.0 Dehydration; E87.6 Hypokalemia; H54.7 Unspecified visual loss; H35.30 Unspecified macular degeneration; I50.9 Heart failure, unspecified; I49.3 Ventricular premature depolarization; E03.9 Hypothyroidism, unspecified; I25.2 Old myocardial infarction; I11.0 Hypertensive heart disease with heart failure; L27.0 Generalized skin eruption due to drugs and medicaments taken internally; T45.1X5A Adverse effect of antineoplastic and immunosuppressive drugs, initial encounter; K80.20 Calculus of gallbladder without cholecystitis without obstruction; R45.1 Restlessness and agitation; Z86.711 Personal history of pulmonary embolism; Z79.01 Long term (current) use of anticoagulants; Z79.02 Long term (current) use of antithrombotics/antiplatelets; Z79.899 Other long term (current) drug therapy; Z79.890 Hormone replacement therapy; Z91.81 History of falling; Z66 Do not resuscitate; Z86.73 Personal history of transient ischemic attack (TIA), and cerebral infarction without residual deficits; Z28.311 Partially vaccinated for COVID-19; Z28.21 Immunization not carried out because of patient refusal
CPT/HCPCS: 36415; 70553; 71045; 80048; 80053; 80306; 80320; 81001; 82140; 83036; 83735; 83880; 84439; 84443; 84484; 85025; 85610; 85730; 87077; 87086; 87186; 93005; 94760; 95816; 99285

== ENCOUNTER 2024-01-19 09:46 | Inpatient (IN) | payer MEDICARE, OTHER ==
--- NOTE | 2024-01-19 10:24 | ED ---
Weakness HPI - General Chief complaint: Recheck/Abnormal Lab/Rx Stated complaint: weakness Time Seen by Provider: 01/19/24 10:00 Source: patient, EMS, RN notes reviewed Mode of arrival: EMS Limitations: no limitations - History of Present Illness Initial comments: This is an 88-year-old female who presents to the emergency department as a transfer from [facility]. Patient presented to their emergency department for generalized weakness. She has a history of multiple myeloma and had lab work done earlier this morning demonstrating a hemoglobin of 6.3. She does have a history of previous blood transfusions, however she does have a significant antibody load. Because of that she could not be transfused at [facility] and was sent here for a transfusion. This was not thought to be related to a GI bleed per [place]. She has a history of anemia requiring blood transfusions. She denies any blood in her stool or black/tarry stools. She is not taking any blood thinners. Patient is currently complaining of bilateral lower extremity pain which she states is chronic and due to her arthritis. MD Complaint: generalized weakness - Related Data Home Medications Medication Instructions Recorded Confirmed Brimonidine Tartrate [Alphagan P 1 drop LEFT EYE BID@0530,1730 02/27/22 01/19/24 0.2% Ophth Soln] Isosorbide Mononitrate ER [Imdur] 60 mg PO BID@0800,1700 02/27/22 01/19/24 Latanoprost [Latanoprost 0.005%] 1 drop BOTH EYES HS 02/27/22 01/19/24 Levothyroxine Sodium 100 mcg PO DAILY@0600 02/27/22 01/19/24 Timolol 0.5% Ophth Soln [Timoptic 1 drop LEFT EYE BID@0530,1730 02/27/22 01/19/24 0.5% Ophth Soln] Losartan Potassium 100 mg PO DAILY@0800 07/15/22 01/19/24 Multivitamins, Thera [Multivitamin 1 tab PO DAILY@0800 07/15/22 01/19/24 (formulary)] Apixaban [Eliquis] 2.5 mg PO BID@0800,1700 01/25/23 01/19/24 Nitroglycerin Sl Tabs [Nitrostat] 0.4 mg SL Q5M PRN 01/25/23 01/19/24 Sennosides [Senokot] 17.2 mg PO HS PRN 01/25/23 01/19/24 Artificial Tears-Hypromellose 1 drop BOTH EYES HS PRN 01/19/24 01/19/24 [Artificial Tear Drops] Benadryl 12.5mg/5ml 12.5 mg PO Q8H PRN 01/19/24 01/19/24 Diclofenac Sodium Gel [Voltaren 1% 1 applic TOPICAL BID@0800,1700 01/19/24 01/19/24 Gel] Ferrous Sulfate [Feosol] 325 mg PO DAILY@1100 01/19/24 01/19/24 Furosemide [Lasix] 80 mg PO DAILY@0800 01/19/24 01/19/24 HYDROcodone/APAP 7.5-325MG [[place] 1 tab PO BID@0800,1700 01/19/24 01/19/24 7.5-325] Lubricant Eye Ointment 1 applic BOTH EYES 01/19/24 01/19/24 TID@0800,1300,1800 Magnesium Hydroxide [Milk of 2,400 mg PO DAILY PRN 01/19/24 01/19/24 Magnesia] Metoprolol Succinate (ER) [Toprol 25 mg PO DAILY@0800 01/19/24 01/19/24 Xl] Na Phos,M-B/Na Phos,Di-Ba [Fleet 133 ml RECTAL DAILY PRN 01/19/24 01/19/24 Adult] Ciyeyfvm-Cfqzlqwze-Rpzcwshw 1 applic BOTH EYES BID@0800,1700 01/19/24 01/19/24 [Maxitrol Ophth Oint] Pantoprazole [Protonix] 40 mg PO DAILY@0800 01/19/24 01/19/24 Potassium Chloride 40 meq PO DAILY@0800 01/19/24 01/19/24 Sodium Chloride Tab 1 gm PO BID@0800,1700 01/19/24 01/19/24 bisacodyL [Dulcolax] 10 mg RECTAL DAILY PRN 01/19/24 01/19/24 Allergies Allergy/AdvReac Type Severity Reaction Status Date / Time acyclovir Allergy unknown-Per Verified 01/19/24 13:55 [facility] Review of Systems ROS Statement: Those systems with pertinent positive or pertinent negative responses have been documented in the HPI. ROS Other: All systems not noted in ROS Statement are negative. Past Medical History Past Medical History: Coronary Artery Disease (CAD), Cancer, Chest Pain / Angina, Heart Failure, CVA/TIA, Diabetes Mellitus, GI Bleed, Hyperlipidemia, Hypertension, Myocardial Infarction (SC), Osteoarthritis (OA) Additional Past Medical History / Comment(s): CVA POST STENT TO RCA IN 2012. GI BLEED RELATED TO PLAVIX FROM STENT IN 2012, 2 UNITS PRBC RECEIVED Last Myocardial Infarction Date:: 01-22-2014 History of Any Multi-Drug Resistant Organisms: None Reported Past Surgical History: Heart Catheterization With Stent, Orthopedic Surgery Additional Past Surgical History / Comment(s): HEART CATH IN 2012 AND 2013 WITH STENT TO RCA Past Anesthesia/Blood Transfusion Reactions: No Reported Reaction Date of Last Stent Placement:: 01-22-2014 Past Psychological History: No Psychological Hx Reported Smoking Status: Never smoker - Past Family History Mother Family Medical History: No Reported History Additional Family Medical History / Comment(s): Mother was healthy and worked up until the age of 77yrs. Father Family Medical History: Liver Disease, Renal Disease General Exam Limitations: no limitations General appearance: alert, in no apparent distress Head exam: Present: atraumatic, normocephalic, normal inspection Respiratory exam: Present: normal lung sounds bilaterally. Absent: respiratory distress, wheezes, rales, rhonchi, stridor Cardiovascular Exam: Present: regular rate, normal rhythm, normal heart sounds. Absent: systolic murmur, diastolic murmur, rubs, gallop, clicks Neurological exam: Present: alert, oriented X3, CN II-XII intact Psychiatric exam: Present: normal affect, normal mood Skin exam: Present: warm, dry, intact, normal color. Absent: rash Course Vital Signs 01/19/24 01/19/24 01/19/24 09:50 12:05 13:24 Temperature 98.1 F 97.7 F 98.1 F Pulse Rate 74 76 73 Respiratory 17 18 17 Rate Blood Pressure 177/83 158/85 139/87 O2 Sat by Pulse 98 99 96 Oximetry 01/19/24 01/19/24 01/19/24 15:09 15:53 16:05 Temperature 97.8 F 99.2 F 98.8 F Pulse Rate 79 75 78 Respiratory 18 16 18 Rate Blood Pressure 158/85 173/79 166/84 O2 Sat by Pulse 100 96 99 Oximetry 01/19/24 01/19/24 01/20/24 16:25 18:06 00:00 Temperature 99.1 F 99.0 F Pulse Rate 80 68 67 Respiratory 17 18 17 Rate Blood Pressure 170/81 150/65 132/76 O2 Sat by Pulse 97 97 Oximetry 01/20/24 01/20/24 05:02 06:33 Temperature Pulse Rate 58 L 71 Respiratory 16 17 Rate Blood Pressure 156/70 158/88 O2 Sat by Pulse 97 97 Oximetry Medical Decision Making - Medical Decision Making This is an 88 year old female who presents to the emergency department for weakness and low hemoglobin. Was pt. sent in by a medical professional or institution? @ -[place] Transfer Did you speak to anyone other than the patient for history? @ -No Did you review nursing and triage notes? @ -Yes, and I agree, it is accurate with regards to the patient's symptoms. Were old charts reviewed? @ -Lab work from [facility]: WBC: 3.8 Hemoglobin: 6.3 Hematocrit: 19.8 Differential Diagnosis? @ -Differential Weakness: Hypoglycemia, shock, sepsis, hyponatremia, anemia, infection, SC, ETOH, adverse medicine reaction, overdose, stroke, this is not meant to be an all-inclusive list. EKG interpreted by me (3pts min.)? @ -EKG interpreted by me demonstrating the following: Sinus bradycardia. Ventricular rate 52 bpm, VT interval 169 ms, QRS duration 110 ms, QTc 417 ms. X-rays interpreted by me (1pt min.)? @ -Not obtained CT interpreted by me (1pt min.)? @ -Not obtained U/S interpreted by me (1pt. min.)? @ -Not obtained What testing was considered but not performed? (CT, X-rays, U/S, labs)? Why? @ -None What meds were considered but not given? Why? @ -None Did you discuss the management of the patient with other professionals? @ -No Did you reconcile home meds? @ -No Was smoking cessation discussed for >3mins.? @ -No Was critical care preformed (if so, how long)? @ -No Were there social determinants of health that impacted care today? How? (Charanjit nobles low income, unemployed, alcoholism, drug addiction, transportation, low edu. Level, literacy, decrease access to med. care, halfway, rehab)? @ -No Was there de-escalation of care discussed even if they declined? (Discuss DNR or withdrawal of care, Hospice)? @ -No What co-morbidities impacted this encounter? (DM, HTN, Smoking, COPD, CAD, C ancer, CVA, Hep., AIDS, mental health diagnosis, sleep apnea, morbid obesity)? @ -Multiple myeloma, anemia, DM Was patient admitted / discharged? @ -Admitted. Lab work here demonstrates a hemoglobin of 7.1. This is improved when compared with what was obtained earlier today, which, per [place], was 6.3. Lab work also demonstrates signs of dehydration. Urinalysis negative for signs of infection. While her hemoglobin is currently above 7, she is bar sumi above the threshold and is still symptomatic. Her antibody load also makes it difficult for her to receive transfusions. 1 unit of PRBCs was ordered for transfusion. Per blood bank, her antibody load does make this difficult and it may take several hours for them to find a match. Patient subsequently admitted to medicine for acute on chronic anemia in order to receive the blood transfusion. Consult was placed for heme-onc due to her history of anemia and multiple myeloma. Case discussed with ED attending Dr. Guillen. Undiagnosed new problem with uncertain prognosis @ -None Drug Therapy requiring intensive monitoring for toxicity (Heparin, Nitro, Insulin, Cardizem)? @ -None Were any procedures done? @ -None Diagnosis/symptom? @ -Acute on chronic anemia Acute, or Chronic, or Acute on Chronic? @ -Acute on chronic Uncomplicated (without systemic symptoms) or Complicated (systemic symptoms)? @ -Complicated Side effects of treatment? @ -None Exacerbation, Progression, or Severe Exacerbation] @ -Exacerbation Poses a threat to life or bodily function? @ -Yes, if her hemoglobin drops too low it can lead to . - Lab Data Result diagrams: 01/19/24 10:01/19/24 10: Lab Results 01/19/24 01/19/24 01/19/24 Range/Units 10:20 10: 10: WBC 3.6 L (3.8-10.6) k/uL RBC 2.32 L (3.80-5.40) m/uL Hgb 7.1 L (11.4-16.0) gm/dL Hct 22.4 L (34.0-46.0) % MCV 96.3 (80.0-100.0) fL MCH 30.7 (25.0-35.0) pg MCHC 31.8 (31.0-37.0) g/dL RDW 17.7 H (11.5-15.5) % Plt Count 181 (150-450) k/uL MPV 8.5 Neutrophils % 56 % Lymphocytes % 28 % Monocytes % 9 % Eosinophils % 3 % Basophils % 1 % Neutrophils # 2.0 (1.3-7.7) k/uL Lymphocytes # 1.0 (1.0-4.8) k/uL Monocytes # 0.3 (0-1.0) k/uL Eosinophils # 0.1 (0-0.7) k/uL Basophils # 0.0 (0-0.2) k/uL Hypochromasia Moderate Poikilocytosis Slight Anisocytosis Slight Macrocytosis Slight PT 13.2 H (10.0-12.5) sec INR 1.3 H (<1.2) APTT 24.1 (22.0-30.0) sec Sodium (137-145) mmol/L Potassium (3.5-5.1) mmol/L Chloride (98-107) mmol/L Carbon Dioxide (22-30) mmol/L Anion Gap mmol/L BUN (7-17) mg/dL Creatinine (0.52-1.04) mg/dL Est GFR (CKD-EPI)AfAm (>60 ml/min/1.73 sqM) Est GFR (CKD-EPI)NonAf (>60 ml/min/1.73 sqM) Glucose (74-99) mg/dL Calcium (8.4-10.2) mg/dL Phosphorus (2.5-4.5) mg/dL Magnesium (1.6-2.3) mg/dL Total Bilirubin (0.2-1.3) mg/dL AST (14-36) U/L ALT (4-34) U/L Alkaline Phosphatase (38-126) U/L Total Protein (6.3-8.2) g/dL Albumin (3.5-5.0) g/dL Urine Color Urine Appearance (Clear) Urine pH (5.0-8.0) Ur Specific [place] (1.001-1.035) Urine Protein (Negative) Urine Glucose (UA) (Negative) Urine Ketones (Negative) Urine Blood (Negative) Urine Nitrite (Negative) Urine Bilirubin (Negative) Urine Urobilinogen (<2.0) mg/dL Ur Leukocyte Esterase (Negative) Blood Type Not Reportable Blood Type Recheck Not Reportable Bld Type Recheck Status Not Reportable Antibody Screen NEGATIVE Crossmatch See Detail Spec Expiration Date 01/22/2024 - 232501/19/24 01/19/24 01/19/24 Range/Units 10:26 10:26 13:05 WBC (3.8-10.6) k/uL RBC (3.80-5.40) m/uL Hgb (11.4-16.0) gm/dL Hct (34.0-46.0) % MCV (80.0-100.0) fL MCH (25.0-35.0) pg MCHC (31.0-37.0) g/dL RDW (11.5-15.5) % Plt Count (150-450) k/uL MPV Neutrophils % % Lymphocytes % % Monocytes % % Eosinophils % % Basophils % % Neutrophils # (1.3-7.7) k/uL Lymphocytes # (1.0-4.8) k/uL Monocytes # (0-1.0) k/uL Eosinophils # (0-0.7) k/uL Basophils # (0-0.2) k/uL Hypochromasia Poikilocytosis Anisocytosis Macrocytosis PT (10.0-12.5) sec INR (<1.2) APTT (22.0-30.0) sec Sodium 139 (137-145) mmol/L Potassium 4.5 (3.5-5.1) mmol/L Chloride 112 H (98-107) mmol/L Carbon Dioxide 21 L (22-30) mmol/L Anion Gap 6 mmol/L BUN 40 H (7-17) mg/dL Creatinine 1.74 H (0.52-1.04) mg/dL Est GFR (CKD-EPI)AfAm 30 (>60 ml/min/1.73 sqM) Est GFR (CKD-EPI)NonAf 26 (>60 ml/min/1.73 sqM) Glucose 115 H (74-99) mg/dL Calcium 8.9 (8.4-10.2) mg/dL Phosphorus 4.2 (2.5-4.5) mg/dL Magnesium 1.6 (1.6-2.3) mg/dL Total Bilirubin 0.7 (0.2-1.3) mg/dL AST 35 (14-36) U/L ALT 12 (4-34) U/L Alkaline Phosphatase 54 (38-126) U/L Total Protein 11.0 H (6.3-8.2) g/dL Albumin 3.5 (3.5-5.0) g/dL Urine Color Colorless Urine Appearance Clear (Clear) Urine pH 7.0 (5.0-8.0) Ur Specific [place] 1.006 (1.001-1.035) Urine Protein Negative (Negative) Urine Glucose (UA) Negative (Negative) Urine Ketones Negative (Negative) Urine Blood Negative (Negative) Urine Nitrite Negative (Negative) Urine Bilirubin Negative (Negative) Urine Urobilinogen <2.0 (<2.0) mg/dL Ur Leukocyte Esterase Negative (Negative) Blood Type O Negative Blood Type Recheck O Neg Bld Type Recheck Status No Antibody Screen NEGATIVE Crossmatch See Detail Spec Expiration Date 01/22/20242304 - Radiology Data Radiology results: report reviewed, image reviewed Disposition Clinical Impression: Acute on chronic anemia, Symptomatic anemia Disposition: ADMITTED IP TO THIS HOSP
[2024-01-19 10:48] LABS: Appearance,Urine Clear (Clear); Bilirubin,Urine Negative (Negative); Blood,Urine Negative (Negative); Color,Urine Colorless; Glucose,Urine (UA) Negative (Negative); Ketones,Urine Negative (Negative); Leukocyte Esterase,Urine Negative (Negative); Nitrite,Urine Negative (Negative); Protein,Urine Negative (Negative); Specific Gravity,Urine 1.006 (1.001-1.035); Urobilinogen,Urine <2.0 mg/dL (<2.0)
[2024-01-19] MEDS: diphenhydrAMINE 50 MG/ML 1 ML VIAL IVP STA (10:48)
[2024-01-19 10:50] LABS: ALT 12 U/L (4-34); African American GFR (CKD) 30 (>60 ml/min/1.73 sqM); Anion Gap 6 mmol/L; Blood Urea Nitrogen 40 mg/dL (7-17); Calcium 8.9 mg/dL (8.4-10.2); Carbon Dioxide 21 mmol/L (22-30); Chloride 112 mmol/L (98-107); Glucose 115 mg/dL (74-99); INR 1.3 (<1.2); Non-African American GFR(CKD) 26 (>60 ml/min/1.73 sqM); Partial Thromboplastin Time 24.1 sec (22.0-30.0); Prothrombin Time 13.2 sec (10.0-12.5); Sodium 139 mmol/L (137-145); Total Bilirubin 0.7 mg/dL (0.2-1.3)
[2024-01-19 10:56] LABS: Anisocytosis Slight; Basophils % (A) 1 %; Eosinophils # (A) 0.1 k/uL (0-0.7); Eosinophils % (A) 3 %; HCT 22.4 % (34.0-46.0); HGB 7.1 gm/dL (11.4-16.0); Hypochromasia Moderate; Lymphocytes % (A) 28 %; MCH 30.7 pg (25.0-35.0); MCHC 31.8 g/dL (31.0-37.0); MCV 96.3 fL (80.0-100.0); Macrocytosis Slight; Mean Platelet Volume 8.5; Monocytes # (A) 0.3 k/uL (0-1.0); Monocytes % (A) 9 %; Neutrophils % (A) 56 %; Platelet Count 181 k/uL (150-450); Poikilocytosis Slight; RBC 2.32 m/uL (3.80-5.40); RDW 17.7 % (11.5-15.5); WBC 3.6 k/uL (3.8-10.6)
[2024-01-19 11:29] LABS: AST 35 U/L (14-36); Albumin 3.5 g/dL (3.5-5.0); Alkaline Phosphatase 54 U/L (38-126); Magnesium 1.6 mg/dL (1.6-2.3); Phosphorus 4.2 mg/dL (2.5-4.5); Potassium 4.5 mmol/L (3.5-5.1)
[2024-01-19] MEDS: SODIUM CHLORIDE 0.9% 1,000 ML IV STA (12:03)
[2024-01-19] MEDS ORDERED: ONDANSETRON 4 MG/2 ML VIAL IVP PRN (14:24)
[2024-01-19] MEDS ORDERED: NALOXONE 0.4 MG/ML 1 ML VIAL IV PRN (14:24)
[2024-01-19] MEDS ORDERED: ACETAMINOPHEN TAB 325 MG TAB PO PRN (14:24)
[2024-01-19] MEDS: MORPHINE SULFATE 4 MG/ML SYRINGE IV PRN (15:11)
[2024-01-19] MEDS ORDERED: NITROGLYCERIN SL TABS 0.4 MG TAB SUBLINGUAL PRN (15:24)
[2024-01-19] MEDS ORDERED: MAGNESIUM HYDROXIDE 2,400 MG/30 ML CUP PO PRN (15:24)
[2024-01-19] MEDS ORDERED: bisacodyL 10 MG SUPP RECTAL PRN (15:24)
[2024-01-19] MEDS ORDERED: ARTIFICIAL TEARS-HYPROMELLOSE DROPS 15 ML BTL BOTH EYES PRN (15:24)
[2024-01-19] MEDS ORDERED: SENNOSIDES 8.6 MG TAB PO PRN (15:24)
[2024-01-19] MEDS ORDERED: NA PHOS,M-B/NA PHOS,DI-BA 133 ML ENEMA RECTAL PRN (15:24)
--- NOTE | 2024-01-19 16:16 | XR ---
EXAMINATION TYPE: XR chest 1V portable DATE OF EXAM: 01/19/2024 COMPARISON: 01/25/2023 HISTORY: CHF TECHNIQUE: Single frontal view of the chest is obtained. FINDINGS: There is mild pulmonary vascular congestion. There is a focal opacity in left midlung which could rep resent pulmonary edema or pneumonia. There is a probable small left effusion. There is no pneumothorax. The osseous structures are grossly intact. IMPRESSION: Findings suggestive of CHF with mild left pulmonary edema and small left effusion. [facility], , 01/19/2024 4:13 PM
[2024-01-19] MEDS: APIXABAN 2.5 MG TABLET PO SCH (17:12)
[2024-01-19] MEDS: HYDROcodone/APAP 7.5-325MG 1 EACH TAB PO SCH (17:13)
[2024-01-19] MEDS: ISOSORBIDE MONONITRATE ER 60 MG TAB.ER.24H PO SCH (17:13)
[2024-01-19] MEDS: TIMOLOL 0.5% OPHTH DROPS 5 ML BTL LEFT EYE SCH (17:29)
[2024-01-19] MEDS: BRIMONIDINE TARTRATE 0.2% DROPS 5 ML BTL LEFT EYE SCH (17:29)
[2024-01-19] MEDS: NEOMYCIN-POLYMYXIN-DEXAMETH OINT 3.5 GM TUBE BOTH EYES SCH (17:32)
[2024-01-19] MEDS: ARTIFICIAL TEARS OINTMENT 3.5 GM TUBE BOTH EYES SCH (17:33)
[2024-01-19] MEDS: DICLOFENAC SODIUM GEL 50 GM TUBE TOPICAL SCH (17:35)
[2024-01-19] MEDS: SODIUM CHLORIDE TAB 1 GM TAB PO SCH (18:39)
--- NOTE | 2024-01-19 22:19 | HP ---
HISTORY AND PHYSICAL CHIEF COMPLAINT: Weakness, leg pain, and as well as anemia. HISTORY OF PRESENT ILLNESS: This is an 88-year-old woman with a past medical history of multiple medical problems including multiple myeloma, was referred from [facility] for weakness and symptomatic anemia. Hemoglobin was found to be 6.2. The patient is also complaining of bilateral leg pain. The patient had multiple transfusions and multiple antibiotics also. There is no history of any fever, rigors, or chills at this time. The patient is extremely hard of hearing and visual difficulties also. PAST MEDICAL HISTORY: History of multiple myeloma, history of CAD, diabetes mellitus type 2. Rest of the history and rest of the chart is also reviewed. HOME MEDICATIONS: Reviewed include Protonix. Doses and rest of medications reviewed. ALLERGIES: Acyclovir. FAMILY HISTORY: No history of heart disease or strokes in the family. SOCIAL HISTORY: No history of smoking or alcohol. REVIEW OF SYSTEMS: Fourteen-point review is negative except as mentioned earlier. PHYSICAL EXAMINATION: VITAL SIGNS: Pulse is 75, blood pressure 173/70, respirations 16. HEENT: Conjunctivae normal. NECK: No JVD. CARDIOVASCULAR: S1, S2. RESPIRATIONS: Breath sounds diminished at the bases. A few scattered rhonchi and crackles. ABDOMEN: Soft. LEGS: No edema. No swelling. NERVOUS SYSTEM: Nonfocal. SKIN: No ulcer, rash, bleeding. JOINTS: No active deforming arthropathy. LABORATORY DATA: WBC 3.2, hemoglobin 7.2. Rest of the labs noted. ASSESSMENT: 1. Severe symptomatic anemia with weakness. 2. Multiple myeloma. 3. Bilateral leg pains, possibly secondary to degenerative joint disease. 4. Diabetes mellitus, type 2. 5. History of congestive heart failure. 6. Cerebrovascular accident, transient ischemic attack. 7. Gait dysfunction. 8. History of coronary artery disease stent. RECOMMENDATIONS AND DISCUSSION: This is an 88-year-old woman who presented with multiple complex medical issues, we will monitor the patient closely. I recommend 1 unit of transfusion. Resume the home medications. Otherwise, symptomatic treatment of the pain and we will perform repeat labs. Monitor renal functions closely. Avoid nephrotoxic medications. Hematology/Oncology consultation. Guarded prognosis. Further recommendations to follow. MMODL / IJN: [id number] /
[2024-01-19] MEDS: LATANOPROST 0.005% OPHTH DROPS 2.5 ML BTL BOTH EYES SCH (22:40)
[2024-01-19] MEDS: diphenhydrAMINE ELIXIR 25 MG/10 ML CUP PO PRN (22:44)
[2024-01-20] MEDS: LEVOTHYROXINE 100 MCG TAB PO SCH (06:25)
[2024-01-20 08:03] LABS: Glucose,Whole Blood 108 mg/dL (70-110)
[2024-01-20 08:37] LABS: Basophils # (A) 0.02 X 10*3/uL (0.00-0.10); Basophils % (A) 0.5 %; Eosinophils # (A) 0.15 X 10*3/uL (0.04-0.35); Eosinophils % (A) 3.8 %; HCT 25.1 % (37.2-46.3); HGB 7.5 g/dL (12.0-15.0); Lymphocytes # (A) 1.35 X 10*3/uL (0.90-5.00); Lymphocytes % (A) 33.8 %; MCH 29.1 pg (27.0-32.0); MCHC 29.9 g/dL (32.0-37.0); MCV 97.3 FL (80.0-97.0); Mean Platelet Volume 10.2 FL (9.5-12.2); Monocytes # (A) 0.46 X 10*3/uL (0.20-1.00); Monocytes % (A) 11.5 %; NRBC Per 100 WBC 0.03 X 10*3/uL (0.00-0.01); Neutrophils # (A) 1.98 X 10*3/uL (1.80-7.70); Neutrophils % (A) 49.6 %; Platelet Count 169 X 10*3/uL (140-440); RBC 2.58 X 10*6/uL (4.10-5.20); RDW 19.1 % (11.5-14.5); WBC 3.99 X 10*3/uL (4.50-10.00)
[2024-01-20 08:47] LABS: BUN/Creat Ratio 22.44 Ratio (12.00-20.00); Blood Urea Nitrogen 35.9 mg/dL (9.0-27.0); Calcium 8.3 mg/dL (8.7-10.3); Carbon Dioxide 21.4 mmol/L (21.6-31.8); Chloride 108 mmol/L (96-109); Glucose 96 mg/dL (70-110); Potassium 3.6 mmol/L (3.5-5.5); Sodium 137 mmol/L (135-145)
[2024-01-20] MEDS: FUROSEMIDE 80 MG TAB PO SCH (09:16)
[2024-01-20] MEDS: PANTOPRAZOLE 40 MG TABLET PO SCH (09:17)
[2024-01-20] MEDS: FERROUS SULFATE 325 MG TAB PO SCH (09:17)
[2024-01-20] MEDS: MULTIVITAMINS, THERA 1 EACH TAB PO SCH (09:17)
[2024-01-20] MEDS: POTASSIUM CHLORIDE ER 20 MEQ TAB.ER PO SCH (09:17)
[2024-01-20] MEDS: METOPROLOL SUCCINATE (ER) 25 MG TAB.ER.24H PO SCH (09:17)
[2024-01-20] MEDS: LOSARTAN 50 MG TAB PO SCH (09:17)
[2024-01-20] MEDS: PANTOPRAZOLE 40 MG/10 ML VIAL IV SCH (09:21)
[2024-01-20] MEDS ORDERED: DEXTROSE 50% SYRINGE 50 ML IVP PRN ×2 (10:25)
[2024-01-20 12:16] LABS: Glucose,Whole Blood 114 mg/dL (70-110)
[2024-01-20] MEDS: INSULIN ASPART (NovoLOG) 100 UNIT/ML VIAL SQ SCH (12:25)
[2024-01-20 15:51] LABS: Ferritin 36.4 ng/mL (10.0-291.0)
--- NOTE | 2024-01-20 16:50 | P.CONS ---
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 Pt was seen in consult several times last year between both of the [facility] for anemia. Pt has Hx of iron deficiency as well. Lab work- up from 2020 revealed elevated light chains and a paraproteinemia. Labs were repeated and immunofixation revealed biclonal IgG protein with lambda specificity and presence of monoclonal free lambda light chain. Serum IgG was 5931. Serum protein electrophoresis revealed M spike of 0.1 and 3.7. Lambda LC 9842, Hardy LC 13.1, ratio 0.001. Labs were resulted after discharge and patient was recommended to follow-up in clinic but stated that [place] hospital and wanted to follow-up closer to home and would follow-up with her PCP for further recommendations. Pt ended up having a bone marrow biopsy which confirmed multiple myeloma. PET/CT was obtained on 11/01/2022 which revealed no suspicious radiotracer activity. Patient follows with Dr. Cancino at [facility]. She has had treatment in the past but, she states she only took "pills" for a short period of time. She has been in and out of the hospital since then, she [facility]. She reports that she has seen Dr. Cancino and is not strong enough for any treatment, she has not been on any treatment for myeloma. She has lab draws and receives supportive transfusions as needed. Pt was transferred from [facility]. She was sent in from LT facility after routine lab work showed anemia, needing blood transfusion, Hgb 6.3. Pt is reported as having significant ab load when blood typing. Pt denies and bleeding, bloody noses, black or bloody stools, hematuria, no unusual bruising. It is documented that she is on 2.5mg eliquis BID, pt is not sure what she takes and states all her meds are documented on her admission med list. She does report leg pain, chronic, not new, actually better today then yesterday. 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, GI BLEED RELATED TO PLAVIX FROM STENT IN 2012, PRBC RECEIVED, right hip hip fracture 2021 Last Myocardial Infarction Date:: 01-22-2014 History of Any Multi-Drug Resistant Organisms: None Reported Past Surgical History: Heart Catheterization With Stent, Orthopedic Surgery Additional Past Surgical History / Comment(s): HEART CATH IN 2012 AND 2013 WITH 6 STENTS total, left ankle, right hip repair/fracture 2021 Past Anesthesia/Blood Transfusion Reactions: No Reported Reaction Date of Last Stent Placement:: 01-22-2014 Past Psychological History: No Psychological Hx Reported Additional Psychological History / Comment(s): Pt resides in [facility]. Smoking Status: Never smoker Past Alcohol Use History: None Reported Past Drug Use History: None Reported - Past Family History Mother Family Medical History: No Reported History Additional Family Medical History / Comment(s): Mother was healthy and worked up until the age of 77yrs. Father Family Medical History: Liver Disease, Renal Disease Medications and Allergies Home Medications Medication Instructions Recorded Confirmed Type Brimonidine Tartrate [Alphagan P 1 drop LEFT EYE BID@0530,1730 02/27/22 01/19/24 History 0.2% Ophth Soln] Isosorbide Mononitrate ER [Imdur] 60 mg PO BID@0800,1700 02/27/22 01/19/24 History Latanoprost [Latanoprost 0.005%] 1 drop BOTH EYES HS 02/27/22 01/19/24 History Levothyroxine Sodium 100 mcg PO DAILY@0600 02/27/22 01/19/24 History Timolol 0.5% Ophth Soln [Timoptic 1 drop LEFT EYE BID@0530,1730 02/27/22 01/19/24 History 0.5% Ophth Soln] Losartan Potassium 100 mg PO DAILY@0800 07/15/22 01/19/24 History Multivitamins, Thera [Multivitamin 1 tab PO DAILY@0800 07/15/22 01/19/24 History (formulary)] Apixaban [Eliquis] 2.5 mg PO BID@0800,1700 01/25/23 01/19/24 History Nitroglycerin Sl Tabs [Nitrostat] 0.4 mg SL Q5M PRN 01/25/23 01/19/24 History Sennosides [Senokot] 17.2 mg PO HS PRN 01/25/23 01/19/24 History Artificial Tears-Hypromellose 1 drop BOTH EYES HS PRN 01/19/24 01/19/24 History [Artificial Tear Drops] Benadryl 12.5mg/5ml 12.5 mg PO Q8H PRN 01/19/24 01/19/24 History Diclofenac Sodium Gel [Voltaren 1% 1 applic TOPICAL BID@0800,1700 01/19/24 01/19/24 History Gel] Ferrous Sulfate [Feosol] 325 mg PO DAILY@1100 01/19/24 01/19/24 History Furosemide [Lasix] 80 mg PO DAILY@0800 01/19/24 01/19/24 History HYDROcodone/APAP 7.5-325MG [[place] 1 tab PO BID@0800,1700 01/19/24 01/19/24 History 7.5-325] Lubricant Eye Ointment 1 applic BOTH EYES 01/19/24 01/19/24 History TID@0800,1300,1800 Magnesium Hydroxide [Milk of 2,400 mg PO DAILY PRN 01/19/24 01/19/24 History Magnesia] Metoprolol Succinate (ER) [Toprol 25 mg PO DAILY@0800 01/19/24 01/19/24 History Xl] Na Phos,M-B/Na Phos,Di-Ba [Fleet 133 ml RECTAL DAILY PRN 01/19/24 01/19/24 History Adult] Kkvvvbem-Aeouwplhe-Rqsrryhi 1 applic BOTH EYES BID@0800,1700 01/19/24 01/19/24 History [Maxitrol Ophth Oint] Pantoprazole [Protonix] 40 mg PO DAILY@0800 01/19/24 01/19/24 History Potassium Chloride 40 meq PO DAILY@0800 01/19/24 01/19/24 History Sodium Chloride Tab 1 gm PO BID@0800,1700 01/19/24 01/19/24 History bisacodyL [Dulcolax] 10 mg RECTAL DAILY PRN 01/19/24 01/19/24 History Allergies Allergy/AdvReac Type Severity Reaction Status Date / Time acyclovir Allergy unknown-Per Verified 01/19/24 13:55 [facility] Physical Exam Vitals: Vital Signs Temp Pulse Resp BP Pulse Ox 01/20/24 06:33 71 17 158/88 97 01/20/24 05:02 58 L 16 156/70 97 01/20/24 00:00 67 17 132/76 01/19/24 18:06 99.0 F 68 18 150/65 97 01/19/24 16:25 99.1 F 80 17 170/81 97 01/19/24 16:05 98.8 F 78 18 166/84 99 01/19/24 15:53 99.2 F 75 16 173/79 96 01/19/24 15:09 97.8 F 79 18 158/85 100 01/19/24 13:24 98.1 F 73 17 139/87 96 01/19/24 12:05 97.7 F 76 18 158/85 99 01/19/24 09:50 98.1 F 74 17 177/83 98 Intake and Output 01/19/24 01/20/24 01/20/24 22:59 06:59 14:59 Intake Total 0 Balance 0 Intake: Blood Product 0 Rc As-1 Unit 0 [id number] Other: Weight 71.6 kg - Constitutional General appearance: average body habitus, cooperative, no acute distress - EENT Eyes: anicteric sclerae, EOMI ENT: hard of hearing - Neck Neck: no lymphadenopathy - Respiratory Respiratory: bilateral: CTA - Cardiovascular Rhythm: regular Heart sounds: normal: S1, S2 Abnormal Heart Sounds: no systolic murmur, no diastolic murmur, no rub, no S3 Gallop, no S4 Gallop, no click, no other leg Peripheral Edema: bilateral: None - Gastrointestinal General gastrointestinal: no absent bowel sounds, no decreased bowel sounds, no distended, no hepatomegaly, no hyperactive bowel sounds, normal bowel sounds, no organomegaly, no rigid, no scaphoid, soft, no splenomegaly, no tenderness, no umbilical hernia, no ventral hernia - Integumentary Integumentary: pale - Neurologic Neurologic: CNII-XII intact - Musculoskeletal Musculoskeletal: generalized weakness, strength equal bilaterally - Psychiatric Psychiatric: A&O x's 3, appropriate affect, intact judgment & insight Results CBC & Chem 7: 01/20/24 02:47 01/20/24 02:47 Labs: Abnormal Lab Results - Last 24 Hours (Table) 01/19/24 01/19/24 01/19/24 Range/Units 10:20 10:26 10:26 WBC 3.6 L (3.8-10.6) k/uL RBC 2.32 L (3.80-5.40) m/uL Hgb 7.1 L (11.4-16.0) gm/dL Hct 22.4 L (34.0-46.0) % MCV (80.0-97.0) FL MCHC (32.0-37.0) g/dL RDW 17.7 H (11.5-15.5) % NRBC/100 WBC Diff (0.00-0.01) X 10*3/uL PT 13.2 H (10.0-12.5) sec INR 1.3 H (<1.2) Chloride (98-107) mmol/L Carbon Dioxide (22-30) mmol/L BUN (7-17) mg/dL Creatinine (0.52-1.04) mg/dL Est GFR (CKD-EPI) (>=60) BUN/Creatinine Ratio (12.00-20.00) Ratio Glucose (74-99) mg/dL Calcium (8.7-10.3) mg/dL Total Protein (6.3-8.2) g/dL Crossmatch See Detail 01/19/24 01/19/24 01/20/24 Range/Units 10: 13:05 02:47 WBC 3.99 L (3.8-10.6) k/uL RBC 2.58 L (3.80-5.40) m/uL Hgb 7.5 L (11.4-16.0) gm/dL Hct 25.1 L (34.0-46.0) % MCV 97.3 H (80.0-97.0) FL MCHC 29.9 L (32.0-37.0) g/dL RDW 19.1 H (11.5-15.5) % NRBC/100 WBC Diff 0.03 H (0.00-0.01) X 10*3/uL PT (10.0-12.5) sec INR (<1.2) Chloride 112 H (98-107) mmol/L Carbon Dioxide 21 L (22-30) mmol/L BUN 40 H (7-17) mg/dL Creatinine 1.74 H (0.52-1.04) mg/dL Est GFR (CKD-EPI) (>=60) BUN/Creatinine Ratio (12.00-20.00) Ratio Glucose 115 H (74-99) mg/dL Calcium (8.7-10.3) mg/dL Total Protein 11.0 H (6.3-8.2) g/dL Crossmatch See Detail 01/20/24 Range/Units 02:47 WBC (3.8-10.6) k/uL RBC (3.80-5.40) m/uL Hgb (11.4-16.0) gm/dL Hct (34.0-46.0) % MCV (80.0-97.0) FL MCHC (32.0-37.0) g/dL RDW (11.5-15.5) % NRBC/100 WBC Diff (0.00-0.01) X 10*3/uL PT (10.0-12.5) sec INR (<1.2) Chloride (98-107) mmol/L Carbon Dioxide 21.4 L (22-30) mmol/L BUN 35.9 H (7-17) mg/dL Creatinine 1.6 H (0.52-1.04) mg/dL Est GFR (CKD-EPI) 31 L (>=60) BUN/Creatinine Ratio 22.44 H (12.00-20.00) Ratio Glucose (74-99) mg/dL Calcium 8.3 L (8.7-10.3) mg/dL Total Protein (6.3-8.2) g/dL Crossmatch Assessment and Plan (1) Chronic anemia Current Visit: Yes Status: Chronic Priority: Medium Code(s): D64.9 - ANEMIA, UNSPECIFIED SNOMED Code(s): 629417860 (2) Multiple myeloma Current Visit: Yes Status: Chronic Priority: High Code(s): C90.00 - MULTIPLE MYELOMA NOT HAVING ACHIEVED REMISSION SNOMED Code(s): 460468651 Plan: Chronic anemia -multifactorial including myeloma, antiplatelet/anticoagulation, CKD. Pt is currently transfusion dependent -Pt reports EGD and colonoscopy recently at [facility], she denies any known pathology -Agree with transfusion to get Hgb to 7 or higher -Pt freq exposure to blood products is going to cause ab formation over time. Ultimately, she will have to be transfused with least incompatible blood. Eventually transfused blood will no longer provide relief for pt and products will no longer be effective in keeping Hgb up. I think pt understood our conversation and the implications. This info will be reinforced with her. -Anemia work up ordered. Multiple myeloma -Per pt her Med Onc states she is not a candidate for treatment, she saw her MD about 1 mo ago -Pt has not been on any treatment for over a year -Pt will cont to follow with Dr. Cancino, cont to have CBC monitored and PRBCs PRN. -MM labs ordered
[2024-01-20 17:04] LABS: Glucose,Whole Blood 114 mg/dL (70-110)
[2024-01-20 20:19] LABS: Glucose,Whole Blood 144 mg/dL (70-110)
[2024-01-20 21:01] LABS: % Iron Saturation 22.22 (12.00-45.00)
[2024-01-20 22:08] LABS: Protein, Total 10.9 g/dL (6.2-8.2)
--- NOTE | 2024-01-21 00:35 | PN ---
PROGRESS NOTE DATE OF SERVICE: 01/20/2024 SUBJECTIVE: This is an 88-year-old woman, who was admitted with significant weakness and symptomatic anemia also. After 1 unit of transfusion, hemoglobin was found to be 7.5. No chest pain. No palpitation. OBJECTIVE: VITAL SIGNS: Pulse is 64, blood pressure 175/84, respirations 16. CHEST: Clear to auscultation. CARDIOVASCULAR: S1, S2. ABDOMEN: Soft. NERVOUS SYSTEM: Nonfocal. LABORATORY DATA: Hemoglobin 7.5. ASSESSMENT: 1. Severe symptomatic anemia with weakness. 2. Multiple myeloma. 3. Bilateral leg pain, possibly secondary to degenerative joint disease. 4. Diabetes mellitus, type 2. 5. Multiple medical issues. RECOMMENDATIONS: Recommend to continue current medications, continue symptomatic treatment. Otherwise, at this time, I recommend 1 more unit of transfusion. Repeat labs tomorrow. Symptomatic treatment. PT, OT evaluation. Increase ambulation. Further recommendations to follow. MMODL / IJN: [id number] /
[2024-01-21 07:14] LABS: Glucose,Whole Blood 109 mg/dL (70-110)
[2024-01-21 10:49] LABS: HCT 29.3 % (37.2-46.3); HGB 9.2 g/dL (12.0-15.0); MCH 29.5 pg (27.0-32.0); MCHC 31.4 g/dL (32.0-37.0); MCV 93.9 FL (80.0-97.0); Mean Platelet Volume 10.4 FL (9.5-12.2); NRBC Per 100 WBC 0 X 10*3/uL (0.00-0.01); Platelet Count 163 X 10*3/uL (140-440); RBC 3.12 X 10*6/uL (4.10-5.20); RDW 18.6 % (11.5-14.5); WBC 3.99 X 10*3/uL (4.50-10.00)
[2024-01-21 10:57] LABS: BUN/Creat Ratio 20.56 Ratio (12.00-20.00); Blood Urea Nitrogen 32.9 mg/dL (9.0-27.0); Calcium 8.6 mg/dL (8.7-10.3); Carbon Dioxide 22.3 mmol/L (21.6-31.8); Chloride 108 mmol/L (96-109); Glucose 98 mg/dL (70-110); Potassium 3.2 mmol/L (3.5-5.5); Sodium 137 mmol/L (135-145)
[2024-01-21 11:19] LABS: Basophils # (A) 0.03 X 10*3/uL (0.00-0.10); Basophils % (A) 0.8 %; Eosinophils # (A) 0.17 X 10*3/uL (0.04-0.35); Eosinophils % (A) 4.3 %; Lymphocytes # (A) 1.19 X 10*3/uL (0.90-5.00); Lymphocytes % (A) 29.8 %; Monocytes # (A) 0.48 X 10*3/uL (0.20-1.00); Neutrophils # (A) 2.08 X 10*3/uL (1.80-7.70); Neutrophils % (A) 52.1 %; RBC Morphology Normal (Normal)
[2024-01-21 12:21] LABS: Glucose,Whole Blood 111 mg/dL (70-110)
[2024-01-21] MEDS: POTASSIUM CHLORIDE ER 20 MEQ TAB.ER PO STA (12:50)
--- NOTE | 2024-01-21 14:45 | P.PN ---
Subjective Progress Note Date: 01/21/24 This is a very pleasant 88-year-old female who was recently admitted with symptomatic anemia along with leg pain and weakness. Patient did receive 1 unit of PRBC and hemoglobin is 7.5 and is status post another unit of PRBC yesterday showing improvements in hemoglobin and currently 9.2 today. Platelets are adequate at 163. Patient with chronic kidney disease, creatinine 1.6, potassium 3.2 and will replace per protocol and sodium within normal limits at 137. Oncology following and undergoing further anemia workup with history of multiple myeloma and reports does not receive any treatment for this. Patient is at [facility] and will be returning there on discharge. Plan is for discharge in the next 24 hours and will follow-up with repeat CBC in the a.m. Review of systems: Constitutional: No reports of fatigue, fever, or chills Cardiovascular: No reports of chest pain or palpitations Respiratory: No reports of shortness of breath or cough GI: No reports of nausea, no reports of vomiting, no diarrhea : No reports of dysuria or retention Neurovascular: reports of generalized weakness, reports leg pain that is chronic but is improved since admission All medications have been reviewed PHYSICAL EXAMINATION: GENERAL: The patient is alert and oriented x4, hard of hearing well developed, well nourished. Elderly appearing, obese HEENT: Pupils are round and equally reacting to light. EOMI. no scleral icterus. No conjunctival pallor. Normocephalic, atraumatic. No pharyngeal erythema. No thyromegaly. CARDIOVASCULAR: S1 and S2 muffled PULMONARY: diminished breath sounds bilaterally with no wheezing or rhonchi noted. ABDOMEN: soft. Nontender on exam. obese. non-distended, normoactive bowel sounds. No palpable organomegaly. MUSCULOSKELETAL: No joint swelling or deformity. EXTREMITIES: No cyanosis, clubbing, or pedal edema. NEUROLOGICAL: Gross neurological examination did not reveal any focal deficits. Diffuse weakness SKIN: No rashes. Assessment: Severe symptomatic anemia with weakness Multiple myeloma history Bilateral leg pain, likely secondary to degenerative joint disease Diabetes mellitus, type II History of heart failure, unknown EF History of coronary artery disease with stenting History of CVA/TIA Obesity with a BMI of 30.8 Hyperlipidemia history Hypertension history Osteoarthritis history GI prophylaxis DVT prophylaxis Full code Plan: Recommend to continue with current medications and management with hematology/oncology following. Further anemia workup in process although labs are pending Patient is status post another unit of PRBCs yesterday and hemoglobin is improved at 9.2 today. No active bleeding noted Plan is for patient to return to [facility] where she resides and patient is extremely anxious to get back home Will monitor overnight repeat CBC and plan for discharge in the next 24 hours Due to significant comorbidities, overall prognosis is guarded The impression and plan of care has been dictated by Breana Lin, nurse practitioner as directed. Dr. Jean MD I have performed a history and examination and MDM of this patient, discussed the same with the dictator, and agree with the dictator's assessment and plan as written ,documented as a scribe. Based on total visit time, I have performed more than 50% of the visit. Any additional findings or plans will be noted. Objective - Vital Signs Vital signs: Vital Signs Temp 97.7 F 01/21/24 07:15 Pulse 67 01/21/24 07:15 Resp 16 01/21/24 07:15 BP 172/77 01/21/24 07:15 Pulse Ox 98 01/21/24 07:15 FiO2 Intake & Output 01/20/24 01/21/24 01/21/24 18:59 06:59 18:59 Intake Total 850 Balance 850 Weight 71.6 kg Intake: Oral 540 Blood Product 310 Rc As-1 Unit 310 [id number] Other: Voiding Method Toilet Toilet # Voids 1 1 1 # Bowel Movements 1 0 - Labs CBC & Chem 7: 01/21/24 05:01 01/21/24 05:01 Labs: Abnormal Lab Results - Last 24 Hours (Table) 01/19/24 01/20/24 01/20/24 Range/Units 13:05 09:13 09:13 WBC (4.50-10.00) X 10*3/uL RBC (4.10-5.20) X 10*6/uL Hgb (12.0-15.0) g/dL Hct (37.2-46.3) % MCHC (32.0-37.0) g/dL RDW (11.5-14.5) % Potassium (3.5-5.5) mmol/L BUN (9.0-27.0) mg/dL Creatinine (0.6-1.5) mg/dL Est GFR (CKD-EPI) (>=60) BUN/Creatinine Ratio (12.00-20.00) Ratio POC Glucose (mg/dL) (70-110) mg/dL Calcium (8.7-10.3) mg/dL Total Protein (PEP) (6.2-8.2) g/dL Vitamin B12 1577.0 H (200.0-944.0) pg/mL Folate 40.00 H (4.40-31.00) ng/mL Crossmatch See Detail 01/20/24 01/20/24 01/20/24 Range/Units 09:13 17:02 20:18 WBC (4.50-10.00) X 10*3/uL RBC (4.10-5.20) X 10*6/uL Hgb (12.0-15.0) g/dL Hct (37.2-46.3) % MCHC (32.0-37.0) g/dL RDW (11.5-14.5) % Potassium (3.5-5.5) mmol/L BUN (9.0-27.0) mg/dL Creatinine (0.6-1.5) mg/dL Est GFR (CKD-EPI) (>=60) BUN/Creatinine Ratio (12.00-20.00) Ratio POC Glucose (mg/dL) 114 H 144 H (70-110) mg/dL Calcium (8.7-10.3) mg/dL Total Protein (PEP) 10.9 H (6.2-8.2) g/dL Vitamin B12 (200.0-944.0) pg/mL Folate (4.40-31.00) ng/mL Crossmatch 01/21/24 01/21/24 Range/Units 05:01 05:01 WBC 3.99 L (4.50-10.00) X 10*3/uL RBC 3.12 L (4.10-5.20) X 10*6/uL Hgb 9.2 L (12.0-15.0) g/dL Hct 29.3 L (37.2-46.3) % MCHC 31.4 L (32.0-37.0) g/dL RDW 18.6 H (11.5-14.5) % Potassium 3.2 L (3.5-5.5) mmol/L BUN 32.9 H (9.0-27.0) mg/dL Creatinine 1.6 H (0.6-1.5) mg/dL Est GFR (CKD-EPI) 31 L (>=60) BUN/Creatinine Ratio 20.56 H (12.00-20.00) Ratio POC Glucose (mg/dL) (70-110) mg/dL Calcium 8.6 L (8.7-10.3) mg/dL Total Protein (PEP) (6.2-8.2) g/dL Vitamin B12 (200.0-944.0) pg/mL Folate (4.40-31.00) ng/mL Crossmatch
[2024-01-21] MEDS: SODIUM FERRIC GLUCONAT-SUCROSE 125 MG in SODIUM CHLORIDE 0.9% 100 ML IVPB SCH (15:44)
[2024-01-21 17:29] LABS: Glucose,Whole Blood 107 mg/dL (70-110)
[2024-01-21 19:56] LABS: Glucose,Whole Blood 111 mg/dL (70-110)
[2024-01-21 20:32] VITALS: RESP 16
[2024-01-21] MEDS: HYDROcodone/APAP 5-325MG 1 EACH TAB PO PRN (21:14)
[2024-01-22 07:05] VITALS: BP 182/81; PULSE 66; TEMP 97.8
[2024-01-22 07:27] LABS: Glucose,Whole Blood 107 mg/dL (70-110)
--- NOTE | 2024-01-22 12:12 | P.DS ---
Providers Date of admission: 01/20/24 14:35 Expected date of discharge: 01/22/24 Attending physician: Indra Cummings MD Consults: 01/19/24 14:24 Consult Physician Urgent Consulting Provider: Garfield Main Consult Reason/Comments: Anemia, multiple myeloma patient Do you want consulting provider notified?: Yes Primary care physician: Ravin Durham MD Hospital Course: Final diagnosis Severe symptomatic anemia with weakness, iron deficiency noted Multiple myeloma history Bilateral leg pain, likely secondary to degenerative joint disease Diabetes mellitus, type II History of heart failure, unknown EF History of coronary artery disease with stenting History of CVA/TIA Obesity with a BMI of 30.8 Hyperlipidemia history Hypertension history Osteoarthritis history GI prophylaxis DVT prophylaxis Full code Discharge disposition Patient is being discharged in a stable condition with guarded prognosis to [facility]. Patient will follow-up with Dr. Durham in the outpatient setting upon discharge. Patient is to continue with daily iron and outpatient follow-up with hematology as scheduled. Recommend repeat CBC in 1 week. Total time taken is greater than 35 minutes. Hospital course This is a 88-year-old female who was recently admitted with severe symptomatic anemia with weakness and leg pain being closely monitored with hematology/oncology following. Patient is status post 2 units of PRBC and hemoglobin is above 9 with no bleeding noted. Patient reports to feeling better and will be going to [facility] on discharge. Patient to continue on daily iron and outpatient labs of CBC in the next few days. Patient to follow- up with hematology outpatient. Patient has been cleared by consultations. Please refer to consultation notes for further HPI. Currently no reports of chest pain, shortness of breath, or palpitations. Patient is afebrile. No reports of nausea or vomiting and patient is tolerating diet. Patient will be going to [facility] today. Overall guarded prognosis given significant comorbidities Physical exam: Gen: This is a 88-year-old female who is awake, alert and oriented x 3, well- developed, elderly appearing, obese HEENT: Head is atraumatic, normocephalic. Pupils equal, round. Sclerae is anicteric. NECK: Supple. No JVD. No lymphadenopathy. No thyromegaly. LUNGS: Diminished breath sounds bilaterally otherwise clear to auscultation. No wheezes or rhonchi. No intercostal retractions. HEART: Regular rate and rhythm. No murmur. ABDOMEN: Soft. Bowel sounds are present. No masses. No tenderness. EXTREMITIES: No pedal edema. No calf tenderness. NEUROLOGICAL: Patient is awake, alert and oriented x3. Cranial nerves 2 through 12 are grossly intact. Diffusely weak Please refer to medication reconciliation sheet for a list of medications. The impression and plan of care has been dictated by Breana Lin, Nurse Practitioner as directed. Dr. Jean MD I have performed a history and examination and MDM of this patient, discussed the same with the dictator, and agree with the dictator's assessment and plan as written ,documented as a scribe. Based on total visit time, I have performed more than 50% of the visit. Patient Condition at Discharge: Fair Plan - Discharge Summary Discharge Rx Participant: No New Discharge Prescriptions: New Acetaminophen Tab [Tylenol] 650 mg PO Q6HR PRN tab PRN Reason: Mild Pain Or Fever > 100.5 HYDROcodone/APAP 5-325MG [Chelan 5-325] 1 each PO Q4HR PRN #2 tab PRN Reason: Moderate Pain (Scale 4 To 6) Pantoprazole Sodium [Protonix] 40 mg PO DAILY #30 tab Continue Timolol 0.5% Ophth Soln [Timoptic 0.5% Ophth Soln] 1 drop LEFT EYE BID@0530,1730 Isosorbide Mononitrate ER [Imdur] 60 mg PO BID@0800,1700 Nitroglycerin Sl Tabs [Nitrostat] 0.4 mg SL Q5M PRN PRN Reason: Chest Pain Apixaban [Eliquis] 2.5 mg PO BID@0800,1700 Artificial Tears-Hypromellose [Artificial Tear Drops] 1 drop BOTH EYES HS PRN PRN Reason: Dry Eye(S) Ferrous Sulfate [Feosol] 325 mg PO DAILY@1100 Furosemide [Lasix] 80 mg PO DAILY@0800 Magnesium Hydroxide [Milk of Magnesia] 2,400 mg PO DAILY PRN PRN Reason: Constipation Sodium Chloride Tab 1 gm PO BID@0800,1700 Levothyroxine Sodium 100 mcg PO DAILY@0600 Latanoprost [Latanoprost 0.005%] 1 drop BOTH EYES HS Brimonidine Tartrate [Alphagan P 0.2% Ophth Soln] 1 drop LEFT EYE BID@0530,1730 Multivitamins, Thera [Multivitamin (formulary)] 1 tab PO DAILY@0800 Losartan Potassium 100 mg PO DAILY@0800 Sennosides [Senokot] 17.2 mg PO HS PRN PRN Reason: Constipation Benadryl 12.5mg/5ml 12.5 mg PO Q8H PRN PRN Reason: Allergy Symptoms Lubricant Eye Ointment 1 applic BOTH EYES TID@0800,1300,1800 bisacodyL [Dulcolax] 10 mg RECTAL DAILY PRN PRN Reason: Constipation Diclofenac Sodium Gel [Voltaren 1% Gel] 1 applic TOPICAL BID@0800,1700 Metoprolol Succinate (ER) [Toprol XL] 25 mg PO DAILY@0800 Na Phos,M-B/Na Phos,Di-Ba [Fleet Adult] 133 ml RECTAL DAILY PRN PRN Reason: Constipation Pelzhsbi-Dryxletel-Arscfvzh [Maxitrol Ophth Oint] 1 applic BOTH EYES BID@0800,1700 Pantoprazole [Protonix] 40 mg PO DAILY@0800 Potassium Chloride 40 meq PO DAILY@0800 Changed HYDROcodone/APAP 7.5-325MG [[place] 7.5-325] 1 tab PO BID@0800,1700 #4 tab Discharge Medication List Brimonidine Tartrate [Alphagan P 0.2% Ophth Soln] 1 drop LEFT EYE BID@0530,1730 02/27/22 [History] Isosorbide Mononitrate ER [Imdur] 60 mg PO BID@0800,1700 02/27/22 [History] Latanoprost [Latanoprost 0.005%] 1 drop BOTH EYES HS 02/27/22 [History] Levothyroxine Sodium 100 mcg PO DAILY@0600 02/27/22 [History] Timolol 0.5% Ophth Soln [Timoptic 0.5% Ophth Soln] 1 drop LEFT EYE BID@0530,1730 02/27/22 [History] Losartan Potassium 100 mg PO DAILY@0800 07/15/22 [History] Multivitamins, Thera [Multivitamin (formulary)] 1 tab PO DAILY@0800 07/15/22 [History] Apixaban [Eliquis] 2.5 mg PO BID@0800,1700 01/25/23 [History] Nitroglycerin Sl Tabs [Nitrostat] 0.4 mg SL Q5M PRN 01/25/23 [History] Sennosides [Senokot] 17.2 mg PO HS PRN 01/25/23 [History] Artificial Tears-Hypromellose [Artificial Tear Drops] 1 drop BOTH EYES HS PRN 01/19/24 [History] Benadryl 12.5mg/5ml 12.5 mg PO Q8H PRN 01/19/24 [History] Diclofenac Sodium Gel [Voltaren 1% Gel] 1 applic TOPICAL BID@0800,1700 01/19/24 [History] Ferrous Sulfate [Feosol] 325 mg PO DAILY@1100 01/19/24 [History] Furosemide [Lasix] 80 mg PO DAILY@0800 01/19/24 [History] Lubricant Eye Ointment 1 applic BOTH EYES TID@0800,1300,1800 01/19/24 [History] Magnesium Hydroxide [Milk of Magnesia] 2,400 mg PO DAILY PRN 01/19/24 [History] Metoprolol Succinate (ER) [Toprol XL] 25 mg PO DAILY@0800 01/19/24 [History] Na Phos,M-B/Na Phos,Di-Ba [Fleet Adult] 133 ml RECTAL DAILY PRN 01/19/24 [History] Oezokjlr-Sbjcoonni-Splikhwk [Maxitrol Ophth Oint] 1 applic BOTH EYES BID@0800,1700 01/19/24 [History] Pantoprazole [Protonix] 40 mg PO DAILY@0800 01/19/24 [History] Potassium Chloride 40 meq PO DAILY@0800 01/19/24 [History] Sodium Chloride Tab 1 gm PO BID@0800,1700 01/19/24 [History] bisacodyL [Dulcolax] 10 mg RECTAL DAILY PRN 01/19/24 [History] Acetaminophen Tab [Tylenol] 650 mg PO Q6HR PRN tab 01/22/24 [Rx] HYDROcodone/APAP 5-325MG [Chelan 5-325] 1 each PO Q4HR PRN #2 tab 01/22/24 [Rx] HYDROcodone/APAP 7.5-325MG [Chelan 7.5-325] 1 tab PO BID@0800,1700 #4 tab 01/22/24 [Rx] Pantoprazole Sodium [Protonix] 40 mg PO DAILY #30 tab 01/22/24 [Rx] Follow up Appointment(s)/Referral(s): Ravin Durham MD [Primary Care Provider] - 1-2 days Activity/Diet/Wound Care/Special Instructions: Patient is going to [facility] Activity as tolerated Continue taking iron tabs and daily Protonix Follow-up with hematology outpatient Follow-up primary care provider on discharge Continue heart healthy diabetic diet Discharge Disposition: TRANSFER TO SNF/ECF
[2024-01-22 12:26] LABS: Glucose,Whole Blood 104 mg/dL (70-110)
[2024-01-22 14:19] LABS: Free Kappa Lt Chain Qnt, Serum 0.57 mg/dL (0.33-1.94); Free Lambda Lt Chain Qnt, Seru 1200.09 mg/dL (0.57-2.63)
[2024-01-22 16:52] LABS: Albumin 3.77 g/dL (3.80-4.90); Gamma Globulin 5.12 g/dL (0.70-1.50)
== END 2024-01-22 14:31 | DRG 842 ==
LOC: EC 09:46 → 5NMEDONC 14:38 → OBSVTOIN 01-20 14:35
PROVIDERS: ADMIT Internal Medicine; ATTEND Internal Medicine
PROC: 30233N1 Transfusion of Nonautologous Red Blood Cells into Peripheral Vein, Percutaneous Approach (ICD-10-PCS; principal; 2024-01-19)
DX: C90.00 Multiple myeloma not having achieved remission (principal); D89.2 Hypergammaglobulinemia, unspecified; E66.9 Obesity, unspecified; Z68.30 Body mass index [BMI] 30.0-30.9, adult; R53.1 Weakness; M19.90 Unspecified osteoarthritis, unspecified site; Z79.890 Hormone replacement therapy; D50.9 Iron deficiency anemia, unspecified; Z86.73 Personal history of transient ischemic attack (TIA), and cerebral infarction without residual deficits; Z95.5 Presence of coronary angioplasty implant and graft; E11.9 Type 2 diabetes mellitus without complications; E78.5 Hyperlipidemia, unspecified; H91.90 Unspecified hearing loss, unspecified ear; I50.9 Heart failure, unspecified; I11.0 Hypertensive heart disease with heart failure; I25.10 Atherosclerotic heart disease of native coronary artery without angina pectoris; I25.2 Old myocardial infarction; Z79.01 Long term (current) use of anticoagulants; Z79.899 Other long term (current) drug therapy; Z86.711 Personal history of pulmonary embolism; Z87.81 Personal history of (healed) traumatic fracture; Z88.8 Allergy status to other drugs, medicaments and biological substances
CPT/HCPCS: 36415; 36430; 51798; 71045; 80048; 80053; 81003; 82607; 82728; 82746; 83036; 83540; 83550; 83735; 83883; 83921; 84100; 84165; 85025; 85610; 85730; 86334; 86850; 86900; 86901; 86920; 93005; 96361; 96374; 96375; 99285

== ENCOUNTER 2024-02-23 11:46 | Observation (INO) | payer MEDICARE, OTHER ==
[2024-02-23 13:10] LABS: Anisocytosis Slight; Basophils % (A) 0 %; Eosinophils # (A) 0.1 k/uL (0-0.7); Eosinophils % (A) 2 %; Hypochromasia Marked; Lymphocytes # (A) 1.7 k/uL (1.0-4.8); Lymphocytes % (A) 29 %; MCH 29.3 pg (25.0-35.0); MCHC 31.3 g/dL (31.0-37.0); MCV 93.5 fL (80.0-100.0); Mean Platelet Volume 8.2; Monocytes # (A) 0.4 k/uL (0-1.0); Monocytes % (A) 8 %; Neutrophils # (A) 3.3 k/uL (1.3-7.7); Neutrophils % (A) 57 %; Platelet Count 146 k/uL (150-450); Poikilocytosis Slight; RBC 2.14 m/uL (3.80-5.40); RDW 17.4 % (11.5-15.5); WBC 5.8 k/uL (3.8-10.6)
[2024-02-23 13:16] LABS: HGB 6.3 gm/dL (11.4-16.0)
[2024-02-23 13:27] LABS: ALT 8 U/L (4-34); AST 15 U/L (14-36); African American GFR (CKD) 19 (>60 ml/min/1.73 sqM); Albumin 3.2 g/dL (3.5-5.0); Alkaline Phosphatase 57 U/L (38-126); Anion Gap 9 mmol/L; Blood Urea Nitrogen 56 mg/dL (7-17); Calcium 8.5 mg/dL (8.4-10.2); Carbon Dioxide 20 mmol/L (22-30); Chloride 112 mmol/L (98-107); Glucose 108 mg/dL (74-99); Non-African American GFR(CKD) 17 (>60 ml/min/1.73 sqM); Potassium 4.3 mmol/L (3.5-5.1); Sodium 141 mmol/L (137-145); Total Bilirubin 0.5 mg/dL (0.2-1.3)
[2024-02-23] MEDS ORDERED: NALOXONE 0.4 MG/ML 1 ML VIAL IV PRN (15:39)
--- NOTE | 2024-02-23 15:39 | ED ---
Weakness HPI - General Chief complaint: Weakness Stated complaint: Abnormal Labs Time Seen by Provider: 02/23/24 11:50 Source: patient, EMS Mode of arrival: EMS Limitations: no limitations - History of Present Illness Initial comments: 88-year-old female who presents emergency department as a transfer from [facility]. Patient has a history of multiple myeloma. She went into [facility] for generalized weakness. Found that the patient was anemic with a hemoglobin of 5.2. She was seen in the emergency department 1 month ago for same complaint and was transfused. She follows with Dr. Main. [facility] was unable to provide blood to the patient as they did not have her blood type and she required transfer. Patient arrives with a heart rate of 40. Denies any shortness of breath. No nausea or vomiting. No falls. Denies any abdominal pain. Denies any black or bloody stools. No other alleviating, precipitating modifying factors - Related Data Home Medications Medication Instructions Recorded Confirmed Brimonidine Tartrate [Alphagan P 1 drop LEFT EYE BID@0530,1730 02/27/22 02/23/24 0.2% Ophth Soln] Isosorbide Mononitrate ER [Imdur] 60 mg PO BID@0800,1700 02/27/22 02/23/24 Latanoprost [Latanoprost 0.005%] 1 drop BOTH EYES HS@199902/27/22 02/23/24 Levothyroxine Sodium 100 mcg PO DAILY@0600 02/27/22 02/23/24 Timolol 0.5% Ophth Soln [Timoptic 1 drop LEFT EYE BID@0530,1730 02/27/22 02/23/24 0.5% Ophth Soln] Losartan Potassium 100 mg PO DAILY@0800 07/15/22 02/23/24 Multivitamins, Thera [Multivitamin 1 tab PO DAILY@0800 07/15/22 02/23/24 (formulary)] Apixaban [Eliquis] 2.5 mg PO BID@0800,1700 01/25/23 02/23/24 Nitroglycerin Sl Tabs [Nitrostat] 0.4 mg SL Q5M PRN 01/25/23 02/23/24 Sennosides [Senokot] 17.2 mg PO HS PRN 01/25/23 02/23/24 Artificial Tears-Hypromellose 1 drop BOTH EYES HS PRN 01/19/24 02/23/24 [Artificial Tear Drops] Benadryl 12.5mg/5ml 12.5 mg PO Q8H PRN 01/19/24 02/23/24 Diclofenac Sodium Gel [Voltaren 1% 1 applic TOPICAL BID@0800,1700 01/19/24 02/23/24 Gel] Ferrous Sulfate [Feosol] 325 mg PO DAILY@1100 01/19/24 02/23/24 Furosemide [Lasix] 80 mg PO DAILY@0800 01/19/24 02/23/24 Lubricant Eye Ointment 1 applic BOTH EYES 01/19/24 02/23/24 TID@0800,1300,1800 Magnesium Hydroxide [Milk of 2,400 mg PO DAILY PRN 01/19/24 02/23/24 Magnesia] Metoprolol Succinate (ER) [Toprol 25 mg PO DAILY@0800 01/19/24 02/23/24 XL] Na Phos,M-B/Na Phos,Di-Ba [Fleet 133 ml RECTAL DAILY PRN 01/19/24 02/23/24 Adult] Vjoiuswx-Ekmlquxxa-Wgittgop 1 applic BOTH EYES BID@0800,1700 01/19/24 02/23/24 [Maxitrol Ophth Oint] Pantoprazole [Protonix] 40 mg PO DAILY@0800 01/19/24 02/23/24 Potassium Chloride 40 meq PO DAILY@0800 01/19/24 02/23/24 Sodium Chloride Tab 1 gm PO BID@0800,1700 01/19/24 02/23/24 bisacodyL [Dulcolax] 10 mg RECTAL DAILY PRN 01/19/24 02/23/24 Mag Hydrox/Aluminum Hyd/Simeth 15 ml PO Q3H PRN 02/23/24 02/23/24 [Mylanta Maximum Strength Liq] Menthol-Camphor Lotion [Sarna 1 applic TOPICAL BID PRN 02/23/24 02/23/24 Lotion 0.5%-0.5%] Previous Rx's Medication Instructions Recorded Acetaminophen Tab [Tylenol] 650 mg PO Q6HR PRN tab 01/22/24 HYDROcodone/APAP 7.5-325MG [[place] 1 tab PO BID@0800,1700 #4 tab 02/24/24 7.5-325] Allergies Allergy/AdvReac Type Severity Reaction Status Date / Time acyclovir Allergy unknown-Per Verified 02/23/24 16:14 [facility] Review of Systems ROS Statement: Those systems with pertinent positive or pertinent negative responses have been documented in the HPI. ROS Other: All systems not noted in ROS Statement are negative. Past Medical History Past Medical History: Coronary Artery Disease (CAD), Cancer, Chest Pain / Angin a, Heart Failure, CVA/TIA, Diabetes Mellitus, GI Bleed, Hyperlipidemia, Hypertension, Myocardial Infarction (UT), Osteoarthritis (OA), Pneumonia Additional Past Medical History / Comment(s): CVA POST STENT TO RCA IN 2012, GI BLEED RELATED TO PLAVIX FROM STENT IN 2012, PRBC RECEIVED, right hip hip fracture 2021 Last Myocardial Infarction Date:: 01-22-2014 History of Any Multi-Drug Resistant Organisms: None Reported Past Surgical History: Heart Catheterization With Stent, Orthopedic Surgery Additional Past Surgical History / Comment(s): HEART CATH IN 2012 AND 2013 WITH 6 STENTS total, left ankle, right hip repair/fracture 2021 Past Anesthesia/Blood Transfusion Reactions: No Reported Reaction Date of Last Stent Placement:: 01-22-2014 Past Psychological History: No Psychological Hx Reported Smoking Status: Never smoker Past Alcohol Use History: None Reported Past Drug Use History: None Reported - Past Family History Mother Family Medical History: No Reported History Additional Family Medical History / Comment(s): Mother was healthy and worked up until the age of 77yrs. Father Family Medical History: Liver Disease, Renal Disease General Exam Limitations: no limitations General appearance: alert, in no apparent distress Head exam: Present: atraumatic, normocephalic, normal inspection Eye exam: Present: normal appearance, PERRL, EOMI. Absent: scleral icterus, conjunctival injection, periorbital swelling ENT exam: Present: normal exam, mucous membranes moist Neck exam: Present: normal inspection. Absent: tenderness, meningismus, lymphadenopathy Respiratory exam: Present: normal lung sounds bilaterally. Absent: respiratory distress, wheezes, rales, rhonchi, stridor Cardiovascular Exam: Present: normal rhythm, bradycardia, normal heart sounds. Absent: systolic murmur, diastolic murmur, rubs, gallop, clicks GI/Abdominal exam: Present: soft, normal bowel sounds. Absent: distended, tenderness, guarding, rebound, rigid Extremities exam: Present: normal inspection, full ROM, normal capillary refill. Absent: tenderness, pedal edema, joint swelling, calf tenderness Back exam: Present: normal inspection Neurological exam: Present: alert, oriented X3, CN II-XII intact Psychiatric exam: Present: normal affect, normal mood Skin exam: Present: warm, dry, intact, normal color. Absent: rash Course Vital Signs 02/23/24 02/23/24 02/23/24 11:47 13:02 14:33 Temperature 98.0 F 98.3 F Pulse Rate 42 L 46 L 41 L Respiratory 20 16 20 Rate Blood Pressure 195/74 176/61 190/68 O2 Sat by Pulse 96 97 97 Oximetry 02/23/24 02/23/24 02/23/24 14:48 15:08 15:38 Temperature 98.4 F 98.3 F 98.4 F Pulse Rate 40 L 39 L 40 L Respiratory 18 20 18 Rate Blood Pressure 180/70 179/74 190/67 O2 Sat by Pulse 97 98 97 Oximetry 02/23/24 02/23/24 02/23/24 16:14 17:04 17:28 Temperature 98.3 F 98.3 F 98.3 F Pulse Rate 41 L 44 L 45 L Respiratory 22 18 22 Rate Blood Pressure 173/78 193/77 188/78 O2 Sat by Pulse 96 97 97 Oximetry 02/23/24 02/23/24 02/23/24 17:45 18:05 18:58 Temperature 98.2 F 98.1 F 98.9 F Pulse Rate 45 L 45 L 42 L Respiratory 22 20 18 Rate Blood Pressure 188/69 185/71 189/76 O2 Sat by Pulse 97 98 Oximetry 02/23/24 02/23/24 02/24/24 19:41 21:14 05:29 Temperature 98.6 F 98 F Pulse Rate 45 L 43 L 43 L Respiratory 14 16 18 Rate Blood Pressure 190/69 167/76 158/80 O2 Sat by Pulse 96 96 98 Oximetry Medical Decision Making - Medical Decision Making Was pt. sent in by a medical professional or institution (, PA, TORCH SHEARER, urgent care, hospital, or intermediate...) When possible be specific @ -Patient sent from [facility] Did you speak to anyone other than the patient for history (EMS, parent, family, police, friend...)? What history was obtained from this source @ -Spoke with transferring physician from [facility] Did you review nursing and triage notes (agree or disagree)? Why? @ -I reviewed and agree with nursing and triage notes Were old charts reviewed (outside hosp., previous admission, EMS record, old EKG, old radiological studies, urgent care reports/EKG's, intermediate records)? Report findings @ -I reviewed the transfer packet from [facility] Differential Diagnosis (chest pain, altered mental status, abdominal pain women, abdominal pain men, vaginal bleeding, weakness, fever, dyspnea, syncope, headache, dizziness, GI bleed, back pain, seizure, CVA, palpatations, mental health, musculoskeletal)? @ -Differential Weakness: Hypoglycemia, shock, sepsis, hyponatremia, anemia, infection, UT, ETOH, adverse medicine reaction, overdose, stroke, this is not meant to be an all-inclusive list. EKG interpreted by me (3pts min.). @ -Yes and demonstrates sinus bradycardia with a rate of 40. KS interval 181. QRS 132. QTc of 476. No acute ST segment elevations or depressions X-rays interpreted by me (1pt min.). @ -None done CT interpreted by me (1pt min.). @ -None done U/S interpreted by me (1pt. min.). @ -None done What testing was considered but not performed or refused? (CT, X-rays, U/S, labs)? Why? @ -None What meds were considered but not given or refused? Why? @ -None Did you discuss the management of the patient with other professionals (sylvia walls i.e. , PA, TORCH SHEARER, lab, RT, psych nurse, home health care social worker, juvenile court liaison, teacher, detention officer, telehealth case manager)? Give summary @ -Spoke with Dr. Pena who will admit the patient Was smoking cessation discussed for >3mins.? @ -No Was critical care preformed (if so, how long)? @ -Yes, 35 minutes for transfusion of blood products Were there social determinants of health that impacted care today? How? (Homelessness, low income, unemployed, alcoholism, drug addiction, transportation, low edu. Level, literacy, decrease access to med. care, snf, rehab)? @ -No Was there de-escalation of care discussed even if they declined (Discuss DNR or withdrawal of care, Hospice)? DNR status @ -No What co-morbidities impacted this encounter? (DM, HTN, Smoking, COPD, CAD, Cancer, CVA, ARF, Chemo, Hep., AIDS, mental health diagnosis, sleep apnea, morbid obesity)? @ -Multiple myeloma Was patient admitted / discharged? Hospital course, mention meds given and route, prescriptions, significant lab abnormalities, going to OR and other pertinent info. @ -Upon arrival patient seen and evaluated in bed 6. Thorough history and physical exam was performed. I did review the transfer packet. We did type and screen the patient. Blood is ordered and prepared for transfusion. Patient will be admitted overnight to recheck her blood counts in the a.m. Undiagnosed new problem with uncertain prognosis? @ -No Drug Therapy requiring intensive monitoring for toxicity (Heparin, Nitro, Insulin, Cardizem)? @ -Blood products Were any procedures done? @ -No Diagnosis/symptom? @ -Acute on chronic anemia, history of multiple myeloma Acute, or Chronic, or Acute on Chronic? @ -Acute on chronic Uncomplicated (without systemic symptoms) or Complicated (systemic symptoms)? @ -Complicated Side effects of treatment? @ -No Exacerbation, Progression, or Severe Exacerbation? @ -Yes Poses a threat to life or bodily function? How? (Chest pain, USA, UT, pneumonia, PE, COPD, DKA, ARF, appy, cholecystitis, CVA, Diverticulitis, Homicidal, Suicidal, threat to staff... and all critical care pts) @ -Yes as patient is severely anemic - Lab Data Result diagrams: 02/24/24 05:17 02/24/24 05:17 Lab Results 02/23/24 02/23/24 02/23/24 Range/Units 13:01 13:02 13:02 WBC 5.8 (3.8-10.6) k/uL RBC 2.14 L (3.80-5.40) m/uL Hgb 6.3 L* (11.4-16.0) gm/dL Hct 20.0 L (34.0-46.0) % MCV 93.5 (80.0-100.0) fL MCH 29.3 (25.0-35.0) pg MCHC 31.3 (31.0-37.0) g/dL RDW 17.4 H (11.5-15.5) % Plt Count 146 L (150-450) k/uL MPV 8.2 Neutrophils % 57 % Lymphocytes % 29 % Monocytes % 8 % Eosinophils % 2 % Basophils % 0 % Neutrophils # 3.3 (1.3-7.7) k/uL Lymphocytes # 1.7 (1.0-4.8) k/uL Monocytes # 0.4 (0-1.0) k/uL Eosinophils # 0.1 (0-0.7) k/uL Basophils # 0.0 (0-0.2) k/uL Hypochromasia Marked Poikilocytosis Slight Anisocytosis Slight Sodium 141 (137-145) mmol/L Potassium 4.3 (3.5-5.1) mmol/L Chloride 112 H (98-107) mmol/L Carbon Dioxide 20 L (22-30) mmol/L Anion Gap 9 mmol/L BUN 56 H (7-17) mg/dL Creatinine 2.49 H (0.52-1.04) mg/dL Est GFR (CKD-EPI)AfAm 19 (>60 ml/min/1.73 sqM) Est GFR (CKD-EPI)NonAf 17 (>60 ml/min/1.73 sqM) Glucose 108 H (74-99) mg/dL Calcium 8.5 (8.4-10.2) mg/dL Iron (50-170) UG/DL TIBC (228-460) UG/DL % Saturation (12.00-45.00) Transferrin (204.0-354.0) mg/dL Ferritin (10.0-291.0) ng/mL Total Bilirubin 0.5 (0.2-1.3) mg/dL AST 15 (14-36) U/L ALT 8 (4-34) U/L Alkaline Phosphatase 57 (38-126) U/L Total Protein 11.0 H (6.3-8.2) g/dL Albumin 3.2 L (3.5-5.0) g/dL Vitamin B12 (200.0-944.0) pg/mL RBC Folate (280 - 791) ng/mL Blood Type O Negative Blood Type Recheck O Neg Bld Type Recheck Status No Antibody Screen NEGATIVE Crossmatch See Detail Spec Expiration Date 02/26/2024 - 230102/23/24 02/23/24 Range/Units 13:02 13:02 WBC (3.8-10.6) k/uL RBC (3.80-5.40) m/uL Hgb (11.4-16.0) gm/dL Hct (34.0-46.0) % MCV (80.0-100.0) fL MCH (25.0-35.0) pg MCHC (31.0-37.0) g/dL RDW (11.5-15.5) % Plt Count (150-450) k/uL MPV Neutrophils % % Lymphocytes % % Monocytes % % Eosinophils % % Basophils % % Neutrophils # (1.3-7.7) k/uL Lymphocytes # (1.0-4.8) k/uL Monocytes # (0-1.0) k/uL Eosinophils # (0-0.7) k/uL Basophils # (0-0.2) k/uL Hypochromasia Poikilocytosis Anisocytosis Sodium (137-145) mmol/L Potassium (3.5-5.1) mmol/L Chloride (98-107) mmol/L Carbon Dioxide (22-30) mmol/L Anion Gap mmol/L BUN (7-17) mg/dL Creatinine (0.52-1.04) mg/dL Est GFR (CKD-EPI)AfAm (>60 ml/min/1.73 sqM) Est GFR (CKD-EPI)NonAf (>60 ml/min/1.73 sqM) Glucose (74-99) mg/dL Calcium (8.4-10.2) mg/dL Iron 43 L (50-170) UG/DL TIBC 253 (228-460) UG/DL % Saturation 17.00 (12.00-45.00) Transferrin 181.0 L (204.0-354.0) mg/dL Ferritin 59.4 (10.0-291.0) ng/mL Total Bilirubin (0.2-1.3) mg/dL AST (14-36) U/L ALT (4-34) U/L Alkaline Phosphatase (38-126) U/L Total Protein (6.3-8.2) g/dL Albumin (3.5-5.0) g/dL Vitamin B12 1138.0 H (200.0-944.0) pg/mL RBC Folate 1,558 H (280 - 791) ng/mL Blood Type Blood Type Recheck Bld Type Recheck Status Antibody Screen Crossmatch Spec Expiration Date Disposition Clinical Impression: Acute on chronic anemia, Multiple myeloma, Bradycardia Disposition: ADMITTED IP TO THIS HOSP Condition: Stable Is patient prescribed a controlled substance at d/c from ED?: No Time of Disposition: 15:39 Decision to Admit Reason: Admit from EC Decision Date: 02/23/24 Decision Time: 15:39
--- NOTE | 2024-02-23 16:25 | XR ---
EXAMINATION TYPE: XR chest 1V portable DATE OF EXAM: 02/23/2024 4:15 PM COMPARISON: None. CLINICAL INDICATION: Female, 88 years old with history of CHF, TECHNIQUE: XR chest 1V portable view(s) obtained. FINDINGS: The heart size is normal. The pulmonary vasculature is somewhat prominent. The lungs are clear. Scoliosis of the thoracic spine is evident. Advanced degenerative changes throughout the bilateral sh oulders. IMPRESSION: 1. Correlate for early volume overload. [facility], , 02/23/2024 4:23 PM
[2024-02-23] MEDS: FUROSEMIDE 10 MG/ML 2 ML VIAL IV ONE ×2 (16:58→21:33)
[2024-02-23] MEDS: HYDROcodone/APAP 7.5-325MG 1 EACH TAB PO ONE (17:54)
--- NOTE | 2024-02-23 18:03 | HP ---
HISTORY AND PHYSICAL CHIEF COMPLAINT: Weakness. HISTORY OF PRESENT ILLNESS: This is an 88-year-old woman with a past medical history of multiple medical problems including multiple myeloma, was complaining of severe weakness. The patient was referred from [facility] and was found to have hemoglobin of 6.2. The patient was admitted for further evaluation and treatment. The patient had multiple antibiotic allergies also. There is no history of any fever, rigors, or chills. PAST MEDICAL HISTORY: Reviewed include multiple myeloma, CAD, CVA, TIA. HOME MEDICATIONS: Reviewed include Bisacodyl, timolol. Doses are not confirmed yet. ALLERGIES: Acyclovir. FAMILY HISTORY: No history of heart disease or strokes in the family. SOCIAL HISTORY: No history of smoking or alcohol. REVIEW OF SYSTEMS: Fourteen-point review is negative except as mentioned earlier. PHYSICAL EXAMINATION: VITAL SIGNS: Pulse is 40, blood pressure is 180/74, respirations 18. HEENT: Conjunctivae pale. NECK: No JVD. CARDIOVASCULAR: S1. S2. RESPIRATIONS: Breath sounds diminished at the bases. A few scattered rhonchi. ABDOMEN: Soft, nontender. LEGS: No edema. NERVOUS SYSTEM: Nonfocal. LABORATORY DATA: Hemoglobin 6.3. ASSESSMENT: 1. Severe anemia, acute on chronic secondary to multiple myeloma. 2. Chronic kidney disease, possibly. 3. History of coronary artery disease. 4. History of congestive heart failure. 5. Diabetes mellitus type 2. 6. Hypertension. 7. Hyperlipidemia. 8. History of degenerative joint disease. 9. Multiple complex medical issues. RECOMMENDATIONS: Recommend to continue current management and continue symptomatic treatment. Otherwise, 2 units of transfusion has been ordered after antibody checking. Hematology, Oncology evaluation. Lasix after transfusion. Resume home medications once they are confirmed. Guarded prognosis because of multiple complex medical issues and further recommendations to follow. See orders for further details. MMODL / IJN: [id number] /
[2024-02-23] MEDS ORDERED: NA PHOS,M-B/NA PHOS,DI-BA 133 ML ENEMA RECTAL PRN (20:18)
[2024-02-23] MEDS ORDERED: bisacodyL 10 MG SUPP RECTAL PRN (20:18)
[2024-02-23] MEDS ORDERED: ARTIFICIAL TEARS-HYPROMELLOSE DROPS 15 ML BTL BOTH EYES PRN (20:18)
[2024-02-23] MEDS ORDERED: ACETAMINOPHEN TAB 325 MG TAB PO PRN (20:18)
[2024-02-23] MEDS ORDERED: SENNOSIDES 8.6 MG TAB PO PRN (20:18)
[2024-02-23] MEDS ORDERED: MAG HYDROX/AL HYDROX/SIMETH 30 ML CUP PO PRN (20:18)
[2024-02-23] MEDS ORDERED: MAGNESIUM HYDROXIDE 2,400 MG/30 ML CUP PO PRN (20:18)
[2024-02-23 20:35] LABS: Anisocytosis Slight; HCT 24.8 % (34.0-46.0); Hypochromasia Moderate; MCH 29.8 pg (25.0-35.0); MCHC 32.4 g/dL (31.0-37.0); MCV 91.9 fL (80.0-100.0); Mean Platelet Volume 8.1; Platelet Count 128 k/uL (150-450); Poikilocytosis Slight; RDW 16.4 % (11.5-15.5); WBC 4.9 k/uL (3.8-10.6)
[2024-02-23 21:10] LABS: Eosinophils # (M) 0.05 k/uL (0-0.7); Lymphocytes # (M) 1.72 k/uL (1.0-4.8); Neutrophils # (M) 2.94 k/uL (1.3-7.7); Neutrophils % (M) 60 %; Nucleated Red Blood Cells 0 /100 WBC (0-0); Total Cells Counted 100
[2024-02-24] MEDS: diphenhydrAMINE ELIXIR 25 MG/10 ML CUP PO PRN (00:54)
[2024-02-24] MEDS: LEVOTHYROXINE 100 MCG TAB PO SCH (05:24)
[2024-02-24] MEDS: BRIMONIDINE TARTRATE 0.2% DROPS 5 ML BTL LEFT EYE SCH (05:38)
[2024-02-24] MEDS: TIMOLOL 0.5% OPHTH DROPS 5 ML BTL LEFT EYE SCH (05:39)
[2024-02-24 09:07] LABS: Blood Urea Nitrogen 49.6 mg/dL (9.0-27.0); Calcium 8.6 mg/dL (8.7-10.3); Carbon Dioxide 20.7 mmol/L (21.6-31.8); Chloride 106 mmol/L (96-109); Glucose 100 mg/dL (70-110); Potassium 3.1 mmol/L (3.5-5.5); Sodium 135 mmol/L (135-145)
[2024-02-24] MEDS: FUROSEMIDE 80 MG TAB PO SCH (09:07)
[2024-02-24] MEDS: LOSARTAN 50 MG TAB PO SCH (09:07)
[2024-02-24] MEDS: HYDROcodone/APAP 7.5-325MG 1 EACH TAB PO SCH (09:08)
[2024-02-24] MEDS: APIXABAN 2.5 MG TABLET PO SCH (09:08)
[2024-02-24] MEDS: PANTOPRAZOLE 40 MG TABLET PO SCH (09:09)
[2024-02-24] MEDS: POTASSIUM CHLORIDE ER 20 MEQ TAB.ER PO SCH (09:09)
[2024-02-24] MEDS: ISOSORBIDE MONONITRATE ER 60 MG TAB.ER.24H PO SCH (09:09)
[2024-02-24] MEDS: MULTIVITAMINS, THERA 1 EACH TAB PO SCH (09:09)
[2024-02-24] MEDS: METOPROLOL SUCCINATE (ER) 25 MG TAB.ER.24H PO SCH (09:11)
[2024-02-24 09:16] LABS: HCT 24.2 % (37.2-46.3); HGB 7.7 g/dL (12.0-15.0); MCH 28.8 pg (27.0-32.0); MCHC 31.8 g/dL (32.0-37.0); MCV 90.6 FL (80.0-97.0); Mean Platelet Volume 10.7 FL (9.5-12.2); NRBC Per 100 WBC 0.04 X 10*3/uL (0.00-0.01); Platelet Count 123 X 10*3/uL (140-440); RBC 2.67 X 10*6/uL (4.10-5.20); RDW 16.9 % (11.5-14.5); WBC 4.65 X 10*3/uL (4.50-10.00)
[2024-02-24] MEDS: ARTIFICIAL TEARS OINTMENT 3.5 GM TUBE BOTH EYES SCH (09:21)
[2024-02-24] MEDS: NEOMYCIN-POLYMYXIN-DEXAMETH OINT 3.5 GM TUBE BOTH EYES SCH (09:21)
[2024-02-24 10:07] LABS: Basophils # (A) 0.02 X 10*3/uL (0.00-0.10); Basophils % (A) 0.4 %; Eosinophils % (A) 2.2 %; Lymphocytes # (A) 1.36 X 10*3/uL (0.90-5.00); Lymphocytes % (A) 29.2 %; Monocytes # (A) 0.52 X 10*3/uL (0.20-1.00); Monocytes % (A) 11.2 %; Neutrophils # (A) 2.58 X 10*3/uL (1.80-7.70); Neutrophils % (A) 55.5 %
[2024-02-24] MEDS: SODIUM CHLORIDE TAB 1 GM TAB PO SCH (12:55)
[2024-02-24 14:26] VITALS: RESP 18
--- NOTE | 2024-02-24 14:56 | P.DS ---
Providers Date of admission: 02/23/24 15:43 Expected date of discharge: 02/24/24 Attending physician: Trinity Pena Consults: 02/23/24 15:39 Consult Physician Urgent Consulting Provider: [facility] Consult Reason/Comments: anemia, hx myeloma Do you want consulting provider notified?: Yes Primary care physician: Ravin Durham MD Hospital Course: Final diagnosis Severe anemia, acute on chronic secondary to multiple myeloma, received 3 units this admission Chronic kidney disease, possibly History of coronary artery disease History of congestive heart failure, not in exacerbation Diabetes mellitus, type II Hypertension history Hyperlipidemia history History of degenerative joint disease GI prophylaxis DVT prophylaxis Full code Discharge disposition Patient is being discharged in a stable condition with guarded prognosis to [place] where she resides. Patient will follow-up with Dr. Durham in the outpatient setting upon discharge. Patient is to continue with current medications and outpatient follow-up with hematology/oncology as scheduled. Total time taken is greater than 35 minutes. Hospital course This is a 88-year-old female who was recently admitted with symptomatic anemia with significant history of multiple myeloma and severe weakness. Patient has been hospitalized a few times over the last few months for symptomatic anemia receiving transfusions. Hemoglobin was 6.2 and is status post 3 units of PRBC this admission. Patient met with hematology and will follow-up in the outpatient setting. Initially problem was traveling and transportation down to [place] and patient not wanting to be continuously hospitalized every time she needs a unit of blood. Patient is agreeable and will follow-up with hematology outpatient on discharge. Currently no reports of chest pain, shortness of breath, or palpitations. Patient is afebrile. No reports of nausea or vomiting and patient is tolerating diet. Patient will be discharged home to [place] today. Guarded prognosis and high risk for readmissions given continued ongoing anemia. Physical exam: Gen: This is a 88-year-old female who is awake, alert and oriented x 3, well-de veloped, elderly appearing, legally blind, hard of hearing HEENT: Head is atraumatic, normocephalic. Pupils equal, round. Sclerae is anicteric. NECK: Supple. No JVD. No lymphadenopathy. No thyromegaly. LUNGS: Diminished breath sounds bilaterally otherwise clear to auscultation. No wheezes or rhonchi. No intercostal retractions. HEART: S1, S2 are muffled ABDOMEN: Soft. Bowel sounds are present. No masses. No tenderness. EXTREMITIES: No pedal edema. No calf tenderness. NEUROLOGICAL: Patient is awake, alert and oriented x3. Cranial nerves 2 through 12 are grossly intact. Please refer to medication reconciliation sheet for a list of medications. The impression and plan of care has been dictated by Breana Lin, Nurse Practitioner as directed. Dr. Jean MD I have performed a history and examination and MDM of this patient, discussed the same with the dictator, and agree with the dictator's assessment and plan as written ,documented as a scribe. Based on total visit time, I have performed more than 50% of the visit. Patient Condition at Discharge: Stable Plan - Discharge Summary New Discharge Prescriptions: Continue Timolol 0.5% Ophth Soln [Timoptic 0.5% Ophth Soln] 1 drop LEFT EYE BID@0530,1730 Isosorbide Mononitrate ER [Imdur] 60 mg PO BID@0800,1700 Nitroglycerin Sl Tabs [Nitrostat] 0.4 mg SL Q5M PRN PRN Reason: Chest Pain Apixaban [Eliquis] 2.5 mg PO BID@0800,1700 Artificial Tears-Hypromellose [Artificial Tear Drops] 1 drop BOTH EYES HS PRN PRN Reason: Dry Eye(S) Ferrous Sulfate [Feosol] 325 mg PO DAILY@1100 Furosemide [Lasix] 80 mg PO DAILY@0800 Magnesium Hydroxide [Milk of Magnesia] 2,400 mg PO DAILY PRN PRN Reason: Constipation Sodium Chloride Tab 1 gm PO BID@0800,1700 Acetaminophen Tab [Tylenol] 650 mg PO Q6HR PRN tab PRN Reason: Mild Pain Or Fever > 100.5 Menthol-Camphor Lotion [Sarna Lotion 0.5%-0.5%] 1 applic TOPICAL BID PRN PRN Reason: Itching HYDROcodone/APAP 7.5-325MG [[place] 7.5-325] 1 tab PO BID@0800,1700 #4 tab Levothyroxine Sodium 100 mcg PO DAILY@0600 Latanoprost [Latanoprost 0.005%] 1 drop BOTH EYES HS@2000 Brimonidine Tartrate [Alphagan P 0.2% Ophth Soln] 1 drop LEFT EYE BID@0530,1730 Multivitamins, Thera [Multivitamin (formulary)] 1 tab PO DAILY@0800 Losartan Potassium 100 mg PO DAILY@0800 Sennosides [Senokot] 17.2 mg PO HS PRN PRN Reason: Constipation Benadryl 12.5mg/5ml 12.5 mg PO Q8H PRN PRN Reason: Allergy Symptoms Lubricant Eye Ointment 1 applic BOTH EYES TID@0800,1300,1800 bisacodyL [Dulcolax] 10 mg RECTAL DAILY PRN PRN Reason: Constipation Diclofenac Sodium Gel [Voltaren 1% Gel] 1 applic TOPICAL BID@0800,1700 Metoprolol Succinate (ER) [Toprol XL] 25 mg PO DAILY@0800 Na Phos,M-B/Na Phos,Di-Ba [Fleet Adult] 133 ml RECTAL DAILY PRN PRN Reason: Constipation Tkxnriqh-Qcmhzjovs-Axdznnra [Maxitrol Ophth Oint] 1 applic BOTH EYES BID@0800,1700 Pantoprazole [Protonix] 40 mg PO DAILY@0800 Potassium Chloride 40 meq PO DAILY@0800 Mag Hydrox/Aluminum Hyd/Simeth [Mylanta Maximum Strength Liq] 15 ml PO Q3H PRN PRN Reason: GERD Discharge Medication List Brimonidine Tartrate [Alphagan P 0.2% Ophth Soln] 1 drop LEFT EYE BID@0530,1730 02/27/22 [History] Isosorbide Mononitrate ER [Imdur] 60 mg PO BID@0800,1700 02/27/22 [History] Latanoprost [Latanoprost 0.005%] 1 drop BOTH EYES HS@199902/27/22 [History] Levothyroxine Sodium 100 mcg PO DAILY@0600 02/27/22 [History] Timolol 0.5% Ophth Soln [Timoptic 0.5% Ophth Soln] 1 drop LEFT EYE BID@0530,1730 02/27/22 [History] Losartan Potassium 100 mg PO DAILY@0800 07/15/22 [History] Multivitamins, Thera [Multivitamin (formulary)] 1 tab PO DAILY@0800 07/15/22 [History] Apixaban [Eliquis] 2.5 mg PO BID@0800,1700 01/25/23 [History] Nitroglycerin Sl Tabs [Nitrostat] 0.4 mg SL Q5M PRN 01/25/23 [History] Sennosides [Senokot] 17.2 mg PO HS PRN 01/25/23 [History] Artificial Tears-Hypromellose [Artificial Tear Drops] 1 drop BOTH EYES HS PRN 01/19/24 [History] Benadryl 12.5mg/5ml 12.5 mg PO Q8H PRN 01/19/24 [History] Diclofenac Sodium Gel [Voltaren 1% Gel] 1 applic TOPICAL BID@0800,1700 01/19/24 [History] Ferrous Sulfate [Feosol] 325 mg PO DAILY@1100 01/19/24 [History] Furosemide [Lasix] 80 mg PO DAILY@0800 01/19/24 [History] Lubricant Eye Ointment 1 applic BOTH EYES TID@0800,1300,1800 01/19/24 [History] Magnesium Hydroxide [Milk of Magnesia] 2,400 mg PO DAILY PRN 01/19/24 [History] Metoprolol Succinate (ER) [Toprol XL] 25 mg PO DAILY@0800 01/19/24 [History] Na Phos,M-B/Na Phos,Di-Ba [Fleet Adult] 133 ml RECTAL DAILY PRN 01/19/24 [History] Edmivtbe-Tbzqehyga-Yneuidda [Maxitrol Ophth Oint] 1 applic BOTH EYES BID@0800,1700 01/19/24 [History] Pantoprazole [Protonix] 40 mg PO DAILY@0800 01/19/24 [History] Potassium Chloride 40 meq PO DAILY@0800 01/19/24 [History] Sodium Chloride Tab 1 gm PO BID@0800,1700 01/19/24 [History] bisacodyL [Dulcolax] 10 mg RECTAL DAILY PRN 01/19/24 [History] Acetaminophen Tab [Tylenol] 650 mg PO Q6HR PRN tab 01/22/24 [Rx] Mag Hydrox/Aluminum Hyd/Simeth [Mylanta Maximum Strength Liq] 15 ml PO Q3H PRN 02/23/24 [History] Menthol-Camphor Lotion [Sarna Lotion 0.5%-0.5%] 1 applic TOPICAL BID PRN 02/23/24 [History] HYDROcodone/APAP 7.5-325MG [[place] 7.5-325] 1 tab PO BID@0800,1700 #4 tab 02/24/24 [Rx] Follow up Appointment(s)/Referral(s): Ravin Durham MD [Primary Care Provider] - 1-2 days [facility] [STAFF PHYSICIAN] - 1 Week Activity/Diet/Wound Care/Special Instructions: Patient is going to [employer] as tolerated Follow-up primary care provider on discharge Follow-up with oncology/hematology outpatient in the next few weeks Discharge Disposition: TRANSFER TO SNF/ECF
[2024-02-24 16:37] LABS: Ferritin 59.4 ng/mL (10.0-291.0)
[2024-02-24 17:17] VITALS: BP 181/63; PULSE 49; TEMP 97.9
[2024-02-24] MEDS ORDERED: LATANOPROST 0.005% OPHTH DROPS 2.5 ML BTL BOTH EYES SCH (20:00)
--- NOTE | 2024-02-24 20:12 | P.CONS ---
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 Pt was seen in consult several times last year between [facility] for anemia. Pt has Hx of iron deficiency as well. Lab work-up from 2020 revealed elevated light chains and a paraproteinemia. Labs were repeated and immunofixation revealed biclonal IgG protein with lambda specificity and presence of monoclonal free lambda light chain. Serum IgG was 5931. Serum protein electrophoresis revealed M spike of 0.1 and 3.7. Lambda LC 9842, [place] LC 13.1, ratio 0.001. Labs were resulted after discharge and patient was recommended to follow-up in clinic but stated that [place] hospital and wanted to follow-up closer to home and would follow-up with her PCP for further recommendations. Pt ended up having a bone marrow biopsy which confirmed multiple myeloma. PET/CT was obtained on 11/01/2022 which revealed no suspicious radiotracer activity. Patient follows with Dr. Cancino at [facility]. She has had treatment in the past but, she states she only took "pills" for a short period of time, and due to a bad rash and overall health treatment was stopped. She was last seen by Dr. Cancino 2 months ago and has continued in observation, and getting biweekly CBC at her [facility], and receives supportive transfusions as needed. Pt was transferred from [facility]. She was sent in from [facility] facility after routine lab work showed anemia, needing blood transfusion, Hgb 6.3 on admit, s/p 2 units prbcs with repat hgb of 8.0. WBC 4.9, plt 128. Pt denies acute bleeding, bloody noses, black or bloody stools, hematuria, no unusual bruising. It is documented that she is on 2.5mg eliquis BID. Reporting improvement in SOB and weakness s/p blood transfusions. During admit last month, myeloma labs showed IgG lambda paraprotein, with significantly elevated lambda light chain, m-spike 4.86. Iron saturation 22.22, ferritin 36.4, folate 40, B12 1577. Review of Systems 10 point ROS is negative except as stated in the HPI Past Medical History Past Medical History: Coronary Artery Disease (CAD), Cancer, Chest Pain / Angina, Heart Failure, CVA/TIA, Diabetes Mellitus, GI Bleed, Hyperlipidemia, Hypertension, Myocardial Infarction ([place]), Osteoarthritis (OA), Pneumonia Additional Past Medical History / Comment(s): CVA POST STENT TO RCA IN 2012, GI BLEED RELATED TO PLAVIX FROM STENT IN 2012, PRBC RECEIVED, right hip hip fracture 2021 Last Myocardial Infarction Date:: 01-22-2014 History of Any Multi-Drug Resistant Organisms: None Reported Past Surgical History: Heart Catheterization With Stent, Orthopedic Surgery Additional Past Surgical History / Comment(s): HEART CATH IN 2012 AND 2013 WITH 6 STENTS total, left ankle, right hip repair/fracture 2021 Past Anesthesia/Blood Transfusion Reactions: No Reported Reaction Date of Last Stent Placement:: 01-22-2014 Past Psychological History: No Psychological Hx Reported Smoking Status: Never smoker Past Alcohol Use History: None Reported Past Drug Use History: None Reported - Past Family History Mother Family Medical History: No Reported History Additional Family Medical History / Comment(s): Mother was healthy and worked up until the age of 77yrs. Father Family Medical History: Liver Disease, Renal Disease Medications and Allergies Home Medications Medication Instructions Recorded Confirmed Type Brimonidine Tartrate [Alphagan P 1 drop LEFT EYE BID@0530,1730 02/27/22 02/23/24 History 0.2% Ophth Soln] Isosorbide Mononitrate ER [Imdur] 60 mg PO BID@0800,1700 02/27/22 02/23/24 History Latanoprost [Latanoprost 0.005%] 1 drop BOTH EYES HS@199902/27/22 02/23/24 History Levothyroxine Sodium 100 mcg PO DAILY@0600 02/27/22 02/23/24 History Timolol 0.5% Ophth Soln [Timoptic 1 drop LEFT EYE BID@0530,1730 02/27/22 02/23/24 History 0.5% Ophth Soln] Losartan Potassium 100 mg PO DAILY@0800 07/15/22 02/23/24 History Multivitamins, Thera [Multivitamin 1 tab PO DAILY@0800 07/15/22 02/23/24 History (formulary)] Apixaban [Eliquis] 2.5 mg PO BID@0800,1700 01/25/23 02/23/24 History Nitroglycerin Sl Tabs [Nitrostat] 0.4 mg SL Q5M PRN 01/25/23 02/23/24 History Sennosides [Senokot] 17.2 mg PO HS PRN 01/25/23 02/23/24 History Artificial Tears-Hypromellose 1 drop BOTH EYES HS PRN 01/19/24 02/23/24 History [Artificial Tear Drops] Benadryl 12.5mg/5ml 12.5 mg PO Q8H PRN 01/19/24 02/23/24 History Diclofenac Sodium Gel [Voltaren 1% 1 applic TOPICAL BID@0800,1700 01/19/24 History Gel] Ferrous Sulfate [Feosol] 325 mg PO DAILY@1100 01/19/24 02/23/24 History Furosemide [Lasix] 80 mg PO DAILY@0800 01/19/24 02/23/24 History Lubricant Eye Ointment 1 applic BOTH EYES 01/19/24 02/23/24 History TID@0800,1300,1800 Magnesium Hydroxide [Milk of 2,400 mg PO DAILY PRN 01/19/24 02/23/24 History Magnesia] Metoprolol Succinate (ER) [Toprol 25 mg PO DAILY@0800 01/19/24 02/23/24 History XL] Na Phos,M-B/Na Phos,Di-Ba [Fleet 133 ml RECTAL DAILY PRN 01/19/24 02/23/24 History Adult] Gissjdol-Cptkxstnp-Xuvmufqi 1 applic BOTH EYES BID@0800,1700 01/19/24 02/23/24 History [Maxitrol Ophth Oint] Pantoprazole [Protonix] 40 mg PO DAILY@0800 01/19/24 02/23/24 History Potassium Chloride 40 meq PO DAILY@0800 01/19/24 02/23/24 History Sodium Chloride Tab 1 gm PO BID@0800,1700 01/19/24 02/23/24 History bisacodyL [Dulcolax] 10 mg RECTAL DAILY PRN 01/19/24 02/23/24 History Acetaminophen Tab [Tylenol] 650 mg PO Q6HR PRN tab 01/22/24 02/23/24 Rx Mag Hydrox/Aluminum Hyd/Simeth 15 ml PO Q3H PRN 02/23/24 02/23/24 History [Mylanta Maximum Strength Liq] Menthol-Camphor Lotion [Sarna 1 applic TOPICAL BID PRN 02/23/24 02/23/24 History Lotion 0.5%-0.5%] HYDROcodone/APAP 7.5-325MG [[place] 1 tab PO BID@0800,1700 #4 tab 02/24/24 Rx 7.5-325] Allergies Allergy/AdvReac Type Severity Reaction Status Date / Time acyclovir Allergy unknown-Per Verified 02/23/24 16:14 [facility] Physical Exam Vitals: Vital Signs Temp Pulse Pulse Resp BP BP Pulse Ox 02/24/24 07:51 98.1 F 44 L 16 188/72 97 02/24/24 05:29 98 F 43 L 18 158/80 98 02/23/24 21:14 98.6 F 43 L 16 167/76 96 02/23/24 19:41 45 L 14 190/69 96 02/23/24 18:58 98.9 F 42 L 18 189/76 02/23/24 18:05 98.1 F 45 L 20 185/71 98 02/23/24 17:45 98.2 F 45 L 22 188/69 97 02/23/24 17:28 98.3 F 45 L 22 188/78 97 02/23/24 17:04 98.3 F 44 L 18 193/77 97 02/23/24 16:14 98.3 F 41 L 22 173/78 96 02/23/24 15:38 98.4 F 40 L 18 190/67 97 02/23/24 15:08 98.3 F 39 L 20 179/74 98 02/23/24 14:48 98.4 F 40 L 18 180/70 97 02/23/24 14:33 98.3 F 41 L 20 190/68 97 02/23/24 13:02 46 L 16 176/61 97 02/23/24 11:47 98.0 F 42 L 20 195/74 96 Intake and Output 11/11/24 11/12/24 11/12/24 22:59 06:59 14:59 Intake Total 591 Balance 591 Intake: Blood Product 591 Rc As-1 Unit 310 [id number] Rc Pheresis 2 As3 Unit 281 [id number] - Constitutional General appearance: average body habitus, no acute distress - EENT Eyes: anicteric sclerae, EOMI ENT: hearing grossly normal - Respiratory Respiratory: bilateral: CTA - Cardiovascular Rhythm: regular - Gastrointestinal General gastrointestinal: soft, no tenderness - Integumentary Integumentary: no cyanotic - Musculoskeletal Musculoskeletal: generalized weakness, strength equal bilaterally - Psychiatric Psychiatric: A&O x's 3 Results CBC & Chem 7: 02/24/24 05:17 02/24/24 05:17 Labs: Abnormal Lab Results - Last 24 Hours (Table) 02/23/24 02/23/24 02/23/24 Range/Units 13:01 13:02 13:02 RBC 2.14 L (3.80-5.40) m/uL Hgb 6.3 L* (11.4-16.0) gm/dL Hct 20.0 L (34.0-46.0) % RDW 17.4 H (11.5-15.5) % Plt Count 146 L (150-450) k/uL Potassium (3.5-5.5) mmol/L Chloride 112 H (98-107) mmol/L Carbon Dioxide 20 L (22-30) mmol/L BUN 56 H (7-17) mg/dL Creatinine 2.49 H (0.52-1.04) mg/dL Est GFR (CKD-EPI) (>=60) BUN/Creatinine Ratio (12.00-20.00) Ratio Glucose 108 H (74-99) mg/dL Calcium (8.7-10.3) mg/dL Total Protein 11.0 H (6.3-8.2) g/dL Albumin 3.2 L (3.5-5.0) g/dL Crossmatch See Detail 02/23/24 02/24/24 Range/Units 20:16 05:17 RBC 2.70 L (3.80-5.40) m/uL Hgb 8.0 L D (11.4-16.0) gm/dL Hct 24.8 L (34.0-46.0) % RDW 16.4 H (11.5-15.5) % Plt Count 128 L (150-450) k/uL Potassium 3.1 L (3.5-5.5) mmol/L Chloride (98-107) mmol/L Carbon Dioxide 20.7 L (22-30) mmol/L BUN 49.6 H (7-17) mg/dL Creatinine 2.0 H (0.52-1.04) mg/dL Est GFR (CKD-EPI) 23 L (>=60) BUN/Creatinine Ratio 24.80 H (12.00-20.00) Ratio Glucose (74-99) mg/dL Calcium 8.6 L (8.7-10.3) mg/dL Total Protein (6.3-8.2) g/dL Albumin (3.5-5.0) g/dL Crossmatch Chest x-ray: report reviewed Assessment and Plan (1) Acute on chronic anemia Status: Acute Priority: High Code(s): D64.9 - ANEMIA, UNSPECIFIED SNOMED Code(s): 758548397 (2) Multiple myeloma Status: Chronic Priority: High Code(s): C90.00 - MULTIPLE MYELOMA NOT HAVING ACHIEVED REMISSION SNOMED Code(s): 296353502 Plan: Chronic anemia -Multifactorial including myeloma, anticoagulation, CKD. Pt is currently alvarez sfusion dependent -Pt reports EGD and colonoscopy in last cpl months at [facility], she denies any known pathology -S/p 2 units PRBCs, hgb improved to 8.0 with an appropriate response -Agree with transfusion to maintain Hgb to 7 or higher -Pt freq exposure to blood products is going to cause ab formation over time. Ultimately, she will have to be transfused with least incompatible blood. Eventually transfused blood will no longer provide relief for pt and products will no longer be effective in keeping Hgb up. -Will repeat nutritional studies Multiple myeloma -Per pt her Med Onc states she is not a candidate for treatment as well as had severe and prolonged rash from treatment. She last saw her oncologist 2 months ago. -Pt has not been on any treatment for over a year -Discussed case with IM team today, inquiring if pt could f/u locally every 4-6 weeks for CBCs/transfusions, so pt can try to avoid hospitalizations and transfers from [place] due to blood type/antibodies previously noted. Discussed the same with patient's daughter today. She wants to speak with family and patient further if they would like to establish care locally. Our contact info was provided -Continue with CBC monitoring and f/u with Dr. Cancino at this time
== END 2024-02-24 18:00 ==
LOC: EC 11:46 → 5NMEDONC 15:43
PROVIDERS: ADMIT Hospitalist; ATTEND Hospitalist
DX: C90.00 Multiple myeloma not having achieved remission (principal); D63.8 Anemia in other chronic diseases classified elsewhere; E78.5 Hyperlipidemia, unspecified; I25.10 Atherosclerotic heart disease of native coronary artery without angina pectoris; I25.2 Old myocardial infarction; I11.0 Hypertensive heart disease with heart failure; I50.9 Heart failure, unspecified; M19.90 Unspecified osteoarthritis, unspecified site; Z79.01 Long term (current) use of anticoagulants; Z79.890 Hormone replacement therapy; Z79.899 Other long term (current) drug therapy; Z86.711 Personal history of pulmonary embolism; Z86.73 Personal history of transient ischemic attack (TIA), and cerebral infarction without residual deficits
CPT/HCPCS: 36430 ×2; 96376; 96374; 99291; 36415; 93005; 86900; 86901; 82747; 80053; 80048; 82607; 82728; 83540; 83550; 85025 ×2; 86850; 86920; 71045; G0378 ×2; P9016 ×2; J1940